=== PATIENT | female | born 1945 | race Caucasian/White ===

== ENCOUNTER 2019-02-20 08:59 | Day surgery (SDC) | payer MEDICARE ==
[2019-02-19 09:16] VITALS: BMI 32.1
[~2019-02-20 08:59] MED LIST: LACTATED RINGERS 1,000 ML IV SCH
[2019-02-20 09:58] VITALS: RESP 16; TEMP 97.5
[2019-02-20] MEDS ORDERED: LIDOCAINE 1% 20 ML VIAL (10MG/ML) FOR IV START INTRADERMA ONE (10:14)
[2019-02-20] MEDS ORDERED: PROPOFOL 10 MG/ML 20 ML VIAL IV ONE (11:36)
[2019-02-20] MEDS ORDERED: LIDOCAINE 1% INJ 10MG/ML (20 ML MDV) ONE (11:36)
[2019-02-20 12:02] VITALS: BP 131/82
--- NOTE | 2019-02-20 12:02 | P.PCN ---
Date of Procedure: 02/20/19 Procedure(s) Performed: BRIEF HISTORY: Patient is a 74-year-old pleasant female, scheduled for an elective colonoscopy as a part of screening for colorectal neoplasia. Recently was noted to have Hemoccult-positive stool. PROCEDURE PERFORMED: Colonoscopy with snare polypectomy. PREOPERATIVE DIAGNOSIS: Screening for colon cancer/Hemoccult-positive stool. IV sedation per Anesthesia. PROCEDURE: After informed consent was obtained, the patient, was brought into the endoscopy unit. IV sedation was administered by Anesthesia under continuous monitoring. Digital rectal examination was normal. Initially the Olympus CF-160 flexible video colonoscope was then inserted in the rectum, gradually advanced into the cecum without any difficulty. Careful examination was performed as the scope was gradually being withdrawn. Ileocecal valve and the appendiceal orifice were visualized and appeared normal. Prep was excellent. Mucosa of the cecum, ascending colon, appeared normal. In the transverse colon there was a 7 mm sessile polyp removed by snare polypectomy. In the sigmoid colon there was a 1 cm polyp removed by snare polypectomy. Rest of the transverse colon, descending colon, sigmoid colon, and rectum appeared normal. I did sigmoidal diverticula seen. Retroflexion was performed in the rectum and no lesions were seen. The patient tolerated the procedure well. IMPRESSION: 7 mm sessile transverse colon polyp status post polypectomy 1 cm sigmoid colon polyp status post snare polypectomy Scattered sigmoid diverticulosis RECOMMENDATIONS: Findings of this examination were discussed with the patient as well as a family. She was advised to follow with the biopsy results. If the biopsy shows adenoma, she can have a repeat colonoscopy in 3 years.
[2019-02-20 12:22] VITALS: PULSE 62
== END 2019-02-20 13:04 | disposition home or self-care (01) ==
LOC: ORWHC2ENDO 08:59
PROVIDERS: ATTEND Internal Medicine Gastroenterology
DX: D12.5 Benign neoplasm of sigmoid colon (principal); D12.3 Benign neoplasm of transverse colon; K57.30 Diverticulosis of large intestine without perforation or abscess without bleeding; I10 Essential (primary) hypertension; E78.5 Hyperlipidemia, unspecified; Z79.899 Other long term (current) drug therapy
CPT/HCPCS: 88305; 45385; J2001; J2704

== ENCOUNTER → 2020-03-29 | Outpatient (CLI) | payer MEDICARE ==
--- NOTE | 2020-03-29 09:05 | XR ---
EXAMINATION TYPE: XR chest 2V DATE OF EXAM: 03/29/2020 COMPARISON: NONE TECHNIQUE: PA and lateral views submitted. HISTORY: Cough FINDINGS: The lungs are clear and there is no pneumothorax, pleural effusion, or focal pneumonia. No overt fa ilure. Biapical pleural thickening. Hypertrophic and degenerative change of the spine. IMPRESSION: 1. No acute process.
== END | disposition home or self-care (01) ==
LOC: RADXRMAIN 08:41
PROVIDERS: ATTEND Internal Medicine
DX: R59.0 Localized enlarged lymph nodes (principal); R63.4 Abnormal weight loss
CPT/HCPCS: 71046

== ENCOUNTER → 2020-04-05 | Outpatient (CLI) | payer MEDICARE ==
--- NOTE | 2020-04-06 08:01 | CT ---
EXAMINATION TYPE: CT abdomen pelvis w con DATE OF EXAM: 04/05/2020 HISTORY: Abdominal pain and weight loss. CT DLP: 972.2mGycm Automated Exposure Control for Dose Reduction was Utilized. CONTRAST: CT scan of the abdomen and pelvis is performed without oral but with IV Contrast, patient injected wi th 120ml mL of Isovue 370. COMPARISON: None. FINDINGS: LUNG BASES: Dependent atelectasis. Three-vessel coronary artery calcification which is noted marked u nderlying coronary artery disease. LIVER/GB: No significant abnormality is appreciated. PANCREAS: No significant abnormality is seen. SPLEEN: Fairly prominent splenomegaly measuring 17.3 cm long axis coronal image 83. Heterogeneous are as of hypodensity or diminished perfusion noted reference posterior mid aspect coronal image 98. ADRENALS: No significant abnormality is seen. KIDNEYS: Symmetric corticomedullary uptake without visualized excretion. No hydronephrosis is noted b ilaterally however. Simple appearing 1.8 cm thin-walled cyst posteriorly upper pole of right kidney i mage 42 series 5. BOWEL: No suspicious small or large bowel dilatation. Mild wall thickening sigmoid rectal colon pres ent prior to poor distention. UTERUS/ADNEXA: Anteverted uterus. LYMPH NODES: Abnormal adenopathy throughout the abdomen and pelvis multiple prominent retroperitoneal level. Reference series 3.6 x 2.8 cm lymph node anterior to the abdominal aorta maximally 62 within the mid abdomen. There are scattered abnormal prominent mesenteric lymph nodes. 4 represents a 1.7 x 1.4 cm right mid mesenteric lymph node is noted axial image 84. There are abnormal pelvic iliac chain lymph nodes. For reference 2.7 x 1.8 cm lymph node noted right pelvis axial image 116. There are abn ormal enlarged bilateral groin lymph nodes. Reference left groin lymph node measures 2.0 x 1.7 cm max imum 153. There are abnormal retrocrural lymph nodes just above the diaphragm. OSSEOUS STRUCTURES: Dextroconvex scoliotic curvature centered at L3 level with moderate multilevel s purring and multilevel disc space narrowing. Multilevel facet arthropathy in the lower lumbar spine. OTHER: No significant additional abnormality is seen. IMPRESSION: Splenomegaly with abnormal adenopathy above and below diaphragm strongly suspicious for n eoplasm such as lymphoma. Advise hematology oncology referral for further workup and treatment. A Yellow level critical message alert has been initiated for Chema Garcia MD via the [employer] Critical Results System on 04/06/2020 7:59 AM. This message alert has been sent to Chema Garcia MD via the preferences provided by the clinician for the receipt of Radiology Critical Findings. Message ID [id number].
== END | disposition home or self-care (01) ==
LOC: RADCTMAIN 16:16
PROVIDERS: ATTEND Internal Medicine
DX: R16.1 Splenomegaly, not elsewhere classified (principal); R59.9 Enlarged lymph nodes, unspecified; R63.4 Abnormal weight loss
CPT/HCPCS: 74177; Q9967

== ENCOUNTER → 2020-04-11 | Outpatient (CLI) | payer MEDICARE | END | disposition home or self-care (01) | LOC: LABPAT 11:00 | PROVIDERS: ATTEND Surgery | DX: U07.1 COVID-19 (principal) ==

== ENCOUNTER 2020-04-14 11:42 | Day surgery (SDC) | payer MEDICARE ==
[2020-04-13 12:51] VITALS: BMI 28.0
[~2020-04-14 11:42] MED LIST changes: -LACTATED RINGERS 1,000 ML IV SCH; +Pre Op ABX Message 1 EACH MISC MISCELLANE ONE
[2020-04-14 12:20] VITALS: TEMP 97
[2020-04-14] MEDS ORDERED: LACTATED RINGERS 1,000 ML IV ONE (12:25)
[2020-04-14] MEDS ORDERED: MIDAZOLAM 2 MG/2 ML VIAL ONE (14:10)
[2020-04-14] MEDS ORDERED: PROPOFOL 10 MG/ML 20 ML VIAL IV ONE (14:10)
[2020-04-14] MEDS ORDERED: LIDOCAINE 1% INJ 10MG/ML (20 ML MDV) ONE (14:10)
[2020-04-14] MEDS ORDERED: fentaNYL (PF) 50 MCG/ML 2 ML AMP ONE (14:10)
[2020-04-14] MEDS ORDERED: KETAMINE 10 MG/ML 20 ML VIAL ONE (14:10)
[2020-04-14] MEDS ORDERED: BUPIVACAIN-EPI 0.25%-1:200,000 30 ML VIAL SQ ONE ×2 (14:33)
--- NOTE | 2020-04-14 15:04 | P.OP ---
Date of Procedure: 04/14/20 Preoperative Diagnosis: Cervical lymphadenopathy Postoperative Diagnosis: Cervical lymphadenopathy Procedure(s) Performed: Deep cervical lymph node biopsy Anesthesia: local Surgeon: Manuela Cabello Pathology: other (Lymph node 2) Condition: stable Disposition: same day Indications for Procedure: 75-year-old female presented to the surgery clinic secondary to recent finding of lymphadenopathy and concern for lymphoma by her primary care physician. Secondary to this, plan was for cervical lymph node biopsy. The patient was explained the risks, benefits and alternatives to the procedure did provide her consent prior to attending the operating suite. Operative Findings: Extremely friable lymphadenopathy in cervical region Description of Procedure: The patient was brought into the operating suite and placed in supine position on the operating table. Sedation was provided by anesthesia and the patient was prepped and draped in regular sterile fashion. The palpable lymphadenopathy was noted. Local anesthetic was administered and an incision was made in the cervical region. Dissection was carried towards the palpable lymphadenopathy. The lymph node was dissected free from the surrounding tissue and was noted to be extremely friable. Additional lymph node was also palpated and was dissected free from surrounding tissue. This lymph node was also noted to be extremely friable. Both lymph nodes were sent as specimen for evaluation. Hemostasis was noted to be maintained. The wound was then closed in layers with 301 4-0 Vicryl subcuticular suture. Sterile dressing was applied. The patient was taken to postanesthesia care unit in stable condition.
[2020-04-14 15:35] VITALS: BP 108/62; PULSE 67; RESP 20
== END 2020-04-14 16:00 | disposition home or self-care (01) ==
LOC: OR 11:42
PROVIDERS: ATTEND Surgery
DX: C82.31 Follicular lymphoma grade IIIa, lymph nodes of head, face, and neck (principal); I10 Essential (primary) hypertension; E78.5 Hyperlipidemia, unspecified; Z79.82 Long term (current) use of aspirin; Z79.899 Other long term (current) drug therapy
CPT/HCPCS: 88305; 38510; J2250; J2001; J3010; J2704; 88341; 88342

== ENCOUNTER → 2020-04-15 | Outpatient (CLI) | payer MEDICARE ==
--- NOTE | 2020-04-19 20:33 | PE ---
EXAMINATION TYPE: PET CT fusion skull to thigh DATE OF EXAM: 04/15/2020 CLINICAL HISTORY: 75-year-old female C85.88, initial staging lymphoma diagnosed by a left neck biopsy on 04/14/2020. TECHNIQUE: Following the intravenous administration of 11.53 mCi of F-18 FDG, whole body images are performed from the skull base to the midthigh. Images are reviewed on the computer in the coronal, axial, and sagittal planes. Reconstructed rotating images are created on independent workstation and reviewed on the computer. A localization and attenuation correction CT is performed in conjunction with the PET scan. Glucose level: 82 mg/dL COMPARISON: Correlation CT abdomen and pelvis 04/05/2020 FINDINGS: PET: NECK: There is diffuse cervical lymphadenopathy including the bilateral parotid spaces measuring up t o 1.2 cm and along the cervical chains measuring up to 2.5 cm on the left. Supraclavicular lymphadeno nikkie measuring up to 2.7 cm on the right. Max SUV 13.4. Increased uptake left greater than right adenoid soft tissues as well as the right greater than left bilateral palatine tonsils. Max SUV 14.1. CHEST: There is diffuse thoracic lymphadenopathy involving the bilateral axilla with nodes measuring up to 2.3 cm on the left, right internal mammary chain measuring up to 1.0 cm axial image 109, right paratracheal measuring up to 2.1 cm, subcarinal measuring 4.3 cm, lower paraaortic measuring up to 1. 1 cm, and retrocrural measuring up to 1.2 cm. Increased activity also noted involving smaller nodes a t the freddy. Max SUV 12.7 located in the superior mediastinum. Nonspecific 8 mm medial right basilar pulmonary nodule, axial image 109 likely too small for adequate PET characterization. 3 mm right mid lung pulmonary nodule is nonspecific and too small for adequate PET characterization. 1.1 cm subpleural nodule right posteromedial lung base, axial image 109 shows mild uptake. ABDOMEN: Average liver SUV: 1.8. The spleen is enlarged measuring 18.2 cm with moderate diffuse increased uptake. Foci of more intense uptake along the lower pole, max SUV 5.8. Diffuse portahepatic, gastrohepatic (measuring up to 2.0 cm), retroperitoneal (with a left para-aorti c norma mass measuring up to 5.2 x 3.5 cm axial image 158), and numerous mesenteric lymph nodes measu ring up to 1.3 cm. Max SUV 8.2 abbi hepatic, 10.7 retroperitoneal, and 5.3 mesenteric. PELVIS: Bilateral inguinal and upper femoral chain lymphadenopathy measuring up to 2.4 cm on the left , max SUV 5.6. External iliac chain lymphadenopathy measuring up to 1.5 cm on the left and 1.7 cm on the right, max SUV 9.4. Bilateral common iliac chain lymphadenopathy measuring up to 2.[address]: Visualized paranasal sinuses and mastoid air cells appear clear. There is narrowing of the oropharynx due to the palatine tonsillar hypertrophy. Air within the left parotid space likely relating to rece nt lymph node excision. Heart normal size without pericardial effusion. Three-vessel coronary artery calcifications are prese nt. 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 Mild biapical pleural-parenchymal scarring. No consolidation or pleural effusion. Gallstones. Gallbladder is collapsed. 1.7 cm cyst upper pole right kidney. No dilated small bowel, fr ee fluid, or free air. Mild atherosclerotic calcifications abdominal aorta. No significant stool adrienne en. No pericolonic inflammatory change. Sigmoid diverticulosis. Bladder nondistended. Uterus anteverted and small. Both ovaries are also small. No abnormal fluid col lection the pelvis. Bones: Mild degenerative change at the hips. Degenerated dextroconvex curvature of the lumbar spine. Cervical spondylosis. No osseous destructive process seen. IMPRESSION: 1. Diffuse hypermetabolic cervical, thoracic, retroperitoneal, mesenteric, iliac chain, inguinal daniela n, and upper femoral chain lymphadenopathy in keeping with lymphoma. Retroperitoneal norma mass measu res up to 5.2 cm. Additional sites of lymphoid tissue are hypermetabolic including the nasopharynx, p alatine tonsils, and spleen which is enlarged at 18.2 cm. 2. Some oropharyngeal airway narrowing secondary to the palatine tonsillar hypertrophy. 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 3. A couple pulmonary nodules on the right measuring up to 8 mm are too small for adequate PET charac terization and should be reassessed at follow-up. 4. Incidental: CAD, cholelithiasis, and sigmoid diverticulosis.
== END | disposition home or self-care (01) ==
LOC: RADPETMAIN 14:58
PROVIDERS: ATTEND Internal Medicine
DX: C85.88 Other specified types of non-Hodgkin lymphoma, lymph nodes of multiple sites (principal)
CPT/HCPCS: 78815; A9552

== ENCOUNTER → 2020-07-21 | Outpatient (CLI) | payer MEDICARE ==
--- NOTE | 2020-07-22 11:30 | CT ---
EXAMINATION TYPE: CT ChestAbdPelvis w con DATE OF EXAM: 07/21/2020 INDICATION: Lymphoma COMPARISON: PET CT 04/15/2020 CT DLP: 858.4 mGycm CONTRAST: Performed with Oral Contrast and with IV Contrast, patient injected with 100 mL of Isovue 300. TECHNIQUE: Axial images at 5 mm thick sections. Reconstructed images in the coronal plane. Delayed images through the kidneys. FINDINGS: CT CHEST: Portion of the thyroid visualized is normal. There is some apical scarring bilaterally. No enlarged mediastinal or hilar adenopathy is evident. A few shotty nodes are present. The ascending aorta diameter at the level of the main pulmonary artery is 3.3 cm. The main pulmonary artery diameter at the bifurcation is 2.[address] ABDOMEN: Liver: Normal Spleen: Normal Pancreas: Atrophic Adrenal glands: The adrenal glands are normal. Gallbladder: Cholelithiasis. Kidneys: No masses are evident. No hydronephrosis is present. There is a 2.1 cm posterior right zina al cyst measuring 9 Hounsfield units. Delayed images were obtained through the kidneys, which remain unremarkable. Aorta: Vascular calcification is within the aorta. Inferior vena cava: Normal. CT PELVIS: Loops of bowel within the abdomen and pelvis are normal. Scattered diverticuli within the sigmoid co dona. There are loops of bowel which are incompletely distended or lack oral contrast limiting their evaluation. Appendix: Normal as visualized. Urinary bladder: Normal. Genitourinary structures: Uterus is unremarkable. Adnexal regions are clear. Osseous structures: No suspicious lytic or sclerotic lesions. Lobes: There is enlarged. Aortic lymph nodes. Example image 1.5 cm transverse dimension series 3 imag e 74. Additional smaller scattered lymph nodes are present. No subcrural adenopathy is evident. COMPARISON:Previous enlarged axillary and mediastinal lymphadenopathy has resolved. Retrocrural adeno nikkie has resolved. The periaortic and retrocaval adenopathy is significantly diminished over the int erval inguinal adenopathy is improved. Bilateral Obturator canal adenopathy has resolved. IMPRESSIONS: 1. Residual prominent periaortic lymph node upper periaortic region is diminished in size from compar barney. 2. Some residual lymphadenopathy remains in the inguinal region, not enlarged by CT criteria. 3. Remaining comparative areas within the mediastinum and axillary regions and retrocaval retrocrural adenopathy is largely resolved. 4. Cholelithiasis.
== END | disposition home or self-care (01) ==
LOC: RADCTMAIN 10:32
PROVIDERS: ATTEND Internal Medicine Hematology & Oncology
DX: R59.0 Localized enlarged lymph nodes (principal); K80.20 Calculus of gallbladder without cholecystitis without obstruction; C85.98 Non-Hodgkin lymphoma, unspecified, lymph nodes of multiple sites
CPT/HCPCS: 82565; 84520; 71260; 74177; 36415; Q9967

== ENCOUNTER → 2020-09-13 | Outpatient (CLI) | payer MEDICARE ==
[2020-09-13 14:33] LABS: African American GFR (CKD) >90 (>60 ml/min/1.73 sqM); Blood Urea Nitrogen 15 mg/dL (7-17); Non-African American GFR(CKD) 87 (>60 ml/min/1.73 sqM)
--- NOTE | 2020-09-13 16:10 | CT ---
EXAMINATION TYPE: CT ChestAbdPelvis w con DATE OF EXAM: 09/13/2020 COMPARISON: 07/21/2020 HISTORY: Follow up for lymphoma CT DLP: 788.7 mGycm CONTRAST: CT scan of the chest, abdomen and pelvis is performed with Oral Contrast and with IV Contrast, patien t injected with 100 mL of Isovue 300. CT Chest: LUNGS: The lungs are clear and free of infiltrate or atelectasis. No pulmonary nodule or mass is det ected. No pleural effusion or CT evidence of interstitial lung disease. MEDIASTINUM: Thoracic aorta is of normal caliber. The heart is not enlarged. No evidence for media stinal mass or adenopathy. HILAR STRUCTURES: No evidence for mass. No hilar adenopathy is appreciated. OTHER: No significant abnormality. CONTRAST CT ABDOMEN AND PELVIS FINDINGS: LIVER/GB: Calcified gallstones noted. No space occupying hepatic lesion. Biliary tree is of normal ca liber. PANCREAS: No inflammation. No distinct mass. SPLEEN: No splenic enlargement. No lesion seen. ADRENALS: No nodule. No thickening. KIDNEYS/BLADDER: No hydronephrosis. No nephrolithiasis. No disctinct renal mass. BOWEL: Normal appendix. Normal bowel caliber. No inflammation. GENITAL ORGANS: No gross abnormality. LYMPH NODES: No greater than 1cm abdominal or pelvic lymph nodes are appreciated. AORTA: No significant abnormality. OSSEOUS STRUCTURES: No significant abnormality is seen. OTHER: No significant additional abnormality is seen. IMPRESSION: 1. No evidence for adenopathy at this time throughout the chest abdomen and pelvis.
== END | disposition home or self-care (01) ==
LOC: RADCTMAIN 13:42
PROVIDERS: ATTEND Internal Medicine Hematology & Oncology
DX: C85.98 Non-Hodgkin lymphoma, unspecified, lymph nodes of multiple sites (principal)
CPT/HCPCS: 82565; 84520; 71260; 74177; 36415; Q9967

== ENCOUNTER → 2020-11-03 | Outpatient (CLI) | payer MEDICARE ==
[~2020-11-03] MED LIST changes: +FAMOTIDINE 20 MG/2 ML VIAL IV NR; -Pre Op ABX Message 1 EACH MISC MISCELLANE ONE; +RITUXIMAB PVVR IV NR; +SODIUM CHLORIDE 0.9% 500 ML 500 ML in EMPTY BAG 1 BAG IV PRN; +SODIUM CHLORIDE 0.9% IV NR; +diphenhydrAMINE 50 MG/ML 1 ML VIAL IVP NR; +methylPREDNISolone SOD SUCCI 125 MG/2 ML VIAL IV NR
[2020-11-03 09:08] VITALS: RESP 16; TEMP 98.3
[2020-11-03 09:43] LABS: Basophils % (A) 1 %; Eosinophils # (A) 0.3 k/uL (0-0.7); Eosinophils % (A) 4 %; HCT 38.4 % (34.0-46.0); HGB 12.7 gm/dL (11.4-16.0); Lymphocytes # (A) 1.2 k/uL (1.0-4.8); Lymphocytes % (A) 19 %; MCH 31.1 pg (25.0-35.0); MCHC 33.2 g/dL (31.0-37.0); MCV 93.9 fL (80.0-100.0); Mean Platelet Volume 6.7; Monocytes # (A) 0.5 k/uL (0-1.0); Monocytes % (A) 8 %; Neutrophils % (A) 65 %; Platelet Count 314 k/uL (150-450); RBC 4.08 m/uL (3.80-5.40); RDW 13.6 % (11.5-15.5); WBC 6.1 k/uL (3.8-10.6)
[2020-11-03 11:53] VITALS: BP 130/76; PULSE 82
== END | disposition home or self-care (01) ==
LOC: PROCWHC3 08:41
PROVIDERS: ATTEND Internal Medicine Hematology & Oncology
DX: C85.98 Non-Hodgkin lymphoma, unspecified, lymph nodes of multiple sites (principal)
CPT/HCPCS: 85025; 96365; 96366; 96375; 36415; J1200; J2930; Q5119

== ENCOUNTER → 2020-12-29 | Outpatient (CLI) | payer MEDICARE ==
[2020-12-29 09:56] VITALS: TEMP 98.1
[2020-12-29 10:59] LABS: Basophils % (A) 0 %; Eosinophils # (A) 0.2 k/uL (0-0.7); Eosinophils % (A) 3 %; HCT 36.9 % (34.0-46.0); HGB 12.4 gm/dL (11.4-16.0); Lymphocytes # (A) 0.8 k/uL (1.0-4.8); Lymphocytes % (A) 16 %; MCH 30.2 pg (25.0-35.0); MCHC 33.7 g/dL (31.0-37.0); MCV 89.6 fL (80.0-100.0); Monocytes # (A) 0.5 k/uL (0-1.0); Monocytes % (A) 9 %; Neutrophils # (A) 3.8 k/uL (1.3-7.7); Neutrophils % (A) 70 %; Platelet Count 275 k/uL (150-450); RBC 4.12 m/uL (3.80-5.40); RDW 13.4 % (11.5-15.5); WBC 5.4 k/uL (3.8-10.6)
[2020-12-29 11:55] VITALS: BP 131/74; PULSE 61; RESP 18
== END ==
LOC: PROCWHC3 09:44
PROVIDERS: ATTEND Internal Medicine Hematology & Oncology
DX: C85.98 Non-Hodgkin lymphoma, unspecified, lymph nodes of multiple sites (principal)
CPT/HCPCS: 85025; 96375; 96413; 96415; 36415; J1200; J2930; Q5119

== ENCOUNTER → 2021-01-10 | Outpatient (CLI) | payer MEDICARE ==
[2021-01-10 11:33] LABS: African American GFR (CKD) >90 (>60 ml/min/1.73 sqM); Blood Urea Nitrogen 13 mg/dL (7-17); Non-African American GFR(CKD) 87 (>60 ml/min/1.73 sqM)
--- NOTE | 2021-01-10 13:33 | CT ---
EXAMINATION TYPE: CT ChestAbdPelvis w con DATE OF EXAM: 01/10/2021 COMPARISON: CT September 13, [address] and PET-CT studies. HISTORY: Non-Hodgkin lymphoma originally diagnosed 2019 above and below diaphragm. CT DLP: 1437 mGycm. Automated Exposure Control for Dose Reduction was Utilized. CONTRAST: CT scan of the thorax, abdomen and pelvis is performed with oral and with IV Contrast, patient inject ed with 100 mL of Isovue M300. FINDINGS: LUNGS: The lungs remain grossly clear, there is no concerning new parenchymal mass or nodule identifi ed. There is no pleural effusion or pneumothorax seen bilaterally. The tracheobronchial tree is pa tent. MEDIASTINUM: There are no new greater than 1 cm hilar or mediastinal lymph nodes. Few prominent but subcentimeter residual supraclavicular lymph nodes remain present. No cardiomegaly or pericardial eff usion is seen. Moderate three-vessel coronary calcification is present. Slightly heterogeneous thyro id with few small subcentimeter right-sided thyroid nodules suspected. 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 Other: There is 7 to 8 mm circumscribed low dense lesion anterior left upper thorax axial image 8 and coronal image 23 new from prior studies. There is suspicion for recurrent or new 11 x 10 mm lymph no de posterior to the left thyroid gland axial image 5. Recurrent right paraesophageal lymph node in th e lower thorax measuring 1.3 x 1.2 cm axial image 54. LIVER/GB: Calcifications in the inferior gallbladder could reflect stones and/or wall calcification. Finding unchanged from prior studies. Consider ultrasound evaluation. PANCREAS: No significant abnormality is seen. SPLEEN: Spleen size remains within normal limits. ADRENALS: No significant abnormality is seen. KIDNEYS: Symmetric cortical medullary uptake and excretion without hydronephrosis seen bilaterally. T here is 2.2 cm thin-walled cyst posteriorly upper pole right kidney redemonstrated. BOWEL: Diverticulosis in the sigmoid colon. No suspicious small or large bowel dilatation. Oral contr ast reaches level of left colon. GENITAL ORGANS: No gross abnormality seen. LYMPH NODES: There is recurrent greater than 1 cm left periaortic 1.5 x 1.0 cm lymph node at level of the draining left renal vein 67. There are additional prominent but subcentimeter retroperitoneal lymph nodes inferior to this. Th ere are new mesenteric masses or adenopathy, for reference there is 2.1 x 1.6 cm left upper to mid ab dominal region axial image 72 and 1.7 x 1.6 cm midline abdominal lesion axial image 78 are new from m ost recent CT. To adjacent Suspicious lesions noted left mid to lower abdomen image 82. Suspicious re current right pelvic lesion measuring 14 x 9 mm on axial image 104. Suspicious left pelvic lymph nod e measuring 1.2 x 1.1 cm axial image 116 and also additional enlarged new left groin lymph nodes for reference there is 2.5 x 2.5 cm lesion image 124. OSSEOUS STRUCTURES: Slight underlying scoliotic curvature. Multilevel spurring and disc space narrowi ng throughout the thoracolumbar spine. OTHER: No significant additional abnormality is seen. IMPRESSION: Active lymphoma recurrence felt present with new suspicious and abnormal enlarged lymph n odes above and below the diaphragm as detailed above. Findings can be confirmed with repeat PET/CT if desired.
== END | disposition home or self-care (01) ==
LOC: RADCTMAIN 10:50
PROVIDERS: ATTEND Internal Medicine Hematology & Oncology
DX: C85.98 Non-Hodgkin lymphoma, unspecified, lymph nodes of multiple sites (principal)
CPT/HCPCS: 82565; 84520; 71260; 74177; 36415; Q9967 ×2

== ENCOUNTER → 2021-01-23 | Outpatient (CLI) | payer MEDICARE ==
[2021-01-23 08:27] LABS: African American GFR (CKD) >90 (>60 ml/min/1.73 sqM); Blood Urea Nitrogen 21 mg/dL (7-17); Non-African American GFR(CKD) 85 (>60 ml/min/1.73 sqM)
--- NOTE | 2021-01-23 10:26 | CT ---
EXAMINATION TYPE: CT soft tissue neck w con DATE OF EXAM: 01/23/2021 COMPARISON: None HISTORY: Lymphoma, s/p biopsy CT DLP: 481.45 mGycm CONTRAST: CT scan of the neck is performed with IV Contrast, patient injected with 100 mL of Isovue 300. Contrast enhanced CT of the neck was performed from the skull base through the lung apices. AIRWAY: There is asymmetric soft tissue extending from the nasopharynx on the right into the region o f the oropharynx. The tonsils bilaterally are enlarged left slightly greater than right. There is sof t tissue extending into the region of the vallecula. Subglottic airway is unremarkable. SALIVARY GLANDS: The submandibular and parotid glands are free of mass or inflammatory process. THYROID GLAND: No nodules or masses seen. LYMPH NODES: 2 cm lymph node right internal jugular chain. Left internal jugular chain demonstrates a 2 cm lymph node as well. Additional adenopathy on the right measuring up to 1.3 cm. Adenopathy poste rior to the left psoas measuring 2 cm. LUNG APICES: No nodule or mass is seen. OTHER: Vascular structures are patent. Moderate degenerative change of the cervical spine. No absce ss seen. IMPRESSION: 1. Adenopathy about the neck compatible with patient's provided history of trauma. 2. There is asymmetric soft tissue extending from the nasopharynx on the right into the region of the oropharynx. The tonsils bilaterally are enlarged left slightly greater than right. There is soft tis buck extending into the region of the vallecula.
--- NOTE | 2021-01-23 10:38 | CT ---
EXAMINATION TYPE: CT sinus wo/w con DATE OF EXAM: 01/23/2021 COMPARISON: none HISTORY: Lymphoma CT DLP: 1057.31 mGycm. Automated Exposure Control for Dose Reduction was Utilized. TECHNIQUE: CT scan of the sinuses is performed with and without contrast, axial images are obtained, coronal reformatted images are also reviewed. FINDINGS: The paranasal sinuses including the frontal,sphenoid, and maxillary sinuses bilaterally ar e well-aerated without abnormal opacification. Opacification noted about several ethmoid air cells. T he ostiomeatal complex is patent bilaterally on the coronal images. There is asymmetric soft tissue extending from the nasopharynx on the right into the region of the or opharynx. Soft tissue measures 1.7 x 2.0 cm. Visualized portion of mastoid air cells show no abnormal opacification. The globes are intact bilate rally. IMPRESSION: 1.There is asymmetric soft tissue extending from the nasopharynx on the right into the region of the oropharynx. Soft tissue measures 1.7 x 2.0 cm.
== END | disposition home or self-care (01) ==
LOC: RADCTMAIN 07:39
PROVIDERS: ATTEND Internal Medicine Hematology & Oncology
DX: C85.98 Non-Hodgkin lymphoma, unspecified, lymph nodes of multiple sites (principal); J35.1 Hypertrophy of tonsils
CPT/HCPCS: 82565; 84520; 70491; 36415; 70488; Q9967

== ENCOUNTER → 2021-01-30 | Outpatient (CLI) | payer MEDICARE ==
--- NOTE | 2021-01-30 17:04 | ECHOF ---
Referral Reason:Z80.818 Chemo exposure MEASUREMENTS -------- HEIGHT: 160.0 cm WEIGHT: 68.0 kg BP: IVSd: 0.8 cm (0.6 - 1.1) LVIDd: 4.2 cm (3.9 - 5.3) LVPWd: 1.1 cm (0.6 - 1.1) EDV(Teich): 81 ml IVSs: 1.5 cm LVIDs: 3.2 cm LVPWs: 1.3 cm %IVS Thck: 84 % ESV(Teich): 40 ml EF(Teich): 51 % %FS: 26 % SV(Teich): 41 ml RVIDd: 2.3 cm (< 3.3) LALs A4C: 4.4 cm LAAs A4C: 14.7 cm LAESV A-L A4C: 42 ml LAESV MOD A4C: 39 ml LALs A2C: 4.3 cm LAAs A2C: 14.1 cm LAESV A-L A2C: 40 ml LAESV MOD A2C: 37 ml LAESV(A-L): 41 ml LAESV Index (A-L): 24.19 ml/m Ao Diam: 2.8 cm (2.0 - 3.7) AV Cusp: 1.5 cm (1.5 - 2.6) EPSS: 0.8 cm MV E Neri: 0.59 m/s MV DecT: 186 ms MV Dec Jones: 3.2 m/s MV A Neri: 0.81 m/s MV E/A Ratio: 0.73 MV PHT: 54 ms TR Vmax: 1.91 m/s TR maxP.52 mmHg RAP: 5.00 mmHg RVSP: 19.52 mmHg MV EF SLOPE: 50.15 mm/s (70 - 150) MV EXCURSION: 14.58 mm (> 18.000) FINDINGS -------- Sinus rhythm. This was a technically adequate study. LV size, wall thickness and systolic function are normal, with an EF greater than 55%. The left atiya tricular size is normal. The right ventricle is normal in size. Normal LA size by volume 22+/-6 ml/m2. The right atrial size is normal. There is mild aortic valve sclerosis. There is no evidence of aortic regurgitation. Mild mitral annular calcification present. Mild mitral regurgitation is present. Mild tricuspid regurgitation present. Right ventricular systolic pressure is normal at < 35 mmHg. There is no pulmonic regurgitation present. The aortic root size is normal. Echo free space represents a pericardial fat pad. CONCLUSIONS -------- 1. LV size, wall thickness and systolic function are normal, with an EF greater than 55%. 2. The left ventricular size is normal. 3. The right ventricle is normal in size. 4. Normal LA size by volume 22+/-6 ml/m2. 5. The right atrial size is normal. 6. There is mild aortic valve sclerosis. 7. Mild mitral annular calcification present. 8. Mild mitral regurgitation is present. 9. Mild tricuspid regurgitation present. 10. The aortic root size is normal. 11. Echo free space represents a pericardial fat pad. CUTTER MACHINE: Margo Irizarry RDCS
== END | disposition home or self-care (01) ==
LOC: RADECHMAIN 14:20
PROVIDERS: ATTEND Internal Medicine Hematology & Oncology
DX: I08.1 Rheumatic disorders of both mitral and tricuspid valves (principal); I70.0 Atherosclerosis of aorta
CPT/HCPCS: 93306

== ENCOUNTER → 2021-02-06 | Day surgery (SDC) | payer MEDICARE ==
[2021-02-03 11:29] VITALS: BMI 26.5
[2021-02-06 10:01] VITALS: BP 137/73; PULSE 62; RESP 16; TEMP 98
--- NOTE | 2021-02-06 17:20 | IR ---
Port-A-Cath check HISTORY: Malfunctioning Port-A-Cath Fluoroscopy performed real-time over the port, gentle hand-injection of contrast material into the po rt was performed following the access of the port by the radiology nurse. 148 images obtained. 0.4 minutes fluoroscopy time. The port is patent. There is no evident leak. Tip the catheter is within the superior vena cava. Acce ss needle was removed. Hemostasis achieved. No immediate consultation. IMPRESSION: Patent port. Tip of the catheter is within the superior vena cava.
== END ==
LOC: CATHCVL 09:39
PROVIDERS: ATTEND Radiology Diagnostic Radiology
DX: T85.618A Breakdown (mechanical) of other specified internal prosthetic devices, implants and grafts, initial encounter (principal); C85.98 Non-Hodgkin lymphoma, unspecified, lymph nodes of multiple sites; I10 Essential (primary) hypertension; Z79.52 Long term (current) use of systemic steroids; Z79.899 Other long term (current) drug therapy; Z98.890 Other specified postprocedural states; Z86.19 Personal history of other infectious and parasitic diseases
CPT/HCPCS: 36598; 87635

== ENCOUNTER 2021-02-15 15:39 | Inpatient (IN) | payer MEDICARE ==
[2021-02-15] MEDS ORDERED: SODIUM CHLORIDE 0.9% 500 ML 500 ML IV STA (16:23)
--- NOTE | 2021-02-15 17:05 | ED ---
General Adult HPI - General Chief complaint: Fever Stated complaint: neutopenic fever Time Seen by Provider: 02/15/21 16:23 Source: patient, family, RN notes reviewed, old records reviewed Mode of arrival: wheelchair Limitations: no limitations - History of Present Illness Initial comments: 76-year-old female presenting with fever, tachycardia. Patient is currently being treated for leukemia. She was seen at the infusion center today and noted to be febrile. She did receive infusion 1 week ago. She denies cough or known fever. She denies abdominal pain nausea vomiting. She denies dysuria. She does have a Mediport. No URI symptoms. - Related Data Home Medications Medication Instructions Recorded Confirmed Allopurinol [Zyloprim] 300 mg PO DAILY 02/03/21 02/15/21 Folic Acid 1 mg PO DAILY 02/03/21 02/15/21 OLANZapine [ZyPREXA] 5 mg PO DIRECTED 02/03/21 02/15/21 Omeprazole 40 mg PO DAILY 02/03/21 02/15/21 Ondansetron [Zofran] 4 mg PO Q4HR PRN 02/03/21 02/15/21 Sennosides/Docusate Sodium [Senna 1 tab PO HS PRN 02/03/21 02/15/21 Plus 8.6-50 mg Tablet] Cholecalciferol [Vitamin D3 (25 25 mcg PO DAILY 02/15/21 02/15/21 Mcg = 1000 Iu)] Enalapril/Hydrochlorothiazide 1 tab PO DAILY 02/15/21 02/15/21 [Enalapril/Hydrochlorothiazide 10-25 mg Tablet] predniSONE 100 mg PO DIRECTED 02/15/21 02/15/21 Allergies Allergy/AdvReac Type Severity Reaction Status Date / Time No Known Allergies Allergy Verified 02/15/21 17:37 Review of Systems ROS Statement: Those systems with pertinent positive or pertinent negative responses have been documented in the HPI. ROS Other: All systems not noted in ROS Statement are negative. Past Medical History Past Medical History: Cancer, GERD/Reflux, Hyperlipidemia Additional Past Medical History / Comment(s): lymphoma dx April 2020-starting chemo on 02-08-21-last chemo 2019, SWELLING IN NECK, hx SOME RETENTION OF FLUIDS OF ANKLES IN THE PAST, History of Any Multi-Drug Resistant Organisms: None Reported Past Surgical History: No Surgical Hx Reported Additional Past Surgical History / Comment(s): COLONOSCOPY,port a cath insertion on 01-31-21 Past Anesthesia/Blood Transfusion Reactions: No Reported Reaction Additional Past Anesthesia/Blood Transfusion Reaction / Comment(s): NO PRIOR SX HX Past Psychological History: No Psychological Hx Reported Smoking Status: Never smoker Past Alcohol Use History: None Reported Past Drug Use History: None Reported - Past Family History Mother Family Medical History: No Reported History General Exam Limitations: no limitations General appearance: alert, in no apparent distress Head exam: Present: atraumatic, normocephalic Eye exam: Present: normal appearance, PERRL ENT exam: Present: normal exam Neck exam: Present: normal inspection. Absent: tenderness, meningismus Respiratory exam: Present: normal lung sounds bilaterally. Absent: respiratory distress, wheezes, rales, rhonchi Cardiovascular Exam: Present: normal rhythm, tachycardia GI/Abdominal exam: Present: soft. Absent: distended, tenderness, guarding, rebound Extremities exam: Present: normal inspection, normal capillary refill Neurological exam: Present: alert, oriented X3, CN II-XII intact. Absent: motor sensory deficit Psychiatric exam: Present: normal affect, normal mood Skin exam: Present: warm, dry, intact. Absent: cyanosis, diaphoretic Course Vital Signs 02/15/21 02/15/21 02/15/21 16:02 17:14 18:05 Temperature 100.1 F H 99.8 F H Pulse Rate 121 H 112 H 108 H Respiratory 17 18 18 Rate Blood Pressure 91/64 128/68 146/82 O2 Sat by Pulse 99 100 98 Oximetry EKG Findings - EKG Comments: EKG Findings:: EKG: Sinus tachycardia, rate of 118, SC interval 160, QRS duration 74, QTC 434, no ST segment elevation. Medical Decision Making - Medical Decision Making Patient has a total white count of 700, presumed neutropenia, started on IV antibiotics. Chest x-rays clear, urinalysis negative for infection, she has a normal CBC. She does have a Mediport, blood cultures are obtained for the possibility of bacteremia. She will be admitted to [facility] emergency department physician group, Dr. Ramirez is aware of patient. 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 Comment Sodium (137-145) mmol/L Potassium (3.5-5.1) mmol/L Chloride (98-107) mmol/L Carbon Dioxide (22-30) mmol/L Anion Gap mmol/L BUN (7-17) mg/dL Creatinine (0.52-1.04) mg/dL Est GFR (CKD-EPI)AfAm (>60 ml/min/1.73 sqM) Est GFR (CKD-EPI)NonAf (>60 ml/min/1.73 sqM) Glucose (74-99) mg/dL Calcium (8.4-10.2) mg/dL Total Bilirubin (0.2-1.3) mg/dL AST (14-36) U/L ALT (4-34) U/L Alkaline Phosphatase (38-126) U/L Total Protein (6.3-8.2) g/dL Albumin (3.5-5.0) g/dL Urine Color Light Yellow Urine Appearance Clear (Clear) Urine pH 7.0 (5.0-8.0) Ur Specific [place] 1.007 (1.001-1.035) Urine Protein Negative (Negative) Urine Glucose (UA) Negative (Negative) Urine Ketones Negative (Negative) Urine Blood Negative (Negative) Urine Nitrite Negative (Negative) Urine Bilirubin Negative (Negative) Urine Urobilinogen <2.0 (<2.0) mg/dL Ur Leukocyte Esterase Negative (Negative) Influenza Type A (PCR) Not Detected (Not Detectd) Influenza Type B (PCR) Not Detected (Not Detectd) RSV (PCR) Not Detected (Not Detectd) SARS-CoV-2 (PCR) Not Detected (Not Detectd) 02/15/21 Range/Units 17:50 WBC (3.8-10.6) k/uL RBC (3.80-5.40) m/uL Hgb (11.4-16.0) gm/dL Hct (34.0-46.0) % MCV (80.0-100.0) fL MCH (25.0-35.0) pg MCHC (31.0-37.0) g/dL RDW (11.5-15.5) % Plt Count (150-450) k/uL MPV Neutrophils # Differential Comment Sodium 131 L (137-145) mmol/L Potassium 3.7 (3.5-5.1) mmol/L Chloride 96 L (98-107) mmol/L Carbon Dioxide 28 (22-30) mmol/L Anion Gap 7 mmol/L BUN 15 (7-17) mg/dL Creatinine 0.56 (0.52-1.04) mg/dL Est GFR (CKD-EPI)AfAm >90 (>60 ml/min/1.73 sqM) Est GFR (CKD-EPI)NonAf >90 (>60 ml/min/1.73 sqM) Glucose 98 (74-99) mg/dL Calcium 8.9 (8.4-10.2) mg/dL Total Bilirubin 1.4 H (0.2-1.3) mg/dL AST 26 (14-36) U/L ALT 31 (4-34) U/L Alkaline Phosphatase 75 (38-126) U/L Total Protein 5.8 L (6.3-8.2) g/dL Albumin 3.5 (3.5-5.0) g/dL Urine Color Urine Appearance (Clear) Urine pH (5.0-8.0) Ur Specific [place] (1.001-1.035) Urine Protein (Negative) Urine Glucose (UA) (Negative) Urine Ketones (Negative) Urine Blood (Negative) Urine Nitrite (Negative) Urine Bilirubin (Negative) Urine Urobilinogen (<2.0) mg/dL Ur Leukocyte Esterase (Negative) Influenza Type A (PCR) (Not Detectd) Influenza Type B (PCR) (Not Detectd) RSV (PCR) (Not Detectd) SARS-CoV-2 (PCR) (Not Detectd) Disposition Clinical Impression: Febrile neutropenia Disposition: ADMITTED IP TO THIS HOSP Condition: Stable Is patient prescribed a controlled substance at d/c from ED?: No Referrals: Quang Henriquez MD [Primary Care Provider] - 1-2 days Decision to Admit Reason: Admit from EC Decision Date: 02/15/21 Decision Time: 18:34
--- NOTE | 2021-02-15 17:35 | XR ---
EXAMINATION TYPE: XR chest 2V DATE OF EXAM: 02/15/2021 COMPARISON: 03/29/2020 HISTORY: Fever TECHNIQUE: 2 views FINDINGS: Heart and mediastinum are normal. Lungs are clear of infiltrate. There are no hilar masses. Costophrenic angles are clear. There is right central venous catheter with tip in the superior vena cava. There is no pleural effusion. There are no hilar masses. There is mild pleural thickening at th e lung apices. IMPRESSION: No active cardiopulmonary disease. No adverse change.
[2021-02-15 17:38] LABS: Appearance,Urine Clear (Clear); Bilirubin,Urine Negative (Negative); Blood,Urine Negative (Negative); Color,Urine Light Yellow; Glucose,Urine (UA) Negative (Negative); Ketones,Urine Negative (Negative); Leukocyte Esterase,Urine Negative (Negative); Nitrite,Urine Negative (Negative); Protein,Urine Negative (Negative); Specific Gravity,Urine 1.007 (1.001-1.035); Urobilinogen,Urine <2.0 mg/dL (<2.0)
[2021-02-15 18:08] LABS: HGB 11.6 gm/dL (11.4-16.0); MCH 30.4 pg (25.0-35.0); MCHC 33.3 g/dL (31.0-37.0); MCV 91.3 fL (80.0-100.0); Mean Platelet Volume 7.2; RBC 3.83 m/uL (3.80-5.40); RDW 13.3 % (11.5-15.5)
[2021-02-15 18:11] LABS: Platelet Count 94 k/uL (150-450); WBC 0.7 k/uL (3.8-10.6)
[2021-02-15 18:15] LABS: ALT 31 U/L (4-34); AST 26 U/L (14-36); African American GFR (CKD) >90 (>60 ml/min/1.73 sqM); Albumin 3.5 g/dL (3.5-5.0); Alkaline Phosphatase 75 U/L (38-126); Anion Gap 7 mmol/L; Blood Urea Nitrogen 15 mg/dL (7-17); Calcium 8.9 mg/dL (8.4-10.2); Carbon Dioxide 28 mmol/L (22-30); Chloride 96 mmol/L (98-107); Glucose 98 mg/dL (74-99); Non-African American GFR(CKD) >90 (>60 ml/min/1.73 sqM); Potassium 3.7 mmol/L (3.5-5.1); Sodium 131 mmol/L (137-145); Total Bilirubin 1.4 mg/dL (0.2-1.3); Total Protein 5.8 g/dL (6.3-8.2)
[2021-02-15] MEDS ORDERED: CEFEPIME 2 GM in SODIUM CHLORIDE 0.9% 100 ML IVPB STA (18:19)
[2021-02-15] MEDS ORDERED: VANCOMYCIN IV PER PHARMACY 1 EACH MISC MISCELLANE PRN (18:19)
[2021-02-15] MEDS ORDERED: VANCOMYCIN 1,500 MG in SODIUM CHLORIDE 0.9% 250 ML IVPB STA (18:31)
[2021-02-15] MEDS ORDERED: NALOXONE 0.4 MG/ML 1 ML VIAL IV PRN (18:32)
[2021-02-15] MEDS: SODIUM CHLORIDE 0.9% 1,000 ML IV SCH (19:22)
--- NOTE | 2021-02-15 21:53 | P.HPIM ---
History of Present Illness H&P Date: 02/15/21 The patient is a 76-year-old female with a PMH of leukemia (diagnosed in July 2020, completed 1 round of chemotherapy) who started second round of therapy on 02/07 who was sent in from her oncologist's office due to fever. The patient notes that she had been feeling somewhat more fatigued than usual over the past week since starting new chemotherapy but denied any additional complaints. She went in for her scheduled oncologist appointment earlier today where she was noted to have a fever and was subsequently sent to the emergency room. The patient denied any active complaints including chest pain, shortness of breath, sore throat, dysphagia, odynophagia, or chills. Denied nausea, vomiting, dizziness, diarrhea, or abdominal pain. Denied headaches, neck pain, or visual disturbances. Upon presentation to the emergency room, vitals were BP 91/64, pulse 121, temp 100.1, and SpO2 99% on room air. Laboratory evaluation revealed a WBC count of 0.7, hemoglobin 11.6, platelets 94, sodium 131, chloride 96, lactic acid 0.7, total bilirubin 1.4. EKG reveals sinus tachycardia with APCs a t 118 bpm with T-wave inversions noted in lead 1 and aVL. Chest x-ray was unremarkable. Review of Systems Pertinent positives and negatives as discussed in HPI, a complete review of systems was performed and all other systems are negative. Past Medical History Past Medical History: Cancer, GERD/Reflux, Hyperlipidemia Additional Past Medical History / Comment(s): lymphoma dx April 2020-starting chemo on 02-08-21-last chemo 2019, SWELLING IN NECK, hx SOME RETENTION OF FLUIDS OF ANKLES IN THE PAST, History of Any Multi-Drug Resistant Organisms: None Reported Past Surgical History: No Surgical Hx Reported Additional Past Surgical History / Comment(s): COLONOSCOPY,port a cath insertion on 01-31-21 Past Anesthesia/Blood Transfusion Reactions: No Reported Reaction Additional Past Anesthesia/Blood Transfusion Reaction / Comment(s): NO PRIOR SX HX Past Psychological History: No Psychological Hx Reported Smoking Status: Never smoker Past Alcohol Use History: None Reported Past Drug Use History: None Reported - Past Family History Mother Family Medical History: No Reported History Medications and Allergies Home Medications Medication Instructions Recorded Confirmed Type Allopurinol [Zyloprim] 300 mg PO DAILY 02/03/21 02/15/21 History Folic Acid 1 mg PO DAILY 02/03/21 02/15/21 History OLANZapine [ZyPREXA] 5 mg PO DIRECTED 02/03/21 02/15/21 History Omeprazole 40 mg PO DAILY 02/03/21 02/15/21 History Ondansetron [Zofran] 4 mg PO Q4HR PRN 02/03/21 02/15/21 History Sennosides/Docusate Sodium [Senna 1 tab PO HS PRN 02/03/21 02/15/21 History Plus 8.6-50 mg Tablet] Cholecalciferol [Vitamin D3 (25 25 mcg PO DAILY 02/15/21 02/15/21 History Mcg = 1000 Iu)] Enalapril/Hydrochlorothiazide 1 tab PO DAILY 02/15/21 02/15/21 History [Enalapril/Hydrochlorothiazide 10-25 mg Tablet] predniSONE 100 mg PO DIRECTED 02/15/21 02/15/21 History Allergies Allergy/AdvReac Type Severity Reaction Status Date / Time No Known Allergies Allergy Verified 02/15/21 17:37 Physical Exam Vitals: Vital Signs Temp Pulse Resp BP Pulse Ox 02/15/21 18:05 99.8 F H 108 H 18 146/82 98 02/15/21 17:14 112 H 18 128/68 100 02/15/21 16:02 100.1 F H 121 H 17 91/64 99 Intake and Output 02/15/21 02/15/21 02/15/21 06:59 14:59 22:59 Other: Weight 68.039 kg General: non toxic, no distress, appears at stated age, normal weight Derm: no unusual rashes/lesions no unusual ecchymoses, warm, dry Head: atraumatic, normocephalic, symmetric Eyes: EOMI, no lid lag, anicteric sclera, pupils equal round reactive to light ENT: Nose and ears atraumatic, thrush noted, no pharyngeal erythema Neck: No thyromegaly, no cervical lymphadenopathy, trachea midline, supple Mouth: no lip lesion, mucus membranes moist Cardiovascular: S1S2 reg, no murmur, positive posterior tibial pulse bilateral, no edema, capillary refill less than 2 seconds Lungs: CTA bilateral, no rhonchi, no rales , no accessory muscle use, R sided chemo port in place Abdominal: soft, nontender to palpation, no guarding, no appreciable organomegaly, normal bowel sounds Ext: no gross muscle atrophy, muscle strength 5 out of 5 in all 4 extremities grossly, no contractures, Neuro: CN II-XI grossly intact, light touch intact all 4 extremities, finger to nose within normal limits, Psych: Alert, oriented, appropriate affect Results CBC & Chem 7: 02/15/21 17:50 02/15/21 17:50 Labs: Abnormal Lab Results - Last 24 Hours (Table) 02/15/21 02/15/21 Range/Units 17:50 17:50 WBC 0.7 L* (3.8-10.6) k/uL Plt Count 94 L D (150-450) k/uL Sodium 131 L (137-145) mmol/L Chloride 96 L (98-107) mmol/L Total Bilirubin 1.4 H (0.2-1.3) mg/dL Total Protein 5.8 L (6.3-8.2) g/dL Assessment and Plan Plan: Neutropenic fever in setting of chemotherapy -C/w Cefepime and Vancomycin -Start Anidulafungin (in place of Caspofungin) in setting of oral candidiasis, can not rule out invasive disease -Follow up cultures -Infectious disease consult -C/w IVFs Thrombocytopenia, likely secondary to chemotherapy -Monitor for now Chronic conditions: Hypertension -Continue home medications DVT prophylaxis -Lovenox The patient is admitted with an anticipated greater than 2 midnight stay for evaluation of neutropenic fever CODE STATUS: No Code Discussed with: Patient Anticipated discharge date: 2-[address]: Home A total of 40 minutes was spent on the care of this complex patient more than 50% of the time was spent in counseling and care coordination.
--- NOTE | 2021-02-15 22:24 | P.PN ---
Progress Note - Text Progress Note Date: 02/15/21 Advanced Care Planning Active Diagnosis: Neutropenic sepsis Persons present: Patient Summary: Discussed the patient's goals of care in great detail. The patient noted that she would not wish to undergo CPR or be placed on life support in the event of a cardiac arrest. She also reported that she would not wish to have life support for any reason, although may consider certain situations on a [id number] basis. She reported that she has lived a long life and has previously filled out her living will which expressed her wishes which she has also discussed with her family. Patient reports that her quality of life is her primary concern and that she would not wish to be kept alive artificially or via heroic measures at her age. Discussed the different forms of life support offered and explained the caveats of CPR. Will make the patient no code as per her wishes Time spent: Total time spent face to face in education and discussion directly related to advanced care plannin minutes
[2021-02-15] MEDS ORDERED: ANIDULAFUNGIN 200 MG in SODIUM CHLORIDE 0.9% 200 ML IVPB ONE (22:30)
[2021-02-16] MEDS: CEFEPIME 2 GM in SODIUM CHLORIDE 0.9% 100 ML IVPB SCH ×3 (00:01→16:27)
[2021-02-16] MEDS: ACETAMINOPHEN TAB 325 MG TAB PO PRN ×2 (00:09→16:49)
[2021-02-16] MEDS: allopurinoL 300 MG TAB PO SCH (07:26)
[2021-02-16] MEDS: FOLIC ACID 1 MG TAB PO SCH (07:26)
[2021-02-16] MEDS: PANTOPRAZOLE 40 MG TABLET PO SCH (07:26)
[2021-02-16] MEDS: ENOXAPARIN 40 MG/0.4 ML SYRINGE SQ SCH (07:28)
[2021-02-16] MEDS ORDERED: LISINOPRIL-HCTZ 20-25 MG 1 EACH TAB PO SCH (09:00)
[2021-02-16] MEDS: VANCOMYCIN 1,250 MG in SODIUM CHLORIDE 0.9% 250 ML IVPB SCH ×2 (09:10→22:14)
[2021-02-16 11:09] LABS: HCT 29.9 % (34.0-46.0); HGB 10.5 gm/dL (11.4-16.0); MCH 31.6 pg (25.0-35.0); MCHC 35.1 g/dL (31.0-37.0); RBC 3.32 m/uL (3.80-5.40); RDW 12.6 % (11.5-15.5)
[2021-02-16 11:15] LABS: WBC 0.3 k/uL (3.8-10.6)
[2021-02-16 11:16] LABS: Platelet Count 86 k/uL (150-450)
[2021-02-16 11:23] LABS: ALT 23 U/L (4-34); AST 17 U/L (14-36); African American GFR (CKD) >90 (>60 ml/min/1.73 sqM); Albumin 3.1 g/dL (3.5-5.0); Albumin/Globulin Ratio 1.3; Alkaline Phosphatase 74 U/L (38-126); Anion Gap 5 mmol/L; Blood Urea Nitrogen 11 mg/dL (7-17); Calcium 8.6 mg/dL (8.4-10.2); Carbon Dioxide 26 mmol/L (22-30); Chloride 101 mmol/L (98-107); Globulin 2.3 g/dL; Glucose 98 mg/dL (74-99); Magnesium 1.8 mg/dL (1.6-2.3); Non-African American GFR(CKD) >90 (>60 ml/min/1.73 sqM); Potassium 3.4 mmol/L (3.5-5.1); Sodium 132 mmol/L (137-145); Total Bilirubin 0.7 mg/dL (0.2-1.3); Total Protein 5.4 g/dL (6.3-8.2)
--- NOTE | 2021-02-16 14:02 | P.CONS ---
History of Present Illness - Reason for Consult Consult date: 02/16/21 Neutropenia lymphoma on chemotherapy Requesting physician: Dominick Lacey - History of Present Illness Ms Savage is a pleasant white female, with very well-controlled medical problems and poor performance status at baseline. The patient reports development of swelling in the upper part of her neck bilaterally, as well as feeling of neck and chest congestion with difficulty in swallowing coming on fairly acutely in early 03/09. Symptoms of persistent and progressive. The patient actually had to be distorted care and was told that she may have inflamed tonsils. She was given a couple of courses of antibiotics, with only partial relief. The patient subsequently developed some pain in her midback in the intrascapular region. She also developed night sweats, and decrease in appetite. She therefore sought attention with her PCP Dr. Garcia, and was noted to have a palpable upper neck nodes as well as in the left supraclavicular area. CT abdomen and pelvis on 04/05/20 showed spelled Megace 17.3 cm, as well as abnormal adenopathy which is fairly diffuse involving retroperitoneum, mesentery, bilateral iliac and bilateral groin nodes. Chest x-ray on 03/29/20 was negative for any acute process. The patient had left cervical lymph node biopsy on 04/14/20 that showed large neoplastic cells with scant amount of cytoplasm and prominent nucleoli with effacement of normal architecture and weak nodular pattern. Cells were CD20 positive and negative for CD5. There also negative for cyclin D1. Ki-67 was elevated at 70-80%. 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 Patient had a PET scan on 04/15/20, that shows diffuse hypermetabolic adenopathy bilateral cervical including bilateral parotid spaces, bilateral tonsils, mediastinal poor diabetic, gastrohepatic, retroperitoneal, mesenteric, bilateral inguinal, bilateral iliac and femoral chains. The patient was therefore referred here for further evaluation and recommendations She denied any prior history of malignancy. Above reported symptoms are persistent and slowly progressive. She has lost about 25 pounds in weight due to decrease in appetite. As above. The pt started B-R on 05/17/20 and is s/p 6 cycles. She completed those on she then started rituximab maintenance with cycle 1 on 11/02/20 CT scans after cycle 3 showed marked decrease in periaortic/retrocaval adenopat hy and resolution of adenopathy elsewhere. CT scans after C 6 showed no measurable adenopathy She c/o nasal and upper chest congestion, with cough productive of whitish sputum at her visit on 12/23/20. At that time exam was fairly unremarkable. The patient had persistence of her symptoms with some progression, and subsequently developed bilateral upper neck adenopathy. She was seen by her PCP who felt that this was more suspicious for lymphoma recurrence. The patient called the office and had a CT of the CAP performed on 01/09/21 to This showed some mild adenopathy in the thorax, but significant progression of adenopathy in the mesentery in the upper abdomen, bilateral iliac areas and left groin. on follow-up in the office on 01/11/21, she was noted to have a large palpable node in the left groin, as well as bilateral upper neck adenopathy. the patient was therefore referred back to surgery and case discussed with them. She had both left groin and right neck lymph node biopsy performed on 01/13/21 to both of these revealed high-grade diffuse large B-cell lymphoma. Double/triple hit testing was negative by fish CT of the neck and sinuses showed bilateral neck adenopathy, as well as 2.1 cm mass in the right nasopharynx extending to the oropharynx. Both tonsils were enlarged with extension of soft tissue into the vallecula. She denied any f/c/n/v. she continues to complain of subjective nasal and upper airway congestion. She had transient relief with bolus prednisone 100 mg or 5 days. She not having any difficulty breathing or swallowing.No h/o abd pain of SOB. She has a lump on her LUE, but stated it had been unchanged since she started chemo. Energy level and appetite are fair. Her ROS is otherwise as per HPI and negative out of 10 02/15/21-Pt here s/p 1st cycle of R-CHOP with GCSF. She hasn't felt very good today, tired, weak, no N,V, cough, pain, she did have diarrhea earlier. She is tolerating fluids but mouth and throat are sore. No other c/o. Temp was 99.8F, recheck 100.8, ANC 27. Review of Systems All systems: negative Constitutional: Reports as per HPI Past Medical History Past Medical History: Cancer, GERD/Reflux, Hyperlipidemia Additional Past Medical History / Comment(s): lymphoma dx April 2020-starting chemo on 02-08-21-last chemo 2019, SWELLING IN NECK, hx SOME RETENTION OF FLUIDS OF ANKLES IN THE PAST, History of Any Multi-Drug Resistant Organisms: None Reported Past Surgical History: No Surgical Hx Reported Additional Past Surgical History / Comment(s): COLONOSCOPY,port a cath insertion on 01-31-21 Past Anesthesia/Blood Transfusion Reactions: No Reported Reaction Additional Past Anesthesia/Blood Transfusion Reaction / Comm: NO PRIOR SX HX Past Psychological History: No Psychological Hx Reported Smoking Status: Never smoker Past Alcohol Use History: None Reported Past Drug Use History: None Reported - Past Family History Mother Family Medical History: No Reported History Father Family Medical History: Congestive Heart Failure (CHF) Additional Family Medical History / Comment(s): Father of CHF at the age of 89yrs. Medications and Allergies Home Medications Medication Instructions Recorded Confirmed Type Allopurinol [Zyloprim] 300 mg PO DAILY 02/03/21 02/15/21 History Folic Acid 1 mg PO DAILY 02/03/21 02/15/21 History OLANZapine [ZyPREXA] 5 mg PO DIRECTED 02/03/21 02/15/21 History Omeprazole 40 mg PO DAILY 02/03/21 02/15/21 History Ondansetron [Zofran] 4 mg PO Q4HR PRN 02/03/21 02/15/21 History Sennosides/Docusate Sodium [Senna 1 tab PO HS PRN 02/03/21 02/15/21 History Plus 8.6-50 mg Tablet] Cholecalciferol [Vitamin D3 (25 25 mcg PO DAILY 02/15/21 02/15/21 History Mcg = 1000 Iu)] Enalapril/Hydrochlorothiazide 1 tab PO DAILY 02/15/21 02/15/21 History [Enalapril/Hydrochlorothiazide 10-25 mg Tablet] predniSONE 100 mg PO DIRECTED 02/15/21 02/15/21 History Allergies Allergy/AdvReac Type Severity Reaction Status Date / Time No Known Allergies Allergy Verified 02/15/21 17:37 Physical Exam Vitals: Vital Signs Temp Pulse Resp BP Pulse Ox 02/16/21 07:30 98.6 F 85 18 123/72 99 02/16/21 06:30 98.1 F 85 18 115/64 98 02/16/21 03:24 101 H 16 113/61 99 02/16/21 01:45 99.0 F 02/15/21 23:22 101.4 F H 02/15/21 21:33 99.4 F 114 H 18 143/58 100 02/15/21 18:05 99.8 F H 108 H 18 146/82 98 02/15/21 17:14 112 H 18 128/68 100 02/15/21 16:02 100.1 F H 121 H 17 91/64 99 Intake and Output 02/15/21 02/16/21 02/16/21 22:59 06:59 14:59 Other: Weight 68.039 kg Results CBC & Chem 7: 02/16/21 10:55 02/16/21 10:55 Labs: Abnormal Lab Results - Last 24 Hours (Table) 02/15/21 02/15/21 Range/Units 17:50 17:50 WBC 0.7 L* (3.8-10.6) k/uL Plt Count 94 L D (150-450) k/uL Sodium 131 L (137-145) mmol/L Chloride 96 L (98-107) mmol/L Total Bilirubin 1.4 H (0.2-1.3) mg/dL Total Protein 5.8 L (6.3-8.2) g/dL Assessment and Plan (1) Non-Hodgkin lymphoma Current Visit: Yes Status: Acute Code(s): C85.90 - NON-HODGKIN LYMPHOMA, UNSPECIFIED, UNSPECIFIED SITE SNOMED Code(s): 746455810 (2) Febrile neutropenia Current Visit: Yes Status: Acute Code(s): D70.9 - NEUTROPENIA, UNSPECIFIED; R50.81 - FEVER PRESENTING WITH CONDITIONS CLASSIFIED ELSEWHERE SNOMED Code(s): 231802429 (3) Pancytopenia Current Visit: Yes Status: Acute Code(s): D61.818 - OTHER PANCYTOPENIA SNOMED Code(s): 298005176 Plan: Await torres cultures Broad spectrum antibiotics Growth factor after chemo, no need at this time monitor daily labs Physician attest: I have completed the fulll history and physical and agree with above dictation
--- NOTE | 2021-02-16 14:22 | P.PN ---
Subjective Progress Note Date: 02/16/21 Patient is doing well today. No fevers documented since this morning. She does not have any complaints. Objective - Vital Signs Vital signs: Vital Signs Temp 99.4 F 02/16/21 12:30 Pulse 82 02/16/21 12:30 Resp 18 02/16/21 12:30 BP 130/65 02/16/21 12:30 Pulse Ox 98 02/16/21 12:30 Intake & Output 02/15/21 02/16/21 02/16/21 18:59 06:59 18:59 Weight 68.039 kg 68.039 kg - Exam General: The patient is awake and alert, in no distress Eye: there is normal conjunctiva bilaterally. Neck: The neck is supple, there is no JVD. Cardiovascular: Normal S1-S2, no S3-S4, no murmurs. Respiratory: Lungs clear to auscultation bilaterally Gastrointestinal: Abdomen is soft, nontender Musculoskeletal: There is no pedal edema. Neurological:. Speech is normal. Skin: Skin is warm and dry - Labs CBC & Chem 7: 02/16/21 10:55 02/16/21 10:55 Labs: Abnormal Lab Results - Last 24 Hours (Table) 02/15/21 02/15/21 02/16/21 Range/Units 17:50 17:50 10:55 WBC 0.7 L* (3.8-10.6) k/uL RBC (3.80-5.40) m/uL Hgb (11.4-16.0) gm/dL Hct (34.0-46.0) % Plt Count 94 L D (150-450) k/uL Sodium 131 L 132 L (137-145) mmol/L Potassium 3.4 L (3.5-5.1) mmol/L Chloride 96 L (98-107) mmol/L Total Bilirubin 1.4 H (0.2-1.3) mg/dL Total Protein 5.8 L 5.4 L (6.3-8.2) g/dL Albumin 3.1 L (3.5-5.0) g/dL 02/16/21 Range/Units 10:55 WBC 0.3 L* (3.8-10.6) k/uL RBC 3.32 L (3.80-5.40) m/uL Hgb 10.5 L (11.4-16.0) gm/dL Hct 29.9 L (34.0-46.0) % Plt Count 86 L (150-450) k/uL Sodium (137-145) mmol/L Potassium (3.5-5.1) mmol/L Chloride (98-107) mmol/L Total Bilirubin (0.2-1.3) mg/dL Total Protein (6.3-8.2) g/dL Albumin (3.5-5.0) g/dL Assessment and Plan Assessment: This is a 76-year-old female with past medical history noted below that presented to the emergency room with neutropenic fever sent by her oncologist from the office. Patient was evaluated in the ER and admitted to the hospital for further management of her medical problems noted below. 1. Neutropenic fever: Patient was started on broad spectrum antibiotic with vancomycin, cefepime and axis. Infectious disease consulted. Blood culture sent and pending. 2. Sepsis without septic shock: Treated with aggressive IV fluid hydration. A ntibiotic as above. Lactic acid normal. 3. Leukemia diagnosed in July 2020 on chemotherapy: Hematology consulted for further evaluation 4. Pancytopenia: We will continue to monitor closely 5. Essential hypertension: Blood pressure within acceptable range
[2021-02-16 16:04] LABS: Partial Thromboplastin Time 27.4 sec (22.0-30.0)
[2021-02-16 20:29] LABS: INR 0.9 (<1.2)
[2021-02-16] MEDS ORDERED: ANIDULAFUNGIN 100 MG in SODIUM CHLORIDE 0.9% 100 ML IVPB SCH (21:00)
--- NOTE | 2021-02-16 21:55 | CONS ---
CONSULTATION DATE OF SERVICE: 02/16/2021 REASON FOR CONSULTATION: Febrile neutropenia. HISTORY OF PRESENT ILLNESS: The patient is a 76-year-old female with a recent diagnosis of leukemia, for which the patient has completed one cycle of her chemotherapy. The patient did mention she did receive blood-boosting injection daily for 3 days. However, the patient mentioned she has not been feeling that good, just feeling weak and lethargic with no energy, and more fatigue. The patient denies having any fever or chills. The patient did have a fall after a visit with her oncologist yesterday, and the patient was noticed to have a fever. Subsequently she was sent to the ER for further evaluation. The patient denies having any headache or URI symptoms. The patient denies having any chest pain, shortness of breath or cough. Patient denies having any nausea or vomiting. No abdominal pain or diarrhea. The patient overall mentioned feeling better. On presentation to hospital the patient did have a fever of 100.1 which subsequently spiked to 101.4 degrees Fahrenheit. The patient is currently 97% on room air. The patient did have a white count of 0.7. Creatinine was normal. Liver enzymes were normal. Urine was negative. Ribera, influenza and RSV PCR were negative. The patient had a chest x-ray that was reported negative for acute cardiopulmonary process. The patient did have a right chest wall MediPort. The patient currently does not have any symptoms to the port with any swelling or pain. However, the patient mentioned that it is not working properly infuse. REVIEW OF SYSTEMS: Positive points have been mentioned in the HPI. Rest of the systems are negative. PAST MEDICAL HISTORY: Significant for leukemia, currently on chemo, gastroesophageal reflux disease, hyperlipidemia. PAST SURGICAL HISTORY: Colonoscopy, Port-A-Cath insertion on 01/31/2021 and lymph node biopsy. SOCIAL HISTORY: Patient denies smoking, drinking or drug use. FAMILY HISTORY: No pertinent findings noticed. ALLERGIES: NO KNOWN DRUG ALLERGIES. MEDICATIONS: The patient is currently on Tylenol, Zyloprim, cefepime 2 grams q.8 hours, Lovenox, vancomycin, Pharmacy to dose, Protonix. PHYSICAL EXAMINATION: Her blood pressure is 133/65, pulse of 91, temperature 100.3. She is 97% on room air. General description is a middle-aged female lying in bed in no distress. HEENT: Examination shows slight pallor. No scleral icterus. Oral mucous membrane is moist. NECK: Trachea is central. No thyromegaly. LUNGS: Unlabored breathing. Clear to auscultation anteriorly. No wheeze or crackle. HEART: S1, S2. Regular rate and rhythm. ABDOMEN: Soft. No tenderness. No guarding or rigidity. EXTREMITIES: No edema of the feet. SKIN EXAMINATION: No rash or mass palpable. Neurologically the patient is awake, alert, oriented x3. Mood and affect normal. LABS: Hemoglobin 7.4, white count 0.3, BUN of 11 with creatinine 0.53. Liver enzymes are normal. Urine is negative. Ribera PCR was negative. Chest x-ray report negative. DIAGNOSTIC IMPRESSION AND PLAN: Patient with febrile neutropenia in this patient with a history of leukemia and has received chemotherapy. The patient currently does not have any obvious focus of infection; with concern for possible transmigration of the gut shellie versus the port to be the positive source. PLAN: 1. Patient to continue with vancomycin, Pharmacy to dose. Target 15. 2. Cefazolin 2 grams q.8 hours. 3. No need for anti-fungal at this point. 4. Will follow her clinical condition and culture to further her adjust medication if needed. Thank you for this consultation. Will follow this patient along with you. MMODL / IJN: [id number] /
[2021-02-16] MEDS: SODIUM CHLORIDE 0.9% 1,000 ML IV SCH ×2 (22:12→22:13)
[2021-02-17] MEDS: CEFEPIME 2 GM in SODIUM CHLORIDE 0.9% 100 ML IVPB SCH ×4 (01:09→23:55)
[2021-02-17] MEDS ORDERED: VANCOMYCIN TROUGH DUE 1 EACH MISC MISCELLANE ONE (08:00)
[2021-02-17] MEDS: allopurinoL 300 MG TAB PO SCH (09:12)
[2021-02-17] MEDS: FOLIC ACID 1 MG TAB PO SCH (09:12)
[2021-02-17] MEDS: PANTOPRAZOLE 40 MG TABLET PO SCH (09:13)
[2021-02-17] MEDS: ENOXAPARIN 40 MG/0.4 ML SYRINGE SQ SCH (09:14)
[2021-02-17] MEDS: ACETAMINOPHEN TAB 325 MG TAB PO PRN (09:19)
[2021-02-17 09:29] LABS: HCT 29.2 % (34.0-46.0); HGB 10.1 gm/dL (11.4-16.0); MCH 30.9 pg (25.0-35.0); MCHC 34.7 g/dL (31.0-37.0); RBC 3.28 m/uL (3.80-5.40); RDW 12.6 % (11.5-15.5)
[2021-02-17 09:31] LABS: African American GFR (CKD) >90 (>60 ml/min/1.73 sqM); Anion Gap 7 mmol/L; Blood Urea Nitrogen 12 mg/dL (7-17); Calcium 8.4 mg/dL (8.4-10.2); Carbon Dioxide 23 mmol/L (22-30); Chloride 103 mmol/L (98-107); Glucose 108 mg/dL (74-99); Magnesium 1.8 mg/dL (1.6-2.3); Non-African American GFR(CKD) >90 (>60 ml/min/1.73 sqM); Potassium 3.7 mmol/L (3.5-5.1); Sodium 133 mmol/L (137-145)
[2021-02-17 09:33] LABS: WBC 0.4 k/uL (3.8-10.6)
[2021-02-17 09:34] LABS: Platelet Count 94 k/uL (150-450)
[2021-02-17 10:10] LABS: C Reactive Protein 19.3 mg/dL (<1.0)
[2021-02-17] MEDS ORDERED: DOCUSATE 100 MG CAP PO PRN (10:40)
[2021-02-17] MEDS: VANCOMYCIN 1,250 MG in SODIUM CHLORIDE 0.9% 250 ML IVPB SCH ×2 (10:54→21:31)
[2021-02-17 11:01] LABS: Erythrocyte Sedimentation Rate 62 mm/hr (0-20)
--- NOTE | 2021-02-17 12:08 | P.PN ---
Subjective Progress Note Date: 02/17/21 Principal diagnosis: Neutropenic Fever 02/15 blood cultures negative to date, afebrile Objective - Vital Signs Vital signs: Vital Signs Temp 98.3 F 02/17/21 11:32 Pulse 86 02/17/21 11:32 Resp 16 02/17/21 07:27 BP 111/73 02/17/21 11:32 Pulse Ox 98 02/17/21 07:27 Intake & Output 02/16/21 02/17/21 02/17/21 18:59 06:59 18:59 Intake Total 1190 Balance 1190 Weight 68.039 kg 68.039 kg Intake: Intake, IV Titration 950 Amount Cefepime 2 gm In Sodium 100 Chloride 0.9% 100 ml @ 25 mls/hr IVPB Q8HR [facility] Rx# :[id number] Sodium Chloride 0.9% 1, 600 000 ml @ 75 mls/hr IV . [id number] [facility] Rx#:[id number] Vancomycin 1,250 mg In 250 Sodium Chloride 0.9% 250 ml @ 125 mls/hr IVPB Q12H [facility] Rx#:[id number] Oral 240 Other: # Voids 1 - Exam - Exam General:no distress Head: NCAT Eyes: EOMI, anicteric sclera, pupils equal round Oral thrush, dry mucus membranes Neck: supple Right chest wall port CDI Cardiovascular:reg, no edema, Lungs: CTA bilateral, Abdominal: soft, nontender normal bowel sounds Neuro: nonfocal Psych: Alert, oriented, appropriate affect - Labs CBC & Chem 7: 02/17/21 08:11 02/17/21 08:11 Labs: Abnormal Lab Results - Last 24 Hours (Table) 02/17/21 02/17/21 Range/Units 08:11 08:11 WBC 0.4 L* (3.8-10.6) k/uL RBC 3.28 L (3.80-5.40) m/uL Hgb 10.1 L (11.4-16.0) gm/dL Hct 29.2 L (34.0-46.0) % Plt Count 94 L (150-450) k/uL ESR 62 H (0-20) mm/hr Sodium 133 L (137-145) mmol/L Creatinine 0.51 L (0.52-1.04) mg/dL Glucose 108 H (74-99) mg/dL C-Reactive Protein 19.3 H (<1.0) mg/dL Microbiology - Last 24 Hours (Table) 02/15/21 18:35 Blood Culture - Preliminary Blood No Growth after 24 hours 02/15/21 18:50 Blood Culture - Preliminary Blood No Growth after 24 hours Assessment and Plan (1) Non-Hodgkin lymphoma Current Visit: Yes Status: Acute Code(s): C85.90 - NON-HODGKIN LYMPHOMA, UNSPECIFIED, UNSPECIFIED SITE SNOMED Code(s): 041707602 (2) Febrile neutropenia Current Visit: Yes Status: Acute Code(s): D70.9 - NEUTROPENIA, UNSPECIFIED; R50.81 - FEVER PRESENTING WITH CONDITIONS CLASSIFIED ELSEWHERE SNOMED Code(s): 052497836 (3) Pancytopenia Current Visit: Yes Status: Acute Code(s): D61.818 - OTHER PANCYTOPENIA SNOMED Code(s): 622085332 Plan: Febrile Neutropenia: - Blood cultures negative this far - Await 96hpan cultures - COntinue on Broad spectrum antibiotics - Growth factor after chemo, no need at this time - Monitor daily labs Pancytopenia: - Secondary to chemotherapy and Lymphom NHL Physician Attest: I have completed full history and physical developed above imp ression and plan, agree with dictation, dictated as a scribe
--- NOTE | 2021-02-17 12:39 | CDI ---
Pancytopenia is documented in the Internal Medicine progress note 02/16. Additional clarification regarding the etiology of pancytopenia is requested. History/Risk factors: 76-year-old female presents to the ED from Oncologist office due to fever. The patient has been feeling more fatigued than usual over the past week after starting the new chemotherapy on 02/08. Medical History: Lymphoma diagnosed April 2020. Clinical indicators: Labs: 02/16: Wbc 0.3; Rbc 3.32; PLT 86. 02/17: Wbc 0.4; Rbc 3.28; PLT 94 Treatment: 02/15 Vancomycin 1,500mg IVPB X1; 02/15 Cefepime 2gm IVPB X1; 02/16 Cefepime HCL 2gm IVPB Q8HR; 02/16 Vancomycin 1,250mg Q12HR changed 02/17 Vancomycin 1,250mg IVPB Q10HR. Consult Oncology 02/16: Broad spectrum antibiotics. On-Hodgkin lymphoma, Febrile neutropenia, Pancytopenia. Please clarify the etiology of pancytopenia, if known: [X ] Pancytopenia due to chemotherapy [ ] Pancytopenia due to other, please specify [ ] Other condition, please specify ____ [ ] Unable to determine (Template Last Revised: December 2020) MTDD
--- NOTE | 2021-02-17 15:31 | PN ---
PROGRESS NOTE DATE OF SERVICE: 02/17/2021 REASON FOR FOLLOWUP: Febrile neutropenia. INTERVAL HISTORY: The patient is currently afebrile. The patient did have a low-grade fever of 99.8 this morning. The patient overall is feeling better. She is breathing comfortably on room air. The patient denies having any chest pain, shortness of breath or cough. No abdominal pain or diarrhea. PHYSICAL EXAMINATION: Blood pressure 124/70 with a pulse of 59, temperature 99.3. She is 99% on room air. General description is an elderly female up in the bed in no distress. RESPIRATORY SYSTEM: Unlabored breathing. Clear to auscultation. No wheeze or crackle. HEART: S1, S2. Regular rate and rhythm. ABDOMEN: Soft. No tenderness. LABS: Hemoglobin is 10.1, white count 0.4, BUN of 12, creatinine 0.51. Vancomycin trough is low at 9.7. CRP is 19.3. Culture so far negative. DIAGNOSTIC IMPRESSION AND PLAN: Patient with febrile neutropenia in this patient with a history of leukemia and has received chemo, but no obvious focus of infection. Patient is covered cefepime and vancomycin. We will monitor clinical course closely. MMODL / IJN: [id number] /
--- NOTE | 2021-02-17 15:58 | P.PN ---
Objective - Vital Signs Vital signs: Vital Signs Temp 99.3 F 02/17/21 12:48 Pulse 59 L 02/17/21 12:48 Resp 18 02/17/21 12:48 BP 112/70 02/17/21 12:48 Pulse Ox 99 02/17/21 12:48 Intake & Output 02/16/21 02/17/21 02/17/21 18:59 06:59 18:59 Intake Total 1190 Balance 1190 Weight 68.039 kg 68.039 kg Intake: Intake, IV Titration 950 Amount Cefepime 2 gm In Sodium 100 Chloride 0.9% 100 ml @ 25 mls/hr IVPB Q8HR [facility] Rx# :[id number] Sodium Chloride 0.9% 1, 600 000 ml @ 75 mls/hr IV . [id number] [facility] Rx#:[id number] Vancomycin 1,250 mg In 250 Sodium Chloride 0.9% 250 ml @ 125 mls/hr IVPB Q12H [facility] Rx#:[id number] Oral 240 Other: # Voids 1 - Labs CBC & Chem 7: 02/17/21 08:11 02/17/21 08:11 Labs: Abnormal Lab Results - Last 24 Hours (Table) 02/17/21 02/17/21 Range/Units 08:11 08:11 WBC 0.4 L* (3.8-10.6) k/uL RBC 3.28 L (3.80-5.40) m/uL Hgb 10.1 L (11.4-16.0) gm/dL Hct 29.2 L (34.0-46.0) % Plt Count 94 L (150-450) k/uL ESR 62 H (0-20) mm/hr Sodium 133 L (137-145) mmol/L Creatinine 0.51 L (0.52-1.04) mg/dL Glucose 108 H (74-99) mg/dL C-Reactive Protein 19.3 H (<1.0) mg/dL Microbiology - Last 24 Hours (Table) 02/15/21 18:35 Blood Culture - Preliminary Blood No Growth after 24 hours 02/15/21 18:50 Blood Culture - Preliminary Blood No Growth after 24 hours Assessment and Plan Assessment: This is a 76-year-old female with past medical history noted below that presented to the emergency room with neutropenic fever sent by her oncologist from the office. Patient was evaluated in the ER and admitted to the hospital for further management of her medical problems noted below. 1. Neutropenic fever: Patient was started on broad spectrum antibiotic with vancomycin and cefepime. Infectious disease consulted. Blood culture negative to date. Urinalysis, influenza A/B, and COVID screen negative 2. Sepsis without septic shock: Treated with aggressive IV fluid hydration. Antibiotic as above. Lactic acid normal. 3. Leukemia diagnosed in July 2020 on chemotherapy: Hematology consulted for further evaluation 4. Pancytopenia: Chemotherapy-induced. We will continue to monitor closely 5. Essential hypertension: Blood pressure within acceptable range Today, I discussed the patient's condition with Dr. Maradiaga. Patient already received Neulesta and hopefully her counts will continue to improve. Awaiting further recommendation by infectious disease. Discharge home possibly tomorrow if remains stable.
[2021-02-18] MEDS: VANCOMYCIN 1,250 MG in SODIUM CHLORIDE 0.9% 250 ML IVPB SCH ×2 (05:47→17:51)
[2021-02-18 06:04] LABS: African American GFR (CKD) >90 (>60 ml/min/1.73 sqM); Non-African American GFR(CKD) >90 (>60 ml/min/1.73 sqM)
[2021-02-18] MEDS: FOLIC ACID 1 MG TAB PO SCH (09:11)
[2021-02-18] MEDS ORDERED: polyethylene glycoL 3350 17 GM POWD.PACK PO STA (09:11)
[2021-02-18] MEDS: PANTOPRAZOLE 40 MG TABLET PO SCH (09:11)
[2021-02-18] MEDS: allopurinoL 300 MG TAB PO SCH (09:11)
[2021-02-18] MEDS: CEFEPIME 2 GM in SODIUM CHLORIDE 0.9% 100 ML IVPB SCH ×2 (09:12→17:51)
[2021-02-18] MEDS: ENOXAPARIN 40 MG/0.4 ML SYRINGE SQ SCH (09:13)
[2021-02-18 12:20] LABS: Basophils % (A) 0 %; Eosinophils % (A) 3 %; HCT 27.5 % (34.0-46.0); HGB 9.1 gm/dL (11.4-16.0); Lymphocytes # (A) 0.2 k/uL (1.0-4.8); Lymphocytes % (A) 23 %; MCH 30.1 pg (25.0-35.0); MCHC 32.9 g/dL (31.0-37.0); MCV 91.4 fL (80.0-100.0); Mean Platelet Volume 8.8; Monocytes # (A) 0.1 k/uL (0-1.0); Monocytes % (A) 6 %; Neutrophils # (A) 0.6 k/uL (1.3-7.7); Neutrophils % (A) 63 %; RBC 3.01 m/uL (3.80-5.40); RDW 13.3 % (11.5-15.5)
[2021-02-18 12:28] LABS: Platelet Count 90 k/uL (150-450); WBC 0.9 k/uL (3.8-10.6)
--- NOTE | 2021-02-18 13:18 | P.PN ---
Subjective Progress Note Date: 02/18/21 Patient denies any new complaints, other than vague abdominal discomfort due to constipation. Objective - Vital Signs Vital signs: Vital Signs Temp 98.2 F 02/18/21 11:39 Pulse 97 02/18/21 11:39 Resp 20 02/18/21 11:39 BP 120/68 02/18/21 11:39 Pulse Ox 100 02/18/21 11:39 Intake & Output 02/17/21 02/18/21 02/18/21 18:59 06:59 18:59 Intake Total 2114 Balance 2114 Intake: Intake, IV Titration 725 Amount Cefepime 2 gm In Sodium 100 Chloride 0.9% 100 ml @ 25 mls/hr IVPB Q8HR [facility] Rx# :[id number] Sodium Chloride 0.9% 1, 375 000 ml @ 75 mls/hr IV . [id number] [facility] Rx#:[id number] Vancomycin 1,250 mg In 250 Sodium Chloride 0.9% 250 ml @ 125 mls/hr IVPB Q10H [facility] Rx#:[id number] Oral 1390 Other: # Voids 2 2 - Constitutional General appearance: Present: no acute distress - EENT Eyes: Present: EOMI ENT: Present: hearing grossly normal, normal oropharynx - Respiratory Respiratory: bilateral: CTA - Cardiovascular Rhythm: regular Heart sounds: normal: S1, S2 - Gastrointestinal General gastrointestinal: Present: normal bowel sounds, soft - Integumentary Integumentary: Present: normal - Neurologic Neurologic: Present: CNII-XII intact - Musculoskeletal Musculoskeletal: Present: generalized weakness, strength equal bilaterally - Psychiatric Psychiatric: Present: A&O x's 3, appropriate affect - Labs CBC & Chem 7: 02/18/21 04:34 02/18/21 04:34 Labs: Abnormal Lab Results - Last 24 Hours (Table) 02/17/21 02/18/21 02/18/21 Range/Units 08:11 04:34 04:34 WBC 0.9 L* (3.8-10.6) k/uL RBC 3.01 L (3.80-5.40) m/uL Hgb 9.1 L (11.4-16.0) gm/dL Hct 27.5 L (34.0-46.0) % Plt Count 90 L (150-450) k/uL Neutrophils # 0.6 L (1.3-7.7) k/uL Lymphocytes # 0.2 L (1.0-4.8) k/uL Creatinine 0.48 L (0.52-1.04) mg/dL Procalcitonin 0.11 H (0.02-0.09) ng/mL Microbiology - Last 24 Hours (Table) 02/15/21 18:35 Blood Culture - Preliminary Blood No Growth after 48 hours 02/15/21 18:50 Blood Culture - Preliminary Blood No Growth after 48 hours Assessment and Plan (1) Febrile neutropenia Narrative/Plan: Fever has resolved. The patient has not had any temperature greater than 100.4, since the first 24 hours of admission. Cultures are negative. WBC are showing signs of recovery INR 0.9 today was 0.4 yesterday. - As the patient has already received Neulasta, and WBC is increasing steadily, patient is probably okay to discharge on oral broad-spectrum antibiotics such as a fluoroquinolone to complete a 7-dependent course. Current Visit: Yes Status: Acute Code(s): D70.9 - NEUTROPENIA, UNSPECIFIED; R50.81 - FEVER PRESENTING WITH CONDITIONS CLASSIFIED ELSEWHERE SNOMED Code(s): 040585444 (2) Pancytopenia Narrative/Plan: Due to antineoplastic chemotherapy. WBC is improving as noted. Platelets and hemoglobin have remained in a safe range. Continue to monitor as outpatient Current Visit: Yes Status: Acute Code(s): D61.818 - OTHER PANCYTOPENIA SNOMED Code(s): 500340906 (3) Non-Hodgkin lymphoma Narrative/Plan: Patient will resume treatment post discharge. Current Visit: Yes Status: Acute Code(s): C85.90 - NON-HODGKIN LYMPHOMA, UNSPECIFIED, UNSPECIFIED SITE SNOMED Code(s): 749625497
[2021-02-18 13:54] LABS: Anion Gap 5 mmol/L; Blood Urea Nitrogen 10 mg/dL (7-17); Calcium 8.6 mg/dL (8.4-10.2); Carbon Dioxide 24 mmol/L (22-30); Chloride 108 mmol/L (98-107); Glucose 95 mg/dL (74-99); Potassium 3.9 mmol/L (3.5-5.1); Sodium 137 mmol/L (137-145)
[2021-02-18] MEDS: ACETAMINOPHEN TAB 325 MG TAB PO PRN (14:46)
--- NOTE | 2021-02-18 16:06 | PN ---
PROGRESS NOTE DATE OF SERVICE: 02/18/2021 REASON FOR FOLLOWUP: Febrile neutropenia. INTERVAL HISTORY: Patient is currently afebrile. The patient is breathing comfortably. The patient did spike a low-grade fever of 100.1 last night though. The patient denies any headache. No chest pain, shortness of breath or cough. No nausea, no vomiting. No abdominal pain. No diarrhea. PHYSICAL EXAMINATION: Blood pressure 120/68 with a pulse of 97, temperature 98.2. She is 100% on room air. GENERAL: The patient is an elderly female up in the bed in no distress. Respiratory system: Unlabored breathing. Clear to auscultation. No wheeze or crackles. Heart S1, S2. Regular rate and rhythm. Abdomen soft. No tenderness. Extremities: No edema of the feet. LABS: Hemoglobin is 9.1, white count 0.9, BUN of 10, creatinine 0.48. Blood culture has been negative. DIAGNOSTIC IMPRESSION AND PLAN: Patient with febrile neutropenia. Workup so far negative. Currently no obvious source of infection. Patient to continue with cefepime and vancomycin while monitoring clinical course and cultures closely. Continue supportive care. MMODL / IJN: [id number] /
--- NOTE | 2021-02-18 17:13 | P.PN ---
Subjective Progress Note Date: 02/18/21 Principal diagnosis: fevers Julia is a 76-year-old female with a history of non-Hodgkin's lymphoma status postchemotherapy July 2020 who is recently restarted chemotherapy. She was noted to be febrile and neutropenic in the office, she had already been given GMCSF stimulator as outpatient, she was also noted to have leukopenia and was therefore sent to the hospital. In the ER she underwent an extensive evaluation. Her initial vital signs showed temperature 100.1, White blood cell count 0.7, platelets 94, sodium 131. Urinalysis was negative, influenza, RSV, and goal-directed were all negative. Chest x-ray was negative. She is admitted with started on broad-spectrum antibiotics. Oncology and infectious disease were consulted. She was treated with vancomycin and cefepime. Her fevers have be decreasing since admission, and her WBC is trending up. Patient seen and examined. She denies chest pain, SOB, nuasea, vomiting. complains of constipation. General: non toxic, no distress, appears at stated age Derm: warm, dry Head: atraumatic, normocephalic, symmetric Eyes: EOMI, no lid lag, anicteric sclera Mouth: no lip lesion, mucus membranes moist Cardiovascular: S1S2 reg, no murmur, positive posterior tibial pulse bilateral, Lungs: CTA bilateral, no rhonchi, no rales , no accessory muscle use Abdominal: soft, nontender to palpation, no guarding, no appreciable organomegaly Ext: no gross muscle atrophy, no edema, no contractures Neuro: CN II-XI grossly intact, no focal neuro deficits Psych: Alert, oriented, appropriate affect Febrile neutropenia, chemo induced - ID recs: vanco/cefepime - Oncology recs - likely home soon, once cleared from ID on Fluoroquinolone Pancytopenia, due to chemo for NHL - For CBC - Outpatient follow-up Constipation - add miralax GERD - PPI Dyslipidemia -out patient follow-up DVT prophylaxis: SCDs Discussed with: patient, nursing Anticipated discharge: in AM Anticipated discharge place: home A total of 25 minutes was spent on the care of this complex patient more than 50% of the time was spent in counseling and care coordination. Objective - Vital Signs Vital signs: Vital Signs Temp 98.1 F 02/18/21 04:40 Pulse 90 02/18/21 04:40 Resp 16 02/18/21 04:40 BP 119/70 02/18/21 04:40 Pulse Ox 98 02/18/21 04:40 Intake & Output 02/17/21 02/18/21 02/18/21 18:59 06:59 18:59 Intake Total 2114 Balance 2114 Intake: Intake, IV Titration 725 Amount Cefepime 2 gm In Sodium 100 Chloride 0.9% 100 ml @ 25 mls/hr IVPB Q8HR [facility] Rx# :[id number] Sodium Chloride 0.9% 1, 375 000 ml @ 75 mls/hr IV . [id number] [facility] Rx#:[id number] Vancomycin 1,250 mg In 250 Sodium Chloride 0.9% 250 ml @ 125 mls/hr IVPB Q10H [facility] Rx#:[id number] Oral 1390 Other: # Voids 2 2 - Labs CBC & Chem 7: 02/18/21 04:34 02/18/21 04:34 Labs: Abnormal Lab Results - Last 24 Hours (Table) 02/17/21 02/17/21 02/17/21 Range/Units 08:11 08:11 08:11 WBC 0.4 L* (3.8-10.6) k/uL RBC 3.28 L (3.80-5.40) m/uL Hgb 10.1 L (11.4-16.0) gm/dL Hct 29.2 L (34.0-46.0) % Plt Count 94 L (150-450) k/uL ESR 62 H (0-20) mm/hr Sodium 133 L (137-145) mmol/L Creatinine 0.51 L (0.52-1.04) mg/dL Glucose 108 H (74-99) mg/dL C-Reactive Protein 19.3 H (<1.0) mg/dL Procalcitonin 0.11 H (0.02-0.09) ng/mL 02/18/21 Range/Units 04:34 WBC (3.8-10.6) k/uL RBC (3.80-5.40) m/uL Hgb (11.4-16.0) gm/dL Hct (34.0-46.0) % Plt Count (150-450) k/uL ESR (0-20) mm/hr Sodium (137-145) mmol/L Creatinine 0.48 L (0.52-1.04) mg/dL Glucose (74-99) mg/dL C-Reactive Protein (<1.0) mg/dL Procalcitonin (0.02-0.09) ng/mL Microbiology - Last 24 Hours (Table) 02/15/21 18:35 Blood Culture - Preliminary Blood No Growth after 48 hours 02/15/21 18:50 Blood Culture - Preliminary Blood No Growth after 48 hours
[2021-02-18 20:52] VITALS: RESP 16
[2021-02-19] MEDS: CEFEPIME 2 GM in SODIUM CHLORIDE 0.9% 100 ML IVPB SCH ×2 (00:15→07:56)
[2021-02-19] MEDS: VANCOMYCIN 1,250 MG in SODIUM CHLORIDE 0.9% 250 ML IVPB SCH ×2 (01:53→13:10)
[2021-02-19 05:41] VITALS: BP 136/68; PULSE 84; TEMP 98.4
[2021-02-19 06:40] LABS: African American GFR (CKD) >90 (>60 ml/min/1.73 sqM); Anion Gap 3 mmol/L; Blood Urea Nitrogen 10 mg/dL (7-17); Calcium 8.6 mg/dL (8.4-10.2); Carbon Dioxide 25 mmol/L (22-30); Chloride 109 mmol/L (98-107); Glucose 95 mg/dL (74-99); Non-African American GFR(CKD) >90 (>60 ml/min/1.73 sqM); Potassium 4.4 mmol/L (3.5-5.1); Sodium 137 mmol/L (137-145)
[2021-02-19 06:57] LABS: HCT 26.9 % (34.0-46.0); HGB 8.8 gm/dL (11.4-16.0); MCH 30.1 pg (25.0-35.0); MCHC 32.7 g/dL (31.0-37.0); MCV 92.3 fL (80.0-100.0); Mean Platelet Volume 8.4; RBC 2.92 m/uL (3.80-5.40); RDW 13.4 % (11.5-15.5); WBC 2.7 k/uL (3.8-10.6)
[2021-02-19 07:28] LABS: Platelet Count 98 k/uL (150-450)
[2021-02-19] MEDS: allopurinoL 300 MG TAB PO SCH (07:56)
[2021-02-19] MEDS: ENOXAPARIN 40 MG/0.4 ML SYRINGE SQ SCH (07:56)
[2021-02-19] MEDS: FOLIC ACID 1 MG TAB PO SCH (07:56)
[2021-02-19] MEDS: PANTOPRAZOLE 40 MG TABLET PO SCH (07:56)
--- NOTE | 2021-02-19 10:59 | P.DS ---
Providers Date of admission: 02/15/21 18:32 Expected date of discharge: 02/19/21 Attending physician: Michael Ramirez MD Consults: 02/15/21 18:32 Consult Physician Routine Consulting Provider: Aroldo Maradiaga Consult Reason/Comments: Neutropenia Fever Do you want consulting provider notified?: Yes 02/15/21 22:18 Consult Physician Routine Consulting Provider: Myles Sarmiento Consult Reason/Comments: Neutropenic fever Do you want consulting provider notified?: Yes Primary care physician: Quang Henriquez MD Hospital Course: Discharge Diagnosis: Neutropenic fevers Panyctopenia due to chemo Nonhodgkin Lymphoma Constipation GERD HLD Hospital Course: Julia is a 76-year-old female with a history of non-Hodgkin's lymphoma status postchemotherapy July 2020 who is recently restarted chemotherapy. She was noted to be febrile and neutropenic in the office, she had already been given GMCSF stimulator as an outpatient, she was therefore sent to the hospital. In the ER she underwent an extensive evaluation. Her initial vital signs showed temperature 100.1, White blood cell count 0.7, platelets 94, sodium 131. Urinalysis was negative, influenza, RSV, and COVID were all negative. Chest x- ray was negative. She is admitted with started on broad-spectrum antibiotics. Oncology and infectious disease were consulted. She was treated with vancomycin and cefepime. Her fevers resovled and Follow-up: Dr. Maradiaga's office will call with an appointment, Dr. Henriquez next week, Levaquin for 1 more day to complete 5 days of treatment.WBC on the day of discharge is 2.7. Take on HCTZ due to hyponetremia on admission. Patient seen and examined at bedside. Feeling well, constipation resolved. No chest pain, shortness of breath. Vital signs reviewed and stable. General: non toxic, no distress, appears at stated age Derm: warm, dry Head: atraumatic, normocephalic, symmetric Eyes: EOMI, no lid lag, anicteric sclera Mouth: no lip lesion, mucus membranes moist Cardiovascular: S1S2 reg, no murmur, positive posterior tibial pulse bilateral, Lungs: CTA bilateral, no rhonchi, no rales , no accessory muscle use Abdominal: soft, nontender to palpation, no guarding, no appreciable organomegaly Ext: no gross muscle atrophy, no edema, no contractures Neuro: CN II-XI grossly intact, no focal neuro deficits Psych: Alert, oriented, appropriate affect A total of 37 minutes of time were spent preparing this complex discharge summary . Patient Condition at Discharge: Stable Plan - Discharge Summary Discharge Rx Participant: No New Discharge Prescriptions: New Docusate [Colace] 100 mg PO DAILY PRN cap PRN Reason: Constipation Enalapril [Vasotec] 10 mg PO DAILY #30 tablet Levofloxacin [Levaquin] 750 mg PO DAILY 1 Days #1 tab Continue Ondansetron [Zofran] 4 mg PO Q4HR PRN PRN Reason: Nausea Folic Acid 1 mg PO DAILY Omeprazole 40 mg PO DAILY Allopurinol [Zyloprim] 300 mg PO DAILY OLANZapine [ZyPREXA] 5 mg PO DIRECTED Sennosides/Docusate Sodium [Senna Plus 8.6-50 mg Tablet] 1 tab PO HS PRN PRN Reason: Constipation Cholecalciferol [Vitamin D3 (25 Mcg = 1000 Iu)] 25 mcg PO DAILY predniSONE 100 mg PO DIRECTED Discontinued Enalapril/Hydrochlorothiazide [Enalapril/Hydrochlorothiazide 10-25 mg Tablet] 1 tab PO DAILY Discharge Medication List Allopurinol [Zyloprim] 300 mg PO DAILY 02/03/21 [History] Folic Acid 1 mg PO DAILY 02/03/21 [History] OLANZapine [ZyPREXA] 5 mg PO DIRECTED 02/03/21 [History] Omeprazole 40 mg PO DAILY 02/03/21 [History] Ondansetron [Zofran] 4 mg PO Q4HR PRN 02/03/21 [History] Sennosides/Docusate Sodium [Senna Plus 8.6-50 mg Tablet] 1 tab PO HS PRN 02/03/21 [History] Cholecalciferol [Vitamin D3 (25 Mcg = 1000 Iu)] 25 mcg PO DAILY 02/15/21 [History] predniSONE 100 mg PO DIRECTED 02/15/21 [History] Docusate [Colace] 100 mg PO DAILY PRN cap 02/19/21 [Rx] Enalapril [Vasotec] 10 mg PO DAILY #30 tablet 02/19/21 [Rx] Levofloxacin [Levaquin] 750 mg PO DAILY 1 Days #1 tab 02/19/21 [Rx] Follow up Appointment(s)/Referral(s): Aroldo Maradiaga MD [STAFF PHYSICIAN] - As Needed (The office will call you tomorrow with your next appointment date and time ) Quang Henriquez MD [Primary Care Provider] - 1-2 days Activity/Diet/Wound Care/Special Instructions: Activity: as tolerated Diet: regular Discharge Disposition: HOME SELF-CARE
[2021-02-19] MEDS ORDERED: VANCOMYCIN TROUGH DUE 1 EACH MISC MISCELLANE ONE (11:00)
--- NOTE | 2021-02-23 10:31 | CDI ---
Documentation Clarification Form Date: 02/23/21 From: Domi Engle Phone: Admit Date: 02/15/2021 06:32:00 PM Patient Name: Julia Savage Visit Number: [id number] Discharge Date: 02/19/2021 01:12:00 PM ATTENTION: The Clinical Documentation Specialists (CDI) and [facility] Coding Staff appreciate your assistance in clarifying documentation. Please respond to the clarification below the line at the bottom and electronically sign. The CDI & [facility] Coding staff will review the response and follow-up if needed. Please note: Queries are made part of the Legal Health Record. If you have any questions, please contact the author of this message via ITS. Dr. Zaina Cuevas, Neutropenic sepsis is documented in 02/[address] Lawrence, but is not noted in subsequent documentation. Clarification is requested. History/Risk Factors: Non-Hodgkins lymphoma, undergoing chemo Clinical Indicators: On admission: T-100.1 then 101.4, P-121, R-17, BP-91/64 Treatment: IV Maxipime, IV Vancomycin, IV Anidulafugin/Eraxis, IV fluids Please clarify if the [insert diagnosis] is: [ ] Neutropenic sepsis confirmed and treated [ X ] Neutropenic fever without sepsis [ ] Other condition, please specify [ ] Unable to determine MTDD
== END 2021-02-19 13:12 | disposition home or self-care (01) | DRG 809 ==
LOC: EC 15:39 → 5NMEDONC 18:32
PROVIDERS: ADMIT Internal Medicine; ATTEND Internal Medicine
DX: D70.9 Neutropenia, unspecified (principal); C83.38 Diffuse large B-cell lymphoma, lymph nodes of multiple sites; B37.0 Candidal stomatitis; D61.810 Antineoplastic chemotherapy induced pancytopenia; Z66 Do not resuscitate; Z20.822 Contact with and (suspected) exposure to COVID-19; T45.1X5A Adverse effect of antineoplastic and immunosuppressive drugs, initial encounter; R50.81 Fever presenting with conditions classified elsewhere; R13.10 Dysphagia, unspecified; K21.9 Gastro-esophageal reflux disease without esophagitis; E78.5 Hyperlipidemia, unspecified; I10 Essential (primary) hypertension; Z79.899 Other long term (current) drug therapy; K59.00 Constipation, unspecified; Z82.49 Family history of ischemic heart disease and other diseases of the circulatory system
CPT/HCPCS: 36415; 71046; 80048; 80053; 80202; 81003; 83605; 83735; 84145; 85025; 85027; 85610; 85652; 85730; 86140; 87040; 87636; 93005; 96360; 99285

== ENCOUNTER 2021-03-07 21:25 | Emergency (ER) | payer MEDICARE ==
[2021-03-07 21:37] VITALS: BP 131/67; PULSE 95; RESP 20; TEMP 98.1
--- NOTE | 2021-03-07 22:29 | ED ---
Skin/Abscess/FB HPI - General Chief complaint: Skin/Abscess/Foreign Body Stated complaint: Port bleeding Time Seen by Provider: 03/07/21 21:42 Source: patient Mode of arrival: wheelchair Limitations: no limitations - History of Present Illness Initial comments: 76 year-old female patient currently receiving chemotherapy for non-hodgkin lymphoma presents for evaluation of bleeding around PICC line insertion site. PICC line was placed today. They were discharged around 6pm. Did have increased bloody drainage after arriving home and wanted to have it evaluated. They state it does seem that the bleeding has stopped. She denies bleeding from other sites. Denies any dizziness or weakness that is new. Does not use blood thinning medications. - Related Data Home Medications Medication Instructions Recorded Confirmed Folic Acid 1 mg PO DAILY 02/03/21 03/07/21 Sennosides/Docusate Sodium [Senna 1 tab PO HS PRN 02/03/21 03/07/21 Plus 8.6-50 mg Tablet] Cholecalciferol [Vitamin D3 (25 25 mcg PO DAILY 02/15/21 03/07/21 Mcg = 1000 Iu)] Previous Rx's Medication Instructions Recorded Docusate [Colace] 100 mg PO DAILY PRN cap 02/19/21 Enalapril [Vasotec] 10 mg PO DAILY #30 tablet 02/19/21 Allergies Allergy/AdvReac Type Severity Reaction Status Date / Time No Known Allergies Allergy Verified 03/07/21 22:15 Review of Systems ROS Statement: Those systems with pertinent positive or pertinent negative responses have been documented in the HPI. ROS Other: All systems not noted in ROS Statement are negative. Past Medical History Past Medical History: Cancer, GERD/Reflux, Hyperlipidemia Additional Past Medical History / Comment(s): lymphoma dx April 2020-starting chemo on 02-08-21-last chemo 2019, SWELLING IN NECK, hx SOME RETENTION OF FLUIDS OF ANKLES IN THE PAST, History of Any Multi-Drug Resistant Organisms: None Reported Past Surgical History: No Surgical Hx Reported Additional Past Surgical History / Comment(s): COLONOSCOPY,port a cath insertion on 01-31-21 Past Anesthesia/Blood Transfusion Reactions: No Reported Reaction Additional Past Anesthesia/Blood Transfusion Reaction / Comment(s): NO PRIOR SX HX Past Psychological History: No Psychological Hx Reported Smoking Status: Never smoker Past Alcohol Use History: None Reported Past Drug Use History: None Reported - Past Family History Mother Family Medical History: No Reported History Father Family Medical History: Congestive Heart Failure (CHF) Additional Family Medical History / Comment(s): Father of CHF at the age of 89yrs. General Exam Limitations: no limitations General appearance: alert, in no apparent distress, other (Physical well- developed, well-nourished elderly female patient in no acute distress. Vital s igns upon presentation are temperature 98.1F, pulse 95, respirations 20, blood pressure 131/67, pulse ox 97% on room air.) Cardiovascular Exam: Present: regular rate, normal rhythm, normal heart sounds. Absent: systolic murmur, diastolic murmur, rubs, gallop, clicks GI/Abdominal exam: Present: soft, normal bowel sounds. Absent: distended, tenderness, guarding, rebound, rigid Extremities exam: Present: normal inspection, full ROM, normal capillary refill, other (There is PICC line inserted into the right upper arm, there is small amount of bloody drainage noted on the dressing. This does not reach the dressing edges. Skin is otherwise pink, warm, dry. Cap refill less than 3 seconds. Radial pulses 2+.). Absent: tenderness, pedal edema, joint swelling, calf tenderness Neurological exam: Present: alert, oriented X3, CN II-XII intact Psychiatric exam: Present: normal affect, normal mood Skin exam: Present: warm, dry, intact, normal color. Absent: rash Course Vital Signs 03/07/21 21:34 Temperature 98.1 F Pulse Rate 95 Respiratory 20 Rate Blood Pressure 131/67 O2 Sat by Pulse 97 Oximetry Medical Decision Making - Medical Decision Making 76-year-old female patient who had PICC line inserted today presents to the emergency department today for evaluation of bleeding from the insertion site. Physical examination did reveal small amount of dark red bloody drainage beneath the dressing. This does not reach the dressing edges. Review of previous lab shows platelet count of 93 at the end of January. Patient denies bleeding from other areas. Denies dizziness or weakness. Since the bleeding does seem to have stopped I will discharge her home. She does have an appointment with her oncologist tomorrow at 11 AM. Return parameters were discussed in detail. She verbalizes understanding and agrees with this plan. Case discussed with my attending Dr. Reynolds. Disposition Clinical Impression: Bleeding from PICC line Disposition: HOME SELF-CARE Condition: Good Instructions (If sedation given, give patient instructions): Peripherally Inserted Central Catheters and Midline Catheters (DC) Additional Instructions: Follow-up with your doctor tomorrow as you have planned. Return to the emergency department for any worsening bleeding or other concerns. Is patient prescribed a controlled substance at d/c from ED?: No Referrals: Quang Henriquez MD [Primary Care Provider] - 1-2 days Time of Disposition: 22:28
== END 2021-03-07 23:00 | disposition home or self-care (01) ==
LOC: EC 21:25
DX: T82.838A Hemorrhage due to vascular prosthetic devices, implants and grafts, initial encounter (principal); E78.5 Hyperlipidemia, unspecified; K21.9 Gastro-esophageal reflux disease without esophagitis; Z45.2 Encounter for adjustment and management of vascular access device; Z82.49 Family history of ischemic heart disease and other diseases of the circulatory system
CPT/HCPCS: 99282

== ENCOUNTER → 2021-03-10 | Outpatient (CLI) | payer MEDICARE ==
--- NOTE | 2021-03-13 13:18 | PE ---
EXAMINATION TYPE: PET CT fusion skull to thigh DATE OF EXAM: 03/10/2021 COMPARISON: Most recent CT January 10, 2021 and older studies. Prior PET/CT April 15, 2020 HISTORY: Non-Hodgkin's lymphoma progress study TECHNIQUE: Following the intravenous administration of 10.99 mCi of F-18 FDG, whole body images are performed from the skull base to the midthigh. Images are reviewed on the computer in the coronal, a xial, and sagittal planes. Reconstructed rotating images are created on independent workstation and reviewed on the computer. A localization and attenuation correction CT is performed in conjunction with the PET scan. Blood glucose level equals 86 SCAN: Subsequent Scan FINDINGS: Mean SUV mediastinum: 1.1 Mean SUV liver: 1.47 SKULL BASE AND NECK: Marked interval improvement in abnormal hypermetabolic enlarged bilateral neck lymph nodes. No residual hypermetabolic enlarged lymph nodes are present. CHEST, MEDIASTINUM, AND HILAR REGION: Marked interval improvement from prior PET CT in the bilateral hypermetabolic and enlarged thoracic and bilateral axillary lymph nodes. No residual enlarged hyperme tabolic lymph nodes are present. Nonvisualization of left supraclavicular or anterior superior thorac ic hypermetabolic masses or lymph nodes on current study. ABDOMEN AND PELVIS: Marked interval improvement in abnormal abdominal and pelvic enlarged hypermetabo lic adenopathy most prominent in the retroperitoneum extending into bilateral inguinal regions. Singl e hypermetabolic enlarged left groin lymph node remains present on image 232 measuring 2.3 x 1.7 cm w ith max SUV 7.43. Prior PET study had multiple hypermetabolic enlarged lymph nodes at this level silvina ng correlation with single lymph node difficult. Most recent CT showed additional enlarged lymph node s, this likely corresponds to the dominant 2.6 x 2.7 cm lesion axial image 124 which is decreased in size. Interval improvement in abnormal mesenteric lymph nodes which are decreased in size. No hypermetaboli c enlarged lymph nodes. No persistent enlarged or hypermetabolic lymph nodes otherwise. OSSEOUS STRUCTURES: Mild diffuse increased uptake presumed posttreatment change. OTHER CT: Cardiomegaly with coronary artery calcification. 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 Multiple calcified gallstones filling contra cted gallbladder. Moderate multilevel spurring in the spine. IMPRESSION: Marked positive but partial treatment response as detailed above. Single residual enlarge d hypermetabolic left groin lymph node seen on current study.
== END | disposition home or self-care (01) ==
LOC: RADPETMAIN 08:03
PROVIDERS: ATTEND Internal Medicine Hematology & Oncology
DX: C85.98 Non-Hodgkin lymphoma, unspecified, lymph nodes of multiple sites (principal)
CPT/HCPCS: 78815; A9552

== ENCOUNTER 2021-04-19 07:28 | Day surgery (SDC) | payer MEDICARE ==
[2021-04-19] MEDS ORDERED: METHOTREXATE SODIUM (PF) 25 MG/ML 2 ML VIAL INTRATHECA ONE (09:00)
[2021-04-19] MEDS ORDERED: HYDROcodone/APAP 5-325MG 1 EACH TAB PO PRN (09:56)
--- NOTE | 2021-04-19 10:32 | FL ---
Lumbar puncture for chemotherapy access INDICATION: Pain FINDINGS: Fluoroscopy time: 21 seconds. Images obtained: 3. The procedure was explained to the patient. Risks complications and benefits were discussed. Alternat marie were discussed. All questions were answered. Informed consent was obtained. A timeout was performed. The L4-L5 level was chosen for access. Maximum barrier sterile technique was utilized. The skin was c leansed with Betadine and the patient sterilely prepped and draped in the usual manner. The skin and deeper tissue was anesthetized with 1% Lidocaine. Utilizing a 18-gauge spinal needle the spinal canal was accessed. Good CSF return was evident. A total of 7 mL of CSF was obtained in 2 vials, labeled a nd transferred to pathology for additional evaluation. The procedure was turned over to oncology for chemotherapy injection. Following completion of the chemotherapy and fluid replacement, the stylette was replaced and the nee dle withdrawn. Fluoroscopic spot images were obtained. The patient tolerated the procedure very well. Discharge instructions were discussed with the tai t. Findings: Pathology pending. IMPRESSIONS: 1. Successful Lumbar Puncture for chemotherapy injection.
[2021-04-19 12:14] VITALS: RESP 16
--- NOTE | 2021-04-19 13:47 | P.PCN ---
Date of Procedure: 04/19/21 Preoperative Diagnosis: DLBCL Postoperative Diagnosis: DLBCL Procedure(s) Performed: LP with administration of intrathecal chemotherapy Estimated Blood Loss (ml): 0 Pathology: other (cytology and flow cytometry) Condition: stable Indications for Procedure: Intermediate DLBCL risk for [employer] metastasis, rapid recurrent disease after initial treatment Description of Procedure: LP performed by Interventional Radiologist, 7 cc CSF removed. 12mg of preservative free, sterile methotrexate, diluted with sterile, preservative free NS to a volume of 2.4cc. This was administered over 2 1/2 minutes. Line was flushed with 4.5cc of sterile, preservative free NS. All fluids verified sterile preservative free with Pharmacist and OCN RN. Needle removed, Pt tolerated procedure well, no immediate physical c/o.
[2021-04-19 14:48] VITALS: BP 119/71; PULSE 71; TEMP 97.8
== END 2021-04-19 14:40 | disposition home or self-care (01) ==
LOC: RADPROMAIN 07:28 → 6PED 10:25 → RADPROMAIN 14:40
PROVIDERS: ATTEND Internal Medicine Hematology & Oncology
DX: C83.38 Diffuse large B-cell lymphoma, lymph nodes of multiple sites (principal); Z79.899 Other long term (current) drug therapy; Z98.890 Other specified postprocedural states; Z86.19 Personal history of other infectious and parasitic diseases; Z51.11 Encounter for antineoplastic chemotherapy
CPT/HCPCS: 88108; 62328; J9260

== ENCOUNTER 2021-05-10 08:03 | Day surgery (SDC) | payer MEDICARE ==
[2021-05-10 08:57] VITALS: TEMP 98.4
[2021-05-10] MEDS ORDERED: METHOTREXATE SODIUM (PF) 25 MG/ML 2 ML VIAL INTRATHECA ONE (09:30)
--- NOTE | 2021-05-10 09:45 | FL ---
EXAMINATION TYPE: FL guided lumbar puncture LP DATE OF EXAM: 05/10/2021 COMPARISON: NONE HISTORY: Lymphoma TECHNIQUE: Fluoroscopy. FINDINGS: Fluoroscopic guidance was provided during procedure performed by Dr. Eid. A total of 58 seconds of fluoroscopic time was utilized during the procedure and 1 spot images was acquired. IMPRESSION: As Above.
[2021-05-10 09:51] VITALS: RESP 16
[2021-05-10 19:21] VITALS: BP 155/69; PULSE 70
--- NOTE | 2021-05-15 15:03 | P.PCN ---
Date of Procedure: 05/10/21 Preoperative Diagnosis: DLBCL Postoperative Diagnosis: DLBCL Procedure(s) Performed: Lumbar puncture and administration of prophylactic intrathecal methotrexate Anesthesia: local Estimated Blood Loss (ml): 0 IV fluids (ml): 0 Urine output (ml): 0 Pathology: other (sent for flow cytometry an cytology) Condition: stable Disposition: same day Indications for Procedure: recurrent lymphoma Description of Procedure: LP performed by Interventional Radiologist, 4cc of CSF fluid removed and sent for analysis. Intrathecal methotrexate preparation verified with the Pharmacist. 12 mg of sterile, preservative-free methotrexate diluted to 2.4 mL with preservative-free, sterile normal saline was administered over 2-1/2 minutes, the line and needle were then flushed with 1.6 mL is of sterile, preservative-free normal saline the latex free syringe. Lumbar puncture needle was removed, Band-Aid was placed. No blood loss. Patient tolerated procedure well.
== END 2021-05-10 11:45 | disposition home or self-care (01) ==
LOC: RADPROMAIN 08:03
PROVIDERS: ATTEND Internal Medicine Hematology & Oncology
DX: C83.38 Diffuse large B-cell lymphoma, lymph nodes of multiple sites (principal)
CPT/HCPCS: 88108; 62328; J9260

== ENCOUNTER 2021-05-31 08:03 | Day surgery (SDC) | payer MEDICARE ==
[2021-05-31 08:26] VITALS: RESP 16; TEMP 97.3
[2021-05-31 09:00] LABS: Anisocytosis Slight; HCT 29.8 % (34.0-46.0); MCH 33.8 pg (25.0-35.0); MCHC 33.7 g/dL (31.0-37.0); MCV 100.5 fL (80.0-100.0); Macrocytosis Slight; Mean Platelet Volume 6.7; Platelet Count 349 k/uL (150-450); RBC 2.96 m/uL (3.80-5.40); RDW 17.1 % (11.5-15.5); WBC 6.4 k/uL (3.8-10.6)
[2021-05-31] MEDS ORDERED: METHOTREXATE SODIUM (PF) 25 MG/ML 2 ML VIAL INTRATHECA ONE (09:30)
--- NOTE | 2021-05-31 09:58 | P.PCN ---
Date of Procedure: 05/31/21 Preoperative Diagnosis: DLBCL Postoperative Diagnosis: DLBCL Procedure(s) Performed: Image guided LP and prophylactic IT methotrexate administration Anesthesia: local Estimated Blood Loss (ml): 0 IV fluids (ml): 0 Urine output (ml): 0 Pathology: other (cytology and flow cytometry) Condition: stable Disposition: same day Indications for Procedure: Recurrent/refractory DLCBL, Prophylactic IT chemo indicated for high risk Description of Procedure: LP performed by Interventional Radiologist, 4cc of CSF was removed. Verified with Pharmacist 12mg sterile, preservative free methotrexate, diluted with sterile preservative free NS to a volume of 2.4cc was administered over 2 1/2 min. Line was flushed with 1.6cc of sterile, preservative free NS in a latex free syringe. IT needle removed, all materials place in marked chemo transport bag. Pt denied any pain, nausea. Tolerated procedure well.
[2021-05-31 11:21] VITALS: BP 114/58; PULSE 68
[2021-05-31 11:35] LABS: Basophils # (M) 0.06 k/uL (0-0.2); Eosinophils # (M) 0.06 k/uL (0-0.7); Monocytes # (M) 0.51 k/uL (0-1.0); Neutrophils # (M) 4.86 k/uL (1.3-7.7); Neutrophils % (M) 76 %; Nucleated Red Blood Cells 0 /100 WBC (0-0); Total Cells Counted 100
--- NOTE | 2021-05-31 13:18 | FL ---
EXAMINATION TYPE: FL guided lumbar puncture LP DATE OF EXAM: 05/31/2021 HISTORY: Lymphoma, C 83.38 Maximal barrier technique was utilized. The skin overlying the L3 transverse process was localized u nder fluoroscopy and the overlying skin prepped and draped. Lidocaine used for local anesthesia. 20 -gauge needle was advanced into the thecal sac under fluoroscopic guidance and cerebrospinal fluid wa s noted to return in the hub of the needle. Approximately 4 cc of cerebrospinal fluid was harvested per referring clinician. Referring clinician then administered intrathecal chemotherapy. A spot image verified needle placement. 1.14 minutes fluoroscopy time, single intraoperative image documents the procedure. The patient remained in stable condition, the needle was removed. Hemostasis achieved. No immediate complication. IMPRESSION: Fluoroscopic guided lumbar puncture provided for the referring clinician for intrathecal chemotherapy administration, this procedure performed by the undersigned
== END 2021-05-31 11:42 | disposition home or self-care (01) ==
LOC: RADPROMAIN 08:03
PROVIDERS: ATTEND Internal Medicine Hematology & Oncology
DX: Z51.11 Encounter for antineoplastic chemotherapy (principal); C85.90 Non-Hodgkin lymphoma, unspecified, unspecified site
CPT/HCPCS: 96450; 62328; 88108; 85025; J9260

== ENCOUNTER 2021-07-04 08:11 | Day surgery (SDC) | payer MEDICARE ==
[~2021-07-04 08:11] MED LIST changes: -FAMOTIDINE 20 MG/2 ML VIAL IV NR; +METHOTREXATE SODIUM (PF) 25 MG/ML 2 ML VIAL INTRATHECA ONE; -RITUXIMAB PVVR IV NR; -SODIUM CHLORIDE 0.9% 500 ML 500 ML in EMPTY BAG 1 BAG IV PRN; -SODIUM CHLORIDE 0.9% IV NR; -diphenhydrAMINE 50 MG/ML 1 ML VIAL IVP NR; -methylPREDNISolone SOD SUCCI 125 MG/2 ML VIAL IV NR
[2021-07-04 08:42] VITALS: RESP 16; TEMP 98
--- NOTE | 2021-07-04 10:01 | FL ---
EXAMINATION TYPE: FL guided lumbar puncture LP DATE OF EXAM: 07/04/2021 HISTORY: C83.38 Diffuse large B-cell lymphoma Maximal barrier technique was utilized. The skin overlying the L3 transverse process was localized u nder fluoroscopy and the overlying skin prepped and draped. Lidocaine used for local anesthesia. 20 -gauge needle was advanced into the thecal sac under fluoroscopic guidance and cerebrospinal fluid wa s noted to return in the hub of the needle. Approximately 4 cc of cerebral spinal fluid was harveste d per the referring clinician. A spot image verified needle placement. Referring clinician then perf ormed instillation of chemotherapy. 2 intraoperative images document the procedure, 1 minute 18 seconds fluoroscopy time. IMPRESSION: Lumbar puncture and cerebral spinal fluid harvest, access gained for instillation of chemotherapeutic agent by the referring clinician.
[2021-07-04] MEDS ORDERED: ACETAMINOPHEN TAB 325 MG TAB PO PRN (12:47)
[2021-07-04] MEDS ORDERED: ACETAMINOPHEN TAB 325 MG TAB ONE (12:49)
[2021-07-04 14:18] VITALS: BP 124/76; PULSE 74
--- NOTE | 2021-07-04 17:04 | P.PCN ---
Date of Procedure: 07/04/21 Preoperative Diagnosis: DLBCL Postoperative Diagnosis: DLBCL Procedure(s) Performed: Lumbar puncture with administration of prophylactic intrathecal methotrexate Estimated Blood Loss (ml): 0 IV fluids (ml): 0 Urine output (ml): 0 Pathology: none sent Condition: stable Disposition: same day Indications for Procedure: Rapid recurrent DLBCL, intrathecal prophylaxis Description of Procedure: LP performed by Interventional Radiologist, 4.4 cc clear CSF removed. Medications triple checked with Pharmacist and confirmed 12 mg sterile, preservative free methotrexate diluted with sterile NS to a volume of 2.4 cc. This was administered by slow push over 2 1/2 min, catheter flushed with 2cc sterile NS in latex free syringe. Radiologist removed LP needle and catheter, placed in sharps container. Sharps container and gloves placed in chemo safety bag for transport to appropriate container for disposal. Pt tolerated procedure well.
== END 2021-07-04 14:32 | disposition home or self-care (01) ==
LOC: RADPROMAIN 08:11
PROVIDERS: ATTEND Internal Medicine Hematology & Oncology
DX: C83.30 Diffuse large B-cell lymphoma, unspecified site (principal)
CPT/HCPCS: 62328; 96450; J9260

== ENCOUNTER → 2021-07-10 | Outpatient (CLI) | payer MEDICARE ==
[2021-07-10 14:07] LABS: African American GFR (CKD) >90 (>60 ml/min/1.73 sqM); Blood Urea Nitrogen 12 mg/dL (7-17); Non-African American GFR(CKD) >90 (>60 ml/min/1.73 sqM)
--- NOTE | 2021-07-10 16:02 | CT ---
EXAMINATION TYPE: CT ChestAbdPelvis w con DATE OF EXAM: 07/10/2021 COMPARISON: 03/10/2021, 01/10/2021 HISTORY: 76-year-old female C83.38 lymphoma, Z03.89 TECHNIQUE: Contiguous axial scanning of the chest, abdomen, and pelvis performed with IV Contrast, pa tient injected with 100 mL of Isovue 370. Delayed images through the kidneys were obtained. Coronal/s agittal reconstructions performed. CT DLP: 826.2 mGycm Automated exposure control for dose reduction was used. FINDINGS: CHEST: Heart normal size without pericardial effusion. Coronary artery mild three-vessel coronary artery bala cifications are present. Aorta normal caliber. 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 No thoracic lymphadenopathy by CT size criteria. Biapical pleural parenchymal scarring. 4 mm right mid lung pulmonary nodule is unchanged 6 mm elongated nodularity medial right middle lobe is unchanged 3 mm left mid lung pulmonary nodule is unchanged. No consolidation or pleural effusion. ABDOMEN: Tiny hiatal hernia. No focal liver lesion or biliary ductal dilatation. Portal venous system is patent. The bladder is collapsed but packed with calculi. Adrenal glands, spleen, and atrophic pancreas within normal limits. 2.5 cm cyst posterior upper pole right kidney. A couple tiny 5 mm smaller cortical hypodensities in t he lower poles of the kidneys likely tiny cortical cysts. No dilated small bowel, free fluid, or free air. No mesenteric or retroperitoneal lymphadenopathy. Normal appendix. Oral contrast progressed to the distal transverse colon. Mild stool burden. No peric olonic inflammatory change. PELVIS: Bladder distended. Small focus of intraluminal air along the nondependent portion of the bladder lume n. Uterus is anteverted. Both ovaries are visualized. No abnormal fluid collection in the pelvis or p elvic lymphadenopathy. The previous enlarged 2.3 x 1.7 cm upper left femoral chain lymph node has resolved. BONES: Mild to moderate degenerative change of the hips. Moderate degenerative disc disease and anterior end plate spondylosis lumbar spine. Hypertrophic facet arthropathy is present. IMPRESSION: 1. THE PREVIOUSLY ENLARGED UPPER LEFT FEMORAL CHAIN LYMPH NODE HAS RESOLVED. NO SUSPICIOUS LYMPHADENO AVINASH TO SUGGEST RESIDUAL OR PROGRESSIVE DISEASE. 2. A FEW SCATTERED PULMONARY NODULES MEASURING UP TO 6 MM REMAIN UNCHANGED BACK TO AT LEAST 01/10/2021 .
== END | disposition home or self-care (01) ==
LOC: RADPROMAIN 13:06
PROVIDERS: ATTEND Internal Medicine Hematology & Oncology
DX: C83.38 Diffuse large B-cell lymphoma, lymph nodes of multiple sites (principal); R91.8 Other nonspecific abnormal finding of lung field
CPT/HCPCS: 82565; 84520; 71260; 74177; 36415; Q9967

== ENCOUNTER → 2021-08-23 | Outpatient (CLI) | payer MEDICARE ==
--- NOTE | 2021-08-24 10:12 | ECHOF ---
Referral Reason:Z01.818 Essential Hypertension MEASUREMENTS -------- HEIGHT: 165.1 cm WEIGHT: 68.0 kg BP: IVSd: 1.1 cm (0.6 - 1.1) LVIDd: 5.1 cm (3.9 - 5.3) LVPWd: 1.4 cm (0.6 - 1.1) IVSs: 1.2 cm LVIDs: 3.6 cm LVPWs: 1.9 cm LAESV Index (A-L): 36.47 ml/m Ao Diam: 3.4 cm (2.0 - 3.7) AV Cusp: 1.6 cm (1.5 - 2.6) LA Diam: 3.9 cm (2.7 - 3.8) MV EXCURSION: 15.618 mm (> 18.000) MV EF SLOPE: 60 mm/s (70 - 150) EPSS: 0.9 cm MV E Neri: 0.57 m/s MV DecT: 238 ms MV A Neri: 0.89 m/s MV E/A Ratio: 0.64 RAP: 5.00 mmHg RVSP: 14.31 mmHg FINDINGS -------- Sinus rhythm. This was a technically good study. The left ventricular size is normal. There is mild concentric left ventricular hypertrophy. Overa ll left ventricular systolic function is mildly impaired with, an EF between 45 - 50 %. The right ventricle is normal in size. LA is moderately dilated 34-39 ml/m2 The right atrial size is normal. There is mild aortic valve sclerosis. There is no evidence of aortic regurgitation. Mild mitral regurgitation is present. Mild tricuspid regurgitation present. Right ventricular systolic pressure is normal at < 35 mmHg. There is no pulmonic regurgitation present. There is no pericardial effusion. CONCLUSIONS -------- 1. The left ventricular size is normal. 2. There is mild concentric left ventricular hypertrophy. 3. Overall left ventricular systolic function is mildly impaired with, an EF between 45 - 50 %. 4. The right ventricle is normal in size. 5. LA is moderately dilated 34-39 ml/m2 6. The right atrial size is normal. 7. There is mild aortic valve sclerosis. 8. Mild mitral regurgitation is present. 9. Mild tricuspid regurgitation present. 10. There is no pericardial effusion. TIMBER MANAGEMENT ASSISTANT: Margo Irizarry RDCS
== END | disposition home or self-care (01) ==
LOC: RADECHMAIN 07:48
PROVIDERS: ATTEND Internal Medicine Hematology & Oncology
DX: I08.1 Rheumatic disorders of both mitral and tricuspid valves (principal); I10 Essential (primary) hypertension
CPT/HCPCS: 93306

== ENCOUNTER → 2021-08-25 | Outpatient (CLI) | payer MEDICARE ==
--- NOTE | 2021-08-28 07:27 | PE ---
EXAMINATION TYPE: PET CT fusion skull to thigh DATE OF EXAM: 08/25/2021 COMPARISON: Most recent CT July 10, 2021. Most recent PET/CT March 10, 2021 and older studies. HISTORY: Diffuse B-cell lymphoma progress study. TECHNIQUE: Following the intravenous administration of 9.0 mCi of F-18 FDG, whole body images are pe rformed from the skull base to the midthigh. Images are reviewed on the computer in the coronal, axi al, and sagittal planes. Reconstructed rotating images are created on independent workstation and re viewed on the computer. A localization and attenuation correction CT is performed in conjunction wi th the PET scan. Blood glucose level equals 106. SCAN: Subsequent Scan FINDINGS: FINDINGS: Mean SUV mediastinum: 0.78 Mean SUV liver: 1.97 SKULL BASE AND NECK: No recurrent hypermetabolic enlarged lymph nodes are identified. CHEST, MEDIASTINUM, AND HILAR REGION: No recurrent enlarged hypermetabolic lymph nodes are present. N o new or recurrent hypermetabolic masses. ABDOMEN AND PELVIS: Single recurrent hypermetabolic posterior to the pancreatic head and anterior to the IVC at level of renal vein confluence measures 11 x 5 mm axial image 144 with abnormal hypermetab olic uptake, max SUV is 4.69. No hypermetabolic left groin lymph node current study. No additional ne w abnormal hypermetabolic lymph nodes. OSSEOUS STRUCTURES: Resolved mild diffuse osseous uptake. No new focal suspicious abnormal hypermetab olic uptake. OTHER CT: Cardiomegaly with coronary artery calcification redemonstrated. There is aberrant right lamin ed brachiocephalic artery, normal variant . Multiple calcified gallstones filling contracted gallbladder. Moderate multilevel spurring in the spi ne. IMPRESSION: Overall mixed response. Nonvisualized abnormal left groin lymph node current study but ne w hypermetabolic subcentimeter right peripancreatic lymph node.
== END | disposition home or self-care (01) ==
LOC: RADPETMAIN 07:20
PROVIDERS: ATTEND Internal Medicine Hematology & Oncology
DX: C83.38 Diffuse large B-cell lymphoma, lymph nodes of multiple sites (principal)
CPT/HCPCS: 78815; A9552

== ENCOUNTER → 2021-09-25 | Outpatient (CLI) | payer MEDICARE ==
[2021-09-25 11:31] LABS: African American GFR (CKD) >90 (>60 ml/min/1.73 sqM); Blood Urea Nitrogen 18 mg/dL (7-17); Non-African American GFR(CKD) 86 (>60 ml/min/1.73 sqM)
--- NOTE | 2021-09-25 13:13 | CT ---
EXAMINATION TYPE: CT ChestAbdPelvis w con DATE OF EXAM: 09/25/2021 COMPARISON: PET/CT August 25, 2021 and older studies HISTORY: Diffuse B cell Lymphoma progress study.r CT DLP: 842.7 mGycm. Automated Exposure Control for Dose Reduction was Utilized. CONTRAST: CT scan of the thorax, abdomen and pelvis is performed with oral and with IV Contrast, patient inject ed with 100 mL of Isovue 300. FINDINGS: LUNGS: Stable 4 mm right lower lobe nodule coronal image 40. No new or enlarging greater than 5 mm no dules or masses. No pleural effusion or pneumothorax seen bilaterally MEDIASTINUM: There are no greater than 1 cm hilar or mediastinal lymph nodes. No cardiomegaly or pe ricardial effusion is seen. Left-sided arch with aberrant right brachiocephalic artery running poste rior to the esophagus redemonstrated. Coronary artery calcification again seen. LIVER/GB: Contracted gallbladder redemonstrated. Intraluminal calcified gallstones again seen. PANCREAS: Mild to Moderate generalized atrophy redemonstrated. SPLEEN: No significant abnormality is seen. ADRENALS: No significant abnormality is seen. KIDNEYS: Stable 2.5 cm partially exophytic cyst posteriorly upper pole of the right kidney axial imag e 65. BOWEL: Oral contrast reaches level of the distal left colon. No suspicious small or large bowel dilat ation. Mild to moderate thickening from splenic flexure through the rectum on current study. GENITAL ORGANS: Anteverted uterus projects to the left of midline. Stable symmetric normal-size ovari es axial image 103. A few small scattered left-sided pelvic phleboliths. LYMPH NODES: Enlarging adenopathy posterior to the pancreatic head anterior to the IVC axial image 67 corresponding to coronal image 39 noted. This correlates with area of concern on PET/CT. The largest lymph node measures 1.7 x 1.0 cm axial image 66. Stable prominent subcentimeter left periaortic lymp h node image 72 which was ametabolic. No recurrent large left groin adenopathy. OSSEOUS STRUCTURES: Underlying S-shaped scoliosis. Moderate multilevel spurring in the thoracolumbar spine. Facet arthropathy lower lumbar levels. OTHER: No significant additional abnormality is seen. IMPRESSION: Worsening local peripancreatic adenopathy corresponding to the area of concern on recent PET/CT. No additional new abnormal adenopathy identified.
== END | disposition home or self-care (01) ==
LOC: RADCTMAIN 09:37
PROVIDERS: ATTEND Internal Medicine Hematology & Oncology
DX: C83.38 Diffuse large B-cell lymphoma, lymph nodes of multiple sites (principal)
CPT/HCPCS: 82565; 84520; 71260; 74177; 36415; Q9967 ×2

== ENCOUNTER 2021-10-08 13:51 | Emergency (ER) | payer MEDICARE ==
[2021-10-08 14:28] VITALS: TEMP 98
--- NOTE | 2021-10-08 14:58 | XR ---
EXAMINATION TYPE: XR chest 2V DATE OF EXAM: 10/08/2021 COMPARISON: 02/15/2021 HISTORY: Cough TECHNIQUE: 2 views FINDINGS: There is some mild interstitial infiltrate in both lower lobes. Upper lung velazquez are clear . Heart and mediastinum are normal. There are no hilar masses. Costophrenic angles are clear. Bony th orax is intact. IMPRESSION: There is evidence for some new minimal interstitial infiltrate in both lower lobes. Mena l heart.
[2021-10-08] MEDS ORDERED: DEXAMETHASONE SOD PHOSPHATE 10 MG/ML 1 ML VIAL IVP STA (16:03)
[2021-10-08] MEDS ORDERED: SODIUM CHLORIDE 0.9% 1,000 ML IV STA (16:03)
--- NOTE | 2021-10-08 16:04 | ED ---
URI HPI - General Chief Complaint: Upper Respiratory Infection Stated Complaint: COVID+,Fatigue, Hx Hodgkins Lymphoma Time Seen by Provider: 10/08/21 15:13 Source: patient, RN notes reviewed Mode of arrival: ambulatory Limitations: no limitations - History of Present Illness Initial Comments: 76-year-old female presents emergency Department chief complaint of cough and covid 19. Patient states she just feels tired, has had mild cough and congestion. Patient states that symptoms started 9, 7 days ago. Patient states she has not had significant shortness breath no chest pain. Patient states she just feels tired has not received her monoclonal antibodies. Patient offers no complaints. - Related Data Home Medications Medication Instructions Recorded Confirmed Folic Acid 1 mg PO DAILY 02/03/21 06/28/21 Sennosides/Docusate Sodium [Senna 1 tab PO HS PRN 02/03/21 06/28/21 Plus 8.6-50 mg Tablet] Cholecalciferol [Vitamin D3 (25 25 mcg PO DAILY 02/15/21 06/28/21 Mcg = 1000 Iu)] Omeprazole 40 mg PO DAILY 04/14/21 07/04/21 Ondansetron [Zuplenz] 4 mg PO DAILY 04/14/21 06/28/21 Previous Rx's Medication Instructions Recorded Enalapril [Vasotec] 10 mg PO DAILY #30 tablet 02/19/21 Allergies Allergy/AdvReac Type Severity Reaction Status Date / Time No Known Allergies Allergy Verified 10/08/21 14:28 Review of Systems ROS Statement: Those systems with pertinent positive or pertinent negative responses have been documented in the HPI. ROS Other: All systems not noted in ROS Statement are negative. Past Medical History Past Medical History: Cancer, GERD/Reflux, Hyperlipidemia Additional Past Medical History / Comment(s): lymphoma dx April 2020-starting chemo on 02-08-21-last chemo 2019, SWELLING IN NECK, hx SOME RETENTION OF FLUIDS OF ANKLES IN THE PAST, History of Any Multi-Drug Resistant Organisms: None Reported Past Surgical History: No Surgical Hx Reported Additional Past Surgical History / Comment(s): COLONOSCOPY,port a cath insertion on 01-31-21, biopsy bilateral neck, L.P with intrathecal chemo x 4 Past Anesthesia/Blood Transfusion Reactions: No Reported Reaction Additional Past Anesthesia/Blood Transfusion Reaction / Comment(s): NO PRIOR SX HX Past Psychological History: No Psychological Hx Reported Smoking Status: Never smoker Past Alcohol Use History: None Reported Past Drug Use History: None Reported - Past Family History Mother Family Medical History: No Reported History Father Family Medical History: Congestive Heart Failure (CHF) Additional Family Medical History / Comment(s): Father of CHF at the age of 89yrs. General Exam Limitations: no limitations General appearance: alert, in no apparent distress Head exam: Present: atraumatic, normocephalic, normal inspection Eye exam: Present: normal appearance, PERRL, EOMI. Absent: scleral icterus, conjunctival injection, periorbital swelling ENT exam: Present: normal exam, mucous membranes moist Neck exam: Present: normal inspection, full ROM. Absent: tenderness, meningismus, lymphadenopathy Respiratory exam: Present: normal lung sounds bilaterally. Absent: respiratory distress, wheezes, rales, rhonchi, stridor Cardiovascular Exam: Present: regular rate, normal rhythm, normal heart sounds. Absent: systolic murmur, diastolic murmur, rubs, gallop, clicks Course Vital Signs 10/08/21 14:21 Temperature 98.0 F Pulse Rate 74 Respiratory 18 Rate Blood Pressure 107/67 O2 Sat by Pulse 98 Oximetry Medical Decision Making - Medical Decision Making COVID-19 positive did receive monoclonal antibodies vitals are stable be discharged stable condition return parameters were discussed. - Lab Data Lab Results 10/08/21 Range/Units 14:29 Coronavirus (PCR) Detected A (Not Detectd) Disposition Clinical Impression: COVID-19 Disposition: HOME SELF-CARE Condition: Stable Instructions (If sedation given, give patient instructions): Coronavirus Disease 2019 (COVID-19) Additional Instructions: Please return to the Emergency Department if symptoms worsen or any other concerns. Is patient prescribed a controlled substance at d/c from ED?: No Referrals: Quang Henriquez MD [Primary Care Provider] - 1-2 days Time of Disposition: 16:04
[2021-10-08] MEDS ORDERED: BAMLANIVIMAB (EUA) 700 MG, ETESEVIMAB (EUA) 1,400 MG in SODIUM CHLORIDE 0.9% 50 ML IVPB ONE (16:30)
[2021-10-08] MEDS ORDERED: SODIUM CHLORIDE 0.9% 50 ML IVPB ONE (16:30)
[2021-10-08 18:13] VITALS: BP 133/72; PULSE 82; RESP 18
== END 2021-10-08 18:22 | disposition home or self-care (01) ==
LOC: EC 13:51
DX: U07.1 COVID-19 (principal); K21.9 Gastro-esophageal reflux disease without esophagitis; E78.5 Hyperlipidemia, unspecified
CPT/HCPCS: 96361; 96374; 99283; M0245; 71046; 87635

== ENCOUNTER → 2021-11-22 | Outpatient (CLI) | payer MEDICARE ==
--- NOTE | 2021-11-22 09:01 | XR ---
EXAMINATION TYPE: XR chest 2V DATE OF EXAM: 11/22/2021 COMPARISON: 10/08/2021 HISTORY: 76-year-old female D702, [id number], C8598, I10, preop before bone marrow transplant. TECHNIQUE: Frontal and lateral views FINDINGS: Heart limits of normal in size. Mild hyperinflation may relate to depth of inspiration or underlying emphysema. Mild interstitial prominence is unchanged and suggests a chronic appearance. No consolidat ion or pleural effusion. IMPRESSION: Borderline heart size. Chronic interstitial prominence. No acute process seen.
--- NOTE | 2021-11-22 10:10 | ECHOF ---
Referral Reason:Z01.818 MEASUREMENTS -------- HEIGHT: 162.6 cm WEIGHT: 68.0 kg BP: IVSd: 1.1 cm (0.6 - 1.1) LVIDd: 4.9 cm (3.9 - 5.3) LVPWd: 1.2 cm (0.6 - 1.1) IVSs: 1.2 cm LVIDs: 4.2 cm LVPWs: 1.4 cm LAESV Index (A-L): 31.04 ml/m Ao Diam: 3.0 cm (2.0 - 3.7) AV Cusp: 1.9 cm (1.5 - 2.6) LA Diam: 2.5 cm (2.7 - 3.8) MV EXCURSION: 19.436 mm (> 18.000) MV EF SLOPE: 93 mm/s (70 - 150) EPSS: 4.7 cm MV E Neri: 1.00 m/s MV DecT: 202 ms MV A Neri: 1.24 m/s MV E/A Ratio: 0.81 RAP: 5.00 mmHg RVSP: 8.59 mmHg FINDINGS -------- This was a technically good study. The left ventricular size is normal. There is mild concentric left ventricular hypertrophy. Overa ll left ventricular systolic function is mild-moderately impaired with, an EF between 40 - 45 %. No rmal LAP. Grade 1 Diastolic Dysfunction. The right ventricle is normal in size. LA is midly dilated 29-33ml/m2. The right atrial size is normal. Aortic valve is trileaflet and is mildly thickened. The mitral valve is normal. Mild mitral regurgitation is present. The tricuspid valve appears structurally normal. Mild tricuspid regurgitation present. Right vent ricular systolic pressure is normal at < 35 mmHg. There is no pulmonic regurgitation present. The aortic root size is normal. Normal inferior vena cava with normal inspiratory collapse consistent with estimated right atrial pre ssure of 5 mmHg. There is no pericardial effusion. CONCLUSIONS -------- 1. The left ventricular size is normal. 2. There is mild concentric left ventricular hypertrophy. 3. Overall left ventricular systolic function is mild-moderately impaired with, an EF between 40 - 45 %. 4. Normal LAP. Grade 1 Diastolic Dysfunction. 5. LA is midly dilated 29-33ml/m2. 6. Aortic valve is trileaflet and is mildly thickened. 7. Mild mitral regurgitation is present. 8. Mild tricuspid regurgitation present. 9. There is no pericardial effusion. SENIOR INSIGHT MANAGER INTERNATIONAL: Lety Kerns RDCS
== END | disposition home or self-care (01) ==
LOC: RADECHMAIN 07:38
PROVIDERS: ATTEND Internal Medicine Hematology & Oncology
DX: Z01.818 Encounter for other preprocedural examination (principal); C85.98 Non-Hodgkin lymphoma, unspecified, lymph nodes of multiple sites; C83.38 Diffuse large B-cell lymphoma, lymph nodes of multiple sites; D70.2 Other drug-induced agranulocytosis; I11.9 Hypertensive heart disease without heart failure; J98.4 Other disorders of lung; I08.3 Combined rheumatic disorders of mitral, aortic and tricuspid valves; I49.8 Other specified cardiac arrhythmias; R94.31 Abnormal electrocardiogram [ECG] [EKG]
CPT/HCPCS: 71046; 93005; 93306

== ENCOUNTER → 2022-01-04 | Outpatient (CLI) | payer MEDICARE ==
[2022-01-04 09:42] LABS: African American GFR (CKD) >90 (>60 ml/min/1.73 sqM); Blood Urea Nitrogen 13 mg/dL (7-17); Non-African American GFR(CKD) 88 (>60 ml/min/1.73 sqM)
--- NOTE | 2022-01-04 11:34 | CT ---
EXAMINATION TYPE: CT ChestAbdPelvis w con DATE OF EXAM: 01/04/2022 COMPARISON: CT chest abdomen and pelvis September 25, 2021 and older studies HISTORY: Diffuse B cell LYMPHOMA diagnosed 2019 above and below [address]. CT DLP: 1435 mGycm. Automated Exposure Control for Dose Reduction was Utilized. CONTRAST: CT scan of the thorax, abdomen and pelvis is performed with oral and with IV Contrast, patient inject ed with 100ML mL of Isovue 300. FINDINGS: LUNGS: Stable 4 mm right lower lobe nodule coronal image 41 just below fissure. New bibasilar opaciti es favors atelectatic change and/or mild edema. No new or enlarging greater than 5 mm nodules or mass es. No pleural effusion or pneumothorax seen bilaterally MEDIASTINUM: There are no new greater than 1 cm hilar or mediastinal lymph nodes. No cardiomegaly o r pericardial effusion is seen. Left-sided arch with aberrant right brachiocephalic artery running p osterior to the esophagus redemonstrated. Coronary artery calcification again seen. LIVER/GB: Contracted gallbladder redemonstrated. Intraluminal small gallstones again seen. PANCREAS: Mild to Moderate generalized atrophy redemonstrated. SPLEEN: No significant abnormality is seen. ADRENALS: No significant abnormality is seen. KIDNEYS: Stable 2.4 cm partially exophytic cyst posteriorly upper pole of the right kidney axial imag e 68. BOWEL: Oral contrast reaches level of the distal transverse colon. No suspicious small or large bowel dilatation. Mild wall thickening from splenic flexure through the rectum on current study similar to prior is nonspecific could be product of poor distention. GENITAL ORGANS: Anteverted uterus redemonstrated. Persistent visualized normal-sized ovaries. A few t iny calcified scattered left-sided pelvic phleboliths redemonstrated. LYMPH NODES: Enlarging adenopathy posterior to the pancreatic head anterior to the IVC axial image 72 for reference corresponding to coronal image 35 is redemonstrated. This correlates with area of conc christos on most recent PET/CT. This currently measures 4.0 x 2.2 cm axial image 72 with some superior luiz tral round hypodensity. Stable prominent subcentimeter left periaortic lymph node axial image 75 curr ent study which was ametabolic. No recurrent greater than 1 cm left groin adenopathy. OSSEOUS STRUCTURES: Underlying scoliotic curvature redemonstrated. Moderate multilevel spurring in th e thoracolumbar spine. Facet arthropathy lower lumbar levels. OTHER: No significant additional abnormality is seen. IMPRESSION: Continued Worsening local peripancreatic adenopathy corresponding to the area of concern on most recent PET/CT. No additional new abnormal adenopathy identified.
== END | disposition home or self-care (01) ==
LOC: RADCTMAIN 08:56
PROVIDERS: ATTEND Internal Medicine Hematology & Oncology
DX: C83.38 Diffuse large B-cell lymphoma, lymph nodes of multiple sites (principal); R59.9 Enlarged lymph nodes, unspecified
CPT/HCPCS: 82565; 84520; 71260; 74177; 36415; Q9967

== ENCOUNTER 2022-01-17 07:29 | Day surgery (SDC) | payer MEDICARE ==
[~2022-01-17 07:29] MED LIST changes: +ALPRAZolam 0.25 MG TAB PO PRN; +ALPRAZolam 0.5 MG TAB PO PRN; +ASPIRIN 325 MG TAB PO ONE; +HEPARIN SODIUM,PORCINE 10,000 UNIT in SODIUM CHLORIDE 0.9% 1,000 ML IRRIGATION PRN; +HEPARIN SODIUM,PORCINE 2,500 UNIT in SODIUM CHLORIDE 0.9% 250 ML IRRIGATION PRN; -METHOTREXATE SODIUM (PF) 25 MG/ML 2 ML VIAL INTRATHECA ONE; +NITROGLYCERIN SL TABS 0.4 MG TAB SUBLINGUAL PRN; +SODIUM CHLORIDE 0.9% 1,000 ML in EMPTY BAG 1 BAG IV SCH
[2022-01-17 08:31] LABS: Basophils % (A) 1 %; Eosinophils # (A) 0.4 k/uL (0-0.7); Eosinophils % (A) 11 %; HCT 35.9 % (34.0-46.0); HGB 11.5 gm/dL (11.4-16.0); Lymphocytes # (A) 0.4 k/uL (1.0-4.8); Lymphocytes % (A) 11 %; MCH 29.3 pg (25.0-35.0); MCHC 32.1 g/dL (31.0-37.0); MCV 91.4 fL (80.0-100.0); Mean Platelet Volume 7.2; Monocytes # (A) 0.4 k/uL (0-1.0); Monocytes % (A) 11 %; Neutrophils # (A) 2.4 k/uL (1.3-7.7); Neutrophils % (A) 63 %; Platelet Count 233 k/uL (150-450); RBC 3.93 m/uL (3.80-5.40); RDW 13.8 % (11.5-15.5); WBC 3.9 k/uL (3.8-10.6)
[2022-01-17 08:34] LABS: African American GFR (CKD) >90 (>60 ml/min/1.73 sqM); Anion Gap 8 mmol/L; Blood Urea Nitrogen 16 mg/dL (7-17); Calcium 9.4 mg/dL (8.4-10.2); Carbon Dioxide 26 mmol/L (22-30); Chloride 105 mmol/L (98-107); Glucose 98 mg/dL (74-99); Non-African American GFR(CKD) 88 (>60 ml/min/1.73 sqM); Potassium 4.2 mmol/L (3.5-5.1); Sodium 139 mmol/L (137-145)
[2022-01-17] MEDS ORDERED: VERAPAMIL 2.5 MG/ML 2 ML AMP ONE (08:39)
[2022-01-17] MEDS ORDERED: LIDOCAINE 1% INJ 10MG/ML (20 ML MDV) ONE (08:39)
[2022-01-17] MEDS ORDERED: HEPARIN SODIUM 1,000 UN/ML (10ML VL) ONE (08:39)
[2022-01-17] MEDS ORDERED: fentaNYL (PF) 50 MCG/ML 2 ML AMP ONE (08:49)
[2022-01-17] MEDS ORDERED: fentaNYL (PF) 50 MCG/ML 2 ML AMP IV ONE ×2 (08:51→08:58)
[2022-01-17] MEDS: MIDAZOLAM 2 MG/2 ML VIAL IV ONE ×2 (08:51→10:15)
[2022-01-17] MEDS ORDERED: LIDOCAINE 1% INJ 10MG/ML (20 ML MDV) SQ ONE (08:52)
[2022-01-17] MEDS: VERAPAMIL SYRINGE (5 MG/10 ML) INTRAARTER ONE ×2 (08:55→11:18)
[2022-01-17] MEDS: HEPARIN SODIUM 1,000 UN/ML (10ML VL) IVP ONE ×4 (08:58→11:21)
[2022-01-17 09:02] LABS: RBC Morphology Normal
--- NOTE | 2022-01-17 09:49 | LTR ---
January 17, 2022 To: Dr. Henriquez Re: Julia Savage (43) Dear Dr. Henriquez, I performed cardiac catheterization on Julia Savage. A detailed catheterization note is enclosed for your records. In brief, cardiac catheterization revealed hemodynamically significant lesions in the mid LAD and proximal RCA, and the patient will undergo angioplasty of the same. Thank you for giving me the privilege of participating in the care of this pleasant lady. Sincerely, Michael Clark M.D. HUE / KARIN: [id number] /
--- NOTE | 2022-01-17 09:49 | CC ---
CARDIAC CATHETERIZATION REPORT INDICATION: Cardiomyopathy with abnormal stress test showing ischemia in LAD distribution. PROCEDURE NOTE: After obtaining informed consent, left heart catheterization and coronary angiogram were performed via the right radial artery using size 3.5 Dayron catheters. Patient tolerated the procedure well without any obvious immediate complications. She received moderate conscious sedation. Total sedation time was 20 minutes. The patient's right radial artery access was obtained using a micropuncture needle, and under fluoroscopic guidance catheters and wires were floated into the ascending aorta. The procedure was completed uneventfully. The patient received 5 mg of verapamil and 4000 units of IV heparin as per protocol. FINDINGS: HEMODYNAMICS: Left ventricular end-diastolic pressure is 16 to 18 mm. There is no significant gradient across the aortic valve. LEFT VENTRICULOGRAM: Left ventriculogram was not performed. ANGIOGRAPHIC DATA: Left main coronary artery is a small vessel and is free of stenosis. It divides into left anterior descending coronary artery and circumflex coronary artery. Circumflex coronary artery is a codominant vessel that shows a 40% to 50% stenosis in the AV groove . LAD shows a focal area of 70% to 80% stenosis in the mid portion and gives off a small-caliber diagonal branch that has another 70% stenosis . The left coronary system appears calcified. \ Right coronary artery is a codominant vessel. It shows a long segment of narrowing in the proximal part. At its worst it seems to be a 70% stenosis. CONCLUSIONS: Two-vessel coronary artery disease as described above. PLAN: I am going to review angiographic data with Dr. Mona Dawn, the on-call tableau developer, and decide on angioplasty of the LAD and right coronary artery, either at this time or at a later time. I am going to inform the bone marrow transplant team at [facility] . MMODL / IJN: [id number] /
[2022-01-17] MEDS: NITROGLYCERIN 1000MCG/10ML SYRINGE INTRACORON ONE ×2 (10:34→11:12)
[2022-01-17] MEDS ORDERED: IOPAMIDOL-370 125ML BTL INJ ONE (10:34)
[2022-01-17] MEDS ORDERED: CLOPIDOGREL 75 MG TAB ONE (10:41)
[2022-01-17] MEDS ORDERED: CLOPIDOGREL 75 MG TAB PO ONE (10:58)
[2022-01-17] MEDS ORDERED: IOPAMIDOL-370 100ML BTL INJ ONE ×2 (11:10→11:18)
[2022-01-17] MEDS ORDERED: RX INFO: IV CONTRAST WAS GIVEN 1 EACH MISC MISCELLANE PRN (11:35)
[2022-01-17] MEDS ORDERED: NITROGLYCERIN SL TABS 0.4 MG TAB SUBLINGUAL PRN (11:35)
[2022-01-17] MEDS ORDERED: ATROPINE SULFATE 0.1 MG/ML 10ML SYRINGE IV PRN (11:35)
[2022-01-17] MEDS ORDERED: MAG HYDROX/AL HYDROX/SIMETH 30 ML CUP PO PRN (11:35)
[2022-01-17] MEDS ORDERED: ZOLPIDEM 5 MG TAB PO PRN (11:35)
--- NOTE | 2022-01-17 13:10 | PTCA ---
PERCUTANEOUSTRANS CORORONARY ANGIOGRAPHY DATE OF SERVICE: 01/17/2022. PROCEDURE: 1. Percutaneous transluminal coronary angioplasty and stenting of mid LAD calcified lesion with a drug-eluting stent. 2. Percutaneous transluminal coronary angioplasty and stenting of proximal RCA with two drug-eluting stents. This RCA came off from ectopic location posteriorly. PERFORMED BY: Dr. Mona Dawn. Moderate conscious sedation time was 64 minutes. Patient was administered Versed. Oxygen saturation, hemodynamics and EKG were monitored closely. CLINICAL INFORMATION: Mrs. Julia Savage is a 76-year-old lady with non-Hodgkin's lymphoma, status post chemotherapy, with a reduced ejection fraction of about 40% to 45%. She had a stress test which revealed anterior wall reversible defect suggestive of ischemia, and therefore Dr. Clark performed a cardiac catheterization which revealed an 80% moderately calcified lesion in the mid LAD after a small diagonal branch that was also highly diseased. Beyond the stenotic portion in the LAD there was also an area of disease distal to the 80% to 90% stenosis and there was moderate calcification. After this area, the caliber of the vessel improved and the vessel extended all the way to the apex. Patient also had a significant lesion in the RCA, and RCA came off from a posterior ectopic location; this was a proximal RCA lesion which was very long of about 90% to 95%. She was advised intervention in the same setting, which was performed. PROCEDURE NOTE: The existing 6-Indian introducer in the right radial artery was used to perform the procedure. I used a JL3.5 guide catheter to cannulate the left coronary artery. A run- through wire was used to cross the lesion. A 2.5 caliber 12 mm NC Trek balloon was used to pre-dilate the lesion. I then deployed a 23 mm long 3.0 caliber Xience stent at 13 atmospheres. Patient had mild chest discomfort and precordial ST elevation. Excellent angiographic result was achieved without complication. Patient received intravenous heparin up to 8000 units total and also received 600 mg of Plavix. ACT was about 242. I then turned my attention to the right coronary artery. I used an AL0.75 guide catheter of 6-Indian caliber to cannulate the ectopic RCA. The same run-through wire was kept distally. Initially I tried to advance the same 2.5 NC Trek balloon, but it was difficult. I switched over to a new 15 mm long 2.5 caliber NC Trek balloon and with this I pre-dilated the lesion. I had difficulty getting the stent down. I noted that there was a small dissection and I tried to advance a second wire as a meliza wire, but the wire kept going into the dissected area. Therefore I changed my mind and went to a GuideLiner. A GuideLiner was used to give extra guide support. Through the GuideLiner over the 0.014 wire I advanced a 23 mm long 3.0 caliber Xience stent and deployed this at the distal end of the lesion. Excellent angiographic result was achieved. Proximal to this stent telescoping into it was a 12 mm long 3.0 caliber NC Trek balloon that was deployed at 14 atmospheres. Patient had no significant chest pain or EKG changes. Excellent angiographic result was achieved without complication. The residual stenosis was 0% with remarkable improvement in angiographic appearance and flow. There was no complication. Results were discussed with the patient and family. I expect she will be discharged tomorrow if she remains stable. She received 600 mg of Plavix and also heparin was given and ACT was about 242. Additional 1000 units of heparin was given. A TR band was used to secure hemostasis and saturation in the fingers of the right hand was about 100%. Excellent angiographic result was achieved of both RCA and LAD and I am recommending that we hold off any bone marrow transplant for at least 3 months in view of dual antiplatelet therapy. If there is no contraindication, she can proceed with bone marrow transplant, but should not stop aspirin and Plavix. MMODL / IJN: [id number] /
[2022-01-17] MEDS: METOPROLOL TARTRATE 25 MG TAB PO SCH (20:54)
[2022-01-17] MEDS ORDERED: ATORVASTATIN 80 MG TAB PO SCH (21:00)
[2022-01-17] MEDS ORDERED: LOSARTAN 50 MG TAB PO SCH (21:00)
[2022-01-18 08:18] VITALS: RESP 16; TEMP 98.1
[2022-01-18] MEDS: METOPROLOL TARTRATE 25 MG TAB PO SCH (08:23)
[2022-01-18] MEDS ORDERED: ASPIRIN 81 MG PO SCH (09:00)
[2022-01-18] MEDS ORDERED: CLOPIDOGREL 75 MG TAB PO SCH (09:00)
[2022-01-18 09:29] LABS: Basophils % (A) 0 %; Eosinophils # (A) 0.3 k/uL (0-0.7); Eosinophils % (A) 9 %; HCT 28.9 % (34.0-46.0); Lymphocytes # (A) 0.3 k/uL (1.0-4.8); Lymphocytes % (A) 9 %; MCH 30.3 pg (25.0-35.0); MCHC 32.9 g/dL (31.0-37.0); MCV 92.2 fL (80.0-100.0); Mean Platelet Volume 7.4; Monocytes # (A) 0.3 k/uL (0-1.0); Monocytes % (A) 10 %; Neutrophils # (A) 2.3 k/uL (1.3-7.7); Neutrophils % (A) 69 %; Platelet Count 184 k/uL (150-450); RBC 3.13 m/uL (3.80-5.40); RDW 13.8 % (11.5-15.5); WBC 3.4 k/uL (3.8-10.6)
[2022-01-18 09:34] LABS: HGB 9.5 gm/dL (11.4-16.0)
[2022-01-18 09:55] LABS: African American GFR (CKD) >90 (>60 ml/min/1.73 sqM); Anion Gap 5 mmol/L; Blood Urea Nitrogen 10 mg/dL (7-17); Calcium 8.7 mg/dL (8.4-10.2); Carbon Dioxide 23 mmol/L (22-30); Chloride 107 mmol/L (98-107); Glucose 96 mg/dL (74-99); Non-African American GFR(CKD) >90 (>60 ml/min/1.73 sqM); Potassium 4.1 mmol/L (3.5-5.1); Sodium 135 mmol/L (137-145)
[2022-01-18 11:42] VITALS: BP 121/66; PULSE 55
--- NOTE | 2022-01-18 12:58 | DS ---
DISCHARGE SUMMARY Julia is a 76-year-old lady that presented to us with cardiomyopathy and underwent cardiac catheterization that revealed severe obstructive disease involving right coronary artery and the LAD. She underwent angioplasty with stent placement of the two. She is doing well this morning, free of cardiac symptoms. On exam, comfortable at rest. Vital signs are stable. There is no jugular venous distention. Chest exam reveals good air entry bilaterally. Heart exam reveals first and second heart sounds. No gallop. Examination of extremities did not reveal any edema. Right radial artery access site is free of bleeding, bruit, hematoma. LABS: Labs show that the hemoglobin is 9.5. Potassium is 4.1, creatinine is 0.4, platelet count is normal. We will review the EKG that was done. Condition at the time of discharge: The patient is stable, eager and ready to go home. EKG this morning shows sinus rhythm, normal axis, normal intervals without any significant ST-T wave changes. DISCHARGE MEDICATIONS: Include: Aspirin 81 mg daily, Lipitor 80 mg daily, Plavix 75 mg daily, Cozaar 50 mg daily and metoprolol 25 b.i.d. The patient will continue whatever medications she had for her non-Hodgkin's lymphoma on discharge. Follow up with me in a week's time. MMODL / IJN: [id number] /
== END 2022-01-18 13:10 | disposition home health service (06) ==
LOC: CATHCVL 07:29 → 3SCARD 11:20 → CATHCVL 01-18 13:10
PROVIDERS: ATTEND Internal Medicine Cardiovascular Disease
DX: I25.10 Atherosclerotic heart disease of native coronary artery without angina pectoris (principal); I25.84 Coronary atherosclerosis due to calcified coronary lesion; I11.9 Hypertensive heart disease without heart failure; I43 Cardiomyopathy in diseases classified elsewhere; E78.5 Hyperlipidemia, unspecified; I65.29 Occlusion and stenosis of unspecified carotid artery; C85.90 Non-Hodgkin lymphoma, unspecified, unspecified site; Z79.82 Long term (current) use of aspirin
CPT/HCPCS: 93458; 80048 ×2; 85025 ×2; C9600; C1769 ×2; C1887 ×3; C1894; C1725 ×2; C1874 ×2; J2250; J2001; J3010; J1644; Q9967 ×2

== ENCOUNTER → 2022-02-13 | Outpatient (CLI) | payer MEDICARE | LOC: CPPFTMAIN 09:50 | PROVIDERS: ATTEND Internal Medicine Hematology & Oncology | DX: C83.30 Diffuse large B-cell lymphoma, unspecified site (principal); U09.9 Post COVID-19 condition, unspecified | CPT/HCPCS: 94060; 94726; 94729 ==

== ENCOUNTER 2022-02-25 09:24 | Emergency (ER) | payer MEDICARE ==
[2022-02-25 09:35] VITALS: TEMP 98.5
[2022-02-25] MEDS ORDERED: GABAPENTIN 300 MG CAP PO STA (10:17)
[2022-02-25 11:00] VITALS: RESP 18
[2022-02-25 11:16] LABS: African American GFR (CKD) >90 (>60 ml/min/1.73 sqM); Anion Gap 8 mmol/L; Blood Urea Nitrogen 14 mg/dL (7-17); Calcium 8.8 mg/dL (8.4-10.2); Carbon Dioxide 26 mmol/L (22-30); Chloride 99 mmol/L (98-107); Glucose 117 mg/dL (74-99); Non-African American GFR(CKD) 89 (>60 ml/min/1.73 sqM); Potassium 4.4 mmol/L (3.5-5.1); Sodium 133 mmol/L (137-145)
[2022-02-25 11:20] LABS: Anisocytosis Slight; HCT 28.8 % (34.0-46.0); HGB 8.9 gm/dL (11.4-16.0); Hypochromasia Slight; MCH 28.8 pg (25.0-35.0); MCHC 30.8 g/dL (31.0-37.0); MCV 93.5 fL (80.0-100.0); Mean Platelet Volume 8.3; Platelet Count 130 k/uL (150-450); RBC 3.08 m/uL (3.80-5.40); RDW 17.2 % (11.5-15.5); WBC 5.2 k/uL (3.8-10.6)
--- NOTE | 2022-02-25 11:32 | XR ---
EXAMINATION TYPE: XR chest 1V portable DATE OF EXAM: 02/25/2022 COMPARISON: 11/22/2021 HISTORY: Chest pain TECHNIQUE: Single frontal view of the chest is obtained. FINDINGS: The heart size is mildly prominent. The pulmonary vasculature appears mildly congested. Th ere are 2 small vague opacities in the right lower lung zone which are not seen on the prior study co uld represent acute infiltrates. There is no pneumothorax or large pleural effusion. The osseous structures are intact IMPRESSION: 1. Mild cardiomegaly. 2. Possible mild pulmonary vascular congestion. 3. Small focal opacity in the right lower lobe representing early pneumonic infiltrate or mild alveol ar edema.
--- NOTE | 2022-02-25 11:39 | CT ---
EXAMINATION TYPE: CT thor lumbar spine wo con DATE OF EXAM: 02/25/2022 COMPARISON: None HISTORY: Pain CT DLP: 1140.8 mGycm Automated exposure control for dose reduction was used. Technique: Multiple axial images are obtained to the thoracal lumbar spine views of IV contrast. Obinna nal and sagittal reconstructions were generated and reviewed. FINDINGS: The thoracic and lumbar vertebral segments are normal in height and alignment and there is no fractur e or focal intraosseous abnormality. There is minimal degenerative disc disease in the mid and lower thoracic spine with minimal disc spac e narrowing and spondylosis. There is moderate degenerative disc disease throughout the lumbar region with moderate to marked spon dylosis, mild to moderate disc space narrowing and vacuum phenomena at the L1-2 and L2-3 levels. Seco ndary to degenerative disc disease and thickening of ligamentum flavum, there is mild spinal stenosis at the L1-2 level and moderate spinal stenosis at the L2-3, L3-4 and L4-5 levels. There is moderate facet degeneration at L1-L5. The paraspinal soft tissues are unremarkable. There is a mild dextroscoliosis of the lumbar spine. The sacrum and SI joints are normal. IMPRESSION: 1. No thoracic or lumbar spine fracture, malalignment or focal intraosseous abnormality. 2. Mild degenerative disc disease in the thoracic region. 3. Moderate multilevel degenerative disc disease in the lumbar region. 4. Multilevel spinal stenosis from L1 through L5, mild at the L1-2 level and moderate at the L2-3, L3 -4 and L4-5 levels. 5. Moderate facet arthropathy from L1 through L5.
--- NOTE | 2022-02-25 11:43 | CT ---
EXAMINATION TYPE: CT cervical spine wo con DATE OF EXAM: 02/25/2022 COMPARISON: None HISTORY: Pain CT DLP: 318.1 mGycm Automated exposure control for dose reduction was used. TECHNIQUE: CT scan of the cervical spine is obtained without contrast, axial images are obtained, sa gittal and coronal reformatted images are also reviewed. FINDINGS: Cervical spine is visualized in its entirety from C1 through upper thoracic levels, demonst rates satisfactory alignment without evidence of acute fracture or dislocation. No focal intraosseous abnormalities are seen. Prevertebral soft tissue appears within normal limits. The C1-C2 articulati on is within normal limits on the coronal images. There is mild degenerative disc disease at the C3-C4 level and moderate degenerative disease at the C 4-5, C5-6 and C6-7 levels where there is moderate disc space narrowing and spondylosis. There is mode rate facet and uncovertebral joint arthropathy in the mid and lower cervical spine. There is moderate to severe bony neural foraminal encroachment at the C4-5 C7 levels on the right. The paraspinal soft tissues are unremarkable IMPRESSION: Moderate degenerative changes but no fracture, subluxation or focal intraosseous abnormal ity.
[2022-02-25 12:04] LABS: Lymphocytes # (M) 0.31 k/uL (1.0-4.8); Monocytes # (M) 0.94 k/uL (0-1.0); Neutrophils # (M) 3.95 k/uL (1.3-7.7); Neutrophils % (M) 76 %; Nucleated Red Blood Cells 0 /100 WBC (0-0); Total Cells Counted 100
--- NOTE | 2022-02-25 12:07 | ED ---
General Adult HPI - General Chief complaint: Back Pain/Injury Stated complaint: arm pain, back pain Time Seen by Provider: 02/25/22 09:43 Source: patient, RN notes reviewed, old records reviewed Mode of arrival: ambulatory Limitations: no limitations - History of Present Illness Initial comments: Patient is a 77-year-old female with past history remarkable for Hodgkin's lymphoma, cancer who recently had cardiac stents placed since emits Department complaining of rating pain from her right neck down her right arm. She says complaining of acute onset chronic low back pain. Denies any saddle anesthesias, bowel or bladder incontinence. Denies any abdominal pain. Denies any nausea, vomiting, diarrhea. Became concerned over the pain and wanted to be evaluated. Denies any chest pain, shortness breath. Denies any fevers, chills, cough. Presents for further evaluation this time. States she was feeling a little weak earlier in the week as well.Patient denies any trauma or falls.She presents primarily because she is concerned that cancer may have spread to her spine causing her symptoms. - Related Data Home Medications Medication Instructions Recorded Confirmed Omeprazole 40 mg PO DAILY 04/14/21 01/17/22 Cholecalciferol [Vitamin D3 (25 25 mcg PO DAILY 01/12/22 01/17/22 Mcg = 1000 Iu)] Co Q-10 (Unknown Dose) 1 tab PO DAILY 01/12/22 01/17/22 Folic Acid 0.4 mg PO DAILY 01/12/22 01/17/22 Sennosides [Senna] 8.6 mg PO DAILY 01/12/22 01/17/22 Vitamin C With Zinc 1 tab PO DAILY 01/12/22 01/17/22 Previous Rx's Medication Instructions Recorded Aspirin 81 mg PO DAILY #90 tab 01/18/22 Atorvastatin [Lipitor] 80 mg PO HS #90 tab 01/18/22 Clopidogrel [Plavix] 75 mg PO DAILY #90 tab 01/18/22 Losartan [Cozaar] 50 mg PO HS #90 tab 01/18/22 Metoprolol Tartrate [Lopressor] 25 mg PO BID #180 tab 01/18/22 Nitroglycerin Sl Tabs [Nitrostat] 0.4 mg SUBLINGUAL Q5M PRN #100 tab 01/18/22 Gabapentin 300 mg PO BID PRN 3 Days #6 cap 02/25/22 Allergies Allergy/AdvReac Type Severity Reaction Status Date / Time No Known Allergies Allergy Verified 02/25/22 09:35 Review of Systems ROS Statement: Those systems with pertinent positive or pertinent negative responses have been documented in the HPI. Review of Systems: CONST: Denies fever EYES: Denies blurry vision ENT: Denies nasal congestion C/V: Denies Chest pain RESP: Denies shortness of breath GI: Denies abdominal pain : Denies dysuria SKIN: Denies rash. MSK: Endorses back pain NEURO: Denies headache ROS Other: All systems not noted in ROS Statement are negative. Past Medical History Past Medical History: Cancer Additional Past Medical History / Comment(s): Hodgkins Lymphoma, had chemo X2, last chemo . History of Any Multi-Drug Resistant Organisms: None Reported Past Surgical History: No Surgical Hx Reported Additional Past Surgical History / Comment(s): Colonoscopy, port a catheter insertion, bilateral neck biopsies, lumbar puncture with intrahecal chemo, bone marrow biopsy, bilateral cataracts removed with lens implants. Past Anesthesia/Blood Transfusion Reactions: No Reported Reaction Additional Past Anesthesia/Blood Transfusion Reaction / Comment(s): NO PRIOR SX HX Past Psychological History: No Psychological Hx Reported Smoking Status: Never smoker Past Alcohol Use History: None Reported Past Drug Use History: None Reported - Past Family History Mother Family Medical History: No Reported History Father Family Medical History: Congestive Heart Failure (CHF) Additional Family Medical History / Comment(s): Father of CHF at the age of 89 yrs. General Exam - General Exam Comments Initial Comments: General: Appears in no acute distress. HEAD: Normal with no signs of head trauma. EYES: PERRLA, EOMI, conjunctiva normal, no discharge. ENT: Hearing grossly intact, normal oropharynx. RESPIRATORY: Clear breath sounds bilaterally. No wheezes, rales, or rhonchi. C/V: Regular rate and rhythm. S1 and S2 auscultated, no edema, peripheral pulses 2+ and intact throughout ABD: Abd is soft, nontender, nondistended EXT: Normal range of motion, no obvious deformity mild midline cervical spine tenderness to palpation. Pain appears to be radicular in nature. Mild midline lumbar spine tenderness to palpation. Pelvis stable. SKIN: No rashes or lesions observed on exposed skin. NEURO: Alert and oriented x 4. Cranial nerves II-XII intact. No focal sensory or strength deficits. Limitations: no limitations Course Vital Signs 02/25/22 02/25/22 02/25/22 09:32 10:35 12:26 Temperature 98.5 F Pulse Rate 61 61 58 L Respiratory 20 18 18 Rate Blood Pressure 124/67 128/69 119/67 O2 Sat by Pulse 97 95 97 Oximetry Medical Decision Making - Medical Decision Making Based on the patient's presentation and physical exam, I do believe she is likely experiencing acute on chronic pain in her back with radicular symptoms. She states she is reduced appetite as well as weakness 2 days ago. Therefore we will obtain a screening EKG as well as basic labs. We also obtain Covid and flu swabs. She was in agreement this plan. Imaging of the spine will be obtained as well as chest x-ray. She'll be given gabapentin for symptomatic control. EKG showed no signs of acute ischemia. Chest x-ray showed no acute cardio pulmonary process. It showed mild possible pulmonary vascular congestion however she is asymptomatic CT imaging of the spine revealed moderate degenerative changes but no fracture or subluxation in the neck. Thoracic and lumbar spine show degenerative changes as well as spinal stenosis. No acute fractures or subluxations. Laboratory studies are remarkable for a chronic normocytic anemia. Patient also is a chronic thrombocytopenia. Remainder the labs are unremarkable including negative Covid and flu. On reevaluation, patient is feeling improved. She states her pain in her right arm as well as lower spine are resolved. I updated her on the results of her labs and imaging. I believe she is likely experiencing radicular symptoms in her neck and arm secondary to degenerative disc disease in her back. She expressed understanding. She fells up with her PCP this week. She'll be given a prescription for gabapentin. She was in agreement this plan. I will provide the patient with a prescription for gabapentin. I instructed the patient to follow up with their PCP in the next 3 days.. I explained that the patient should return to the emergency department if they experience any worsening symptoms. Strict return precautions were discussed with the patient. The patient expressed understanding of these instructions. I answered all questions that the patient had. The patient was discharged home in good condition with their prescriptions and follow up information. - Lab Data Result diagrams: 02/25/22 10:45 02/25/22 10:45 Lab Results 02/25/22 02/25/2222 Range/Units 10:45 10:45 10:45 WBC 5.2 (3.8-10.6) k/uL RBC 3.08 L (3.80-5.40) m/uL Hgb 8.9 L (11.4-16.0) gm/dL Hct 28.8 L (34.0-46.0) % MCV 93.5 (80.0-100.0) fL MCH 28.8 (25.0-35.0) pg MCHC 30.8 L (31.0-37.0) g/dL RDW 17.2 H (11.5-15.5) % Plt Count 130 L (150-450) k/uL MPV 8.3 Neutrophils % (Manual) 76 % Lymphocytes % (Manual) 6 % Monocytes % (Manual) 18 % Neutrophils # (Manual) 3.95 (1.3-7.7) k/uL Lymphocytes # (Manual) 0.31 L (1.0-4.8) k/uL Monocytes # (Manual) 0.94 (0-1.0) k/uL Nucleated RBCs 0 (0-0) /100 WBC Manual Slide Review Performed Hypochromasia Slight Anisocytosis Slight Sodium 133 L (137-145) mmol/L Potassium 4.4 (3.5-5.1) mmol/L Chloride 99 (98-107) mmol/L Carbon Dioxide 26 (22-30) mmol/L Anion Gap 8 mmol/L BUN 14 (7-17) mg/dL Creatinine 0.58 (0.52-1.04) mg/dL Est GFR (CKD-EPI)AfAm >90 (>60 ml/min/1.73 sqM) Est GFR (CKD-EPI)NonAf 89 (>60 ml/min/1.73 sqM) Glucose 117 H (74-99) mg/dL Calcium 8.8 (8.4-10.2) mg/dL Magnesium 2.0 (1.6-2.3) mg/dL Coronavirus (PCR) (Not Detectd) Influenza Type A RNA Not Detected (Not Detectd) Influenza Type B (PCR) Not Detected (Not Detectd) 02/25/22 Range/Units 10:45 WBC (3.8-10.6) k/uL RBC (3.80-5.40) m/uL Hgb (11.4-16.0) gm/dL Hct (34.0-46.0) % MCV (80.0-100.0) fL MCH (25.0-35.0) pg MCHC (31.0-37.0) g/dL RDW (11.5-15.5) % Plt Count (150-450) k/uL MPV Neutrophils % (Manual) % Lymphocytes % (Manual) % Monocytes % (Manual) % Neutrophils # (Manual) (1.3-7.7) k/uL Lymphocytes # (Manual) (1.0-4.8) k/uL Monocytes # (Manual) (0-1.0) k/uL Nucleated RBCs (0-0) /100 WBC Manual Slide Review Hypochromasia Anisocytosis Sodium (137-145) mmol/L Potassium (3.5-5.1) mmol/L Chloride (98-107) mmol/L Carbon Dioxide (22-30) mmol/L Anion Gap mmol/L BUN (7-17) mg/dL Creatinine (0.52-1.04) mg/dL Est GFR (CKD-EPI)AfAm (>60 ml/min/1.73 sqM) Est GFR (CKD-EPI)NonAf (>60 ml/min/1.73 sqM) Glucose (74-99) mg/dL Calcium (8.4-10.2) mg/dL Magnesium (1.6-2.3) mg/dL Coronavirus (PCR) Not Detected (Not Detectd) Influenza Type A RNA (Not Detectd) Influenza Type B (PCR) (Not Detectd) - EKG Data -: EKG Interpreted by Me EKG Comments: 12-lead Electrocardiogram Interpretation Note EKG was reviewed and interpreted by myself. 12-lead ECG performed at 1019 is interpreted by me as revealing normal sinus rhythm at a rate of 59 beats per minute. Stevenson is normal. TN intervals 185 ms, QRS duration is 97 ms, QTc is 431 ms.. There were no ST or T wave abnormalities to suggest myocardial ischemia or injury. R wave progression across the precordium was satisfactory. By my interpretation this EKG is non-diagnostic for acute ischemia. Disposition Clinical Impression: Radiculopathy, Degenerative disk disease Narrative: You have cervical radiculopathy as well as degenerative disk disease of the spine causing your symptoms. Please follow up with your PCP regarding these findings. If worsening symptoms, including numbness, weakness, inability to control bladder or bowels, return for further evaluation. Disposition: HOME SELF-CARE Condition: Good Instructions (If sedation given, give patient instructions): Osteoarthritis (DC), Cervical Radiculopathy (ED) Prescriptions: Gabapentin 300 mg PO BID PRN 3 Days #6 cap PRN Reason: Pain Is patient prescribed a controlled substance at d/c from ED?: Yes When asked, does pt state using other controlled substances?: No Referrals: Quang Henriquez MD [Primary Care Provider] - 1-2 days Time of Disposition: 12:00
[2022-02-25 12:28] VITALS: BP 119/67; PULSE 58
== END 2022-02-25 12:30 | disposition home or self-care (01) ==
LOC: EC 09:24
DX: M51.16 Intervertebral disc disorders with radiculopathy, lumbar region (principal); M48.061 Spinal stenosis, lumbar region without neurogenic claudication; M48.04 Spinal stenosis, thoracic region; Z79.82 Long term (current) use of aspirin; Z79.02 Long term (current) use of antithrombotics/antiplatelets; Z79.899 Other long term (current) drug therapy
CPT/HCPCS: 36415; 71045; 72125; 72128; 72131; 80048; 83735; 85025; 87502; 87635; 93005; 99284

== ENCOUNTER → 2022-03-05 | Outpatient (CLI) | payer MEDICARE ==
--- NOTE | 2022-03-05 16:47 | CT ---
EXAMINATION TYPE: CT ChestAbdPelvis w con DATE OF EXAM: 03/05/2022 COMPARISON: 01/04/2022, 09/25/2021 HISTORY: 77-year-old female C83.38, Diffuse large B-Cell Lymphoma TECHNIQUE: Contiguous axial scanning of the chest, abdomen, and pelvis performed with IV Contrast, pa tient injected with 80ml mL of Isovue 300. Delayed images through the kidneys were obtained. Coronal/ sagittal reconstructions performed. CT DLP: 825.9 mGycm Automated exposure control for dose reduction was used. FINDINGS: CHEST: Heart normal size without pericardial effusion. Extensive three-vessel coronary artery calcifications are present. Aorta normal caliber with conventional arch vessel branching anatomy. There are new lower thoracic para-aortic lymph nodes on both sides in the lower thorax measuring up t o 1.4 cm. New bilateral superior mediastinal lymph nodes measuring up to 3.2 cm on the left and 4.2 x 1.5 cm on the right. Right retrocrural lymph node new at 1.2 cm. Some fine subpleural reticulations posterior lower lobes and lung bases shows partly partial improvem ent from 01/04/2022, probably some residual scarring. Biapical pleural parenchymal scarring. No consol idation or pleural effusion. A 4 mm peripheral right lower lobe pulmonary nodule, axial image 36 is unchanged. ABDOMEN: No focal liver lesion or biliary ductal dilatation. Portal venous system is patent. Redemonstrated calculi within a collapsed gallbladder. Adrenal glands, spleen, left kidney, and atrophic pancreas show no gross abnormality. Redemonstrated benign 2.9 cm cyst posterior upper pole right kidney. No conglomerate retroperitoneal lymphadenopathy with overall bulk measuring up to 13.8 cm craniocauda l by 11.3 cm wide by 8.2 cm AP. The previous peripancreatic node has increased from 4.0 cm to 6.9 cm and displaces the pancreas anteriorly. No dilated small bowel, free fluid, or free air. Mild overall stool burden. Sigmoid diverticulosis. No pericolic inflammatory change. PELVIS: Bladder partially distended. Pelvic floor laxity. Uterus may be small postmenopausal. Both ovaries ar e visualized. Left-sided pelvic phleboliths. No abnormal fluid collection in the pelvis or pelvic lym phadenopathy. BONES: Mild degenerative change of the hips. Moderate multilevel degenerative disc disease. Baastrup's disea se and facet arthropathy throughout the lumbar spine. There is heterogeneous marrow seen throughout. IMPRESSION: 1. FREDDY DISEASE PROGRESSION FOLLOWS: 2. SUPERIOR MEDIASTINAL LYMPHADENOPATHY MEASURING UP TO 4.2 CM AND LOWER THORACIC PARA-AORTIC NODES M EASURING UP TO 1.4 CM. 3. CONGLOMERATE RETROPERITONEAL LYMPHADENOPATHY WITH OVERALL BULK SPANNING 13.8 CM CRANIOCAUDAL AND 1 1.3 CM WIDE. THE PREVIOUS PERIPANCREATIC NODE HAS INCREASED FROM 4.0 CM TO 6.9 CM, DISPLACING THE LOVING CREAS ANTERIORLY. THE OTHER NODES ARE ALL NEW. 4. IN ADDITION, THERE IS HETEROGENEOUS MARROW DENSITY THROUGHOUT. UNABLE TO EXCLUDE DIFFUSE BONE RAD OW INVOLVEMENT. 5. INCIDENTAL: CAD WITH EXTENSIVE THREE-VESSEL CORONARY ARTERY CALCIFICATIONS. SUSPECT SOME FINE INTE RSTITIAL SCARRING AT THE LUNG BASES, AND SIGMOID DIVERTICULOSIS.
== END | disposition home or self-care (01) ==
LOC: RADCTMAIN 13:00
PROVIDERS: ATTEND Internal Medicine Hematology & Oncology
DX: C83.38 Diffuse large B-cell lymphoma, lymph nodes of multiple sites (principal); I25.10 Atherosclerotic heart disease of native coronary artery without angina pectoris
CPT/HCPCS: 71260; 74177; 82565; 84520

== ENCOUNTER → 2022-03-28 | Day surgery (SDC) | payer MEDICARE ==
[~2022-03-28] MED LIST changes: -ALPRAZolam 0.25 MG TAB PO PRN; -ALPRAZolam 0.5 MG TAB PO PRN; -ASPIRIN 325 MG TAB PO ONE; -HEPARIN SODIUM,PORCINE 10,000 UNIT in SODIUM CHLORIDE 0.9% 1,000 ML IRRIGATION PRN; -HEPARIN SODIUM,PORCINE 2,500 UNIT in SODIUM CHLORIDE 0.9% 250 ML IRRIGATION PRN; +LIDOCAINE 1% INJ 10MG/ML (5 ML VIAL-PF) SQ ONE; -NITROGLYCERIN SL TABS 0.4 MG TAB SUBLINGUAL PRN; -SODIUM CHLORIDE 0.9% 1,000 ML in EMPTY BAG 1 BAG IV SCH
--- NOTE | 2022-03-28 12:58 | IR ---
PICC LINE PLACEMENT: HISTORY: Infection requiring long-term antibiotic therapy PROCEDURE: Ultrasound and fluoroscopic guidance of PICC line placement. COMPLICATIONS: None ANESTHESIA: 1. 1% Lidocaine locally. FINDINGS/TECHNIQUE: The procedure was explained to the patient. The risks, complications, benefits and alternatives were discussed and any questions were answered. Informed consent was obtained. The patient was placed supine on the fluoroscopic table and prepped and draped in the usual sterile fash ion. Utilizing a 21 gauge needle and sonographic and fluoroscopic guidance, access in the right bas ilic vein was achieved and there is placement of a 0.018 guidewire. The vein is patent. A 4-F sheat h was placed over the guidewire. The guidewire and dilator were removed and a 4-F. PICC line was cristina cristian through the sheath with the tip at the level of the SVC. The sheath was removed, the catheter wa s flushed and sutured into position. The patient was stable throughout the procedure and remained st able upon discharge from the Department of Radiology. The vein puncture was patent under ultrasound. A casper scale image was obtained to document patency of the vein punctured. All elements of the maximal barrier technique were utilized. FLUOROSCOPY TIME: 0.3 minutes and one image submitted IMPRESSION: Successful PICC line placement under ultrasound and fluoroscopic guidance.
== END | disposition home or self-care (01) ==
LOC: CATHCVL 10:30
PROVIDERS: ATTEND Radiology Diagnostic Radiology
DX: C83.38 Diffuse large B-cell lymphoma, lymph nodes of multiple sites (principal); I10 Essential (primary) hypertension; C85.90 Non-Hodgkin lymphoma, unspecified, unspecified site; Z79.02 Long term (current) use of antithrombotics/antiplatelets; Z79.82 Long term (current) use of aspirin; Z79.899 Other long term (current) drug therapy; Z98.890 Other specified postprocedural states; Z86.19 Personal history of other infectious and parasitic diseases; D70.2 Other drug-induced agranulocytosis
CPT/HCPCS: 36573; C1751; C1769; J2001

== ENCOUNTER 2022-04-23 11:27 | Inpatient (IN) | payer MEDICARE ==
[2022-04-23] MEDS ORDERED: SODIUM CHLORIDE 0.9% 1,000 ML IV STA (12:01)
--- NOTE | 2022-04-23 12:14 | ED ---
General Adult HPI - General Chief complaint: Weakness Stated complaint: Weakness Time Seen by Provider: 04/23/22 11:30 Source: patient, RN notes reviewed, old records reviewed Mode of arrival: ambulatory Limitations: no limitations - History of Present Illness Initial comments: This is a 77-year-old female presents emergency Department complaining of katia ruggiero weak. Patient states on Saturday she was told she was dehydrated came in for fluids at the cancer center and over the weekend she's been drinking quite a bit of water but has continued to feel weak yesterday she fell and hit her lip she denies hitting her head she denies any headache patient denies any neck pain she denies any other injury besides an abrasion on her lip. Patient did not lose consciousness. Patient states today she got up and she could barely stand because she was so weak. Patient denies any fever or chills per patient states her last chemo was on Saturday. Patient denies any chest pain palpitations difficulty breathing shortness of breath per patient denies any abdominal pain patient denies any dysuria hematuria urinary frequency. Patient states she's been off Lasix for 5 days her legs are a little bit swollen now. - Related Data Home Medications Medication Instructions Recorded Confirmed Enalapril [Vasotec] 10 mg PO DAILY 04/23/22 04/23/22 Lenalidomide [Revlimid] 10 mg PO DIRECTED 04/23/22 04/23/22 Previous Rx's Medication Instructions Recorded Aspirin 81 mg PO DAILY #90 tab 01/18/22 Atorvastatin [Lipitor] 80 mg PO HS #90 tab 01/18/22 Clopidogrel [Plavix] 75 mg PO DAILY #90 tab 01/18/22 Losartan [Cozaar] 50 mg PO HS #90 tab 01/18/22 Metoprolol Tartrate [Lopressor] 25 mg PO BID #180 tab 01/18/22 Nitroglycerin Sl Tabs [Nitrostat] 0.4 mg SUBLINGUAL Q5M PRN #100 tab 01/18/22 Allergies Allergy/AdvReac Type Severity Reaction Status Date / Time No Known Allergies Allergy Verified 04/23/22 12:38 Review of Systems ROS Statement: Those systems with pertinent positive or pertinent negative responses have been documented in the HPI. ROS Other: All systems not noted in ROS Statement are negative. Past Medical History Past Medical History: Cancer Additional Past Medical History / Comment(s): Hodgkins Lymphoma, had chemo X2, last chemo . History of Any Multi-Drug Resistant Organisms: None Reported Past Surgical History: No Surgical Hx Reported Additional Past Surgical History / Comment(s): Colonoscopy, port a catheter insertion, bilateral neck biopsies, lumbar puncture with intrahecal chemo, bone marrow biopsy, bilateral cataracts removed with lens implants. Past Anesthesia/Blood Transfusion Reactions: No Reported Reaction Additional Past Anesthesia/Blood Transfusion Reaction / Comment(s): NO PRIOR SX HX Date of Last Stent Placement:: 01/17/22 Past Psychological History: No Psychological Hx Reported Smoking Status: Never smoker - Past Family History Mother Family Medical History: No Reported History Father Family Medical History: Congestive Heart Failure (CHF) Additional Family Medical History / Comment(s): Father of CHF at the age of 89 yrs. General Exam - General Exam Comments Initial Comments: GENERAL: Patient is well-developed and well-nourished. Patient is nontoxic and well-hydrated and is in mild distress. ENT: Neck is soft and supple. No significant lymphadenopathy is noted. Oropharynx is clear. Moist mucous membranes. Neck has full range of motion without eliciting any pain. EYES: The sclera were anicteric and conjunctiva were pink and moist. Extraocular movements were intact and pupils were equal round and reactive to light. Eyelids were unremarkable. PULMONARY: Unlabored respirations. Good breath sounds bilaterally. No audible rales rhonchi or wheezing was noted. CARDIOVASCULAR: There is a regular rate and rhythm without any murmurs gallops or rubs. ABDOMEN: Soft and nontender with normal bowel sounds. SKIN: Skin is clear with no lesions or rashes and otherwise unremarkable. NEUROLOGIC: Patient is alert and oriented x3. Cranial nerves II through XII are grossly intact. Motor and sensory are also intact. Normal speech, volume and content. Symmetrical smile. MUSCULOSKELETAL: Normal extremities with adequate strength and full range of motion. 1+ edema bilateral LYMPHATICS: No significant lymphadenopathy is noted PSYCHIATRIC: Normal psychiatric evaluation. Normal interpersonal interactions appears functionally intact in deals appropriately with others. No signs of depression. No signs of anxiety. No delusions. No hallucinations. Limitations: no limitations Course Vital Signs 04/23/22 04/23/22 04/23/22 11:28 12:15 12:16 Temperature 97.8 F Pulse Rate 54 L Pulse Rate [ 53 L 59 L [employer] ] Respiratory 18 16 16 Rate Blood Pressure 105/47 Blood Pressure 117/65 [Left Arm Sitting] Blood Pressure [Left Arm Standing] Blood Pressure 113/60 [Left Arm Supine] O2 Sat by Pulse 97 94 L 93 L Oximetry 04/23/22 12:18 Temperature Pulse Rate Pulse Rate [ 54 L [employer] ] Respiratory 16 Rate Blood Pressure Blood Pressure [Left Arm Sitting] Blood Pressure 104/44 [Left Arm Standing] Blood Pressure [Left Arm Supine] O2 Sat by Pulse 96 Oximetry Medical Decision Making - Medical Decision Making EKG shows sinus bradycardia at 47 bpm ME interval 170 QRS is 97 QT intervals 412 QTC is 376. Patient's EKG shows no ST segment elevation or depression. Patient received a liter of normal saline. I spoke with some physicians agreed to admit the patient admitted the patient wrote admitting orders. - Lab Data Result diagrams: 04/23/22 12:08 04/23/22 12:08 Lab Results 04/23/22 04/23/22 04/23/22 Range/Units 12:08 12:08 12:08 WBC 4.8 (3.8-10.6) k/uL RBC 2.57 L (3.80-5.40) m/uL Hgb 7.7 L (11.4-16.0) gm/dL Hct 24.0 L (34.0-46.0) % MCV 93.4 (80.0-100.0) fL MCH 29.9 (25.0-35.0) pg MCHC 32.0 (31.0-37.0) g/dL RDW 17.2 H (11.5-15.5) % Plt Count 176 (150-450) k/uL MPV 7.9 Neutrophils % [employer] Neutrophils % (Manual) 50 % Band Neuts % (Manual) 1 % Lymphocytes % [employer] Lymphocytes % (Manual) 46 % Monocytes % [employer] Monocytes % (Manual) 2 % Eosinophils % [employer] Eosinophils % (Manual) 1 % Basophils % [employer] Neutrophils # [employer] Neutrophils # (Manual) 2.40 (1.3-7.7) k/uL Lymphocytes # [employer] Lymphocytes # (Manual) 2.21 (1.0-4.8) k/uL Monocytes # [employer] Monocytes # (Manual) 0.10 (0-1.0) k/uL Eosinophils # [employer] Eosinophils # (Manual) 0.05 (0-0.7) k/uL Basophils # [employer] Nucleated RBCs 1 H (0-0) /100 WBC Manual Slide Review Performed Polychromasia Present Hypochromasia Moderate Anisocytosis Slight PT 11.8 (9.0-12.0) sec INR 1.1 (<1.2) APTT 20.0 L (22.0-30.0) sec Sodium 124 L (137-145) mmol/L Potassium 4.2 (3.5-5.1) mmol/L Chloride 91 L (98-107) mmol/L Carbon Dioxide 30 (22-30) mmol/L Anion Gap 3 mmol/L BUN 18 H (7-17) mg/dL Creatinine 0.66 (0.52-1.04) mg/dL Est GFR (CKD-EPI)AfAm >90 (>60 ml/min/1.73 sqM) Est GFR (CKD-EPI)NonAf 85 (>60 ml/min/1.73 sqM) Glucose 119 H (74-99) mg/dL Plasma Lactic Acid Brandt (0.7-2.0) mmol/L Calcium 14.1 H* (8.4-10.2) mg/dL Magnesium 1.4 L (1.6-2.3) mg/dL Total Bilirubin 0.4 (0.2-1.3) mg/dL AST 56 H (14-36) U/L ALT 35 H (4-34) U/L Alkaline Phosphatase 267 H (38-126) U/L Troponin I (0.000-0.034) ng/mL Total Protein 4.4 L (6.3-8.2) g/dL Albumin 2.6 L (3.5-5.0) g/dL 04/23/22 04/23/22 Range/Units 12:08 12:08 WBC (3.8-10.6) k/uL RBC (3.80-5.40) m/uL Hgb (11.4-16.0) gm/dL Hct (34.0-46.0) % MCV (80.0-100.0) fL MCH (25.0-35.0) pg MCHC (31.0-37.0) g/dL RDW (11.5-15.5) % Plt Count (150-450) k/uL MPV Neutrophils % Neutrophils % (Manual) % Band Neuts % (Manual) % Lymphocytes % Lymphocytes % (Manual) % Monocytes % Monocytes % (Manual) % Eosinophils % Eosinophils % (Manual) % Basophils % Neutrophils # Neutrophils # (Manual) (1.3-7.7) k/uL Lymphocytes # Lymphocytes # (Manual) (1.0-4.8) k/uL Monocytes # Monocytes # (Manual) (0-1.0) k/uL Eosinophils # Eosinophils # (Manual) (0-0.7) k/uL Basophils # Nucleated RBCs (0-0) /100 WBC Manual Slide Review Polychromasia Hypochromasia Anisocytosis PT (9.0-12.0) sec INR (<1.2) APTT (22.0-30.0) sec Sodium (137-145) mmol/L Potassium (3.5-5.1) mmol/L Chloride (98-107) mmol/L Carbon Dioxide (22-30) mmol/L Anion Gap mmol/L BUN (7-17) mg/dL Creatinine (0.52-1.04) mg/dL Est GFR (CKD-EPI)AfAm (>60 ml/min/1.73 sqM) Est GFR (CKD-EPI)NonAf (>60 ml/min/1.73 sqM) Glucose (74-99) mg/dL Plasma Lactic Acid Brandt 2.3 H* (0.7-2.0) mmol/L Calcium (8.4-10.2) mg/dL Magnesium (1.6-2.3) mg/dL Total Bilirubin (0.2-1.3) mg/dL AST (14-36) U/L ALT (4-34) U/L Alkaline Phosphatase (38-126) U/L Troponin I <0.012 (0.000-0.034) ng/mL Total Protein (6.3-8.2) g/dL Albumin (3.5-5.0) g/dL Disposition Clinical Impression: Bradycardia, Hypercalcemia, Hypomagnesemia, Hyponatremia, History of lymphoma Disposition: ADMITTED IP TO THIS [facility] Referrals: Doug Joyner MD [REFERRING] - 1-2 days Time of Disposition: 13:01
[2022-04-23 12:18] LABS: Anisocytosis Slight; HGB 7.7 gm/dL (11.4-16.0); Hypochromasia Moderate; MCH 29.9 pg (25.0-35.0); MCV 93.4 fL (80.0-100.0); Mean Platelet Volume 7.9; Platelet Count 176 k/uL (150-450); RBC 2.57 m/uL (3.80-5.40); RDW 17.2 % (11.5-15.5); WBC 4.8 k/uL (3.8-10.6)
[2022-04-23 12:26] LABS: INR 1.1 (<1.2); Prothrombin Time 11.8 sec (9.0-12.0)
[2022-04-23 12:29] LABS: ALT 35 U/L (4-34); AST 56 U/L (14-36); African American GFR (CKD) >90 (>60 ml/min/1.73 sqM); Albumin 2.6 g/dL (3.5-5.0); Alkaline Phosphatase 267 U/L (38-126); Anion Gap 3 mmol/L; Blood Urea Nitrogen 18 mg/dL (7-17); Carbon Dioxide 30 mmol/L (22-30); Chloride 91 mmol/L (98-107); Glucose 119 mg/dL (74-99); Magnesium 1.4 mg/dL (1.6-2.3); Non-African American GFR(CKD) 85 (>60 ml/min/1.73 sqM); Potassium 4.2 mmol/L (3.5-5.1); Sodium 124 mmol/L (137-145); Total Bilirubin 0.4 mg/dL (0.2-1.3); Total Protein 4.4 g/dL (6.3-8.2)
[2022-04-23 12:49] LABS: Calcium 14.1 mg/dL (8.4-10.2)
--- NOTE | 2022-04-23 12:52 | XR ---
EXAMINATION TYPE: XR chest 2V DATE OF EXAM: 04/23/2022 12:21 PM COMPARISON: Chest radiographs from 02/25/2022 TECHNIQUE: XR chest 2V Frontal and lateral views of the chest. CLINICAL INDICATION:Female, 77 years old with history of Weakness; FINDINGS: Lungs/Pleura: There is no evidence of pleural effusion, focal consolidation, or pneumothorax. Pulmonary vascularity: Unremarkable. Heart/mediastinum: Cardiomediastinal silhouette is unremarkable. Musculoskeletal: No acute osseous pathology. IMPRESSION: No acute cardiopulmonary disease/process.
[2022-04-23 12:55] LABS: Band Neutrophils % 1 %; Eosinophils # (M) 0.05 k/uL (0-0.7); Lymphocytes # (M) 2.21 k/uL (1.0-4.8); Neutrophils % (M) 50 %; Nucleated Red Blood Cells 1 /100 WBC (0-0); Polychromasia Present; Total Cells Counted 100
[2022-04-23] MEDS ORDERED: SODIUM CHLORIDE 0.9% 1,000 ML IV ONE (13:14)
[2022-04-23] MEDS: MAGNESIUM SULFATE-D5W PMX 1 GM in DEXTROSE/WATER 1 100ML.BAG IVPB SCH ×2 (13:32→16:22)
[2022-04-23 14:23] LABS: Appearance,Urine Cloudy (Clear); Bacteria,Urine Occasional /hpf; Bilirubin,Urine Negative (Negative); Blood,Urine Negative (Negative); Color,Urine Yellow; Glucose,Urine (UA) Negative (Negative); Ketones,Urine Negative (Negative); Leukocyte Esterase,Urine Trace (Negative); Mucus,Urine Rare /hpf; Nitrite,Urine Negative (Negative); PH, Urine 5.5 (5.0-8.0); Protein,Urine Negative (Negative); RBC,Urine 1 /hpf (0-5); Specific Gravity,Urine 1.014 (1.001-1.035); Urobilinogen,Urine <2.0 mg/dL (<2.0); WBC,Urine 10 /hpf (0-5)
--- NOTE | 2022-04-23 15:27 | P.HPIM ---
History of Present Illness H&P Date: 04/23/22 Chief Complaint: Generalized weakness Patient is a 77-year-old female with a past medical history of Hodgkin's lymphoma, coronary artery disease with recent stent placement, hypertension and hyperlipidemia who presents to the ED with generalized weakness 1 week. Patient's last chemotherapy was about one week ago. She was told on Saturday to come into the oncology clinic for some fluids to help with her weakness. Patient states that over the weekend she was continuing to drink water but was not eating much. Today she states that she fell while walking to the bathroom on her face and was not able to get up. She then called her friend who lives with her and she is brought in by ambulance. Patient also stated that she has been off Lasix for 5 days and her legs are more swollen than usual. In the ED patient was found to have a hemoglobin of 7.7, sodium 124, chloride 91, lactic acid 2.3 calcium 14.1, magnesium 1.4, AST 56 a OT 35 ALP 267, albumin 2.6. Patient was given 1 L fluid bolus and normal saline at 100cc/hour. Review of Systems 10 ROS reviewed and are negative except as noted in HPI Past Medical History Past Medical History: Cancer Additional Past Medical History / Comment(s): Hodgkins Lymphoma, had chemo X2, last chemo . History of Any Multi-Drug Resistant Organisms: None Reported Past Surgical History: No Surgical Hx Reported Additional Past Surgical History / Comment(s): Colonoscopy, port a catheter insertion, bilateral neck biopsies, lumbar puncture with intrahecal chemo, bone marrow biopsy, bilateral cataracts removed with lens implants. Past Anesthesia/Blood Transfusion Reactions: No Reported Reaction Additional Past Anesthesia/Blood Transfusion Reaction / Comment(s): NO PRIOR SX HX Date of Last Stent Placement:: 01/17/22 Past Psychological History: No Psychological Hx Reported Smoking Status: Never smoker - Past Family History Mother Family Medical History: No Reported History Father Family Medical History: Congestive Heart Failure (CHF) Additional Family Medical History / Comment(s): Father of CHF at the age of 89 yrs. Medications and Allergies Home Medications Medication Instructions Recorded Confirmed Type Aspirin 81 mg PO DAILY #90 tab 01/18/22 04/23/22 Rx Atorvastatin [Lipitor] 80 mg PO HS #90 tab 01/18/22 04/23/22 Rx Clopidogrel [Plavix] 75 mg PO DAILY #90 tab 01/18/22 04/23/22 Rx Losartan [Cozaar] 50 mg PO HS #90 tab 01/18/22 04/23/22 Rx Metoprolol Tartrate [Lopressor] 25 mg PO BID #180 tab 01/18/22 04/23/22 Rx Nitroglycerin Sl Tabs [Nitrostat] 0.4 mg SUBLINGUAL Q5M PRN #100 tab 01/18/22 04/23/22 Rx Enalapril [Vasotec] 10 mg PO DAILY 04/23/22 04/23/22 History Lenalidomide [Revlimid] 10 mg PO DIRECTED 04/23/22 04/23/22 History Allergies Allergy/AdvReac Type Severity Reaction Status Date / Time No Known Allergies Allergy Verified 04/23/22 12:38 Physical Exam Osteopathic Statement: *. No significant issues noted on an osteopathic structural exam other than those noted in the History and Physical/Consult. Vitals: Vital Signs Temp Pulse Pulse Resp BP BP BP 04/23/22 14:21 54 L 16 107/48 04/23/22 13:31 58 L 16 113/53 04/23/22 12:18 54 L 16 104/44 04/23/22 12:16 59 L 16 117/65 04/23/22 12:15 53 L 16 04/23/22 11:28 97.8 F 54 L 18 105/47 BP Pulse Ox 04/23/22 14:21 97 04/23/22 13:31 95 04/23/22 12:18 96 04/23/22 12:16 93 L 04/23/22 12:15 113/60 94 L 04/23/22 11:28 97 Intake and Output 04/22/22 04/23/22 04/23/22 22:59 06:59 14:59 Other: Weight 68.039 kg General: [Alert and oriented, appears chronically debilitated, no acute distress]. Eye: [PERRL, EOMI, normal conjunctiva]. HENT: [Normocephalic, clear tympanic membranes, normal hearing, dry oral mucosa, no scleral icterus, no sinus tenderness, abrasions on the top of her lip and also lip bite on her lower lip]. Neck: [Supple, non-tender, no carotid bruits, no JVD, no lymphadenopathy]. Lungs: [Clear to auscultation and percussion, non-labored respiration]. Heart: [Normal rate, regular rhythm, no murmur, gallop or +2 2 pitting edema in her bilateral lower extremities]. Abdomen: [Soft, non-tender, non-distended, normal bowel sounds, no masses]. Musculoskeletal: [Normal range of motion, 4-5 strength in all extremities, no tenderness or swelling]. Skin: [Skin is warm, dry and pink, no rashes or lesions]. Neurologic: [Awake, alert, and oriented X3, CN II-XII intact]. Psychiatric: [Cooperative, appropriate mood and affect], lethargic. Results CBC & Chem 7: 04/23/22 12:08 04/23/22 12:08 Labs: Abnormal Lab Results - Last 24 Hours (Table) 04/23/22 04/23/22 04/23/22 Range/Units 12:08 12:08 12:08 RBC 2.57 L (3.80-5.40) m/uL Hgb 7.7 L (11.4-16.0) gm/dL Hct 24.0 L (34.0-46.0) % RDW 17.2 H (11.5-15.5) % Nucleated RBCs 1 H (0-0) /100 WBC APTT 20.0 L (22.0-30.0) sec Sodium (137-145) mmol/L Chloride (98-107) mmol/L BUN (7-17) mg/dL Glucose (74-99) mg/dL Plasma Lactic Acid Brandt (0.7-2.0) mmol/L Calcium (8.4-10.2) mg/dL Magnesium (1.6-2.3) mg/dL AST (14-36) U/L ALT (4-34) U/L Alkaline Phosphatase (38-126) U/L Total Protein (6.3-8.2) g/dL Albumin (3.5-5.0) g/dL Urine Appearance Cloudy H (Clear) Ur Leukocyte Esterase Trace H (Negative) Urine WBC 10 H (0-5) /hpf Urine Bacteria Occasional H (None) /hpf Urine Mucus Rare H (None) /hpf 04/23/22 04/23/22 Range/Units 12:08 12:08 RBC (3.80-5.40) m/uL Hgb (11.4-16.0) gm/dL Hct (34.0-46.0) % RDW (11.5-15.5) % Nucleated RBCs (0-0) /100 WBC APTT (22.0-30.0) sec Sodium 124 L (137-145) mmol/L Chloride 91 L (98-107) mmol/L BUN 18 H (7-17) mg/dL Glucose 119 H (74-99) mg/dL Plasma Lactic Acid Brandt 2.3 H* (0.7-2.0) mmol/L Calcium 14.1 H* (8.4-10.2) mg/dL Magnesium 1.4 L (1.6-2.3) mg/dL AST 56 H (14-36) U/L ALT 35 H (4-34) U/L Alkaline Phosphatase 267 H (38-126) U/L Total Protein 4.4 L (6.3-8.2) g/dL Albumin 2.6 L (3.5-5.0) g/dL Urine Appearance (Clear) Ur Leukocyte Esterase (Negative) Urine WBC (0-5) /hpf Urine Bacteria (None) /hpf Urine Mucus (None) /hpf Assessment and Plan Assessment: Generalized weakness secondary to chemotherapy -Resume fluids and 100 mL an hour -Patient does have some lower extremity edema so we'll need to monitor patient closely for volume overload -PT OT consult Hypercalcemia likely due to dehydration versus lymphoma -Resume fluids and trend BMP -Consult nephrology Mildly elevated lactic acid at 2.3 on admission -Likely due to dehydration. Resume fluids Elevated LFTs -Patient asymptomatic -Check right upper quadrant ultrasound Lower extremity edema likely due to hypoalbuminemia -Patient has been off Lasix for 5 days. We'll need to monitor patient closely for volume overload while she is getting fluids. Anemia -Suspect due to chemotherapy and lymphoma -Check iron panel, B12, folate, reticulocyte count and stool occult -Patient denies any overt signs of bleeding -Patient's hemoglobin baseline between 8 and 9 -Oncology consult Non-Hodgkin lymphoma on active chemotherapy -Oncology consult to discuss goals of care especially patient not able to tolerate first round of chemotherapy. -Hold Revlimid for now -Consult palliative care as well Coronary disease status post recent stent -Resume aspirin and statin and Plavix and metoprolol Hypertension -Hold losartan as patient is dehydrated and risk for hypertension. Resume metoprolol CODE STATUS: DNR/DNI DPOA: Patient's sister DVT prophylaxis: mechanical. No anticoagulation due to anemia Discussed with: Patient, ER, rn Anticipated length of stay > than [address]: home vs SNF A total of 50 minutes was spent on the care of this complex patient more than 50% of the time was spent in counseling and care coordination.
--- NOTE | 2022-04-23 16:01 | US ---
EXAMINATION TYPE: US abdomen limited DATE OF EXAM: 04/23/2022 COMPARISON: CT CLINICAL HISTORY: elevated LFTs. Elevated LFT's, pt has h/o lymphoma EXAM MEASUREMENTS: Liver Length: 19.0 cm Gallbladder Wall: Unable to visualize GB wall due to calcifications CBD: 0.3 cm Right Kidney: 11.4 x 4.4 x 5.0 cm Pancreas: wnl, tail obscured by overlying bowel gas, multiple probable mediastinal and periaortic ab normal lymph nodes as visualized on prior CT, largest= 4.4 x 3.1 x 4.3 cm Liver: Enlarged Gallbladder: Wall echo shadow sign in GB area, probable gallstones filling entire lumen, unable to v isualize gallbladder wall for measurement Evidence for sonographic Plata's sign: No CBD: wnl Right Kidney: Multiple cysts, largest at upper pole= 3.7 x 2.8 x 3.2 cm IMPRESSION: Cholelithiasis.
[2022-04-23] MEDS ORDERED: FUROSEMIDE 10 MG/ML 2 ML VIAL IV STA (16:57)
[2022-04-23] MEDS ORDERED: ZOLEDRONIC ACID 4 MG in SODIUM CHLORIDE 0.9% 100 ML IV NR (17:00)
[2022-04-23] MEDS: ATORVASTATIN 80 MG TAB PO SCH (20:40)
[2022-04-23] MEDS: METOPROLOL TARTRATE 25 MG TAB PO SCH (20:40)
[2022-04-23 20:53] LABS: African American GFR (CKD) >90 (>60 ml/min/1.73 sqM); Anion Gap 2 mmol/L; Blood Urea Nitrogen 16 mg/dL (7-17); Carbon Dioxide 30 mmol/L (22-30); Chloride 92 mmol/L (98-107); Glucose 106 mg/dL (74-99); Non-African American GFR(CKD) 88 (>60 ml/min/1.73 sqM); Potassium 3.5 mmol/L (3.5-5.1); Sodium 124 mmol/L (137-145)
[2022-04-23 21:19] LABS: Calcium 14.4 mg/dL (8.4-10.2)
[2022-04-23] MEDS ORDERED: CALCITONIN INJ 200 UNIT/ML (MDV) VIAL IM ONE (23:30)
[2022-04-23] MEDS ORDERED: ZOLEDRONIC ACID 4 MG in SODIUM CHLORIDE 0.9% 100 ML IV ONE (23:30)
--- NOTE | 2022-04-24 08:56 | P.NPCON ---
History of Present Illness - Reason for Consult hyponatremia - History of Present Illness Reason for consultation: Hyponatremia and hypercalcemia History of present illness: Patient is a 77-year-old female seen in renal consultation for hypercalcemia and hyponatremia. Patient presented to the hospital due to generalized weakness. Patient states she has history of lymphoma and was diagnosed about 3 years ago. She also admits to intermittent vomiting and diarrhea. Oral intake has been poor. She denies taking any calcium or vitamin D supplementation. States she takes multivitamin. She is currently on room air. Blood pressure stable. Afebrile. Renal function is at baseline. Denies any history of kidney disease. Patient states she was dehydrated and received IV fluids at her oncologist o ffice last week. She has been trying to drink water but still felt quite weak. She also states that she was started on Lasix recently but has been off the medication for the last few days. Denies any hematuria or dysuria. Patient states she has been maintained on chemotherapy but does not recall the name of the medication. Last chemotherapy was about a week prior to admission. She is currently receiving IV fluids. Also received a dose of IV Lasix as well as dose of calcitonin yesterday. She also received zoledronic acid yesterday. Vital signs are stable. General: Awake. HEENT: Head exam is unremarkable. LUNGS: Breath sounds decreased. HEART: Rate and Rhythm are regular. ABDOMEN: Soft, no distention. EXTREMITITES: Trace edema in ankles. Past Medical History Past Medical History: Cancer Additional Past Medical History / Comment(s): Hodgkins Lymphoma, had chemo X2, last chemo . History of Any Multi-Drug Resistant Organisms: None Reported Past Surgical History: No Surgical Hx Reported Additional Past Surgical History / Comment(s): Colonoscopy, port a catheter insertion, bilateral neck biopsies, lumbar puncture with intrahecal chemo, bone marrow biopsy, bilateral cataracts removed with lens implants. Past Anesthesia/Blood Transfusion Reactions: No Reported Reaction Additional Past Anesthesia/Blood Transfusion Reaction / Comment(s): NO PRIOR SX HX Date of Last Stent Placement:: 01/17/22 Past Psychological History: No Psychological Hx Reported Smoking Status: Never smoker - Past Family History Mother Family Medical History: No Reported History Father Family Medical History: Congestive Heart Failure (CHF) Additional Family Medical History / Comment(s): Father of CHF at the age of 89 yrs. Medications and Allergies Home Medications Medication Instructions Recorded Confirmed Type Aspirin 81 mg PO DAILY #90 tab 01/18/22 04/23/22 Rx Atorvastatin [Lipitor] 80 mg PO HS #90 tab 01/18/22 04/23/22 Rx Clopidogrel [Plavix] 75 mg PO DAILY #90 tab 01/18/22 04/23/22 Rx Losartan [Cozaar] 50 mg PO HS #90 tab 01/18/22 04/23/22 Rx Metoprolol Tartrate [Lopressor] 25 mg PO BID #180 tab 01/18/22 04/23/22 Rx Nitroglycerin Sl Tabs [Nitrostat] 0.4 mg SUBLINGUAL Q5M PRN #100 tab 01/18/22 04/23/22 Rx Enalapril [Vasotec] 10 mg PO DAILY 04/23/22 04/23/22 History Lenalidomide [Revlimid] 10 mg PO DIRECTED 04/23/22 04/23/22 History Allergies Allergy/AdvReac Type Severity Reaction Status Date / Time No Known Allergies Allergy Verified 04/23/22 12:38 Physical Exam Vitals: Vital Signs Temp Pulse Pulse Resp BP BP BP 04/24/22 07:19 98 F 60 18 04/24/22 01:20 98.7 F 62 15 04/23/22 19:49 97.5 F L 53 L 18 04/23/22 14:21 54 L 16 107/48 04/23/22 14:00 98.7 F 50 L 04/23/22 13:31 58 L 16 113/53 04/23/22 12:18 54 L 16 104/44 04/23/22 12:16 59 L 16 117/65 04/23/22 12:15 53 L 16 04/23/22 11:28 97.8 F 54 L 18 105/47 BP Pulse Ox 04/24/22 07:19 136/56 96 04/24/22 01:20 127/71 96 04/23/22 19:49 122/60 92 L 04/23/22 14:21 97 04/23/22 14:00 121/67 94 L 04/23/22 13:31 95 04/23/22 12:18 96 04/23/22 12:16 93 L 04/23/22 12:15 113/60 94 L 04/23/22 11:28 97 Intake and Output 04/23/22 04/24/22 04/24/22 22:59 06:59 14:59 Intake Total 300 Output Total 1175 Balance 300 -1175 Intake: Intake, IV Titration 300 Amount Sodium Chloride 0.9% 1, 300 000 ml @ 100 mls/hr IV . Q10H ONE Rx#:[id number] Output: Urine 1175 Other: Voiding Method Diaper Incontinent External Catheter # Voids 2 Weight 68.039 kg Results - Lab Results Most recent lab results Calcium 14.4 mg/dL (8.4-10.2) H* 04/23/22 20:18 Magnesium 1.4 mg/dL (1.6-2.3) L 04/23/22 12:08 04/23/22 12:08 04/23/22 20:18 Assessment and Plan Plan: Assessment: 1. Hypovolemic hyponatremia with component of poor solute intake and SIADH from malignancy. Sodium level 124 yesterday. 2. Hypercalcemia. Likely related to underlying lymphoma.vitamin D level 57.6. 3. Non-Hodgkin's lymphoma. Oncology consulted. 4. Coronary disease status post cardiac stenting. 5. Benign hypertension. Stable. Plan: Maintain IV fluids. Status post IV Lasix, calcitonin and zoledronic acid 04/23/2022. Check further workup for hypercalcemia. Follow-up morning labs. Continue to hold losartan for now as blood pressure is well controlled. Avoid nephrotoxins. Continue to monitor renal function and urine output. GFR at baseline. No proteinuria on UA. Thank you for the consultation. I will continue to follow the patient with you during her hospital stay.
[2022-04-24] MEDS: ASPIRIN 81 MG PO SCH (09:11)
[2022-04-24] MEDS: CLOPIDOGREL 75 MG TAB PO SCH (09:11)
[2022-04-24] MEDS: METOPROLOL TARTRATE 25 MG TAB PO SCH ×2 (09:11→21:01)
[2022-04-24 09:38] LABS: Protein, Total 4.2 g/dL (6.2-8.2)
[2022-04-24 09:41] LABS: % Iron Saturation 14.49 (12.00-45.00); Magnesium 1.5 mg/dL (1.5-2.4)
[2022-04-24 10:14] LABS: Basophils # (M) 0 X 10*3/uL (0.00-0.10); HCT 21.7 % (37.2-46.3); Lymphocytes # (M) 1.36 X 10*3/uL (0.90-5.00); MCH 28.9 pg (27.0-32.0); MCHC 31.3 g/dL (32.0-37.0); MCV 92.3 fL (80.0-97.0); Mean Platelet Volume 11.1 fL (9.5-12.2); Monocytes # (M) 0.24 X 10*3/uL (0.20-1.00); NRBC Per 100 WBC 0.8 /100 WBCS (0.0-0.0); Neutrophils % (M) 55 %; Platelet Count 142 X 10*3/uL (140-440); RBC 2.35 X 10*6/uL (4.10-5.20); RDW 17.5 % (11.5-14.5); Reticulocyte % 1.66 % (0.10-1.80)
[2022-04-24 10:50] LABS: Sodium 126 mmol/L (137-145)
[2022-04-24 12:01] LABS: HGB 6.8 g/dL (12.0-15.0)
--- NOTE | 2022-04-24 12:49 | P.PN ---
Subjective Progress Note Date: 04/24/22 No new complaints today. Calcium is still high at 14.2 after zoledronic acid, calcitonin, Lasix, fluids. Nephrology consult following. Workup for hypercalcemia pending. Gen: awake, alert HEENT: normocephalic, atraumatic, good hearing acuity, moist mucous membranes Resp: good air exchange, breathing comfortably with no accessory muscle use CVS: good distal perfusion x 4, GI: soft, NTTP, ND : no SPT, no CVAT, blank catheter is present MSK: no pitting edema, no clubbing Neuro: non-focal, moving all extremities Psych: cooperative, euthymic mood Assessment/plan: Generalized weakness secondary to chemotherapy Hypercalcemia likely due to dehydration versus lymphoma Lactic acidosis -Resume fluids and 100 mL an hour -Patient does have some lower extremity edema so we'll need to monitor patient c losely for volume overload -Status post zoledronic acid, calcitonin, Lasix 100 mg 1 -PT OT consult -SPEP, UPEP, free light chains are pending. -PTH RP, pending -Consult nephrology Elevated LFTs -Patient asymptomatic -Check right upper quadrant ultrasound Lower extremity edema likely due to hypoalbuminemia -Patient has been off Lasix for 5 days. We'll need to monitor patient closely for volume overload while she is getting fluids. Anemia -Suspect due to chemotherapy and lymphoma -Check iron panel, B12, folate, reticulocyte count and stool occult -Patient denies any overt signs of bleeding -Patient's hemoglobin baseline between 8 and 9 -Oncology consult -Status post 1 unit of packed red blood cell transfusion on 04/24 Non-Hodgkin lymphoma on active chemotherapy -Oncology consult to discuss goals of care especially patient not able to tolerate first round of chemotherapy. -Hold Revlimid for now -Consult palliative care as well Coronary disease status post recent stent -Resume aspirin and statin and Plavix and metoprolol Hypertension -Hold losartan as patient is dehydrated and risk for hypertension. Resume metoprolol CODE STATUS: DNR/DNI DPOA: Patient's sister DVT prophylaxis: mechanical. No anticoagulation due to anemia Anticipated length of stay > than [address]: home vs SNF Objective - Vital Signs Vital signs: Vital Signs Temp 98 F 04/24/22 07:19 Pulse 60 04/24/22 07:50 Resp 18 04/24/22 07:50 BP 136/56 07/05/22 07:19 Pulse Ox 96 04/24/22 07:19 FiO2 Intake & Output 04/23/22 04/24/22 04/24/22 18:59 06:59 18:59 Intake Total 300 Output Total 1175 Balance 300 -1175 Weight 68.039 kg Intake: Intake, IV Titration 300 Amount Sodium Chloride 0.9% 1, 300 000 ml @ 100 mls/hr IV . Q10H ONE Rx#:[id number] Output: Urine 1175 Other: Voiding Method Diaper Diaper Incontinent Incontinent External Catheter External Catheter # Voids 2 - Labs CBC & Chem 7: 04/24/22 04:21 04/24/22 10:20 Labs: Abnormal Lab Results - Last 24 Hours (Table) 04/23/22 04/23/22 04/23/22 Range/Units 12:08 12:08 12:08 WBC (4.50-10.00) X 10*3/uL RBC (4.10-5.20) X 10*6/uL Hgb (12.0-15.0) g/dL Hct (37.2-46.3) % MCHC (32.0-37.0) g/dL RDW (11.5-14.5) % Absolute Nucleated RBC (0.00-0.00) X 10*3/uL Nucleated RBCs 1 H (0-0) /100 WBC NRBC/100 WBC Diff (0.0-0.0) /100 WBCS Sodium 124 L (137-145) mmol/L Chloride 91 L (98-107) mmol/L BUN 18 H (7-17) mg/dL Glucose 119 H (74-99) mg/dL Osmolality (280-301) mosm/kg Calcium 14.1 H* (8.4-10.2) mg/dL Magnesium 1.4 L (1.6-2.3) mg/dL Iron (50-170) ug/dL TIBC (228-460) ug/dL Transferrin (204.0-354.0) mg/dL AST 56 H (14-36) U/L ALT 35 H (4-34) U/L Alkaline Phosphatase 267 H (38-126) U/L Total Protein 4.4 L (6.3-8.2) g/dL Total Protein (PEP) (6.2-8.2) g/dL Albumin 2.6 L (3.5-5.0) g/dL PTH Intact (14.0-72.0) pg/mL Urine Appearance Cloudy H (Clear) Ur Leukocyte Esterase Trace H (Negative) Urine WBC 10 H (0-5) /hpf Urine Bacteria Occasional H (None) /hpf Urine Mucus Rare H (None) /hpf 04/23/22 04/23/22 04/24/22 Range/Units 20:18 20:18 04:21 WBC (4.50-10.00) X 10*3/uL RBC (4.10-5.20) X 10*6/uL Hgb (12.0-15.0) g/dL Hct (37.2-46.3) % MCHC (32.0-37.0) g/dL RDW (11.5-14.5) % Absolute Nucleated RBC (0.00-0.00) X 10*3/uL Nucleated RBCs (0-0) /100 WBC NRBC/100 WBC Diff (0.0-0.0) /100 WBCS Sodium 124 L (137-145) mmol/L Chloride 92 L (98-107) mmol/L BUN (7-17) mg/dL Glucose 106 H (74-99) mg/dL Osmolality (280-301) mosm/kg Calcium 14.4 H* (8.4-10.2) mg/dL Magnesium (1.6-2.3) mg/dL Iron (50-170) ug/dL TIBC (228-460) ug/dL Transferrin (204.0-354.0) mg/dL AST (14-36) U/L ALT (4-34) U/L Alkaline Phosphatase (38-126) U/L Total Protein (6.3-8.2) g/dL Total Protein (PEP) 4.2 L (6.2-8.2) g/dL Albumin (3.5-5.0) g/dL PTH Intact 7.0 L (14.0-72.0) pg/mL Urine Appearance (Clear) Ur Leukocyte Esterase (Negative) Urine WBC (0-5) /hpf Urine Bacteria (None) /hpf Urine Mucus (None) /hpf 04/24/22 04/24/22 04/24/22 Range/Units 04:21 04:21 10:20 WBC 4.00 L (4.50-10.00) X 10*3/uL RBC 2.35 L (4.10-5.20) X 10*6/uL Hgb 6.8 L* (12.0-15.0) g/dL Hct 21.7 L (37.2-46.3) % MCHC 31.3 L (32.0-37.0) g/dL RDW 17.5 H (11.5-14.5) % Absolute Nucleated RBC 0.03 H (0.00-0.00) X 10*3/uL Nucleated RBCs (0-0) /100 WBC NRBC/100 WBC Diff 0.8 H (0.0-0.0) /100 WBCS Sodium 126 L (137-145) mmol/L Chloride (98-107) mmol/L BUN (7-17) mg/dL Glucose (74-99) mg/dL Osmolality 267 L (280-301) mosm/kg Calcium (8.4-10.2) mg/dL Magnesium (1.6-2.3) mg/dL Iron 28 L (50-170) ug/dL TIBC 192 L (228-460) ug/dL Transferrin 137.0 L (204.0-354.0) mg/dL AST (14-36) U/L ALT (4-34) U/L Alkaline Phosphatase (38-126) U/L Total Protein (6.3-8.2) g/dL Total Protein (PEP) (6.2-8.2) g/dL Albumin (3.5-5.0) g/dL PTH Intact (14.0-72.0) pg/mL Urine Appearance (Clear) Ur Leukocyte Esterase (Negative) Urine WBC (0-5) /hpf Urine Bacteria (None) /hpf Urine Mucus (None) /hpf
--- NOTE | 2022-04-24 13:25 | P.CONS ---
History of Present Illness - Reason for Consult Consult date: 04/24/22 Wekaness and unilateral swelling Requesting physician: Anurag Grigsby - History of Present Illness Julia presents for worsening weakness and fatigue, shw was recently started on next line therapy for progressive disease, next line treatment of Monjavi and Revlimid. She represents for unilateral swelling (per family) and severe weakness and fall. She was suppose to start cycle 2 of Monjuvi and revlimid today, however this is on hold until acute hospital issue can be improved. Hemoglobin 6.8, IRRADIATED blood products please, and one unit pending infusion. Hyponatremic, hypercalcemia, right sided swelling, family at bedside. Medical Onc History: unique Savage is a pleasant white female, with very well-controlled medical problems and good performance status at baseline. The patient reports development of swelling in the upper part of her neck bilaterally, as well as feeling of neck and chest congestion with difficulty in swallowing coming on fairly acutely in early 03/09. Symptoms of persistent and progressive. The patient actually had to be distorted care and was told that she may have inflamed tonsils. She was given a couple of courses of antibiotics, with only partial relief. The patient subsequently developed some pain in her midback in the intrascapular region. She also developed night sweats, and decrease in appetite. She therefore sought attention with her PCP Dr. Garcia, and was noted to have a palpable upper neck nodes as well as in the left supraclavicular area. CT abdomen and pelvis on 04/05/20 showed spelled Megace 17.3 cm, as well as abnormal adenopathy which is fairly diffuse involving retroperitoneum, mesentery, bilateral iliac and bilateral groin nodes. Chest x-ray on 03/29/20 was negative for any acute process. The patient had left cervical lymph node biopsy on 04/14/20 that showed large neoplastic cells with scant amount of cytoplasm and prominent nucleoli with effacement of normal architecture and weak nodular pattern. Cells were CD20 positive and negative for CD5. There also negative for cyclin D1. Ki-67 was elevated at 70-80%. 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 Patient had a PET scan on 04/15/20, that shows diffuse hypermetabolic adenopathy bilateral cervical including bilateral parotid spaces, bilateral tonsils, mediastinal poor diabetic, gastrohepatic, retroperitoneal, mesenteric, bilateral inguinal, bilateral iliac and femoral chains. The patient was therefore referred here for further evaluation and recommendations She denied any prior history of malignancy. Above reported symptoms are persistent and slowly progressive. She has lost about 25 pounds in weight due to decrease in appetite. As above. The pt started B-R on 05/17/20 and is s/p 6 cycles. She completed those on she then started rituximab maintenance with cycle 1 on 11/02/20 CT scans after cycle 3 showed marked decrease in periaortic/retrocaval adenopathy and resolution of adenopathy elsewhere. CT scans after C 6 showed no measurable adenopathy She c/o nasal and upper chest congestion, with cough productive of whitish sputum at her visit on 12/23/20. At that time exam was fairly unremarkable. The patient had persistence of her symptoms with some progression, and subsequently developed bilateral upper neck adenopathy. She was seen by her PCP who felt that this was more suspicious for lymphoma recurrence. The patient called the office and had a CT of the CAP performed on 01/09/21 to This showed some mild adenopathy in the thorax, but significant progression of adenopathy in the mesentery in the upper abdomen, bilateral iliac areas and left groin. on follow-up in the office on 01/11/21, she was noted to have a large palpable node in the left groin, as well as bilateral upper neck adenopathy. the patient was therefore referred back to surgery and case discussed with them. She had both left groin and right neck lymph node biopsy performed on 01/13/21 to both of these revealed high-grade diffuse large B-cell lymphoma. Double/triple hit testing was negative by fish CT of the neck and sinuses showed bilateral neck adenopathy, as well as 2.1 cm mass in the right nasopharynx extending to the oropharynx. Both tonsils were enlarged with extension of soft tissue into the vallecula. 02/15/21-Pt here s/p 1st cycle of R-CHOP with GCSF. She hasn't felt very good today, tired, weak, no N,V, cough, pain, she did have diarrhea earlier. She is tolerating fluids but mouth and throat are sore. No other c/o. Temp was 99.8F, recheck 100.8, ANC 27. 6/-patient is here today for follow-up status post 3 cycles of R CHOP. Feels that she is actually doing pretty well, no significant complaints or side effects to report. Moderate fatigue. 10 point review of systems is otherwise negative. She denied any f/c/n/v. Diarrhea was quite minimal with C 6. She does have somewhat more prominent fatigue, but is performing all her ADLs. Her nasal and upper airway congestion has resolved and not recurred. She is still having some drainage from the rt eye. No h/o abd pain of SOB. She had a lump on her LUE, which has disappeared. Appetite is fair. Her ROS is otherwise as per HPI and negative out of 10 07/04/21-4th IT MTX given today. Pt tolerated well as above. The patient started chemotherapy with R-CHOP on 02/09/21 and status post 6 cycles, completing those on 06/09/21. She also received prophylactic intrathecal chemotherapy, after detailed discussion of risk and benefit between cycles 3 and 4. She is s/p 4/4 planned treatments She was admitted after cycle 1 with febrile neutropenia. She had received Neulasta, and white count recovery occurred within 2 days. She had one temperature of 101+, but otherwise febrile episodes remained below 101. Cult ures were negative. PET scan after 2 cycles showed essentially complete response other than in one iliac node. CT scans after cycle #6 showed ALENA The patient was then referred to BMT, [facility] for consideration of SCT for consolidation. She is felt to be an appropriate candidate for the same, and preprocedure workup was ordered. Bone marrow on 09/11/21 showed neutropenia and maturation arrest, but no evidence of lymphoma involvement. PET scan and subsequent CT scan in early 10/10 showed concern for enlarging peripancreatic lymph nodes. The patient however did not follow-up and the [facility] is scheduled after the above scans, as she contracted coronavirus, and had to go to the emergency room to receive monoclonal antibody treatment in late 10/10. CT scans after her visit in 01/09 showed some further increase in the same area The pt , unfortunately has still not been able to have her SCT, as she was admitted in late 01/09 and had 2 cardiac stents. She was then fairly weak for se veral days. IN the meantime , she was required to have a repeat PFT for her SCT, due to time elapsed since her previous one. However the repeat was not covered by insurance She had an ER visit on 02/24/22 for new onset rt sided mid back pain, and neck pain. She was felt to have radiculopathy and was started on Duloxetine She denied any fevers/chills/nausea/vomiting. Her pain is only partially im proved. She reports persistent weakness, fatigue and diminsihed appetite. She is also having recurrent sweats. She denies any difficulty swallowing or upper airway congestion. No obvious adenopathy. Bowel movements are normal. Review of systems otherwise as per HPI and negative out of 10 The pt is having multiple new symptoms as noted. She has not been able to f/u at the [facility] due to multipel reasons as described in the HPI - Her current clinical picture is highly suspicious for recurrent progressive lymphoma. Her CBC shows a Hgb of 10.2, with normal WBC and plt - Check labs - Restaging studies will be ordered after Dr. Maradiaga has a discussion with Dr Smith - D/W pt and that if there is progression, she will need re treatment to try to achieve remission prior to SCT Patient was seen at [facility] but has not been bact to see Dr. Maradiaga since, She presents now for increased weakness, dizziness, and fatigue. It is noted she has increased overall burden of cancer, and overall prognosis is poor without stem cell, however her performance is declining. Past Medical History Past Medical History: Cancer Additional Past Medical History / Comment(s): Hodgkins Lymphoma, had chemo X2, last chemo . History of Any Multi-Drug Resistant Organisms: None Reported Past Surgical History: No Surgical Hx Reported Additional Past Surgical History / Comment(s): Colonoscopy, port a catheter insertion, bilateral neck biopsies, lumbar puncture with intrahecal chemo, bone marrow biopsy, bilateral cataracts removed with lens implants. Past Anesthesia/Blood Transfusion Reactions: No Reported Reaction Additional Past Anesthesia/Blood Transfusion Reaction / Comm: NO PRIOR SX HX Date of Last Stent Placement:: 01/17/22 Past Psychological History: No Psychological Hx Reported Smoking Status: Never smoker - Past Family History Mother Family Medical History: No Reported History Father Family Medical History: Congestive Heart Failure (CHF) Additional Family Medical History / Comment(s): Father of CHF at the age of 89 yrs. Medications and Allergies Home Medications Medication Instructions Recorded Confirmed Type Aspirin 81 mg PO DAILY #90 tab 01/18/22 04/23/22 Rx Atorvastatin [Lipitor] 80 mg PO HS #90 tab 01/18/22 04/23/22 Rx Clopidogrel [Plavix] 75 mg PO DAILY #90 tab 01/18/22 04/23/22 Rx Losartan [Cozaar] 50 mg PO HS #90 tab 01/18/22 04/23/22 Rx Metoprolol Tartrate [Lopressor] 25 mg PO BID #180 tab 01/18/22 04/23/22 Rx Nitroglycerin Sl Tabs [Nitrostat] 0.4 mg SUBLINGUAL Q5M PRN #100 tab 01/18/22 04/23/22 Rx Enalapril [Vasotec] 10 mg PO DAILY 04/23/22 04/23/22 History Lenalidomide [Revlimid] 10 mg PO DIRECTED 04/23/22 04/23/22 History Allergies Allergy/AdvReac Type Severity Reaction Status Date / Time No Known Allergies Allergy Verified 04/23/22 12:38 Physical Exam Vitals: Vital Signs Temp Pulse Pulse Resp BP BP Pulse Ox 04/24/22 07:50 60 18 04/24/22 07:19 98 F 60 18 136/56 96 04/24/22 01:20 98.7 F 62 15 127/71 96 04/23/22 19:49 97.5 F L 53 L 18 122/60 92 L 04/23/22 14:21 54 L 16 107/48 97 04/23/22 14:00 98.7 F 50 L 121/67 94 L 04/23/22 13:31 58 L 16 113/53 95 Intake and Output 04/23/22 04/24/22 04/24/22 22:59 06:59 14:59 Intake Total 300 Output Total 1175 Balance 300 -1175 Intake: Intake, IV Titration 300 Amount Sodium Chloride 0.9% 1, 300 000 ml @ 100 mls/hr IV . Q10H ONE Rx#:[id number] Output: Urine 1175 Other: Voiding Method Diaper Diaper Incontinent Incontinent External Catheter External Catheter # Voids 2 Weight 68.039 kg General:no distress Head: NCAT Eyes: EOMI, anicteric sclera, pupils equal round Oral thrush, dry mucus membranes Neck: supple Right chest wall port CDI Cardiovascular:reg, no edema, Lungs: CTA bilateral, Abdominal: soft, nontender normal bowel sounds Neuro: nonfocal Psych: Alert, oriented, appropriate affect Results CBC & Chem 7: 04/24/22 04:21 04/24/22 17:48 Labs: Abnormal Lab Results - Last 24 Hours (Table) 04/23/22 04/23/22 04/23/22 Range/Units 12:08 20:18 20:18 WBC (4.50-10.00) X 10*3/uL RBC (4.10-5.20) X 10*6/uL Hgb (12.0-15.0) g/dL Hct (37.2-46.3) % MCHC (32.0-37.0) g/dL RDW (11.5-14.5) % Absolute Nucleated RBC (0.00-0.00) X 10*3/uL NRBC/100 WBC Diff (0.0-0.0) /100 WBCS Sodium 124 L (137-145) mmol/L Chloride 92 L (98-107) mmol/L Glucose 106 H (74-99) mg/dL Osmolality (280-301) mosm/kg Calcium 14.4 H* (8.4-10.2) mg/dL Iron (50-170) ug/dL TIBC (228-460) ug/dL Transferrin (204.0-354.0) mg/dL Total Protein (PEP) 4.2 L (6.2-8.2) g/dL PTH Intact (14.0-72.0) pg/mL Urine Appearance Cloudy H (Clear) Ur Leukocyte Esterase Trace H (Negative) Urine WBC 10 H (0-5) /hpf Urine Bacteria Occasional H (None) /hpf Urine Mucus Rare H (None) /hpf 04/24/22 04/24/22 04/24/22 Range/Units 04:21 04:21 04:21 WBC 4.00 L (4.50-10.00) X 10*3/uL RBC 2.35 L (4.10-5.20) X 10*6/uL Hgb 6.8 L* (12.0-15.0) g/dL Hct 21.7 L (37.2-46.3) % MCHC 31.3 L (32.0-37.0) g/dL RDW 17.5 H (11.5-14.5) % Absolute Nucleated RBC 0.03 H (0.00-0.00) X 10*3/uL NRBC/100 WBC Diff 0.8 H (0.0-0.0) /100 WBCS Sodium (137-145) mmol/L Chloride (98-107) mmol/L Glucose (74-99) mg/dL Osmolality (280-301) mosm/kg Calcium (8.4-10.2) mg/dL Iron 28 L (50-170) ug/dL TIBC 192 L (228-460) ug/dL Transferrin 137.0 L (204.0-354.0) mg/dL Total Protein (PEP) (6.2-8.2) g/dL PTH Intact 7.0 L (14.0-72.0) pg/mL Urine Appearance (Clear) Ur Leukocyte Esterase (Negative) Urine WBC (0-5) /hpf Urine Bacteria (None) /hpf Urine Mucus (None) /hpf 04/24/22 Range/Units 10:20 WBC (4.50-10.00) X 10*3/uL RBC (4.10-5.20) X 10*6/uL Hgb (12.0-15.0) g/dL Hct (37.2-46.3) % MCHC (32.0-37.0) g/dL RDW (11.5-14.5) % Absolute Nucleated RBC (0.00-0.00) X 10*3/uL NRBC/100 WBC Diff (0.0-0.0) /100 WBCS Sodium 126 L (137-145) mmol/L Chloride (98-107) mmol/L Glucose (74-99) mg/dL Osmolality 267 L (280-301) mosm/kg Calcium (8.4-10.2) mg/dL Iron (50-170) ug/dL TIBC (228-460) ug/dL Transferrin (204.0-354.0) mg/dL Total Protein (PEP) (6.2-8.2) g/dL PTH Intact (14.0-72.0) pg/mL Urine Appearance (Clear) Ur Leukocyte Esterase (Negative) Urine WBC (0-5) /hpf Urine Bacteria (None) /hpf Urine Mucus (None) /hpf Assessment and Plan (1) Non-Hodgkin lymphoma Narrative/Plan: - Recent progression and status post cycle one of new therapy with Revlimid and Monjuvi, cycle 2 (due twoday) on hold - Monitor closely for tumor lysis and adrenal insuffiency Current Visit: No Status: Acute Code(s): C85.90 - NON-HODGKIN LYMPHOMA, UNSPECIFIED, UNSPECIFIED SITE SNOMED Code(s): 640080467 (2) Hypercalcemia Narrative/Plan: Nephrology following, status post Zometa Current Visit: Yes Status: Acute Code(s): E83.52 - HYPERCALCEMIA SNOMED Code(s): 00820236 (3) Hyponatremia Narrative/Plan: COncern of adrenal insufficiency and Tumor lysis Nephrology following OCmpoenent SIADH PO fluid Restriction Current Visit: Yes Status: Acute Code(s): E87.1 - HYPO-OSMOLALITY AND HYPONATREMIA SNOMED Code(s): 22688818 (4) Weakness Narrative/Plan: [place] to be due to recurrent bulk disease status post treatment and anemia from chemotherapy - PRBC Irradiated pending transfusion Rowell cultures ordered for immunosuppression and on chemo, high risk infection Current Visit: No Status: Acute Code(s): R53.1 - WEAKNESS SNOMED Code(s): 39676510 (5) Bradycardia Current Visit: Yes Status: Acute Code(s): R00.1 - BRADYCARDIA, UNSPECIFIED SNOMED Code(s): 92581117 (6) Normocytic anemia Narrative/Plan: Transfuse IRradiated PRBC today hemoglobin 6.8 CBC daily Current Visit: Yes Status: Acute Code(s): D64.9 - ANEMIA, UNSPECIFIED SNOMED Code(s): 747168499 Time with Patient: Greater than 30
[2022-04-24 15:35] LABS: Albumin 2.6 g/dL (3.8-4.9); Albumin/Globulin Ratio 1.53 (1.60-3.17); Anion Gap 8.3 mmol/L (10.00-18.00); BUN/Creat Ratio 20.94 Ratio (12.00-20.00); Blood Urea Nitrogen 12.5 mg/dL (9.0-27.0); Carbon Dioxide 28.8 mmol/L (20.0-27.5); Globulin 1.7 g/dL (1.6-3.3); Non-African American GFR(CKD) 87.5 (60.0-200.0); Potassium 3.5 mmol/L (3.5-5.5); Total Bilirubin 0.5 mg/dL (0.30-1.20); Total Protein 4.3 g/dL (6.2-8.2)
[2022-04-24 15:38] LABS: African American GFR (CKD) 101.4 (60.0-200.0)
[2022-04-24 15:40] LABS: Calcium 14.2 mg/dL (8.7-10.3)
[2022-04-24 18:25] LABS: ALT 39 U/L (4-34); AST 50 U/L (14-36); African American GFR (CKD) 88 (>60 ml/min/1.73 sqM); Albumin 2.3 g/dL (3.5-5.0); Albumin/Globulin Ratio 1.2; Alkaline Phosphatase 276 U/L (38-126); Anion Gap 2 mmol/L; Blood Urea Nitrogen 18 mg/dL (7-17); Calcium 12.6 mg/dL (8.4-10.2); Carbon Dioxide 30 mmol/L (22-30); Chloride 94 mmol/L (98-107); Globulin 1.9 g/dL; Glucose 105 mg/dL (74-99); LDH 1657 U/L (313-618); Magnesium 1.4 mg/dL (1.6-2.3); Non-African American GFR(CKD) 77 (>60 ml/min/1.73 sqM); Phosphorus 3.3 mg/dL (2.5-4.5); Potassium 3.4 mmol/L (3.5-5.1); Sodium 126 mmol/L (137-145); Total Bilirubin 1.2 mg/dL (0.2-1.3); Total Protein 4.2 g/dL (6.3-8.2); Uric Acid 9.4 mg/dL (3.7-7.4)
[2022-04-24] MEDS: ATORVASTATIN 80 MG TAB PO SCH (21:01)
[2022-04-24 21:18] LABS: Anisocytosis Slight; HCT 27.1 % (34.0-46.0); HGB 8.8 gm/dL (11.4-16.0); Hypochromasia Slight; MCH 30.7 pg (25.0-35.0); MCHC 32.5 g/dL (31.0-37.0); MCV 94.5 fL (80.0-100.0); Mean Platelet Volume 9.2; Platelet Count 139 k/uL (150-450); RBC 2.87 m/uL (3.80-5.40); RDW 17.2 % (11.5-15.5); WBC 3.6 k/uL (3.8-10.6)
[2022-04-24] MEDS ORDERED: POTASSIUM CHLORIDE ER 20 MEQ TAB.ER PO STA (21:28)
[2022-04-24 21:37] LABS: Band Neutrophils % 3 %; Eosinophils # (M) 0.11 k/uL (0-0.7); Lymphocytes # (M) 1.12 k/uL (1.0-4.8); Monocytes # (M) 0.22 k/uL (0-1.0); Neutrophils % (M) 57 %; Nucleated Red Blood Cells 0 /100 WBC (0-0); Poikilocytosis (M) Present; Total Cells Counted 100
--- NOTE | 2022-04-24 22:20 | US ---
EXAMINATION TYPE: US venous doppler duplex UE RT DATE OF EXAM: 04/24/2022 COMPARISON: NONE CLINICAL HISTORY: dvt and picc. picc line; fluid retention SIDE PERFORMED: Right Right Arm: There appears to be some thrombus around the picc line within the right axillary vein. IMPRESSION: There is limited deep vein thrombosis in the axillary vein. There is PICC line catheter present.
[2022-04-24] MEDS: MAGNESIUM SULFATE-D5W PMX 1 GM in DEXTROSE/WATER 1 100ML.BAG IVPB SCH ×2 (22:22→23:50)
--- NOTE | 2022-04-24 22:24 | US ---
EXAMINATION TYPE: US venous doppler duplex LE BI DATE OF EXAM: 04/24/2022 9:53 PM COMPARISON: NONE CLINICAL HISTORY: dvt and picc. fluid retention SIDE PERFORMED: Bilateral TECHNIQUE: The lower extremity deep venous system is examined utilizing real time linear array sonog young with graded compression, doppler sonography and color-flow sonography. VESSELS IMAGED: Common Femoral Vein Deep Femoral Vein Greater Saphenous Vein * Femoral Vein Popliteal Vein Small Saphenous Vein * Proximal Calf Veins (* superficial vessels) Right Leg: Negative for DVT Left Leg: Negative for DVT IMPRESSION: Negative exam. No evidence of deep vein thrombosis in both legs.
[2022-04-25 07:09] LABS: ALT 44 U/L (4-34); AST 61 U/L (14-36); African American GFR (CKD) 57 (>60 ml/min/1.73 sqM); Albumin 2.1 g/dL (3.5-5.0); Albumin/Globulin Ratio 1.2; Alkaline Phosphatase 344 U/L (38-126); Anion Gap 5 mmol/L; Blood Urea Nitrogen 22 mg/dL (7-17); Calcium 11.7 mg/dL (8.4-10.2); Carbon Dioxide 28 mmol/L (22-30); Chloride 95 mmol/L (98-107); Globulin 1.8 g/dL; Glucose 89 mg/dL (74-99); LDH 1550 U/L (313-618); Magnesium 1.8 mg/dL (1.6-2.3); Non-African American GFR(CKD) 49 (>60 ml/min/1.73 sqM); Phosphorus 2.6 mg/dL (2.5-4.5); Potassium 3.6 mmol/L (3.5-5.1); Sodium 128 mmol/L (137-145); Total Bilirubin 0.7 mg/dL (0.2-1.3); Total Protein 3.9 g/dL (6.3-8.2); Uric Acid 9.3 mg/dL (3.7-7.4)
[2022-04-25 07:11] LABS: Ionized Calcium 6.7 mg/dL (4.5-5.3)
[2022-04-25] MEDS: allopurinoL 300 MG TAB PO SCH (08:35)
[2022-04-25] MEDS: ASPIRIN 81 MG PO SCH (08:35)
[2022-04-25] MEDS: CLOPIDOGREL 75 MG TAB PO SCH (08:35)
[2022-04-25] MEDS: METOPROLOL TARTRATE 25 MG TAB PO SCH ×2 (08:35→21:41)
[2022-04-25 08:41] LABS: Angiotensin-1 Converting Enz. 91 U/L (8-52)
[2022-04-25 09:05] LABS: T4, Free (Free Thyroxine) 1.43 ng/dL (0.78-2.19)
[2022-04-25 10:31] LABS: HCT 24.1 % (37.2-46.3); HGB 7.6 g/dL (12.0-15.0); MCH 28.7 pg (27.0-32.0); MCHC 31.5 g/dL (32.0-37.0); MCV 90.9 fL (80.0-97.0); Mean Platelet Volume 10.7 fL (9.5-12.2); NRBC Per 100 WBC 1.3 /100 WBCS (0.0-0.0); Platelet Count 156 X 10*3/uL (140-440); RBC 2.65 X 10*6/uL (4.10-5.20); RDW 17.3 % (11.5-14.5)
[2022-04-25] MEDS ORDERED: FUROSEMIDE 10 MG/ML 4 ML VIAL IV STA (11:13)
[2022-04-25] MEDS ORDERED: POTASSIUM CHLORIDE ER 20 MEQ TAB.ER PO STA (11:15)
--- NOTE | 2022-04-25 11:20 | P.PN ---
Subjective Patient is seen in follow-up for hypercalcemia and hyponatremia. Calcium level trending down. Sodium level up to 128. Oral intake fair. Denies vomiting or diarrhea. Nonoliguric. Working with physical therapy. Vital signs are stable. General: Awake. No acute distress. HEENT: Head exam is unremarkable. LUNGS: Breath sounds decreased. HEART: Rate and Rhythm are regular. ABDOMEN: Soft, no distention. EXTREMITITES: Trace edema. Objective - Vital Signs Vital signs: Vital Signs Temp 98.5 F 04/25/22 07:40 Pulse 74 04/25/22 07:40 Resp 18 04/25/22 07:40 BP 146/62 04/25/22 07:40 Pulse Ox 93 L 04/25/22 07:40 FiO2 Intake & Output 04/24/22 04/25/22 04/25/22 18:59 06:59 18:59 Intake Total 2046 296 Output Total 600 1000 Balance 1446 -1000 296 Intake: Intake, IV Titration 600 Amount Sodium Chloride 0.9% 1, 600 000 ml @ 100 mls/hr IV . Q10H ONE Rx#:[id number] Oral 1136 296 Blood Product 310 Rc As-1 Unit 310 [id number] Output: Urine 600 1000 Other: Voiding Method Diaper External Catheter External Catheter Incontinent External Catheter - Labs CBC & Chem 7: 04/25/22 06:01 04/25/22 06:01 Labs: Abnormal Lab Results - Last 24 Hours (Table) 04/24/22 04/24/22 04/24/22 Range/Units 04:21 04:21 04:21 WBC (3.8-10.6) k/uL RBC (3.80-5.40) m/uL Hgb 6.8 L* (12.0-15.0) g/dL Hct (34.0-46.0) % MCHC (32.0-37.0) g/dL RDW (11.5-15.5) % Plt Count (150-450) k/uL Absolute Nucleated RBC (0.00-0.00) X 10*3/uL NRBC/100 WBC Diff (0.0-0.0) /100 WBCS Sodium 131 L (135-145) mmol/L Potassium (3.5-5.1) mmol/L Chloride 94 L (96-109) mmol/L Carbon Dioxide 28.8 H (20.0-27.5) mmol/L Anion Gap 8.30 L (10.00-18.00) mmol/L BUN (7-17) mg/dL Creatinine (0.52-1.04) mg/dL BUN/Creatinine Ratio 20.94 H (12.00-20.00) Ratio Glucose (74-99) mg/dL Osmolality (280-301) mosm/kg Uric Acid (3.7-7.4) mg/dL Calcium 14.2 H* (8.7-10.3) mg/dL Ionized Calcium Royer (4.5-5.3) mg/dL Magnesium (1.6-2.3) mg/dL Ferritin (10.0-291.0) ng/mL AST 59 H (13-35) U/L ALT (4-34) U/L Alkaline Phosphatase 294 H (41-126) U/L Lactate Dehydrogenase (313-618) U/L Total Protein 4.3 L (6.2-8.2) g/dL Albumin 2.6 L (3.8-4.9) g/dL Albumin/Globulin Ratio 1.53 L (1.60-3.17) g/dL Angiotensin Convert Enz 91 H (8-52) U/L TSH (0.465-4.680) mIU/L Crossmatch 04/24/22 04/24/22 04/24/22 Range/Units 10:20 11:06 17:48 WBC (3.8-10.6) k/uL RBC (3.80-5.40) m/uL Hgb (12.0-15.0) g/dL Hct (34.0-46.0) % MCHC (32.0-37.0) g/dL RDW (11.5-15.5) % Plt Count (150-450) k/uL Absolute Nucleated RBC (0.00-0.00) X 10*3/uL NRBC/100 WBC Diff (0.0-0.0) /100 WBCS Sodium 126 L (135-145) mmol/L Potassium 3.4 L (3.5-5.1) mmol/L Chloride 94 L (96-109) mmol/L Carbon Dioxide (20.0-27.5) mmol/L Anion Gap (10.00-18.00) mmol/L BUN 18 H (7-17) mg/dL Creatinine (0.52-1.04) mg/dL BUN/Creatinine Ratio (12.00-20.00) Ratio Glucose 105 H (74-99) mg/dL Osmolality 267 L (280-301) mosm/kg Uric Acid 9.4 H (3.7-7.4) mg/dL Calcium 12.6 H (8.7-10.3) mg/dL Ionized Calcium Royer (4.5-5.3) mg/dL Magnesium 1.4 L (1.6-2.3) mg/dL Ferritin 895.0 H (10.0-291.0) ng/mL AST 50 H (13-35) U/L ALT 39 H (4-34) U/L Alkaline Phosphatase 276 H (41-126) U/L Lactate Dehydrogenase 1657 H (313-618) U/L Total Protein 4.2 L (6.2-8.2) g/dL Albumin 2.3 L (3.8-4.9) g/dL Albumin/Globulin Ratio (1.60-3.17) g/dL Angiotensin Convert Enz (8-52) U/L TSH (0.465-4.680) mIU/L Crossmatch See Detail 04/24/22 04/25/22 04/25/22 Range/Units 20:00 06:01 06:01 WBC 3.6 L (3.8-10.6) k/uL RBC 2.87 L 2.65 L (3.80-5.40) m/uL Hgb 8.8 L 7.6 L (12.0-15.0) g/dL Hct 27.1 L 24.1 L (34.0-46.0) % MCHC 31.5 L (32.0-37.0) g/dL RDW 17.2 H 17.3 H (11.5-15.5) % Plt Count 139 L (150-450) k/uL Absolute Nucleated RBC 0.06 H (0.00-0.00) X 10*3/uL NRBC/100 WBC Diff 1.3 H (0.0-0.0) /100 WBCS Sodium 128 L (135-145) mmol/L Potassium (3.5-5.1) mmol/L Chloride 95 L (96-109) mmol/L Carbon Dioxide (20.0-27.5) mmol/L Anion Gap (10.00-18.00) mmol/L BUN 22 H (7-17) mg/dL Creatinine 1.08 H (0.52-1.04) mg/dL BUN/Creatinine Ratio (12.00-20.00) Ratio Glucose (74-99) mg/dL Osmolality (280-301) mosm/kg Uric Acid 9.3 H (3.7-7.4) mg/dL Calcium 11.7 H (8.7-10.3) mg/dL Ionized Calcium Royer 6.7 H* (4.5-5.3) mg/dL Magnesium (1.6-2.3) mg/dL Ferritin (10.0-291.0) ng/mL AST 61 H (13-35) U/L ALT 44 H (4-34) U/L Alkaline Phosphatase 344 H (41-126) U/L Lactate Dehydrogenase 1550 H (313-618) U/L Total Protein 3.9 L (6.2-8.2) g/dL Albumin 2.1 L (3.8-4.9) g/dL Albumin/Globulin Ratio (1.60-3.17) g/dL Angiotensin Convert Enz (8-52) U/L TSH 0.338 L (0.465-4.680) mIU/L Crossmatch Assessment and Plan Plan: Assessment: 1. Hypovolemic hyponatremia with component of poor solute intake and SIADH from malignancy. Sodium level 128. Urine osmolality 339. 2. Hypercalcemia. Likely related to underlying lymphoma. ALYCIA elevated at 91 - ?sarcoid - no evident on CXR . Vitamin D level 57.6. PTH low at 7. 3. Non-Hodgkin's lymphoma. Oncology following. 4. Coronary disease status post cardiac stenting. 5. Benign hypertension. Stable. 6. Anemia. Iron deficiency noted. s/p blood transfusion this admission. Heme/onc following. 7. Edema. 8. Hypokalemia from poor intake. 9. Hypomagnesemia from poor intake. Replaced. Better. 10. Acute kidney injury mostly prerenal secondary to hypercalcemia and anemia. Creatinine 1.08 today. No proteinuria on UA. Plan: Maintain IV fluids - decrease rate to 50 mL an hour. 25 g IV albumin today. Lasix 40 mg IV once today. Status post IV Lasix, calcitonin and zoledronic acid 04/23/2022. Follow up pending workup for hypercalcemia. Continue to hold losartan for now as blood pressure is stable. Avoid nephrotoxins. Continue to monitor renal function and urine output. GFR at baseline. No proteinuria on UA. Add IV iron. Replace potassium. Cortisol not low.
[2022-04-25 11:26] LABS: Basophils # (M) 0 X 10*3/uL (0.00-0.10); Eosinophils # (M) 0 X 10*3/uL (0.04-0.35); Monocytes # (M) 0.24 X 10*3/uL (0.20-1.00); Myelocytes % 1 % (0-0); Neutrophils # (M) 3.22 X 10*3/uL (2.00-8.90); Neutrophils % (M) 67 %; Nucleated Red Blood Cells 2 /100 WBCS
[2022-04-25] MEDS: ALBUMIN HUMAN 25% 50 ML in EMPTY BAG 1 BAG IVPB SCH ×2 (11:55→13:29)
--- NOTE | 2022-04-25 13:03 | P.PN ---
Subjective Progress Note Date: 04/25/22 Principal diagnosis: General weakness Right arm swelling is getting worse according to daughter. She is still weak. No pain, sob. No fevers. Objective - Vital Signs Vital signs: Vital Signs Temp 98.5 F 04/25/22 07:40 Pulse 74 04/25/22 07:40 Resp 18 04/25/22 07:40 BP 146/62 04/25/22 07:40 Pulse Ox 93 L 04/25/22 07:40 FiO2 Intake & Output 04/24/22 04/25/22 04/25/22 18:59 06:59 18:59 Intake Total 2046 296 Output Total 600 1000 Balance 1446 -1000 296 Intake: Intake, IV Titration 600 Amount Sodium Chloride 0.9% 1, 600 000 ml @ 100 mls/hr IV . Q10H ONE Rx#:[id number] Oral 1136 296 Blood Product 310 Rc As-1 Unit 310 [id number] Output: Urine 600 1000 Other: Voiding Method Diaper External Catheter External Catheter Incontinent External Catheter - Exam Constitutional: No acute distress, conversant, pleasant Eyes:Anicteric sclerae, moist conjunctiva, no lid-lag, PERRLA, ENMT: Oropharynx clear, no erythema, exudates Neck: Supple, FROM, no masses, or JVD, No carotid bruits, No thyromegaly Lungs: Clear to auscultation, Clear to percussion, Normal respiratory effort, no accessory muscle use Cardiovascular: Heart regular in rate and rhythm, No murmurs, gallops, or rubs Abdominal: Soft, Nontender, no guarding, rebound or rigidity, Normoactive bowel sounds, No hepatomegaly, No splenomegaly, No palpable mass Skin: Normal temperature, tone, texture, turgor, no induration, No subcutaneous nodules, No rash, lesions, No ulcers Extremities: Right arm swollen, no digital cyanosis, No clubbing, Pedal pulses intact and symmetrical, Radial pulses intact and symmetrical, No calf tenderness Psychiatric: Alert and oriented to person, place and time, appropriate affect, intact judgement Neuro: General weakness, no focal sensory deficits - Labs CBC & Chem 7: 04/25/22 06:01 04/25/22 06:01 Labs: Abnormal Lab Results - Last 24 Hours (Table) 04/24/22 04/24/22 04/24/22 Range/Units 04:21 04:21 11:06 WBC (3.8-10.6) k/uL RBC (3.80-5.40) m/uL Hgb (11.4-16.0) gm/dL Hct (34.0-46.0) % MCHC (32.0-37.0) g/dL RDW (11.5-15.5) % Plt Count (150-450) k/uL Absolute Nucleated RBC (0.00-0.00) X 10*3/uL Myelocytes % (0-0) % Eosinophils # (Manual) (0.04-0.35) X 10*3/uL NRBC/100 WBC Diff (0.0-0.0) /100 WBCS Sodium 131 L (135-145) mmol/L Potassium (3.5-5.1) mmol/L Chloride 94 L (96-109) mmol/L Carbon Dioxide 28.8 H (20.0-27.5) mmol/L Anion Gap 8.30 L (10.00-18.00) mmol/L BUN (7-17) mg/dL Creatinine (0.52-1.04) mg/dL BUN/Creatinine Ratio 20.94 H (12.00-20.00) Ratio Glucose (74-99) mg/dL Uric Acid (3.7-7.4) mg/dL Calcium 14.2 H* (8.7-10.3) mg/dL Ionized Calcium Royer (4.5-5.3) mg/dL Magnesium (1.6-2.3) mg/dL Ferritin (10.0-291.0) ng/mL AST 59 H (13-35) U/L ALT (4-34) U/L Alkaline Phosphatase 294 H (41-126) U/L Lactate Dehydrogenase (313-618) U/L Total Protein 4.3 L (6.2-8.2) g/dL Albumin 2.6 L (3.8-4.9) g/dL Albumin/Globulin Ratio 1.53 L (1.60-3.17) g/dL Angiotensin Convert Enz 91 H (8-52) U/L TSH (0.465-4.680) mIU/L Crossmatch See Detail 04/24/22 04/24/22 04/25/22 Range/Units 17:48 20:00 06:01 WBC 3.6 L (3.8-10.6) k/uL RBC 2.87 L (3.80-5.40) m/uL Hgb 8.8 L (11.4-16.0) gm/dL Hct 27.1 L (34.0-46.0) % MCHC (32.0-37.0) g/dL RDW 17.2 H (11.5-15.5) % Plt Count 139 L (150-450) k/uL Absolute Nucleated RBC (0.00-0.00) X 10*3/uL Myelocytes % (0-0) % Eosinophils # (Manual) (0.04-0.35) X 10*3/uL NRBC/100 WBC Diff (0.0-0.0) /100 WBCS Sodium 126 L 128 L (135-145) mmol/L Potassium 3.4 L (3.5-5.1) mmol/L Chloride 94 L 95 L (96-109) mmol/L Carbon Dioxide (20.0-27.5) mmol/L Anion Gap (10.00-18.00) mmol/L BUN 18 H 22 H (7-17) mg/dL Creatinine 1.08 H (0.52-1.04) mg/dL BUN/Creatinine Ratio (12.00-20.00) Ratio Glucose 105 H (74-99) mg/dL Uric Acid 9.4 H 9.3 H (3.7-7.4) mg/dL Calcium 12.6 H 11.7 H (8.7-10.3) mg/dL Ionized Calcium Royer 6.7 H* (4.5-5.3) mg/dL Magnesium 1.4 L (1.6-2.3) mg/dL Ferritin 895.0 H (10.0-291.0) ng/mL AST 50 H 61 H (13-35) U/L ALT 39 H 44 H (4-34) U/L Alkaline Phosphatase 276 H 344 H (41-126) U/L Lactate Dehydrogenase 1657 H 1550 H (313-618) U/L Total Protein 4.2 L 3.9 L (6.2-8.2) g/dL Albumin 2.3 L 2.1 L (3.8-4.9) g/dL Albumin/Globulin Ratio (1.60-3.17) g/dL Angiotensin Convert Enz (8-52) U/L TSH 0.338 L (0.465-4.680) mIU/L Crossmatch 04/25/22 Range/Units 06:01 WBC (3.8-10.6) k/uL RBC 2.65 L (3.80-5.40) m/uL Hgb 7.6 L (11.4-16.0) gm/dL Hct 24.1 L (34.0-46.0) % MCHC 31.5 L (32.0-37.0) g/dL RDW 17.3 H (11.5-15.5) % Plt Count (150-450) k/uL Absolute Nucleated RBC 0.06 H (0.00-0.00) X 10*3/uL Myelocytes % 1 H (0-0) % Eosinophils # (Manual) 0 L (0.04-0.35) X 10*3/uL NRBC/100 WBC Diff 1.3 H (0.0-0.0) /100 WBCS Sodium (135-145) mmol/L Potassium (3.5-5.1) mmol/L Chloride (96-109) mmol/L Carbon Dioxide (20.0-27.5) mmol/L Anion Gap (10.00-18.00) mmol/L BUN (7-17) mg/dL Creatinine (0.52-1.04) mg/dL BUN/Creatinine Ratio (12.00-20.00) Ratio Glucose (74-99) mg/dL Uric Acid (3.7-7.4) mg/dL Calcium (8.7-10.3) mg/dL Ionized Calcium Royer (4.5-5.3) mg/dL Magnesium (1.6-2.3) mg/dL Ferritin (10.0-291.0) ng/mL AST (13-35) U/L ALT (4-34) U/L Alkaline Phosphatase (41-126) U/L Lactate Dehydrogenase (313-618) U/L Total Protein (6.2-8.2) g/dL Albumin (3.8-4.9) g/dL Albumin/Globulin Ratio (1.60-3.17) g/dL Angiotensin Convert Enz (8-52) U/L TSH (0.465-4.680) mIU/L Crossmatch Assessment and Plan Plan: Generalized weakness secondary to chemotherapy Hypercalcemia likely due to dehydration versus lymphoma Lactic acidosis -NS at 50 mL an hour -Patient does have some lower extremity edema so we'll need to monitor patient closely for volume overload -Status post zoledronic acid, calcitonin, Lasix 100 mg 1 -PT OT consult -SPEP, UPEP, free light chains are pending. -PTH RP, pending -Oncology and nephrology Hyponatremia likely SIADH -Urine osm on the high side, will restrict fluids to 1500cc daily. Right axillary vein DVT -D/w oncology, will defer AC management to them -Will need to d/c right PICC Elevated LFTs -Patient asymptomatic -Right upper quadrant ultrasound showing some cholelithiasis. Lower extremity edema likely due to hypoalbuminemia -Patient has been off Lasix for 5 days. -One time lasix today -Albumin 2 bags being given Anemia -Suspect due to chemotherapy and lymphoma with a component of iron deficiency. -IV iron -Oncology following -Status post 1 unit of packed red blood cell transfusion on 04/24 Non-Hodgkin lymphoma on active chemotherapy -Oncology following -Hold Revlimid for now -Consult palliative care as well Coronary disease status post recent stent -Resume aspirin and statin and Plavix and metoprolol -Consult cardiology now she has to be on AC Hypertension -Hold losartan as patient is dehydrated and risk for hypertension. Resume metoprolol CODE STATUS: DNR/DNI DPOA: Patient's sister DVT prophylaxis: mechanical. Anticipated length of stay > than [address]: home vs SNF
[2022-04-25] MEDS ORDERED: FUROSEMIDE 10 MG/ML 4 ML VIAL IV ONE (14:00)
[2022-04-25] MEDS: SODIUM FERRIC GLUCONAT-SUCROSE 125 MG in SODIUM CHLORIDE 0.9% 100 ML IVPB SCH (14:11)
[2022-04-25] MEDS: SODIUM CHLORIDE 0.9% 1,000 ML IV SCH (14:12)
[2022-04-25] MEDS ORDERED: HEPARIN SODIUM 1,000 UN/ML (10ML VL) IV ONE (14:23)
[2022-04-25] MEDS ORDERED: HEPARIN SODIUM 1,000 UN/ML (10ML VL) IV PRN (14:23)
[2022-04-25] MEDS ORDERED: HEPARIN SOD,PORK IN 0.45% NACL 25,000 UNIT in 0.45% NACL 1 250ML.BAG IV SCH (14:30)
[2022-04-25 14:57] LABS: Albumin 2.14 g/dL (3.80-4.90); Gamma Globulin 0.14 g/dL (0.70-1.50)
[2022-04-25 15:47] LABS: Free Kappa Lt Chain Qnt, Serum 3.54 mg/dL (0.33-1.94); Free Lambda Lt Chain Qnt, Seru 0.62 mg/dL (0.57-2.63)
--- NOTE | 2022-04-25 16:29 | P.PN ---
Subjective Progress Note Date: 04/25/22 More alert today, DVT in right arm. She has very few options for IV access Objective - Vital Signs Vital signs: Vital Signs Temp 97.9 F 04/25/22 13:36 Pulse 66 04/25/22 13:36 Resp 18 04/25/22 13:36 BP 131/61 04/25/22 13:36 Pulse Ox 96 04/25/22 13:36 FiO2 Intake & Output 04/24/22 04/25/22 04/25/22 18:59 06:59 18:59 Intake Total 2046 592 Output Total 600 1000 Balance 1446 -1000 592 Intake: Intake, IV Titration 600 Amount Sodium Chloride 0.9% 1, 600 000 ml @ 100 mls/hr IV . Q10H ONE Rx#:[id number] Oral 1136 592 Blood Product 310 Rc As-1 Unit 310 [id number] Output: Urine 600 1000 Other: Voiding Method Diaper External Catheter External Catheter Incontinent External Catheter - Exam General:no distress Head: NCAT Eyes: EOMI, anicteric sclera, pupils equal round Oral thrush, dry mucus membranes Neck: supple Right chest wall port CDI Cardiovascular:reg, no edema, Lungs: CTA bilateral, Abdominal: soft, nontender normal bowel sounds Neuro: nonfocal Psych: Alert, oriented, appropriate affect - Labs CBC & Chem 7: 04/25/22 06:01 04/25/22 06:01 Labs: Abnormal Lab Results - Last 24 Hours (Table) 04/23/22 04/24/22 04/24/22 Range/Units 20:18 04:21 11:06 WBC (3.8-10.6) k/uL RBC (3.80-5.40) m/uL Hgb (11.4-16.0) gm/dL Hct (34.0-46.0) % MCHC (32.0-37.0) g/dL RDW (11.5-15.5) % Plt Count (150-450) k/uL Absolute Nucleated RBC (0.00-0.00) X 10*3/uL Myelocytes % (0-0) % Eosinophils # (Manual) (0.04-0.35) X 10*3/uL NRBC/100 WBC Diff (0.0-0.0) /100 WBCS Sodium (137-145) mmol/L Potassium (3.5-5.1) mmol/L Chloride (98-107) mmol/L BUN (7-17) mg/dL Creatinine (0.52-1.04) mg/dL Glucose (74-99) mg/dL Uric Acid (3.7-7.4) mg/dL Calcium (8.4-10.2) mg/dL Ionized Calcium Royer (4.5-5.3) mg/dL Magnesium (1.6-2.3) mg/dL Ferritin (10.0-291.0) ng/mL AST (14-36) U/L ALT (4-34) U/L Alkaline Phosphatase (38-126) U/L Lactate Dehydrogenase (313-618) U/L Total Protein (6.3-8.2) g/dL Albumin (3.5-5.0) g/dL Albumin (PEP) 2.14 L (3.80-4.90) g/dL Cliea-4-Uuthhzknh 0.47 H (0.10-0.40) g/dL Gamma Globulins 0.14 L (0.70-1.50) g/dL Angiotensin Convert Enz 91 H (8-52) U/L TSH (0.465-4.680) mIU/L Free [place] LC, Quant 3.54 H (0.33-1.94) mg/dL Crossmatch See Detail 04/24/22 04/24/22 04/25/22 Range/Units 17:48 20:00 06:01 WBC 3.6 L (3.8-10.6) k/uL RBC 2.87 L (3.80-5.40) m/uL Hgb 8.8 L (11.4-16.0) gm/dL Hct 27.1 L (34.0-46.0) % MCHC (32.0-37.0) g/dL RDW 17.2 H (11.5-15.5) % Plt Count 139 L (150-450) k/uL Absolute Nucleated RBC (0.00-0.00) X 10*3/uL Myelocytes % (0-0) % Eosinophils # (Manual) (0.04-0.35) X 10*3/uL NRBC/100 WBC Diff (0.0-0.0) /100 WBCS Sodium 126 L 128 L (137-145) mmol/L Potassium 3.4 L (3.5-5.1) mmol/L Chloride 94 L 95 L (98-107) mmol/L BUN 18 H 22 H (7-17) mg/dL Creatinine 1.08 H (0.52-1.04) mg/dL Glucose 105 H (74-99) mg/dL Uric Acid 9.4 H 9.3 H (3.7-7.4) mg/dL Calcium 12.6 H 11.7 H (8.4-10.2) mg/dL Ionized Calcium Royer 6.7 H* (4.5-5.3) mg/dL Magnesium 1.4 L (1.6-2.3) mg/dL Ferritin 895.0 H (10.0-291.0) ng/mL AST 50 H 61 H (14-36) U/L ALT 39 H 44 H (4-34) U/L Alkaline Phosphatase 276 H 344 H (38-126) U/L Lactate Dehydrogenase 1657 H 1550 H (313-618) U/L Total Protein 4.2 L 3.9 L (6.3-8.2) g/dL Albumin 2.3 L 2.1 L (3.5-5.0) g/dL Albumin (PEP) (3.80-4.90) g/dL Ezgzp-2-Kafqhwqze (0.10-0.40) g/dL Gamma Globulins (0.70-1.50) g/dL Angiotensin Convert Enz (8-52) U/L TSH 0.338 L (0.465-4.680) mIU/L Free [place] LC, Quant (0.33-1.94) mg/dL Crossmatch 04/25/22 Range/Units 06:01 WBC (3.8-10.6) k/uL RBC 2.65 L (3.80-5.40) m/uL Hgb 7.6 L (11.4-16.0) gm/dL Hct 24.1 L (34.0-46.0) % MCHC 31.5 L (32.0-37.0) g/dL RDW 17.3 H (11.5-15.5) % Plt Count (150-450) k/uL Absolute Nucleated RBC 0.06 H (0.00-0.00) X 10*3/uL Myelocytes % 1 H (0-0) % Eosinophils # (Manual) 0 L (0.04-0.35) X 10*3/uL NRBC/100 WBC Diff 1.3 H (0.0-0.0) /100 WBCS Sodium (137-145) mmol/L Potassium (3.5-5.1) mmol/L Chloride (98-107) mmol/L BUN (7-17) mg/dL Creatinine (0.52-1.04) mg/dL Glucose (74-99) mg/dL Uric Acid (3.7-7.4) mg/dL Calcium (8.4-10.2) mg/dL Ionized Calcium Royer (4.5-5.3) mg/dL Magnesium (1.6-2.3) mg/dL Ferritin (10.0-291.0) ng/mL AST (14-36) U/L ALT (4-34) U/L Alkaline Phosphatase (38-126) U/L Lactate Dehydrogenase (313-618) U/L Total Protein (6.3-8.2) g/dL Albumin (3.5-5.0) g/dL Albumin (PEP) (3.80-4.90) g/dL Ymqpq-1-Pzxlxmqsf (0.10-0.40) g/dL Gamma Globulins (0.70-1.50) g/dL Angiotensin Convert Enz (8-52) U/L TSH (0.465-4.680) mIU/L Free [place] LC, Quant (0.33-1.94) mg/dL Crossmatch Assessment and Plan (1) Non-Hodgkin lymphoma Narrative/Plan: - Recent progression and status post cycle one of new therapy with Revlimid and Monjuvi, cycle 2 (due twoday) on hold - Monitor closely for tumor lysis and adrenal insuffiency Current Visit: No Status: Acute Code(s): C85.90 - NON-HODGKIN LYMPHOMA, UNSPECIFIED, UNSPECIFIED SITE SNOMED Code(s): 495488328 (2) Hypercalcemia Narrative/Plan: Nephrology following, status post Zometa Current Visit: Yes Status: Acute Code(s): E83.52 - HYPERCALCEMIA SNOMED Code(s): 30753757 (3) Hyponatremia Narrative/Plan: COncern of adrenal insufficiency and Tumor lysis Nephrology following OCmpoenent SIADH PO fluid Restriction Current Visit: Yes Status: Acute Code(s): E87.1 - HYPO-OSMOLALITY AND HYPONATREMIA SNOMED Code(s): 66117435 (4) Weakness Narrative/Plan: [place] to be due to recurrent bulk disease status post treatment and anemia from chemotherapy - PRBC Irradiated pending transfusion Rowell cultures ordered for immunosuppression and on chemo, high risk infection Current Visit: No Status: Acute Code(s): R53.1 - WEAKNESS SNOMED Code(s): 24229273 (5) Bradycardia Current Visit: Yes Status: Acute Code(s): R00.1 - BRADYCARDIA, UNSPECIFIED SNOMED Code(s): 75109040 (6) Normocytic anemia Narrative/Plan: Transfuse IRradiated PRBC today hemoglobin 6.8 CBC daily Current Visit: Yes Status: Acute Code(s): D64.9 - ANEMIA, UNSPECIFIED SNOMED Code(s): 939099520 (7) Deep vein thrombosis, upper right extremity Narrative/Plan: - Obtain Access on left arm, she will continue to require IV chemotherapy and frequent blood draws, as well as be high risk for infection. A picc line is the standard of care for this patient, understanding she does not have ideal veins for picc line, we will need for ongoing treatment. She will be on anticogulation moving forward so risk of clotting off new left arm picc will be minimal. Await 24 hours on eliquis and line on left arm and pull right arm line. Port may be higher risk as if becomes infected not easily removable but given the need for central line access that can remain in through the next 4 treatments scheduled this maybe our only hope as IR does not feel comfortable at this time moving forward with neww left arm picc line. DIscussed with RN and ok for him to add access left for hospital Will start PO doac and plan for 3-6 months of treatment Current Visit: Yes Status: Acute Code(s): I82.621 - ACUTE EMBOLISM AND THROMBOSIS OF DEEP VEINS OF R UP EXTREM SNOMED Code(s): 340017023
[2022-04-25] MEDS: APIXABAN 5 MG TAB PO SCH (17:01)
[2022-04-25 21:14] LABS: Vitamin D, 1, 25-Dihydroxy 35 pg/mL (20 - 79)
--- NOTE | 2022-04-25 21:14 | XR ---
EXAMINATION TYPE: XR chest 1V portable DATE OF EXAM: 04/25/2022 COMPARISON: 04/23/2022 HISTORY: Fever TECHNIQUE: Single view FINDINGS: There is some pulmonary vascular congestion. There is mild blunting of the costophrenic ang les. Heart appears slightly enlarged. Bony thorax is intact. IMPRESSION: There is evidence for some mild congestive heart failure that is new compared to old exam .
[2022-04-25] MEDS ORDERED: VANCOMYCIN IV PER PHARMACY 1 EACH MISC MISCELLANE SCH (21:30)
[2022-04-25 21:38] LABS: Anisocytosis Slight; HCT 24.4 % (34.0-46.0); Hypochromasia Slight; MCH 30.6 pg (25.0-35.0); MCHC 32.8 g/dL (31.0-37.0); MCV 93.3 fL (80.0-100.0); Mean Platelet Volume 8.5; Platelet Count 132 k/uL (150-450); RBC 2.62 m/uL (3.80-5.40); RDW 17.2 % (11.5-15.5); WBC 5.2 k/uL (3.8-10.6)
[2022-04-25] MEDS: ATORVASTATIN 80 MG TAB PO SCH (21:41)
[2022-04-25] MEDS ORDERED: VANCOMYCIN 1,500 MG in SODIUM CHLORIDE 0.9% 250 ML IVPB ONE (22:00)
[2022-04-26] MEDS: CEFEPIME 2 GM in SODIUM CHLORIDE 0.9% 100 ML IVPB SCH ×2 (00:54→07:01)
[2022-04-26 01:18] LABS: Appearance,Urine Cloudy (Clear); Bacteria,Urine Moderate /hpf; Bilirubin,Urine Negative (Negative); Blood,Urine Negative (Negative); Color,Urine Light Yellow; Glucose,Urine (UA) Negative (Negative); Ketones,Urine Negative (Negative); Leukocyte Esterase,Urine Moderate (Negative); Mucus,Urine Rare /hpf; Nitrite,Urine Negative (Negative); Protein,Urine Negative (Negative); RBC,Urine 1 /hpf (0-5); Specific Gravity,Urine 1.009 (1.001-1.035); Squamous Epithelial Cell,Urine <1 /hpf (0-4); Urobilinogen,Urine <2.0 mg/dL (<2.0); WBC,Urine 7 /hpf (0-5)
[2022-04-26 06:17] LABS: ALT 46 U/L (4-34); AST 76 U/L (14-36); African American GFR (CKD) 49 (>60 ml/min/1.73 sqM); Albumin 2.4 g/dL (3.5-5.0); Albumin/Globulin Ratio 1.3; Alkaline Phosphatase 352 U/L (38-126); Anion Gap 4 mmol/L; Blood Urea Nitrogen 29 mg/dL (7-17); Calcium 10.5 mg/dL (8.4-10.2); Carbon Dioxide 28 mmol/L (22-30); Chloride 95 mmol/L (98-107); Globulin 1.8 g/dL; Glucose 85 mg/dL (74-99); Magnesium 1.5 mg/dL (1.6-2.3); Non-African American GFR(CKD) 43 (>60 ml/min/1.73 sqM); Potassium 3.3 mmol/L (3.5-5.1); Sodium 127 mmol/L (137-145); Total Bilirubin 1.4 mg/dL (0.2-1.3); Total Protein 4.2 g/dL (6.3-8.2)
[2022-04-26] MEDS: METOPROLOL TARTRATE 25 MG TAB PO SCH ×2 (06:55→23:26)
[2022-04-26] MEDS: ASPIRIN 81 MG PO SCH (06:55)
[2022-04-26] MEDS: CLOPIDOGREL 75 MG TAB PO SCH (06:55)
[2022-04-26] MEDS: APIXABAN 5 MG TAB PO SCH ×2 (06:55→23:26)
[2022-04-26] MEDS: allopurinoL 300 MG TAB PO SCH (06:55)
[2022-04-26] MEDS ORDERED: POTASSIUM CHLORIDE ER 20 MEQ TAB.ER PO STA ×2 (06:59→10:43)
[2022-04-26] MEDS: MAGNESIUM SULFATE-D5W PMX 1 GM in DEXTROSE/WATER 1 100ML.BAG IVPB SCH ×4 (07:45→11:15)
[2022-04-26] MEDS: SODIUM CHLORIDE 0.9% 1,000 ML IV SCH ×2 (07:49→19:30)
--- NOTE | 2022-04-26 08:48 | P.PN ---
Subjective Progress Note Date: 04/26/22 Principal diagnosis: Lymphoma Fever T-Max 101 over night. Patient was started on Eliquis for RUE axilla DVT and temporary access gained in foot. Originally surgery consulted for mediport but will need to hold off due to fever. Central line will need to be obtained in the interim. Renal function is worsening, Uric acid trending up. Signs of TLS are present. Hypercalcemia, status post zometa. Torres cultures pending, ID and Nephrology following CTA once renal function improves Hyponatremia, Fevers, Creatinine trending upwards due to TLS, Hypercalcemia, understanding component of chf, EF 40% Discussed with nephrology regarding fluid and intravascular balance, TLS, and hy ponatremia. Prognosis guarded. She is not eating or drinking. Objective - Vital Signs Vital signs: Vital Signs Temp 98.7 F 04/26/22 05:05 Pulse 68 04/26/22 05:05 Resp 17 04/26/22 05:05 BP 134/64 04/26/22 05:05 Pulse Ox 93 L 04/26/22 07:31 FiO2 Intake & Output 04/25/22 04/26/22 04/26/22 18:59 06:59 18:59 Intake Total 888 240 Output Total 300 1800 Balance 588 -1560 Intake: Oral 888 240 Output: Urine 300 1800 Other: Voiding Method External Catheter - Exam General:no distress Head: NCAT Eyes: EOMI, anicteric sclera, pupils equal round Oral thrush, dry mucus membranes Neck: supple Right chest wall port CDI Cardiovascular:reg, no edema, Lungs: CTA bilateral, Abdominal: soft, nontender normal bowel sounds Neuro: nonfocal Psych: Alert, oriented, appropriate affect - Labs CBC & Chem 7: 04/26/22 05:30 04/26/22 18:21 Labs: Abnormal Lab Results - Last 24 Hours (Table) 04/23/22 04/25/22 04/25/22 Range/Units 20:18 06:01 20:55 RBC 2.65 L 2.62 L (4.10-5.20) X 10*6/uL Hgb 7.6 L 8.0 L (12.0-15.0) g/dL Hct 24.1 L 24.4 L (37.2-46.3) % MCHC 31.5 L (32.0-37.0) g/dL RDW 17.3 H 17.2 H (11.5-14.5) % Plt Count 132 L (150-450) k/uL Absolute Nucleated RBC 0.06 H (0.00-0.00) X 10*3/uL Myelocytes % 1 H (0-0) % Eosinophils # (Manual) 0 L (0.04-0.35) X 10*3/uL NRBC/100 WBC Diff 1.3 H (0.0-0.0) /100 WBCS Sodium (137-145) mmol/L Potassium (3.5-5.1) mmol/L Chloride (98-107) mmol/L BUN (7-17) mg/dL Creatinine (0.52-1.04) mg/dL Calcium (8.4-10.2) mg/dL Magnesium (1.6-2.3) mg/dL Total Bilirubin (0.2-1.3) mg/dL AST (14-36) U/L ALT (4-34) U/L Alkaline Phosphatase (38-126) U/L Total Protein (6.3-8.2) g/dL Albumin (3.5-5.0) g/dL Albumin (PEP) 2.14 L (3.80-4.90) g/dL Ikapw-2-Qtgfewvwt 0.47 H (0.10-0.40) g/dL Gamma Globulins 0.14 L (0.70-1.50) g/dL Urine Appearance (Clear) Ur Leukocyte Esterase (Negative) Urine WBC (0-5) /hpf Urine Bacteria (None) /hpf Urine Mucus (None) /hpf Free [place] LC, Quant 3.54 H (0.33-1.94) mg/dL 04/26/22 04/26/22 Range/Units 00:22 05:30 RBC (4.10-5.20) X 10*6/uL Hgb (12.0-15.0) g/dL Hct (37.2-46.3) % MCHC (32.0-37.0) g/dL RDW (11.5-14.5) % Plt Count (150-450) k/uL Absolute Nucleated RBC (0.00-0.00) X 10*3/uL Myelocytes % (0-0) % Eosinophils # (Manual) (0.04-0.35) X 10*3/uL NRBC/100 WBC Diff (0.0-0.0) /100 WBCS Sodium 127 L (137-145) mmol/L Potassium 3.3 L (3.5-5.1) mmol/L Chloride 95 L (98-107) mmol/L BUN 29 H (7-17) mg/dL Creatinine 1.22 H (0.52-1.04) mg/dL Calcium 10.5 H (8.4-10.2) mg/dL Magnesium 1.5 L (1.6-2.3) mg/dL Total Bilirubin 1.4 H (0.2-1.3) mg/dL AST 76 H (14-36) U/L ALT 46 H (4-34) U/L Alkaline Phosphatase 352 H (38-126) U/L Total Protein 4.2 L (6.3-8.2) g/dL Albumin 2.4 L (3.5-5.0) g/dL Albumin (PEP) (3.80-4.90) g/dL Xkpje-8-Qzducxejv (0.10-0.40) g/dL Gamma Globulins (0.70-1.50) g/dL Urine Appearance Cloudy H (Clear) Ur Leukocyte Esterase Moderate H (Negative) Urine WBC 7 H (0-5) /hpf Urine Bacteria Moderate H (None) /hpf Urine Mucus Rare H (None) /hpf Free [place] LC, Quant (0.33-1.94) mg/dL Microbiology - Last 24 Hours (Table) 04/24/22 17:48 Blood Culture - Preliminary Blood No Growth after 24 hours 04/24/22 17:20 Blood Culture - Preliminary Blood No Growth after 24 hours Assessment and Plan (1) Non-Hodgkin lymphoma Narrative/Plan: - Recent progression and status post cycle one of new therapy with Revlimid and Monjuvi, cycle 2 (due twoday) on hold - On hold due to current hospital problems - TLS - CLosely monitor Current Visit: No Status: Acute Code(s): C85.90 - NON-HODGKIN LYMPHOMA, UNSPECIFIED, UNSPECIFIED SITE SNOMED Code(s): 078561332 (2) Hypercalcemia Narrative/Plan: Nephrology following, status post Zometa Balance with hypercalcemia and third spacing. COntinue IV Fluids Current Visit: Yes Status: Acute Code(s): E83.52 - HYPERCALCEMIA SNOMED Code(s): 22563338 (3) Hyponatremia Narrative/Plan: COncern of adrenal insufficiency and Tumor lysis Nephrology following OCmpoenent SIADH PO fluid Restriction Per nephrology will order albumin 25grams and continue IV fluids @50cc Current Visit: Yes Status: Acute Code(s): E87.1 - HYPO-OSMOLALITY AND HYPONATREMIA SNOMED Code(s): 63566212 (4) Weakness Narrative/Plan: [place] to be due to recurrent bulk disease status post treatment and anemia from chemotherapy - PRBC Irradiated pending transfusion Torres cultures ordered for immunosuppression and on chemo, high risk infection Current Visit: No Status: Acute Code(s): R53.1 - WEAKNESS SNOMED Code(s): 77786496 (5) Bradycardia Current Visit: Yes Status: Acute Code(s): R00.1 - BRADYCARDIA, UNSPECIFIED SNOMED Code(s): 38122437 (6) Normocytic anemia Narrative/Plan: Transfuse IRradiated PRBC today hemoglobin 6.8 CBC daily Current Visit: Yes Status: Acute Code(s): D64.9 - ANEMIA, UNSPECIFIED SNOM ED Code(s): 055625175 (7) Deep vein thrombosis, upper right extremity Narrative/Plan: - Obtain Access on left arm, she will continue to require IV chemotherapy and frequent blood draws, as well as be high risk for infection. A picc line is the standard of care for this patient, understanding she does not have ideal veins for picc line, we will need for ongoing treatment. She will be on anticogulation moving forward so risk of clotting off new left arm picc will be minimal. Await 24 hours on eliquis and line on left arm and pull right arm line. Port may be higher risk as if becomes infected not easily removable but given the need for central line access that can remain in through the next 4 treatments scheduled this maybe our only hope as IR does not feel comfortable at this time moving forward with neww left arm picc line. DIscussed with RN and ok for him to add access left for hospital Will start PO doac and plan for 3-6 months of treatment Daily CBC, PLatelets >50K Current Visit: Yes Status: Acute Code(s): I82.621 - ACUTE EMBOLISM AND THROMBOSIS OF DEEP VEINS OF R UP EXTREM SNOMED Code(s): 137793970 (8) Fever Narrative/Plan: Re-torres culture Broad spectrum Cefepime and vanco ID consult Current Visit: Yes Status: Acute Code(s): R50.9 - FEVER, UNSPECIFIED SNOMED Code(s): 979322333 Plan: GOAL: Central Line access for appropriate care in critically ill patient Overall condition is critical and prognosis guarded. Discussed with nephrology regarding addition of albumin again, maintaining 0.9 NS @50cc Add Doxycycline
[2022-04-26 09:16] LABS: Uric Acid 8.3 mg/dL (3.7-7.4)
[2022-04-26] MEDS: allopurinoL 100 MG TAB PO SCH (09:20)
[2022-04-26] MEDS: SODIUM FERRIC GLUCONAT-SUCROSE 125 MG in SODIUM CHLORIDE 0.9% 100 ML IVPB SCH (10:17)
--- NOTE | 2022-04-26 10:22 | P.CRDCN ---
History of Present Illness Consult date: 04/26/22 History of present illness: This is a 77-year-old female patient with consulted to see for further evaluation of cardiac arrhythmia with nonsustained ventricular tachycardia. The patient is extremely sick. She is a 77-year-old female patient with a past medical history significant for Hodgkin lymphoma she was receiving chemotherapy recently and also history of coronary artery disease with prior stenting of the LAD and RCA was performed early this year and also history of cardiomyopathy with last echo from 2021 showing an ejection fraction of 40%. The patient pr esented to the hospital mainly complaining of generalized weakness and fatigue. She was found to be dehydrated. Also she was diagnosed during her hospital stay with right upper extremity DVT and currently she started on oral anticoagulation. The reason we consulted to see the patient is for further evaluation of cardiac arrhythmia. The patient did have an episode of nonsustained ventricular tachycardia I reviewed in the chart. During this episode she was asymptomatic. She reports no heart racing or fluttering and no dizziness or lightheadedness and no symptoms of any chest pain or chest discomfort or shortness of breath. She was found to be having low magnesium and currently she is receiving magnesium IV. The patient also does have multiple abnormalities including anemia and hypokalemia and also chronic kidney disease. Beside that she has underlying cardiac myopathy was EF around 40%. Past Medical History Past Medical History: Cancer Additional Past Medical History / Comment(s): Hodgkins Lymphoma, had chemo X2, last chemo . History of Any Multi-Drug Resistant Organisms: None Reported Past Surgical History: No Surgical Hx Reported Additional Past Surgical History / Comment(s): Colonoscopy, port a catheter insertion, bilateral neck biopsies, lumbar puncture with intrahecal chemo, bone marrow biopsy, bilateral cataracts removed with lens implants. Past Anesthesia/Blood Transfusion Reactions: No Reported Reaction Additional Past Anesthesia/Blood Transfusion Reaction / Comment(s): NO PRIOR SX HX Date of Last Stent Placement:: 01/17/22 Past Psychological History: No Psychological Hx Reported Smoking Status: Never smoker - Past Family History Mother Family Medical History: No Reported History Father Family Medical History: Congestive Heart Failure (CHF) Additional Family Medical History / Comment(s): Father of CHF at the age of 89 yrs. Medications and Allergies Home Medications Medication Instructions Recorded Confirmed Type Aspirin 81 mg PO DAILY #90 tab 01/18/22 04/23/22 Rx Atorvastatin [Lipitor] 80 mg PO HS #90 tab 01/18/22 04/23/22 Rx Clopidogrel [Plavix] 75 mg PO DAILY #90 tab 01/18/22 04/23/22 Rx Losartan [Cozaar] 50 mg PO HS #90 tab 01/18/22 04/23/22 Rx Metoprolol Tartrate [Lopressor] 25 mg PO BID #180 tab 01/18/22 04/23/22 Rx Nitroglycerin Sl Tabs [Nitrostat] 0.4 mg SUBLINGUAL Q5M PRN #100 tab 01/18/22 04/23/22 Rx Enalapril [Vasotec] 10 mg PO DAILY 04/23/22 04/23/22 History Lenalidomide [Revlimid] 10 mg PO DIRECTED 04/23/22 04/23/22 History Allergies Allergy/AdvReac Type Severity Reaction Status Date / Time No Known Allergies Allergy Verified 04/23/22 12:38 Physical Exam Vitals: Vital Signs Temp Pulse Pulse Resp BP BP BP 04/26/22 08:00 98.6 F 71 16 133/61 04/26/22 07:31 04/26/22 05:05 98.7 F 68 17 134/64 04/26/22 01:05 98.1 F 70 19 112/65 04/26/22 01:03 99.5 F 04/25/22 21:39 99.1 F 88 22 153/64 04/25/22 19:10 101.2 F H 83 18 139/65 04/25/22 13:36 97.9 F 66 18 131/61 Pulse Ox 04/26/22 08:00 95 04/26/22 07:31 93 L 04/26/22 05:05 93 L 04/26/22 01:05 91 L 04/26/22 01:03 04/25/22 21:39 91 L 04/25/22 19:10 93 L 04/25/22 13:36 96 Intake and Output 04/25/22 04/26/22 04/26/22 22:59 06:59 14:59 Intake Total 296 240 Output Total 1300 800 Balance -1004 -560 Intake: Oral 296 240 Output: Urine 1300 800 - Constitutional General appearance: no acute distress - Respiratory Respiratory: bilateral: diminished - Cardiovascular Rhythm: regular Heart sounds: normal: S1, S2 Abnormal Heart Sounds: systolic murmur Results 04/25/22 20:55 04/26/22 05:30 Cardiac Enzymes 04/26/22 04/26/22 Range/Units 05:30 05:30 AST 76 H (14-36) U/L Lactate Dehydrogenase 2056 H (313-618) U/L CBC 04/25/22 04/25/22 Range/Units 06:01 20:55 WBC 4.80 5.2 (4.50-10.00) X 10*3/uL RBC 2.65 L 2.62 L (4.10-5.20) X 10*6/uL Hgb 7.6 L 8.0 L (12.0-15.0) g/dL Hct 24.1 L 24.4 L (37.2-46.3) % Plt Count 156 132 L (140-440) X 10*3/uL Comprehensive Metabolic Panel 04/26/22 Range/Units 05:30 Sodium 127 L (137-145) mmol/L Potassium 3.3 L (3.5-5.1) mmol/L Chloride 95 L (98-107) mmol/L Carbon Dioxide 28 (22-30) mmol/L BUN 29 H (7-17) mg/dL Creatinine 1.22 H (0.52-1.04) mg/dL Glucose 85 (74-99) mg/dL Calcium 10.5 H (8.4-10.2) mg/dL AST 76 H (14-36) U/L ALT 46 H (4-34) U/L Alkaline Phosphatase 352 H (38-126) U/L Total Protein 4.2 L (6.3-8.2) g/dL Albumin 2.4 L (3.5-5.0) g/dL Current Medications Generic Name Dose Route Start Last Admin Trade Name Freq PRN Reason Stop Dose Admin Acetaminophen 650 mg 04/25/22 20:08 Acetaminophen Tab 325 Mg Tab PO Q6HR PRN Fever and/ or Pain Allopurinol 100 mg 04/26/22 09:00 04/26/22 09:20 Allopurinol 100 Mg Tab PO 100 mg DAILY ANGELITA Administration Apixaban 10 mg 04/25/22 21:00 04/26/22 06:55 Apixaban 5 Mg Tab PO 05/02/22 09:01 10 mg BID ANGELITA Administration Protocol Aspirin 81 mg 04/24/22 09:00 04/26/22 06:55 Aspirin 81 Mg PO 81 mg DAILY ANGELITA Administration Atorvastatin Calcium 80 mg 04/23/22 21:00 04/25/22 21:41 Atorvastatin 80 Mg Tab PO 80 mg HS ANGELITA Administration Clopidogrel Bisulfate 75 mg 04/24/22 09:00 04/26/22 06:55 Clopidogrel 75 Mg Tab PO 75 mg DAILY ANGELITA Administration Sodium Chloride 1,000 mls @ 50 mls/hr 04/25/22 11:15 04/26/22 07:49 Saline 0.9% IV 50 mls/hr .Q20H ANGELITA Administration Ferric Sodium Gluconate 125 mg 110 mls @ 100 mls/hr 04/25/22 11:30 04/25/22 14:11 / Sodium Chloride IVPB 04/28/22 11:31 100 mls/hr DAILY ANGELITA Administration Vancomycin HCl 1,250 mg/ 250 mls @ 125 mls/hr 04/26/22 21:00 Sodium Chloride IVPB Q24H ANGELITA Cefepime HCl 2 gm/ Sodium 100 mls @ 25 mls/hr 04/26/22 21:00 Chloride IVPB Q12HR ANGELITA Protocol Metoprolol Tartrate 25 mg 04/23/22 21:00 04/26/22 06:55 Metoprolol Tartrate 25 Mg Tab PO 25 mg BID ANGELITA Administration Intake and Output 04/25/22 04/26/22 04/26/22 22:59 06:59 14:59 Intake Total 296 240 Output Total 1300 800 Balance -1004 -560 Intake: Oral 296 240 Output: Urine 1300 800 04/25/22 20:55 04/26/22 05:30 Assessment and Plan Assessment: Assessment #1.skin lymphoma patient was on chemotherapy #2 coronary artery disease with prior stenting of the RCA and LAD #3 cardiomyopathy was EF of 40% #4 electrolytes abnormalities #5 muscle stent ventricular tachycardia #6 right upper extremity DVT #7 chronic kidney disease #8 multiple comorbid conditions Plan #1 continue the current dose of beta ney #2 the patient was asymptomatic during this episode of cardiac arrhythmia #3 continue monitor potassium and magnesium #4 follow-up with the patient
--- NOTE | 2022-04-26 10:59 | P.PN ---
Subjective Patient is seen in follow-up for hypercalcemia and hyponatremia. Calcium level trending down. Sodium level is able at 127. Oral intake poor. Denies vomiting or diarrhea. Nonoliguric. Vital signs are stable. General: Awake. No acute distress. HEENT: Head exam is unremarkable. LUNGS: Breath sounds decreased. HEART: Rate and Rhythm are regular. ABDOMEN: Soft, no distention. EXTREMITITES: Trace edema. Objective - Vital Signs Vital signs: Vital Signs Temp 98.6 F 04/26/22 08:00 Pulse 71 04/26/22 08:00 Resp 16 04/26/22 08:00 BP 133/61 04/26/22 08:00 Pulse Ox 95 04/26/22 08:00 FiO2 Intake & Output 04/25/22 04/26/22 04/26/22 18:59 06:59 18:59 Intake Total 888 240 Output Total 300 1800 Balance 588 -1560 Intake: Oral 888 240 Output: Urine 300 1800 Other: Voiding Method External Catheter - Labs CBC & Chem 7: 04/25/22 20:55 04/26/22 05:30 Labs: Abnormal Lab Results - Last 24 Hours (Table) 04/23/22 04/25/22 04/25/22 Range/Units 20:18 06:01 20:55 RBC 2.62 L (3.80-5.40) m/uL Hgb 8.0 L (11.4-16.0) gm/dL Hct 24.4 L (34.0-46.0) % RDW 17.2 H (11.5-15.5) % Plt Count 132 L (150-450) k/uL Myelocytes % 1 H (0-0) % Eosinophils # (Manual) 0 L (0.04-0.35) X 10*3/uL Sodium (137-145) mmol/L Potassium (3.5-5.1) mmol/L Chloride (98-107) mmol/L BUN (7-17) mg/dL Creatinine (0.52-1.04) mg/dL Uric Acid (3.7-7.4) mg/dL Calcium (8.4-10.2) mg/dL Magnesium (1.6-2.3) mg/dL Total Bilirubin (0.2-1.3) mg/dL AST (14-36) U/L ALT (4-34) U/L Alkaline Phosphatase (38-126) U/L Lactate Dehydrogenase (313-618) U/L Total Protein (6.3-8.2) g/dL Albumin (3.5-5.0) g/dL Albumin (PEP) 2.14 L (3.80-4.90) g/dL Mfisq-1-Aadkcvovz 0.47 H (0.10-0.40) g/dL Gamma Globulins 0.14 L (0.70-1.50) g/dL Urine Appearance (Clear) Ur Leukocyte Esterase (Negative) Urine WBC (0-5) /hpf Urine Bacteria (None) /hpf Urine Mucus (None) /hpf Free [place] LC, Quant 3.54 H (0.33-1.94) mg/dL 04/26/22 04/26/22 04/26/22 Range/Units 00:22 05:30 05:30 RBC (3.80-5.40) m/uL Hgb (11.4-16.0) gm/dL Hct (34.0-46.0) % RDW (11.5-15.5) % Plt Count (150-450) k/uL Myelocytes % (0-0) % Eosinophils # (Manual) (0.04-0.35) X 10*3/uL Sodium 127 L (137-145) mmol/L Potassium 3.3 L (3.5-5.1) mmol/L Chloride 95 L (98-107) mmol/L BUN 29 H (7-17) mg/dL Creatinine 1.22 H (0.52-1.04) mg/dL Uric Acid 8.3 H (3.7-7.4) mg/dL Calcium 10.5 H (8.4-10.2) mg/dL Magnesium 1.5 L (1.6-2.3) mg/dL Total Bilirubin 1.4 H (0.2-1.3) mg/dL AST 76 H (14-36) U/L ALT 46 H (4-34) U/L Alkaline Phosphatase 352 H (38-126) U/L Lactate Dehydrogenase 2056 H (313-618) U/L Total Protein 4.2 L (6.3-8.2) g/dL Albumin 2.4 L (3.5-5.0) g/dL Albumin (PEP) (3.80-4.90) g/dL Puuyt-6-Bvumygeye (0.10-0.40) g/dL Gamma Globulins (0.70-1.50) g/dL Urine Appearance Cloudy H (Clear) Ur Leukocyte Esterase Moderate H (Negative) Urine WBC 7 H (0-5) /hpf Urine Bacteria Moderate H (None) /hpf Urine Mucus Rare H (None) /hpf Free [place] LC, Quant (0.33-1.94) mg/dL Microbiology - Last 24 Hours (Table) 04/24/22 17:48 Blood Culture - Preliminary Blood No Growth after 24 hours 04/24/22 17:20 Blood Culture - Preliminary Blood No Growth after 24 hours Assessment and Plan Plan: Assessment: 1. Hyponatremia with component of poor solute intake and SIADH from malignancy. Now hypervolemic. Sodium level 127. Urine osmolality 339. TSH 0.33. Cortisol level not low. 2. Hypercalcemia. Likely related to underlying lymphoma. ALYCIA elevated at 91 - ?sarcoid - no evidence on CXR. Vitamin D level 57.6. PTH low at 7. Difficult to exclude a small paraprotein on serum immunofixation. 3. Non-Hodgkin's lymphoma. Oncology following. 4. Coronary disease status post cardiac stenting. 5. Benign hypertension. Stable. 6. Anemia. Iron deficiency noted. s/p blood transfusion this admission. Heme/onc following. 7. Edema. 8. Hypokalemia from poor intake and diuresis. 9. Hypomagnesemia from poor intake and diuresis. 10. Acute kidney injury mostly prerenal secondary to hypercalcemia and anemia. Also component of diuresis. Creatinine 1.22 today. No proteinuria on UA. 11. Right upper extremity DVT. On anticoagulation. 12. Cardiomyopathy with ejection fraction of 40%. Cardiology following. 13. Fever. On antibiotics. Follow-up cultures. Plan: Hep-Lock IV fluids. Add IV Lasix 40 mg once daily. Encouraged oral intake. Maintain fluid restriction. Status post IV albumin given 04/25/2022. Status post IV Lasix, calcitonin and zoledronic acid 04/23/2022. Continue to hold losartan for now as blood pressure is stable. Avoid nephrotoxins. Continue to monitor renal function and urine output. Maintain IV iron. Replace potassium and magnesium. Cortisol not low. Prognosis guarded.
[2022-04-26] MEDS: FUROSEMIDE 10 MG/ML 4 ML VIAL IV SCH (11:19)
[2022-04-26 11:31] LABS: HCT 23.4 % (37.2-46.3); HGB 7.5 g/dL (12.0-15.0); MCHC 32.1 g/dL (32.0-37.0); MCV 90.3 fL (80.0-97.0); Mean Platelet Volume 10.7 fL (9.5-12.2); NRBC Per 100 WBC 1.1 /100 WBCS (0.0-0.0); Platelet Count 114 X 10*3/uL (140-440); RBC 2.59 X 10*6/uL (4.10-5.20); RDW 17.2 % (11.5-14.5); WBC 5.28 X 10*3/uL (4.50-10.00)
[2022-04-26 11:32] LABS: Basophils # (M) 0 X 10*3/uL (0.00-0.10); Blast Cells # (M) 0.11 k/uL (0); Eosinophils # (M) 0.16 X 10*3/uL (0.04-0.35); Lymphocytes # (M) 1.32 X 10*3/uL (0.90-5.00); Metamyelocytes % 3 % (0-0); Monocytes # (M) 0.05 X 10*3/uL (0.20-1.00); Myelocytes % 1 % (0-0); Neutrophils # (M) 3.38 X 10*3/uL (2.00-8.90); Neutrophils % (M) 64 %; Promyelocytes # (M) 0.05 k/uL (0); Promyelocytes % 1 % (0-0)
--- NOTE | 2022-04-26 14:03 | P.PN ---
Subjective Progress Note Date: 04/26/22 Principal diagnosis: General weakness Last night she spiked a fever of 101.2, She is feeling short of breath as well. No nausea or vomiting. No chest pain. She is not sure if she has dysuria. Objective - Vital Signs Vital signs: Vital Signs Temp 98.6 F 04/26/22 08:00 Pulse 71 04/26/22 08:00 Resp 16 04/26/22 08:00 BP 133/61 04/26/22 08:00 Pulse Ox 95 04/26/22 08:00 FiO2 Intake & Output 04/25/22 04/26/22 04/26/22 18:59 06:59 18:59 Intake Total 888 240 Output Total 300 1800 Balance 588 -1560 Intake: Oral 888 240 Output: Urine 300 1800 Other: Voiding Method External Catheter External Catheter - Exam Constitutional: No acute distress, conversant, pleasant Eyes:Anicteric sclerae, moist conjunctiva, no lid-lag, PERRLA, ENMT: Oropharynx clear, no erythema, exudates Neck: Supple, FROM, no masses, or JVD, No carotid bruits, No thyromegaly Lungs: Clear to auscultation, Clear to percussion, Normal respiratory effort, no accessory muscle use Cardiovascular: Heart regular in rate and rhythm, No murmurs, gallops, or rubs Abdominal: Soft, Nontender, no guarding, rebound or rigidity, Normoactive bowel sounds, No hepatomegaly, No splenomegaly, No palpable mass Skin: Normal temperature, tone, texture, turgor, no induration, No subcutaneous nodules, No rash, lesions, No ulcers Extremities: Right arm swollen, no digital cyanosis, No clubbing, Pedal pulses intact and symmetrical, Radial pulses intact and symmetrical, No calf tenderness Psychiatric: Alert and oriented to person, place and time, appropriate affect, intact judgement Neuro: General weakness, no focal sensory deficits - Labs CBC & Chem 7: 04/26/22 05:30 04/26/22 05:30 Labs: Abnormal Lab Results - Last 24 Hours (Table) 04/23/22 04/25/22 04/26/22 Range/Units 20:18 20:55 00:22 RBC 2.62 L (3.80-5.40) m/uL Hgb 8.0 L (11.4-16.0) gm/dL Hct 24.4 L (34.0-46.0) % RDW 17.2 H (11.5-15.5) % Plt Count 132 L (150-450) k/uL Plt Count Comment Absolute Nucleated RBC (0.00-0.00) X 10*3/uL Metamyelocytes % (0-0) % Myelocytes % (0-0) % Promyelocytes % (0-0) % Blast Cells % (0-0) % Monocytes # (Manual) (0.20-1.00) X 10*3/uL Promyelocytes # (Man) (0) k/uL Blast Cells # (Man) (0) k/uL NRBC/100 WBC Diff (0.0-0.0) /100 WBCS Sodium (137-145) mmol/L Potassium (3.5-5.1) mmol/L Chloride (98-107) mmol/L BUN (7-17) mg/dL Creatinine (0.52-1.04) mg/dL Uric Acid (3.7-7.4) mg/dL Calcium (8.4-10.2) mg/dL Magnesium (1.6-2.3) mg/dL Total Bilirubin (0.2-1.3) mg/dL AST (14-36) U/L ALT (4-34) U/L Alkaline Phosphatase (38-126) U/L Lactate Dehydrogenase (313-618) U/L Total Protein (6.3-8.2) g/dL Albumin (3.5-5.0) g/dL Albumin (PEP) 2.14 L (3.80-4.90) g/dL Ziavn-7-Jaeheagvl 0.47 H (0.10-0.40) g/dL Gamma Globulins 0.14 L (0.70-1.50) g/dL Urine Appearance Cloudy H (Clear) Ur Leukocyte Esterase Moderate H (Negative) Urine WBC 7 H (0-5) /hpf Urine Bacteria Moderate H (None) /hpf Urine Mucus Rare H (None) /hpf Free [place] LC, Quant 3.54 H (0.33-1.94) mg/dL 04/26/22 04/26/22 04/26/22 Range/Units 05:30 05:30 05:30 RBC 2.59 L (3.80-5.40) m/uL Hgb 7.5 L (11.4-16.0) gm/dL Hct 23.4 L (34.0-46.0) % RDW 17.2 H (11.5-15.5) % Plt Count 114 L (150-450) k/uL Plt Count Comment DECREASED A Absolute Nucleated RBC 0.06 H (0.00-0.00) X 10*3/uL Metamyelocytes % 3 H (0-0) % Myelocytes % 1 H (0-0) % Promyelocytes % 1 H (0-0) % Blast Cells % 2 H* (0-0) % Monocytes # (Manual) 0.05 L (0.20-1.00) X 10*3/uL Promyelocytes # (Man) 0.05 H (0) k/uL Blast Cells # (Man) 0.11 H (0) k/uL NRBC/100 WBC Diff 1.1 H (0.0-0.0) /100 WBCS Sodium 127 L (137-145) mmol/L Potassium 3.3 L (3.5-5.1) mmol/L Chloride 95 L (98-107) mmol/L BUN 29 H (7-17) mg/dL Creatinine 1.22 H (0.52-1.04) mg/dL Uric Acid 8.3 H (3.7-7.4) mg/dL Calcium 10.5 H (8.4-10.2) mg/dL Magnesium 1.5 L (1.6-2.3) mg/dL Total Bilirubin 1.4 H (0.2-1.3) mg/dL AST 76 H (14-36) U/L ALT 46 H (4-34) U/L Alkaline Phosphatase 352 H (38-126) U/L Lactate Dehydrogenase 2056 H (313-618) U/L Total Protein 4.2 L (6.3-8.2) g/dL Albumin 2.4 L (3.5-5.0) g/dL Albumin (PEP) (3.80-4.90) g/dL Xzicp-0-Gjuoxlsaf (0.10-0.40) g/dL Gamma Globulins (0.70-1.50) g/dL Urine Appearance (Clear) Ur Leukocyte Esterase (Negative) Urine WBC (0-5) /hpf Urine Bacteria (None) /hpf Urine Mucus (None) /hpf Free [place] LC, Quant (0.33-1.94) mg/dL Microbiology - Last 24 Hours (Table) 04/24/22 17:48 Blood Culture - Preliminary Blood No Growth after 24 hours 04/24/22 17:20 Blood Culture - Preliminary Blood No Growth after 24 hours Assessment and Plan Plan: Generalized weakness secondary to chemotherapy Hypercalcemia likely due to dehydration versus lymphoma Lactic acidosis -Ca better, d/c fluids -Patient does have some lower extremity edema so we'll need to monitor patient closely for volume overload -Status post zoledronic acid, calcitonin, Lasix 100 mg 1 -PT OT consult -PTH RP, pending -Oncology and nephrology Hyponatremia likely SIADH -Urine osm on the high side, fluids 1500cc daily. Right axillary vein DVT -D/w oncology, start eliquis -Right PICC d/cristian, new left arm PICC placed. Fever -Could be sec to DVT -Started on broad spectrum abx, cultures repeated, consult ID. Elevated LFTs -Patient asymptomatic -Right upper quadrant ultrasound showing some cholelithiasis. Lower extremity edema likely due to hypoalbuminemia -Resume lasix -Albumin given Acute systolic CHF exacerbation -Lasix daily IV started. Hypokalemia and hypomagnesemia -Replace and follow in am Anemia -Suspect due to chemotherapy and lymphoma with a component of iron deficiency. -IV iron -Oncology following -Status post 1 unit of packed red blood cell transfusion on 04/24 Non-Hodgkin lymphoma on active chemotherapy -Oncology following -Hold Revlimid for now -Consult palliative care as well Coronary disease status post recent stent -Resume aspirin and statin and Plavix and metoprolol -Consulted cardiology now she has to be on AC Hypertension -Hold losartan as patient is dehydrated and risk for hypertension. Resume metoprolol CODE STATUS: DNR/DNI DPOA: Patient's sister DVT prophylaxis: mechanical. Anticipated discharge place: home vs SNF
[2022-04-26] MEDS: ALBUMIN HUMAN 25% 50 ML in EMPTY BAG 1 BAG IVPB SCH ×2 (20:07→23:24)
[2022-04-26] MEDS ORDERED: CEFEPIME 2 GM in SODIUM CHLORIDE 0.9% 100 ML IVPB SCH (21:00)
[2022-04-26] MEDS: ATORVASTATIN 80 MG TAB PO SCH (23:26)
[2022-04-27] MEDS: VANCOMYCIN 1,250 MG in SODIUM CHLORIDE 0.9% 250 ML IVPB SCH ×2 (01:00→20:42)
[2022-04-27 07:11] LABS: Ionized Calcium 5.4 mg/dL (4.5-5.3)
[2022-04-27 07:15] LABS: ALT 54 U/L (4-34); AST 87 U/L (14-36); African American GFR (CKD) 46 (>60 ml/min/1.73 sqM); Albumin 2.6 g/dL (3.5-5.0); Albumin/Globulin Ratio 1.4; Alkaline Phosphatase 437 U/L (38-126); Anion Gap 5 mmol/L; Blood Urea Nitrogen 34 mg/dL (7-17); Calcium 9.5 mg/dL (8.4-10.2); Carbon Dioxide 28 mmol/L (22-30); Chloride 97 mmol/L (98-107); Globulin 1.8 g/dL; Glucose 85 mg/dL (74-99); Magnesium 1.8 mg/dL (1.6-2.3); Non-African American GFR(CKD) 40 (>60 ml/min/1.73 sqM); Phosphorus 1.6 mg/dL (2.5-4.5); Potassium 3.4 mmol/L (3.5-5.1); Sodium 130 mmol/L (137-145); Total Bilirubin 1.4 mg/dL (0.2-1.3); Total Protein 4.4 g/dL (6.3-8.2); Uric Acid 6.9 mg/dL (3.7-7.4)
[2022-04-27 07:23] LABS: LDH 1995 U/L (313-618)
[2022-04-27 07:39] LABS: INR 1.4 (<1.2); Partial Thromboplastin Time 31.1 sec (22.0-30.0); Prothrombin Time 14.6 sec (9.0-12.0)
[2022-04-27] MEDS ORDERED: POTASSIUM CHLORIDE ER 20 MEQ TAB.ER PO STA (08:00)
[2022-04-27] MEDS ORDERED: CEFEPIME 2 GM in SODIUM CHLORIDE 0.9% 100 ML IVPB SCH ×2 (08:09→08:10)
[2022-04-27] MEDS: ASPIRIN 81 MG PO SCH (08:44)
[2022-04-27] MEDS: FUROSEMIDE 10 MG/ML 4 ML VIAL IV SCH (08:44)
[2022-04-27] MEDS: METOPROLOL TARTRATE 25 MG TAB PO SCH ×2 (08:44→20:42)
[2022-04-27] MEDS: allopurinoL 100 MG TAB PO SCH (08:44)
[2022-04-27] MEDS: APIXABAN 5 MG TAB PO SCH ×2 (08:44→20:42)
[2022-04-27] MEDS: CLOPIDOGREL 75 MG TAB PO SCH (08:44)
[2022-04-27] MEDS: CEFEPIME 2 GM in SODIUM CHLORIDE 0.9% 100 ML IVPB SCH (08:45)
[2022-04-27] MEDS: POTAS-SOD-PHOS 278-164-250 MG 1 EACH PACKET PO SCH ×3 (08:58→20:43)
--- NOTE | 2022-04-27 09:59 | P.PN ---
Subjective Progress Note Date: 04/27/22 Principal diagnosis: Cardiac arrhythmia This is a 77-year-old female patient with extensive medical history consistent of diagnosis of Hodgkin lymphoma she was receiving chemotherapy as well as known coronary artery disease with a prior stenting of the LAD and RCA performed william ier this year and also cardiomyopathy with EF around 40%. Beside that she does have multiple comorbid conditions. She was admitted to the hospital mainly because of symptoms being tired and fatigued and she was not feeling well overall. She was found to be dehydrated and also she was diagnosed with right upper extremity DVT and currently she is on anticoagulation. We requested to see the patient for consult because yesterday she did have an episode of nonsustained ventricular tachycardia during that she was completely asymptomatic. More importantly the patient was having electrolytes abno rmalities with low potassium and low magnesium. She was given magnesium yesterday. Repeat her potassium this morning continues to be low and that need to be replaced. During the episode of nonsustained VT she did not have any dizziness or lightheadedness and no presyncope or syncope and no symptoms of any chest pain or chest discomfort or shortness of breath. She was seen this morning. She remains asymptomatic from the cardiac standpoint of view. As a matter of fact she is slightly better overall and she is more awake and less weak. She continues denies any symptoms of chest pain or chest discomfort or any shortness of breath and she seems to be euvolemic on examination. Beside the hypokalemia and hypomagnesemia also she was found to have hyponatremia and nephrology was consulted to see her regarding that. She continues to be on anticoagulation as well as antiplatelet. Also she is on beta ney. Objective - Vital Signs Vital signs: Vital Signs Temp 98.7 F 04/27/22 06:22 Pulse 77 04/27/22 07:00 Resp 16 04/27/22 07:00 BP 120/57 04/27/22 06:22 Pulse Ox 93 L 04/27/22 06:22 FiO2 Intake & Output 04/26/22 04/27/22 04/27/22 18:59 06:59 18:59 Intake Total 500 Output Total 3200 1400 Balance -2700 -1400 Intake: Intake, IV Titration 500 Amount Cefepime 2 gm In Sodium 100 Chloride 0.9% 100 ml @ 25 mls/hr IVPB Q12HR [facility] Rx #:[id number] Cefepime 2 gm In Sodium 100 Chloride 0.9% 100 ml @ 25 mls/hr IVPB Q8HR [facility] Rx# :[id number] Magnesium Sulfate-D5w Pmx 100 1 gm In Dextrose/Water 1 100ml.bag @ 100 mls/hr IVPB Q1H [facility] Rx#: [id number] Magnesium Sulfate-D5w Pmx 100 1 gm In Dextrose/Water 1 100ml.bag @ 100 mls/hr IVPB Q1H [facility] Rx#: [id number] Sodium Ferric Gluconat- 100 Sucrose 125 mg In Sodium Chloride 0.9% 100 ml @ 100 mls/hr IVPB DAILY [facility] Rx#:[id number] Output: Urine 3200 1400 Other: Voiding Method External Catheter External Catheter - Constitutional General appearance: Present: no acute distress - Respiratory Respiratory: bilateral: diminished - Cardiovascular Rhythm: regular - Labs CBC & Chem 7: 04/26/22 05:30 04/27/22 06:28 Labs: Abnormal Lab Results - Last 24 Hours (Table) 04/26/22 04/27/22 04/27/22 Range/Units 05:30 06:28 06:28 RBC 2.59 L (4.10-5.20) X 10*6/uL Hgb 7.5 L (12.0-15.0) g/dL Hct 23.4 L (37.2-46.3) % RDW 17.2 H (11.5-14.5) % Plt Count 114 L (140-440) X 10*3/uL Plt Count Comment DECREASED A Absolute Nucleated RBC 0.06 H (0.00-0.00) X 10*3/uL Metamyelocytes % 3 H (0-0) % Myelocytes % 1 H (0-0) % Promyelocytes % 1 H (0-0) % Blast Cells % 2 H* (0-0) % Monocytes # (Manual) 0.05 L (0.20-1.00) X 10*3/uL Promyelocytes # (Man) 0.05 H (0) k/uL Blast Cells # (Man) 0.11 H (0) k/uL NRBC/100 WBC Diff 1.1 H (0.0-0.0) /100 WBCS PT 14.6 H (9.0-12.0) sec INR 1.4 H (<1.2) APTT 31.1 H (22.0-30.0) sec Sodium 130 L (137-145) mmol/L Potassium 3.4 L (3.5-5.1) mmol/L Chloride 97 L (98-107) mmol/L BUN 34 H (7-17) mg/dL Creatinine 1.30 H (0.52-1.04) mg/dL Ionized Calcium Royer 5.4 H (4.5-5.3) mg/dL Phosphorus 1.6 L (2.5-4.5) mg/dL Total Bilirubin 1.4 H (0.2-1.3) mg/dL AST 87 H (14-36) U/L ALT 54 H (4-34) U/L Alkaline Phosphatase 437 H (38-126) U/L Lactate Dehydrogenase 1995 H (313-618) U/L Total Protein 4.4 L (6.3-8.2) g/dL Albumin 2.6 L (3.5-5.0) g/dL Microbiology - Last 24 Hours (Table) 04/25/22 20:55 Blood Culture - Preliminary Blood No Growth after 24 hours 04/24/22 17:48 Blood Culture - Preliminary Blood No Growth after 48 hours 04/24/22 17:20 Blood Culture - Preliminary Blood No Growth after 48 hours Assessment and Plan Assessment: Assessment #1 non-Hodgkin lymphoma patient was on chemotherapy #2 coronary artery disease with prior stenting of the RCA and LAD #3 cardiomyopathy was EF of 40% #4 electrolytes abnormalitiesWith hypokalemia and hypomagnesemia and hyponatremia #5 non-sustained ventricular tachycardia #6 right upper extremity DVT #7 chronic kidney disease #8 multiple comorbid conditions Plan #1 continue the current medical regimen including beta ney #2 continue anticoagulation and antiplatelet #3 no need for any further cardiac workup from the cardiac standpoint overview #4 follow-up with the patient on when necessary case
--- NOTE | 2022-04-27 10:56 | CDI ---
Documentation Clarification Form Date: 04/27/2022 10:16:52 AM From: Heidi Clemons RN, CCDS Admit Date: 04/23/2022 01:14:00 PM Patient Name: Julia Savage Visit Number: [id number] Discharge Date: ATTENTION: The Clinical Documentation Specialists (CDI) and [facility] Coding Staff appreciate your assistance in clarifying documentation. Please respond to the clarification below the line at the bottom and electronically sign. The CDI & [facility] Coding staff will review the response and follow-up if needed. Please note: Queries are made part of the Legal Health Record. If you have any questions, please contact the author of this message via ITS. Dr. Almas Martinez 04/24/22 Ultrasound report: Deep vein thrombus in the right axillary vein. There is PICC line catheter present. Please clarify if there is a relationship between the diagnosis right axillary vein DVT and PICC line. History/Risk Factors: Non-Hodgkin lymphoma on chemotherapy, coronary artery disease, Hypertension, Hyperlipidemia Clinical Indicators: 77-year-old female present with complaints of generalized weakness. 04/23 single lumen PICC line right upper arm present on admission. 04/24 Ultrasound report: There is limited deep vein thrombosis in the axillary vein. There is PICC line catheter present. Treatment: Endocrinology Nurse/Telemetry Eliquis 10 MG PO BID 04/26 Dc right axillary PICC line catheter Cefepime HCL 2 GM IVPB Q 24 HR 04/27 Vancomycin HCL 1,250 MG IVPB Q 24 HR (PTD 04/26-04/27) Please clarify the relationship, if any, which is clinically appropriate for this patient: [ ] Right axillary vein DVT secondary to PICC line catheter POA [ ] Right axillary vein DVT is not due to PICC line catheter [ ] Other explanation of clinical findings (please specify) [ ] Unable to determine (no explanation for clinical findings) (Template Last Revised: December 2020) Right axillary vein DVT secondary to PICC line catheter POA MTDD
--- NOTE | 2022-04-27 10:58 | P.PN ---
Subjective Patient is seen in follow-up for hypercalcemia and hyponatremia. Calcium level trending down. Sodium level is able at 130. Oral intake is better today. Denies vomiting or diarrhea. Received IV Lasix yesterday. Urine output over 4 L in the last 24 hours. Vital signs are stable. General: Awake. No acute distress. HEENT: Head exam is unremarkable. LUNGS: Breath sounds decreased. HEART: Rate and Rhythm are regular. ABDOMEN: Soft, no distention. EXTREMITITES: Trace edema. Objective - Vital Signs Vital signs: Vital Signs Temp 98.7 F 04/27/22 06:22 Pulse 77 04/27/22 07:00 Resp 16 04/27/22 07:00 BP 120/57 04/27/22 06:22 Pulse Ox 93 L 04/27/22 06:22 FiO2 Intake & Output 04/26/22 04/27/22 04/27/22 18:59 06:59 18:59 Intake Total 500 Output Total 3200 1400 Balance -2700 -1400 Intake: Intake, IV Titration 500 Amount Cefepime 2 gm In Sodium 100 Chloride 0.9% 100 ml @ 25 mls/hr IVPB Q12HR [facility] Rx #:[id number] Cefepime 2 gm In Sodium 100 Chloride 0.9% 100 ml @ 25 mls/hr IVPB Q8HR [facility] Rx# :[id number] Magnesium Sulfate-D5w Pmx 100 1 gm In Dextrose/Water 1 100ml.bag @ 100 mls/hr IVPB Q1H [facility] Rx#: [id number] Magnesium Sulfate-D5w Pmx 100 1 gm In Dextrose/Water 1 100ml.bag @ 100 mls/hr IVPB Q1H [facility] Rx#: [id number] Sodium Ferric Gluconat- 100 Sucrose 125 mg In Sodium Chloride 0.9% 100 ml @ 100 mls/hr IVPB DAILY [facility] Rx#:[id number] Output: Urine 3200 1400 Other: Voiding Method External Catheter External Catheter - Labs CBC & Chem 7: 04/26/22 05:30 04/27/22 06:28 Labs: Abnormal Lab Results - Last 24 Hours (Table) 04/26/22 04/27/22 04/27/22 Range/Units 05:30 06:28 06:28 RBC 2.59 L (4.10-5.20) X 10*6/uL Hgb 7.5 L (12.0-15.0) g/dL Hct 23.4 L (37.2-46.3) % RDW 17.2 H (11.5-14.5) % Plt Count 114 L (140-440) X 10*3/uL Plt Count Comment DECREASED A Absolute Nucleated RBC 0.06 H (0.00-0.00) X 10*3/uL Metamyelocytes % 3 H (0-0) % Myelocytes % 1 H (0-0) % Promyelocytes % 1 H (0-0) % Blast Cells % 2 H* (0-0) % Monocytes # (Manual) 0.05 L (0.20-1.00) X 10*3/uL Promyelocytes # (Man) 0.05 H (0) k/uL Blast Cells # (Man) 0.11 H (0) k/uL NRBC/100 WBC Diff 1.1 H (0.0-0.0) /100 WBCS PT 14.6 H (9.0-12.0) sec INR 1.4 H (<1.2) APTT 31.1 H (22.0-30.0) sec Sodium 130 L (137-145) mmol/L Potassium 3.4 L (3.5-5.1) mmol/L Chloride 97 L (98-107) mmol/L BUN 34 H (7-17) mg/dL Creatinine 1.30 H (0.52-1.04) mg/dL Ionized Calcium Royer 5.4 H (4.5-5.3) mg/dL Phosphorus 1.6 L (2.5-4.5) mg/dL Total Bilirubin 1.4 H (0.2-1.3) mg/dL AST 87 H (14-36) U/L ALT 54 H (4-34) U/L Alkaline Phosphatase 437 H (38-126) U/L Lactate Dehydrogenase 1995 H (313-618) U/L Total Protein 4.4 L (6.3-8.2) g/dL Albumin 2.6 L (3.5-5.0) g/dL Microbiology - Last 24 Hours (Table) 04/25/22 20:55 Blood Culture - Preliminary Blood No Growth after 24 hours 04/24/22 17:48 Blood Culture - Preliminary Blood No Growth after 48 hours 04/24/22 17:20 Blood Culture - Preliminary Blood No Growth after 48 hours Assessment and Plan Plan: Assessment: 1. Hyponatremia with component of poor solute intake and SIADH from malignancy. Now hypervolemic - improved with diuresis. Sodium level 130. Urine osmolality 339. TSH 0.33. Cortisol level not low. 2. Hypercalcemia. Likely related to underlying lymphoma. ALYCIA elevated at 91 - ?sarcoid vs due to malignancy- no evidence on CXR. 1,25 D3 35. Vitamin D level 57.6. PTH low at 7. Difficult to exclude a small paraprotein on serum immunofixation. free Light chain elevated at 3.54 and free lambda light chain 0.62. Defer management to oncology. 3. Non-Hodgkin's lymphoma. Oncology following. 4. Coronary disease status post cardiac stenting. 5. Benign hypertension. Stable. 6. Anemia. Iron deficiency noted. s/p blood transfusion this admission. Heme/onc following. 7. Edema. 8. Hypokalemia from poor intake and diuresis. 9. Hypomagnesemia from poor intake and diuresis.. Placed. Better. 10. Acute kidney injury mostly prerenal secondary to hypercalcemia, ?TLS (high uric acid, no hypocalcemia or hyperphosphatemia) and anemia. Also component of diuresis. Creatinine 1.3 today. No proteinuria on UA. 11. Right upper extremity DVT. On anticoagulation. 12. Cardiomyopathy with ejection fraction of 40%. Cardiology following. 13. Fever. On antibiotics. Follow-up cultures. 14. Hypophosphatemia from poor intake and diuresis. Plan: Patient received IV Lasix yesterday and today. Will stop for now. Encouraged oral intake. Maintain fluid restriction. Status post IV albumin given 04/25/2022 and 04/26/2022 . Status post calcitonin and zoledronic acid 04/23/2022. Continue to hold losartan for now as blood pressure is stable. Avoid nephrotoxins. Continue to monitor renal function and urine output. Maintain IV iron. Replace potassium and phosphorus. Cortisol not low. Calcium level trending down. If develops hypercalcemia again, will consider trial of prednisone to lower her calcitriol production which can be increased due to lymphoma. Patient's calcitriol level at this time is normal at 35. Prognosis guarded.
[2022-04-27 11:05] LABS: HCT 22.3 % (37.2-46.3); HGB 7.2 g/dL (12.0-15.0); MCH 28.6 pg (27.0-32.0); MCHC 32.3 g/dL (32.0-37.0); MCV 88.5 fL (80.0-97.0); Mean Platelet Volume 10.9 fL (9.5-12.2); NRBC Per 100 WBC 0.9 /100 WBCS (0.0-0.0); Platelet Count 94 X 10*3/uL (140-440); RBC 2.52 X 10*6/uL (4.10-5.20); RDW 17.1 % (11.5-14.5); WBC 5.71 X 10*3/uL (4.50-10.00)
[2022-04-27 11:29] LABS: Basophils # (M) 0 X 10*3/uL (0.00-0.10); Blast Cells # (M) 0.06 k/uL (0); Eosinophils # (M) 0.11 X 10*3/uL (0.04-0.35); Lymphocytes # (M) 0.51 X 10*3/uL (0.90-5.00); Monocytes # (M) 0.34 X 10*3/uL (0.20-1.00); Myelocytes % 1 % (0-0); Neutrophils # (M) 4.63 X 10*3/uL (2.00-8.90); Neutrophils % (M) 81 %
--- NOTE | 2022-04-27 12:40 | P.PN ---
Subjective Progress Note Date: 04/27/22 Principal diagnosis: General weakness Feeling better overall but still having exertional sob and weakness. Left arm swelling is improved. Had low grade temp at 99.2 yesterday, no fevers today. Objective - Vital Signs Vital signs: Vital Signs Temp 98.7 F 04/27/22 06:22 Pulse 77 04/27/22 07:00 Resp 16 04/27/22 07:00 BP 120/57 04/27/22 06:22 Pulse Ox 93 L 04/27/22 06:22 FiO2 Intake & Output 04/26/22 04/27/22 04/27/22 18:59 06:59 18:59 Intake Total 500 Output Total 3200 1400 Balance -2700 -1400 Intake: Intake, IV Titration 500 Amount Cefepime 2 gm In Sodium 100 Chloride 0.9% 100 ml @ 25 mls/hr IVPB Q12HR [facility] Rx #:[id number] Cefepime 2 gm In Sodium 100 Chloride 0.9% 100 ml @ 25 mls/hr IVPB Q8HR [facility] Rx# :[id number] Magnesium Sulfate-D5w Pmx 100 1 gm In Dextrose/Water 1 100ml.bag @ 100 mls/hr IVPB Q1H [facility] Rx#: [id number] Magnesium Sulfate-D5w Pmx 100 1 gm In Dextrose/Water 1 100ml.bag @ 100 mls/hr IVPB Q1H [facility] Rx#: [id number] Sodium Ferric Gluconat- 100 Sucrose 125 mg In Sodium Chloride 0.9% 100 ml @ 100 mls/hr IVPB DAILY [facility] Rx#:[id number] Output: Urine 3200 1400 Other: Voiding Method External Catheter External Catheter - Exam Constitutional: No acute distress, conversant, pleasant Eyes:Anicteric sclerae, moist conjunctiva, no lid-lag, PERRLA, ENMT: Oropharynx clear, no erythema, exudates Neck: Supple, FROM, no masses, or JVD, No carotid bruits, No thyromegaly Lungs: Clear to auscultation, Clear to percussion, Normal respiratory effort, no accessory muscle use Cardiovascular: Heart regular in rate and rhythm, No murmurs, gallops, or rubs Abdominal: Soft, Nontender, no guarding, rebound or rigidity, Normoactive bowel sounds, No hepatomegaly, No splenomegaly, No palpable mass Skin: Normal temperature, tone, texture, turgor, no induration, No subcutaneous nodules, No rash, lesions, No ulcers Extremities: Right arm swollen, no digital cyanosis, No clubbing, Pedal pulses intact and symmetrical, Radial pulses intact and symmetrical, No calf tenderness Psychiatric: Alert and oriented to person, place and time, appropriate affect, intact judgement Neuro: General weakness, no focal sensory deficits - Labs CBC & Chem 7: 04/27/22 06:28 04/27/22 06:28 Labs: Abnormal Lab Results - Last 24 Hours (Table) 04/26/22 04/27/22 04/27/22 Range/Units 05:30 06:28 06:28 RBC (4.10-5.20) X 10*6/uL Hgb (12.0-15.0) g/dL Hct (37.2-46.3) % RDW (11.5-14.5) % Plt Count (140-440) X 10*3/uL Plt Count Comment Absolute Nucleated RBC (0.00-0.00) X 10*3/uL Myelocytes % (0-0) % Blast Cells % (0-0) % Lymphocytes # (Manual) (0.90-5.00) X 10*3/uL Promyelocytes # (Man) 0.05 H (0) k/uL Blast Cells # (Man) 0.11 H (0) k/uL NRBC/100 WBC Diff (0.0-0.0) /100 WBCS PT 14.6 H (9.0-12.0) sec INR 1.4 H (<1.2) APTT 31.1 H (22.0-30.0) sec Sodium 130 L (137-145) mmol/L Potassium 3.4 L (3.5-5.1) mmol/L Chloride 97 L (98-107) mmol/L BUN 34 H (7-17) mg/dL Creatinine 1.30 H (0.52-1.04) mg/dL Ionized Calcium Royer 5.4 H (4.5-5.3) mg/dL Phosphorus 1.6 L (2.5-4.5) mg/dL Total Bilirubin 1.4 H (0.2-1.3) mg/dL AST 87 H (14-36) U/L ALT 54 H (4-34) U/L Alkaline Phosphatase 437 H (38-126) U/L Lactate Dehydrogenase 1995 H (313-618) U/L Total Protein 4.4 L (6.3-8.2) g/dL Albumin 2.6 L (3.5-5.0) g/dL 04/27/22 Range/Units 06:28 RBC 2.52 L (4.10-5.20) X 10*6/uL Hgb 7.2 L (12.0-15.0) g/dL Hct 22.3 L (37.2-46.3) % RDW 17.1 H (11.5-14.5) % Plt Count 94 L (140-440) X 10*3/uL Plt Count Comment DECREASED A Absolute Nucleated RBC 0.05 H (0.00-0.00) X 10*3/uL Myelocytes % 1 H (0-0) % Blast Cells % 1 H* (0-0) % Lymphocytes # (Manual) 0.51 L (0.90-5.00) X 10*3/uL Promyelocytes # (Man) (0) k/uL Blast Cells # (Man) (0) k/uL NRBC/100 WBC Diff 0.9 H (0.0-0.0) /100 WBCS PT (9.0-12.0) sec INR (<1.2) APTT (22.0-30.0) sec Sodium (137-145) mmol/L Potassium (3.5-5.1) mmol/L Chloride (98-107) mmol/L BUN (7-17) mg/dL Creatinine (0.52-1.04) mg/dL Ionized Calcium Royer (4.5-5.3) mg/dL Phosphorus (2.5-4.5) mg/dL Total Bilirubin (0.2-1.3) mg/dL AST (14-36) U/L ALT (4-34) U/L Alkaline Phosphatase (38-126) U/L Lactate Dehydrogenase (313-618) U/L Total Protein (6.3-8.2) g/dL Albumin (3.5-5.0) g/dL Microbiology - Last 24 Hours (Table) 04/25/22 20:55 Blood Culture - Preliminary Blood No Growth after 24 hours 04/24/22 17:48 Blood Culture - Preliminary Blood No Growth after 48 hours 04/24/22 17:20 Blood Culture - Preliminary Blood No Growth after 48 hours Assessment and Plan Plan: Generalized weakness secondary to chemotherapy Hypercalcemia likely due to dehydration versus lymphoma Lactic acidosis -Ca better, d/c fluids -Patient does have some lower extremity edema so we'll need to monitor patient closely for volume overload -Status post zoledronic acid, calcitonin, Lasix 100 mg 1 -PT OT consult -PTH RP, pending -Oncology and nephrology Hyponatremia likely SIADH -Urine osm on the high side, fluids 1500cc daily. Right axillary vein DVT -D/w oncology, start eliquis -Right PICC d/cristian, new left arm PICC placed. Fever -Could be sec to DVT -Started on broad spectrum abx, cultures repeated, consult ID. Elevated LFTs -Patient asymptomatic -Right upper quadrant ultrasound showing some cholelithiasis. Lower extremity edema likely due to hypoalbuminemia -Was given few doses of lasix -Albumin given Acute systolic CHF exacerbation -Treated with lasix. Now better. LESLEY -Lasix held 04/27 Hypokalemia and hypomagnesemia -Replace and follow in am Anemia -Suspect due to chemotherapy and lymphoma with a component of iron deficiency. -IV iron -Oncology following -Status post 1 unit of packed red blood cell transfusion on 04/24 Non-Hodgkin lymphoma on active chemotherapy -Oncology following -Hold Revlimid for now -Consult palliative care Coronary disease status post recent stent -Resume aspirin and statin and Plavix and metoprolol -Consulted cardiology now she has to be on AC Hypertension -Hold losartan as patient is dehydrated and risk for hypertension. Resume metop rolol CODE STATUS: DNR/DNI DPOA: Patient's sister DVT prophylaxis: mechanical. Anticipated discharge place: home vs SNF
[2022-04-27] MEDS: SODIUM CHLORIDE 0.9% 1,000 ML IV SCH (13:42)
[2022-04-27] MEDS: SODIUM FERRIC GLUCONAT-SUCROSE 125 MG in SODIUM CHLORIDE 0.9% 100 ML IVPB SCH (15:11)
[2022-04-27 15:46] VITALS: BMI 26.5
--- NOTE | 2022-04-27 16:59 | P.PN ---
Subjective Progress Note Date: 04/27/22 Principal diagnosis: Lymphoma Sodium mild increase today. CBC without need of intervention. Looking better and speaking better today. she will likely need rehab at discharge Objective - Vital Signs Vital signs: Vital Signs Temp 98.7 F 04/27/22 06:22 Pulse 77 04/27/22 07:00 Resp 16 04/27/22 07:00 BP 120/57 04/27/22 06:22 Pulse Ox 93 L 04/27/22 06:22 FiO2 Intake & Output 04/26/22 04/27/22 04/27/22 18:59 06:59 18:59 Intake Total 500 Output Total 3200 1400 Balance -2700 -1400 Intake: Intake, IV Titration 500 Amount Cefepime 2 gm In Sodium 100 Chloride 0.9% 100 ml @ 25 mls/hr IVPB Q12HR [facility] Rx #:[id number] Cefepime 2 gm In Sodium 100 Chloride 0.9% 100 ml @ 25 mls/hr IVPB Q8HR [facility] Rx# :[id number] Magnesium Sulfate-D5w Pmx 100 1 gm In Dextrose/Water 1 100ml.bag @ 100 mls/hr IVPB Q1H [facility] Rx#: [id number] Magnesium Sulfate-D5w Pmx 100 1 gm In Dextrose/Water 1 100ml.bag @ 100 mls/hr IVPB Q1H [facility] Rx#: [id number] Sodium Ferric Gluconat- 100 Sucrose 125 mg In Sodium Chloride 0.9% 100 ml @ 100 mls/hr IVPB DAILY [facility] Rx#:[id number] Output: Urine 3200 1400 Other: Voiding Method External Catheter External Catheter - Exam General:no distress Head: NCAT Eyes: EOMI, anicteric sclera, pupils equal round Oral thrush, dry mucus membranes Neck: supple Right chest wall port CDI Cardiovascular:reg, no edema, Lungs: CTA bilateral, Abdominal: soft, nontender normal bowel sounds Neuro: nonfocal Psych: Alert, oriented, appropriate affect - Labs CBC & Chem 7: 04/27/22 06:28 04/27/22 06:28 Labs: Abnormal Lab Results - Last 24 Hours (Table) 04/26/22 04/27/22 04/27/22 Range/Units 05:30 06:28 06:28 RBC 2.59 L (4.10-5.20) X 10*6/uL Hgb 7.5 L (12.0-15.0) g/dL Hct 23.4 L (37.2-46.3) % RDW 17.2 H (11.5-14.5) % Plt Count 114 L (140-440) X 10*3/uL Plt Count Comment DECREASED A Absolute Nucleated RBC 0.06 H (0.00-0.00) X 10*3/uL Metamyelocytes % 3 H (0-0) % Myelocytes % 1 H (0-0) % Promyelocytes % 1 H (0-0) % Blast Cells % 2 H* (0-0) % Monocytes # (Manual) 0.05 L (0.20-1.00) X 10*3/uL Promyelocytes # (Man) 0.05 H (0) k/uL Blast Cells # (Man) 0.11 H (0) k/uL NRBC/100 WBC Diff 1.1 H (0.0-0.0) /100 WBCS PT 14.6 H (9.0-12.0) sec INR 1.4 H (<1.2) APTT 31.1 H (22.0-30.0) sec Sodium 130 L (137-145) mmol/L Potassium 3.4 L (3.5-5.1) mmol/L Chloride 97 L (98-107) mmol/L BUN 34 H (7-17) mg/dL Creatinine 1.30 H (0.52-1.04) mg/dL Ionized Calcium Royer 5.4 H (4.5-5.3) mg/dL Phosphorus 1.6 L (2.5-4.5) mg/dL Total Bilirubin 1.4 H (0.2-1.3) mg/dL AST 87 H (14-36) U/L ALT 54 H (4-34) U/L Alkaline Phosphatase 437 H (38-126) U/L Lactate Dehydrogenase 1995 H (313-618) U/L Total Protein 4.4 L (6.3-8.2) g/dL Albumin 2.6 L (3.5-5.0) g/dL 04/27/22 Range/Units 06:28 RBC 2.52 L (4.10-5.20) X 10*6/uL Hgb 7.2 L (12.0-15.0) g/dL Hct 22.3 L (37.2-46.3) % RDW 17.1 H (11.5-14.5) % Plt Count 94 L (140-440) X 10*3/uL Plt Count Comment Absolute Nucleated RBC 0.05 H (0.00-0.00) X 10*3/uL Metamyelocytes % (0-0) % Myelocytes % (0-0) % Promyelocytes % (0-0) % Blast Cells % (0-0) % Monocytes # (Manual) (0.20-1.00) X 10*3/uL Promyelocytes # (Man) (0) k/uL Blast Cells # (Man) (0) k/uL NRBC/100 WBC Diff 0.9 H (0.0-0.0) /100 WBCS PT (9.0-12.0) sec INR (<1.2) APTT (22.0-30.0) sec Sodium (137-145) mmol/L Potassium (3.5-5.1) mmol/L Chloride (98-107) mmol/L BUN (7-17) mg/dL Creatinine (0.52-1.04) mg/dL Ionized Calcium Royer (4.5-5.3) mg/dL Phosphorus (2.5-4.5) mg/dL Total Bilirubin (0.2-1.3) mg/dL AST (14-36) U/L ALT (4-34) U/L Alkaline Phosphatase (38-126) U/L Lactate Dehydrogenase (313-618) U/L Total Protein (6.3-8.2) g/dL Albumin (3.5-5.0) g/dL Microbiology - Last 24 Hours (Table) 04/25/22 20:55 Blood Culture - Preliminary Blood No Growth after 24 hours 04/24/22 17:48 Blood Culture - Preliminary Blood No Growth after 48 hours 04/24/22 17:20 Blood Culture - Preliminary Blood No Growth after 48 hours Assessment and Plan (1) Non-Hodgkin lymphoma Narrative/Plan: - Recent progression and status post cycle one of new therapy with Revlimid and Monjuvi, cycle 2 (due twoday) on hold - On hold due to current hospital problems - Monitor for TLS - CLosely monitor Dr. Maradiaga to assess patient prior to starting cycle 2 Current Visit: No Status: Acute Code(s): C85.90 - NON-HODGKIN LYMPHOMA, UNSPECIFIED, UNSPECIFIED SITE SNOMED Code(s): 094534312 (2) Hypercalcemia Narrative/Plan: Nephrology following, status post Zometa Balance with hypercalcemia and third spacing. COntinue IV Fluids Mild improvement Current Visit: Yes Status: Acute Code(s): E83.52 - HYPERCALCEMIA SNOMED Code(s): 03607322 (3) Hyponatremia Narrative/Plan: COncern of adrenal insufficiency and Tumor lysis PO fluid Restriction Status Post albumin 25grams and continue IV fluids @50cc\\ Nephrology Following Current Visit: Yes Status: Acute Code(s): E87.1 - HYPO-OSMOLALITY AND HYPONATREMIA SNOMED Code(s): 70078841 (4) Weakness Narrative/Plan: [place] to be due to recurrent bulk disease status post treatment and anemia from chemotherapy - PT/OT Ask for increased activity and passive ROM Current Visit: No Status: Acute Code(s): R53.1 - WEAKNESS SNOMED Code(s): 01907610 (5) Bradycardia Current Visit: Yes Status: Acute Code(s): R00.1 - BRADYCARDIA, UNSPECIFIED SNOMED Code(s): 96102685 (6) Normocytic anemia Narrative/Plan: Transfuse IRRradiated PRBC hemo <7, no transfusion needed today 7.2 CBC to be monitored daily Current Visit: Yes Status: Acute Code(s): D64.9 - ANEMIA, UNSPECIFIED SNOMED Code(s): 109163966 (7) Deep vein thrombosis, upper right extremity Narrative/Plan: - Obtain Access on left arm, she will continue to require IV chemotherapy and frequent blood draws, as well as be high risk for infection. A picc line is the standard of care for this patient, understanding she does not have ideal veins for picc line, we will need for ongoing treatment. She will be on anticogulation moving forward so risk of clotting off new left arm picc will be minimal. Await 24 hours on eliquis and line on left arm and pull right arm line. Port may be higher risk as if becomes infected not easily removable but given the need for central line access that can remain in through the next 4 treatments scheduled this maybe our only hope as IR does not feel comfortable at this time moving forward with neww left arm picc line. DIscussed with RN and ok for him to add access left for hospital Will start PO doac and plan for 3-6 months of treatment Daily CBC, PLatelets >50K Current Visit: Yes Status: Acute Code(s): I82.621 - ACUTE EMBOLISM AND THROMBOSIS OF DEEP VEINS OF R UP EXTREM SNOMED Code(s): 975158309 (8) Fever Narrative/Plan: Re-torers culture Broad spectrum Cefepime and vanco ID consult Current Visit: Yes Status: Acute Code(s): R50.9 - FEVER, UNSPECIFIED SNOMED Code(s): 186812359 Plan: GOAL: Central Line access for appropriate care in critically ill patient Overall condition is critical and prognosis guarded. Discussed with nephrology regarding addition of albumin again, maintaining 0.9 NS @50cc Monitor daily CBC, If platelets drop below 50K Hold AC therapy Daily PT/OT Patient and family aware ill state, overall prognosis guarded Discussee with truck manager ABELINO, likely rehab at discharge to regain strength and improve performance prior to restart chemo Time with Patient: Greater than 30
[2022-04-27] MEDS: ATORVASTATIN 80 MG TAB PO SCH (20:42)
[2022-04-27] MEDS: ACETAMINOPHEN TAB 325 MG TAB PO PRN (20:44)
[2022-04-28] MEDS: MELATONIN 3 MG TABLET PO SCH ×2 (00:08→21:09)
[2022-04-28] MEDS: ACETAMINOPHEN TAB 325 MG TAB PO PRN (06:10)
[2022-04-28 07:25] LABS: Ionized Calcium 4.7 mg/dL (4.5-5.3)
[2022-04-28 07:36] LABS: ALT 90 U/L (4-34); AST 157 U/L (14-36); African American GFR (CKD) 48 (>60 ml/min/1.73 sqM); Albumin 2.5 g/dL (3.5-5.0); Albumin/Globulin Ratio 1.3; Alkaline Phosphatase 520 U/L (38-126); Anion Gap 7 mmol/L; Blood Urea Nitrogen 41 mg/dL (7-17); Calcium 8.6 mg/dL (8.4-10.2); Carbon Dioxide 25 mmol/L (22-30); Chloride 98 mmol/L (98-107); Globulin 1.9 g/dL; Glucose 90 mg/dL (74-99); Magnesium 1.6 mg/dL (1.6-2.3); Non-African American GFR(CKD) 41 (>60 ml/min/1.73 sqM); Potassium 3.5 mmol/L (3.5-5.1); Sodium 130 mmol/L (137-145); Total Bilirubin 1.1 mg/dL (0.2-1.3); Total Protein 4.4 g/dL (6.3-8.2)
--- NOTE | 2022-04-28 08:22 | P.PN ---
Subjective HISTORY OF PRESENTING ILLNESS Cardiac arrhythmia This is a 77-year-old female patient with extensive medical history consistent of diagnosis of Hodgkin lymphoma she was receiving chemotherapy as well as known coronary artery disease with a prior stenting of the LAD and RCA performed earlier this year and also cardiomyopathy with EF around 40%. Beside that she does have multiple comorbid conditions. She was admitted to the hospital mainly because of symptoms being tired and fatigued and she was not feeling well overall. She was found to be dehydrated and also she was diagnosed with right upper extremity DVT and currently she is on anticoagulation. We requested to see the patient for consult because yesterday she did have an episode of nonsustained ventricular tachycardia during that she was completely asymptomatic. More importantly the patient was having electrolytes abnormalities with low potassium and low magnesium. She was given magnesium yesterday. Repeat her potassium this morning continues to be low and that need to be replaced. During the episode of nonsustained VT she did not have any dizziness or lightheadedness and no presyncope or syncope and no symptoms of any chest pain or chest discomfort or shortness of breath. She was seen this morning. She remains asymptomatic from the cardiac standpoint of view. As a matter of fact she is slightly better overall and she is more awake and less weak. She continues denies any symptoms of chest pain or chest discomfort or any shortness of breath and she seems to be euvolemic on examination. Beside the hypokalemia and hypomagnesemia also she was found to have hyponatremia and nephrology was consulted to see her regarding that. She continues to be on anticoagulation as well as antiplatelet. Also she is on beta ney. 04/28 Patient seen and examined. Patient denies any chest pain or pressure. Heart rates have remained in the 70s and 80s in sinus rhythm. PHYSICAL EXAMINATION Vital signs reviewed. CONSTITUTIONAL: No apparent distress. HEENT: Head is normocephalic. Pupils are equal, round. Sclerae anicteric. Mucous membranes of the mouth are moist. No JVD. No carotid bruit. CHEST EXAMINATION: Lungs are clear to auscultation. No chest wall tenderness is noted on palpation or with deep breathing. HEART EXAMINATION: Regular rate and rhythm. S1, S2 heard. No murmurs, gallops or rub. ABDOMEN: Soft, nontender. Positive bowel sounds. EXTREMITIES: 2+ peripheral pulses, no lower extremity edema and no calf tenderness. NEUROLOGIC EXAMINATION: Patient is awake, alert and oriented x3. Assessment #1 non-Hodgkin lymphoma patient was on chemotherapy #2 coronary artery disease with prior stenting of the RCA and LAD #3 cardiomyopathy was EF of 40% #4 electrolytes abnormalitiesWith hypokalemia and hypomagnesemia and hyponatremia #5 non-sustained ventricular tachycardia #6 right upper extremity DVT #7 chronic kidney disease #8 multiple comorbid conditions Plan Denies any significant chest pain or angina-type symptoms. Has remained in sinus rhythm with on monitor. She appears euvolemic. Continue current regimen. Please call with any questions. Objective - Vital Signs Vital signs: Vital Signs Temp 99.3 F 04/28/22 02:00 Pulse 73 04/28/22 02:00 Resp 20 04/28/22 02:00 BP 146/49 04/28/22 02:00 Pulse Ox 94 L 04/28/22 02:00 FiO2 Intake & Output 04/27/22 04/28/22 04/28/22 18:59 06:59 18:59 Intake Total 1150 Output Total 2400 Balance -1250 Weight 68.039 kg Intake: Intake, IV Titration 320 Amount Cefepime 2 gm In Sodium 100 Chloride 0.9% 100 ml @ 25 mls/hr IVPB Q24HR [facility] Rx #:[id number] Sodium Chloride 0.9% 1, 120 000 ml @ 50 mls/hr IV . Q20H [facility] Rx#:[id number] Sodium Ferric Gluconat- 100 Sucrose 125 mg In Sodium Chloride 0.9% 100 ml @ 100 mls/hr IVPB DAILY [facility] Rx#:[id number] Oral 830 Output: Urine 2400 Other: Voiding Method External Catheter - Labs CBC & Chem 7: 04/27/22 06:28 04/28/22 06:08 Labs: Abnormal Lab Results - Last 24 Hours (Table) 04/27/22 04/28/22 Range/Units 06:28 06:08 RBC 2.52 L (4.10-5.20) X 10*6/uL Hgb 7.2 L (12.0-15.0) g/dL Hct 22.3 L (37.2-46.3) % RDW 17.1 H (11.5-14.5) % Plt Count 94 L (140-440) X 10*3/uL Plt Count Comment DECREASED A Absolute Nucleated RBC 0.05 H (0.00-0.00) X 10*3/uL Myelocytes % 1 H (0-0) % Blast Cells % 1 H* (0-0) % Lymphocytes # (Manual) 0.51 L (0.90-5.00) X 10*3/uL NRBC/100 WBC Diff 0.9 H (0.0-0.0) /100 WBCS Sodium 130 L (137-145) mmol/L BUN 41 H (7-17) mg/dL Creatinine 1.25 H (0.52-1.04) mg/dL Phosphorus 2.0 L (2.5-4.5) mg/dL AST 157 H (14-36) U/L ALT 90 H (4-34) U/L Alkaline Phosphatase 520 H (38-126) U/L Total Protein 4.4 L (6.3-8.2) g/dL Albumin 2.5 L (3.5-5.0) g/dL Microbiology - Last 24 Hours (Table) 04/25/22 20:55 Blood Culture - Preliminary Blood No Growth after 48 hours 04/24/22 17:48 Blood Culture - Preliminary Blood No Growth after 72 hours 04/24/22 17:20 Blood Culture - Preliminary Blood No Growth after 72 hours
[2022-04-28 08:47] LABS: HCT 22.7 % (37.2-46.3); HGB 7.3 g/dL (12.0-15.0); MCH 28.9 pg (27.0-32.0); MCHC 32.2 g/dL (32.0-37.0); MCV 89.7 fL (80.0-97.0); Mean Platelet Volume 11.5 fL (9.5-12.2); Platelet Count 94 X 10*3/uL (140-440); RBC 2.53 X 10*6/uL (4.10-5.20); RDW 17.4 % (11.5-14.5); WBC 7.16 X 10*3/uL (4.50-10.00)
[2022-04-28] MEDS: POTAS-SOD-PHOS 278-164-250 MG 1 EACH PACKET PO SCH ×3 (08:48→22:38)
[2022-04-28] MEDS: METOPROLOL TARTRATE 25 MG TAB PO SCH ×2 (08:48→21:09)
[2022-04-28] MEDS: allopurinoL 100 MG TAB PO SCH (08:49)
[2022-04-28] MEDS: CLOPIDOGREL 75 MG TAB PO SCH (08:49)
[2022-04-28] MEDS: SENNOSIDES-DOCUSATE SODIUM 1 EACH TAB PO SCH ×2 (08:49→21:09)
[2022-04-28] MEDS: APIXABAN 5 MG TAB PO SCH ×2 (08:49→21:09)
[2022-04-28] MEDS: ASPIRIN 81 MG PO SCH (08:49)
[2022-04-28] MEDS: CEFEPIME 2 GM in SODIUM CHLORIDE 0.9% 100 ML IVPB SCH (08:49)
[2022-04-28] MEDS: SODIUM FERRIC GLUCONAT-SUCROSE 125 MG in SODIUM CHLORIDE 0.9% 100 ML IVPB SCH (10:06)
[2022-04-28] MEDS ORDERED: Phosphorus Replacement Protoco 1 EACH MISC MISCELLANE PRN (10:11)
[2022-04-28] MEDS ORDERED: POTASSIUM CHLORIDE ER 20 MEQ TAB.ER PO STA (10:11)
--- NOTE | 2022-04-28 10:13 | P.PN ---
Subjective Patient is seen in follow-up for hypercalcemia and hyponatremia. Calcium level now normal. Sodium level is stable at 130. Oral intake is fair. Denies vomiting or diarrhea. Has received IV Lasix the last 2 days. Nonoliguric. Edema improved. Vital signs are stable. General: Awake. No acute distress. HEENT: Head exam is unremarkable. LUNGS: Breath sounds decreased. HEART: Rate and Rhythm are regular. ABDOMEN: Soft, no distention. EXTREMITITES: Trace edema. Objective - Vital Signs Vital signs: Vital Signs Temp 98.4 F 04/28/22 08:00 Pulse 69 04/28/22 09:16 Resp 20 04/28/22 09:16 BP 100/60 04/28/22 08:00 Pulse Ox 96 04/28/22 09:04 FiO2 Intake & Output 04/27/22 04/28/22 04/28/22 18:59 06:59 18:59 Intake Total 1150 Output Total 2400 Balance -1250 Weight 68.039 kg Intake: Intake, IV Titration 320 Amount Cefepime 2 gm In Sodium 100 Chloride 0.9% 100 ml @ 25 mls/hr IVPB Q24HR [facility] Rx #:[id number] Sodium Chloride 0.9% 1, 120 000 ml @ 50 mls/hr IV . Q20H [facility] Rx#:[id number] Sodium Ferric Gluconat- 100 Sucrose 125 mg In Sodium Chloride 0.9% 100 ml @ 100 mls/hr IVPB DAILY [facility] Rx#:[id number] Oral 830 Output: Urine 2400 Other: Voiding Method External Catheter External Catheter - Labs CBC & Chem 7: 04/28/22 06:08 04/28/22 06:08 Labs: Abnormal Lab Results - Last 24 Hours (Table) 04/27/22 04/28/22 04/28/22 Range/Units 06:28 06:08 06:08 RBC 2.52 L 2.53 L (4.10-5.20) X 10*6/uL Hgb 7.2 L 7.3 L (12.0-15.0) g/dL Hct 22.3 L 22.7 L (37.2-46.3) % RDW 17.1 H 17.4 H (11.5-14.5) % Plt Count 94 L 94 L (140-440) X 10*3/uL Plt Count Comment DECREASED A Absolute Nucleated RBC 0.05 H 0.07 H (0.00-0.00) X 10*3/uL Myelocytes % 1 H (0-0) % Blast Cells % 1 H* (0-0) % Lymphocytes # (Manual) 0.51 L (0.90-5.00) X 10*3/uL NRBC/100 WBC Diff 0.9 H 1.0 H (0.0-0.0) /100 WBCS Sodium 130 L (137-145) mmol/L BUN 41 H (7-17) mg/dL Creatinine 1.25 H (0.52-1.04) mg/dL Phosphorus 2.0 L (2.5-4.5) mg/dL AST 157 H (14-36) U/L ALT 90 H (4-34) U/L Alkaline Phosphatase 520 H (38-126) U/L Total Protein 4.4 L (6.3-8.2) g/dL Albumin 2.5 L (3.5-5.0) g/dL Microbiology - Last 24 Hours (Table) 04/25/22 20:55 Blood Culture - Preliminary Blood No Growth after 48 hours 04/24/22 17:48 Blood Culture - Preliminary Blood No Growth after 72 hours 04/24/22 17:20 Blood Culture - Preliminary Blood No Growth after 72 hours Assessment and Plan Plan: Assessment: 1. Hyponatremia with component of poor solute intake and SIADH from malignancy. Now hypervolemic - improved with diuresis. Sodium level 130. Urine osmolality 339. TSH 0.33. Cortisol level not low. 2. Hypercalcemia. Likely related to underlying lymphoma. ALYCIA elevated at 91 - ?sarcoid vs due to malignancy- no evidence on CXR. 1,25 D3 35. Vitamin D level 57.6. PTH low at 7. Difficult to exclude a small paraprotein on serum immunofixation. [place] free Light chain elevated at 3.54 and free lambda light chain 0.62. Defer management to oncology. 3. Non-Hodgkin's lymphoma. Oncology following. 4. Coronary disease status post cardiac stenting. 5. Benign hypertension. Stable. 6. Anemia. Iron deficiency noted. s/p blood transfusion this admission. Heme/onc following. 7. Edema. Improved with diuresis. 8. Hypokalemia from poor intake and diuresis. 9. Hypomagnesemia from poor intake and diuresis. Being replaced. 10. Acute kidney injury mostly prerenal secondary to hypercalcemia, ?TLS (high uric acid, no hypocalcemia or hyperphosphatemia) and anemia. Also component of diuresis. Creatinine 1.25 today. No proteinuria on UA. 11. Right upper extremity DVT. On anticoagulation. 12. Cardiomyopathy with ejection fraction of 40%. Cardiology following. 13. Fever. On antibiotics. Follow-up cultures. 14. Hypophosphatemia from poor intake and diuresis. Plan: Continue to hold Lasix for now. Encouraged oral intake. Maintain fluid restriction. Status post IV albumin given 04/25/2022 and 04/26/2022 . Status post calcitonin and zoledronic acid 04/23/2022. Continue to hold losartan for now as blood pressure is stable. Avoid nephrotoxins. Continue to monitor renal function and urine output. Maintain IV iron. Replace potassium and phosphorus. Replace magnesium as well. Cortisol not low. Calcium level trending down. If develops hypercalcemia again, will consider trial of prednisone to lower her calcitriol production which can be increased due to lymphoma. Patient's calcitriol level at this time is normal at 35 and calcium level is normal. Prognosis guarded.
[2022-04-28 10:32] LABS: Basophils # (M) 0 X 10*3/uL (0.00-0.10); Blast Cells # (M) 0.14 k/uL (0); Eosinophils # (M) 0.21 X 10*3/uL (0.04-0.35); Lymphocytes # (M) 1.43 X 10*3/uL (0.90-5.00); Metamyelocytes % 1 % (0-0); Monocytes # (M) 0.29 X 10*3/uL (0.20-1.00); Myelocytes % 4 % (0-0); Neutrophils # (M) 4.73 X 10*3/uL (2.00-8.90); Neutrophils % (M) 66 %; Nucleated Red Blood Cells 2 /100 WBCS
[2022-04-28] MEDS: SODIUM PHOSPHATE 10 MMOL in SODIUM CHLORIDE 0.9% 250 ML IVPB SCH ×2 (11:06→13:13)
[2022-04-28] MEDS: MAGNESIUM SULFATE-D5W PMX 1 GM in DEXTROSE/WATER 1 100ML.BAG IVPB SCH ×2 (11:06→13:13)
--- NOTE | 2022-04-28 15:11 | P.PN ---
Subjective Progress Note Date: 04/28/22 Principal diagnosis: General weakness Feeling weak, no sob or pain. No fevers. Swelling of the right arm improved. Objective - Vital Signs Vital signs: Vital Signs Temp 98.4 F 04/28/22 08:00 Pulse 69 04/28/22 09:16 Resp 20 04/28/22 09:16 BP 100/60 04/28/22 08:00 Pulse Ox 96 04/28/22 09:04 FiO2 Intake & Output 04/27/22 04/28/22 04/28/22 18:59 06:59 18:59 Intake Total 1150 Output Total 2400 Balance -1250 Weight 68.039 kg Intake: Intake, IV Titration 320 Amount Cefepime 2 gm In Sodium 100 Chloride 0.9% 100 ml @ 25 mls/hr IVPB Q24HR [facility] Rx #:[id number] Sodium Chloride 0.9% 1, 120 000 ml @ 50 mls/hr IV . Q20H [facility] Rx#:[id number] Sodium Ferric Gluconat- 100 Sucrose 125 mg In Sodium Chloride 0.9% 100 ml @ 100 mls/hr IVPB DAILY [facility] Rx#:[id number] Oral 830 Output: Urine 2400 Other: Voiding Method External Catheter External Catheter - Exam Constitutional: No acute distress, conversant, pleasant Eyes:Anicteric sclerae, moist conjunctiva, no lid-lag, PERRLA, ENMT: Oropharynx clear, no erythema, exudates Neck: Supple, FROM, no masses, or JVD, No carotid bruits, No thyromegaly Lungs: Clear to auscultation, Clear to percussion, Normal respiratory effort, no accessory muscle use Cardiovascular: Heart regular in rate and rhythm, No murmurs, gallops, or rubs Abdominal: Soft, Nontender, no guarding, rebound or rigidity, Normoactive bowel sounds, No hepatomegaly, No splenomegaly, No palpable mass Skin: Normal temperature, tone, texture, turgor, no induration, No subcutaneous nodules, No rash, lesions, No ulcers Extremities: Right arm swollen, no digital cyanosis, No clubbing, Pedal pulses intact and symmetrical, Radial pulses intact and symmetrical, No calf tenderness Psychiatric: Alert and oriented to person, place and time, appropriate affect, intact judgement Neuro: General weakness, no focal sensory deficits - Labs CBC & Chem 7: 04/28/22 06:08 04/28/22 06:08 Labs: Abnormal Lab Results - Last 24 Hours (Table) 04/28/22 04/28/22 Range/Units 06:08 06:08 RBC 2.53 L (4.10-5.20) X 10*6/uL Hgb 7.3 L (12.0-15.0) g/dL Hct 22.7 L (37.2-46.3) % RDW 17.4 H (11.5-14.5) % Plt Count 94 L (140-440) X 10*3/uL Plt Count Comment DECREASED A Absolute Nucleated RBC 0.07 H (0.00-0.00) X 10*3/uL Metamyelocytes % 1 H (0-0) % Myelocytes % 4 H (0-0) % Blast Cells % 2 H* (0-0) % NRBC/100 WBC Diff 1.0 H (0.0-0.0) /100 WBCS Sodium 130 L (137-145) mmol/L BUN 41 H (7-17) mg/dL Creatinine 1.25 H (0.52-1.04) mg/dL Phosphorus 2.0 L (2.5-4.5) mg/dL AST 157 H (14-36) U/L ALT 90 H (4-34) U/L Alkaline Phosphatase 520 H (38-126) U/L Total Protein 4.4 L (6.3-8.2) g/dL Albumin 2.5 L (3.5-5.0) g/dL Microbiology - Last 24 Hours (Table) 04/25/22 20:55 Blood Culture - Preliminary Blood No Growth after 48 hours 04/24/22 17:48 Blood Culture - Preliminary Blood No Growth after 72 hours 04/24/22 17:20 Blood Culture - Preliminary Blood No Growth after 72 hours Assessment and Plan Plan: Generalized weakness secondary to chemotherapy Hypercalcemia likely due to dehydration versus lymphoma Lactic acidosis -Ca better, d/c fluids -Patient does have some lower extremity edema so we'll need to monitor patient closely for volume overload -Status post zoledronic acid, calcitonin, Lasix 100 mg 1 -PT OT -PTH RP, pending -Oncology and nephrology Hyponatremia likely SIADH -Improved with lasix -Urine osm on the high side, fluids 1500cc daily. Right axillary vein DVT -D/w oncology, eliquis -Right PICC d/cristian, new left arm PICC placed. Fever -Could be sec to DVT -Started on broad spectrum abx, cultures repeated NGTD, will d/c vanco for now. Continue cefepime. -Continue to monitor temp Elevated LFTs -Patient asymptomatic -Right upper quadrant ultrasound showing some cholelithiasis. Lower extremity edema likely due to hypoalbuminemia -Was given few doses of lasix -Albumin given Acute systolic CHF exacerbation -Treated with lasix. Now better. LESLEY -Lasix held 04/27 Hypokalemia and hypomagnesemia -Replace and follow in am Anemia -Suspect due to chemotherapy and lymphoma with a component of iron deficiency. -IV iron -Oncology following -Status post 1 unit of packed red blood cell transfusion on 04/24 Non-Hodgkin lymphoma on active chemotherapy -Oncology following -Hold Revlimid for now -Consult palliative care Coronary disease status post recent stent -Resume aspirin and statin and metoprolol -D/w cardiology, Dr. Leon will only give eliquis and aspirin. Hold plavix. Hypertension -Hold losartan as patient is dehydrated and risk for hypertension. Resume metoprolol CODE STATUS: DNR/DNI DPOA: Patient's sister DVT prophylaxis: mechanical. Anticipated discharge place: home vs SNF
[2022-04-28] MEDS: ATORVASTATIN 80 MG TAB PO SCH (21:09)
[2022-04-28] MEDS: SODIUM CHLORIDE 0.9% 1,000 ML IV SCH (21:10)
[2022-04-28] MEDS: MAG HYDROX/AL HYDROX/SIMETH 30 ML, LIDOCAINE VISCOUS 2% 30 ML, diphenhydrAMINE ELIXIR 7... PO SCH ×4 (22:49)
[2022-04-29 07:49] LABS: INR 1.5 (<1.2); Partial Thromboplastin Time 30.6 sec (22.0-30.0)
[2022-04-29 08:51] LABS: Ionized Calcium 4.7 mg/dL (4.5-5.3)
[2022-04-29 09:14] LABS: ALT 107 U/L (4-34); African American GFR (CKD) 50 (>60 ml/min/1.73 sqM); Albumin 2.3 g/dL (3.5-5.0); Albumin/Globulin Ratio 1.4; Alkaline Phosphatase 665 U/L (38-126); Anion Gap 6 mmol/L; Carbon Dioxide 23 mmol/L (22-30); Chloride 100 mmol/L (98-107); Globulin 1.7 g/dL; Magnesium 1.8 mg/dL (1.6-2.3); Non-African American GFR(CKD) 43 (>60 ml/min/1.73 sqM); Phosphorus 2.1 mg/dL (2.5-4.5); Potassium 3.4 mmol/L (3.5-5.1); Sodium 129 mmol/L (137-145); Uric Acid 5.6 mg/dL (3.7-7.4)
[2022-04-29 09:17] LABS: AST 163 U/L (14-36); Blood Urea Nitrogen 36 mg/dL (7-17); Glucose 81 mg/dL (74-99)
[2022-04-29] MEDS: POTAS-SOD-PHOS 278-164-250 MG 1 EACH PACKET PO SCH ×3 (09:18→21:00)
[2022-04-29] MEDS: SENNOSIDES-DOCUSATE SODIUM 1 EACH TAB PO SCH ×2 (09:19→20:59)
[2022-04-29] MEDS: METOPROLOL TARTRATE 25 MG TAB PO SCH ×2 (09:19→21:00)
[2022-04-29] MEDS: CEFEPIME 2 GM in SODIUM CHLORIDE 0.9% 100 ML IVPB SCH (09:19)
[2022-04-29] MEDS: ASPIRIN 81 MG PO SCH (09:19)
[2022-04-29] MEDS: APIXABAN 5 MG TAB PO SCH ×2 (09:19→20:59)
[2022-04-29] MEDS: allopurinoL 100 MG TAB PO SCH (09:19)
[2022-04-29] MEDS: MAG HYDROX/AL HYDROX/SIMETH 30 ML, LIDOCAINE VISCOUS 2% 30 ML, diphenhydrAMINE ELIXIR 7... PO SCH ×12 (09:20→21:13)
[2022-04-29] MEDS ORDERED: Phosphorus Replacement Protoco 1 EACH MISC MISCELLANE PRN (11:01)
[2022-04-29] MEDS ORDERED: POTASSIUM CHLORIDE ER 20 MEQ TAB.ER PO STA ×2 (11:01→12:05)
[2022-04-29] MEDS ORDERED: TOLVAPTAN 15 MG 1/2 TABLET PO ONE (11:02)
--- NOTE | 2022-04-29 11:03 | P.PN ---
Subjective Patient is seen in follow-up for hypercalcemia and hyponatremia. Hypercalcemia resolved. Sodium level 129 today. Oral intake is fair. Denies vomiting or diarrhea. Nonoliguric. Edema improved. Vital signs are stable. General: Awake. No acute distress. HEENT: Head exam is unremarkable. LUNGS: Breath sounds decreased. HEART: Rate and Rhythm are regular. ABDOMEN: Soft, no distention. EXTREMITITES: Trace edema. Objective - Vital Signs Vital signs: Vital Signs Temp 98.5 F 04/29/22 08:00 Pulse 78 04/29/22 08:14 Resp 18 04/29/22 08:14 BP 121/56 04/29/22 08:00 Pulse Ox 94 L 04/29/22 08:00 FiO2 Intake & Output 04/28/22 04/29/22 04/29/22 18:59 06:59 18:59 Intake Total 800 300 Output Total 800 Balance 800 -500 Intake: Intake, IV Titration 800 Amount Cefepime 2 gm In Sodium 100 Chloride 0.9% 100 ml @ 25 mls/hr IVPB Q24HR [facility] Rx #:[id number] Cefepime 2 gm In Sodium 200 Chloride 0.9% 100 ml @ 25 mls/hr IVPB Q24HR [facility] Rx #:[id number] Sodium Phosphate 10 mmol 500 In Sodium Chloride 0.9% 250 ml @ 125 mls/hr IVPB Q2H [facility] Rx#:[id number] Other 300 Output: Urine 800 Other: Voiding Method External Catheter External Catheter External Catheter - Labs CBC & Chem 7: 04/28/22 06:08 04/29/22 06:54 Labs: Abnormal Lab Results - Last 24 Hours (Table) 04/29/22 04/29/22 Range/Units 06:54 06:58 PT 15.0 H (9.0-12.0) sec INR 1.5 H (<1.2) APTT 30.6 H (22.0-30.0) sec Sodium 129 L (137-145) mmol/L Potassium 3.4 L (3.5-5.1) mmol/L BUN 36 H (7-17) mg/dL Creatinine 1.21 H (0.52-1.04) mg/dL Calcium 8.0 L (8.4-10.2) mg/dL Phosphorus 2.1 L (2.5-4.5) mg/dL AST 163 H (14-36) U/L ALT 107 H (4-34) U/L Alkaline Phosphatase 665 H (38-126) U/L Total Protein 4.0 L (6.3-8.2) g/dL Albumin 2.3 L (3.5-5.0) g/dL Microbiology - Last 24 Hours (Table) 04/25/22 20:55 Blood Culture - Preliminary Blood No Growth after 72 hours 04/24/22 17:48 Blood Culture - Preliminary Blood No Growth after 96 hours 04/24/22 17:20 Blood Culture - Preliminary Blood No Growth after 96 hours Assessment and Plan Plan: Assessment: 1. Hyponatremia with component of poor solute intake and SIADH from malignancy. Now hypervolemic - improved with diuresis. Sodium level 129. Urine osmolality 339. TSH 0.33. Cortisol level not low. 2. Hypercalcemia. Likely related to underlying lymphoma. ALYCIA elevated at 91 - ?sarcoid vs due to malignancy- no evidence on CXR. 1,25 D3 35. Vitamin D level 57.6. PTH low at 7. Difficult to exclude a small paraprotein on serum imm unofixation. [place] free light chain elevated at 3.54 and free lambda light chain 0.62. Defer management to oncology. Hypercalcemia resolved. 3. Non-Hodgkin's lymphoma. Oncology following. 4. Coronary disease status post cardiac stenting. 5. Benign hypertension. Stable. 6. Anemia. Iron deficiency noted - status post IV iron and completed 04/28/2022. s/p blood transfusion this admission. Heme/onc following. 7. Edema. Improved with diuresis. 8. Hypokalemia from poor intake and diuresis. 9. Hypomagnesemia from poor intake and diuresis. Replace. Better. 10. Acute kidney injury mostly prerenal secondary to hypercalcemia, ?TLS (high uric acid, no hypocalcemia or hyperphosphatemia) and anemia. Also component of diuresis. Creatinine 1.25 today. No proteinuria on UA. 11. Right upper extremity DVT. On anticoagulation. 12. Cardiomyopathy with ejection fraction of 40%. Cardiology following. 13. Fever. On antibiotics. Follow-up cultures. 14. Hypophosphatemia from poor intake and diuresis. Plan: Continue to hold Lasix for now. Samsca 7.5 mg once today. Encouraged oral intake. Maintain fluid restriction. Status post IV albumin given 04/25/2022 and 04/26/2022 . Status post calcitonin and zoledronic acid 04/23/2022. Continue to hold losartan for now as blood pressure is stable. Avoid nephrotoxins. Continue to monitor renal function and urine output. Replace potassium and phosphorus. Cortisol not low. Calcium level trending down. If develops hypercalcemia again, will consider trial of prednisone to lower her calcitriol production which can be increased due to lymphoma. Patient's calcitriol level at this time is normal at 35 and calcium level is normal. Prognosis guarded.
[2022-04-29 11:51] LABS: HCT 21.7 % (37.2-46.3); HGB 6.9 g/dL (12.0-15.0); MCH 28.6 pg (27.0-32.0); MCHC 31.8 g/dL (32.0-37.0); Mean Platelet Volume 11.4 fL (9.5-12.2); NRBC Per 100 WBC 1.1 /100 WBCS (0.0-0.0); Platelet Count 63 X 10*3/uL (140-440); RBC 2.41 X 10*6/uL (4.10-5.20); RDW 17.4 % (11.5-14.5); WBC 7.91 X 10*3/uL (4.50-10.00)
[2022-04-29] MEDS ORDERED: POTASSIUM CHLORIDE 10 MEQ in WATER FOR INJECTION 1 100ML.BAG IVPB STA (12:05)
[2022-04-29 12:06] LABS: Basophils # (M) 0 X 10*3/uL (0.00-0.10); Blast Cells # (M) 0.32 k/uL (0); Eosinophils # (M) 0.47 X 10*3/uL (0.04-0.35); Immature Platelet Fraction 7.8 % (1.1-6.1); Lymphocytes # (M) 1.58 X 10*3/uL (0.90-5.00); Monocytes # (M) 0.32 X 10*3/uL (0.20-1.00); Myelocytes % 4 % (0-0); Neutrophils % (M) 62 %; Nucleated Red Blood Cells 6 /100 WBCS
[2022-04-29] MEDS: SODIUM PHOSPHATE 10 MMOL in SODIUM CHLORIDE 0.9% 250 ML IVPB SCH ×3 (12:07→17:52)
--- NOTE | 2022-04-29 12:20 | P.PN ---
Subjective Progress Note Date: 04/28/22 Principal diagnosis: Lymphoma Appears stable no new events Objective - Vital Signs Vital signs: Vital Signs Temp 98.4 F 04/28/22 08:00 Pulse 69 04/28/22 09:16 Resp 20 04/28/22 09:16 BP 100/60 04/28/22 08:00 Pulse Ox 96 04/28/22 09:04 FiO2 Intake & Output 04/27/22 04/28/22 04/28/22 18:59 06:59 18:59 Intake Total 1150 Output Total 2400 Balance -1250 Weight 68.039 kg Intake: Intake, IV Titration 320 Amount Cefepime 2 gm In Sodium 100 Chloride 0.9% 100 ml @ 25 mls/hr IVPB Q24HR [facility] Rx #:[id number] Sodium Chloride 0.9% 1, 120 000 ml @ 50 mls/hr IV . Q20H [facility] Rx#:[id number] Sodium Ferric Gluconat- 100 Sucrose 125 mg In Sodium Chloride 0.9% 100 ml @ 100 mls/hr IVPB DAILY [facility] Rx#:[id number] Oral 830 Output: Urine 2400 Other: Voiding Method External Catheter External Catheter - Exam General:no distress Head: NCAT Eyes: EOMI, anicteric sclera, pupils equal round Oral thrush, dry mucus membranes Neck: supple Right chest wall port CDI Cardiovascular:reg, no edema, Lungs: CTA bilateral, Abdominal: soft, nontender normal bowel sounds Neuro: nonfocal Psych: Alert, oriented, appropriate affect - Labs CBC & Chem 7: 04/29/22 06:59 04/29/22 06:54 Labs: Abnormal Lab Results - Last 24 Hours (Table) 04/28/22 04/28/22 Range/Units 06:08 06:08 RBC 2.53 L (4.10-5.20) X 10*6/uL Hgb 7.3 L (12.0-15.0) g/dL Hct 22.7 L (37.2-46.3) % RDW 17.4 H (11.5-14.5) % Plt Count 94 L (140-440) X 10*3/uL Plt Count Comment DECREASED A Absolute Nucleated RBC 0.07 H (0.00-0.00) X 10*3/uL Metamyelocytes % 1 H (0-0) % Myelocytes % 4 H (0-0) % Blast Cells % 2 H* (0-0) % NRBC/100 WBC Diff 1.0 H (0.0-0.0) /100 WBCS Sodium 130 L (137-145) mmol/L BUN 41 H (7-17) mg/dL Creatinine 1.25 H (0.52-1.04) mg/dL Phosphorus 2.0 L (2.5-4.5) mg/dL AST 157 H (14-36) U/L ALT 90 H (4-34) U/L Alkaline Phosphatase 520 H (38-126) U/L Total Protein 4.4 L (6.3-8.2) g/dL Albumin 2.5 L (3.5-5.0) g/dL Microbiology - Last 24 Hours (Table) 04/25/22 20:55 Blood Culture - Preliminary Blood No Growth after 48 hours 04/24/22 17:48 Blood Culture - Preliminary Blood No Growth after 72 hours 04/24/22 17:20 Blood Culture - Preliminary Blood No Growth after 72 hours Assessment and Plan (1) Non-Hodgkin lymphoma Narrative/Plan: - Recent progression and status post cycle one of new therapy with Revlimid and Monjuvi, cycle 2 (due two) on hold - On hold due to current hospital problems - Monitor for TLS - CLosely monitor Dr. Maradiaga to assess patient prior to starting cycle 2 Current Visit: No Status: Acute Code(s): C85.90 - NON-HODGKIN LYMPHOMA, UNSPECIFIED, UNSPECIFIED SITE SNOMED Code(s): 048183114 (2) Hypercalcemia Narrative/Plan: Nephrology following, status post Zometa Balance with hypercalcemia and third spacing. COntinue IV Fluids Mild improvement Current Visit: Yes Status: Acute Code(s): E83.52 - HYPERCALCEMIA SNOMED Code(s): 79873662 (3) Hyponatremia Narrative/Plan: COncern of adrenal insufficiency and Tumor lysis PO fluid Restriction Status Post albumin 25grams and continue IV fluids @50cc\\ Nephrology Following Current Visit: Yes Status: Acute Code(s): E87.1 - HYPO-OSMOLALITY AND HY PONATREMIA SNOMED Code(s): 89825012 (4) Weakness Narrative/Plan: [place] to be due to recurrent bulk disease status post treatment and anemia from chemotherapy - PT/OT Ask for increased activity and passive ROM Current Visit: No Status: Acute Code(s): R53.1 - WEAKNESS SNOMED Code(s): 34855723 (5) Bradycardia Current Visit: Yes Status: Acute Code(s): R00.1 - BRADYCARDIA, UNSPECIFIED SNOMED Code(s): 60267404 (6) Normocytic anemia Narrative/Plan: Transfuse IRRradiated PRBC hemo <7, no transfusion needed today 7.2 CBC to be monitored daily Current Visit: Yes Status: Acute Code(s): D64.9 - ANEMIA, UNSPECIFIED SNOMED Code(s): 525805315 (7) Deep vein thrombosis, upper right extremity Narrative/Plan: - Obtain Access on left arm, she will continue to require IV chemotherapy and frequent blood draws, as well as be high risk for infection. A picc line is the standard of care for this patient, understanding she does not have ideal veins for picc line, we will need for ongoing treatment. She will be on anticogulation moving forward so risk of clotting off new left arm picc will be minimal. Await 24 hours on eliquis and line on left arm and pull right arm line. [place] may be higher risk as if becomes infected not easily removable but given the need for central line access that can remain in through the next 4 treatments scheduled this maybe our only hope as IR does not feel comfortable at this time moving forward with neww left arm picc line. DIscussed with RN and ok for him to add access left for hospital Will start PO doac and plan for 3-6 months of treatment Daily CBC, PLatelets >50K Current Visit: Yes Status: Acute Code(s): I82.621 - ACUTE EMBOLISM AND THROMBOSIS OF DEEP VEINS OF R UP EXTREM SNOMED Code(s): 873670044 (8) Fever Narrative/Plan: Re-torres culture Broad spectrum Cefepime and vanco ID consult Current Visit: Yes Status: Acute Code(s): R50.9 - FEVER, UNSPECIFIED SNOMED Code(s): 048394492 Plan: GOAL: Central Line access for appropriate care in critically ill patient Overall condition is critical and prognosis guarded. Discussed with nephrology regarding addition of albumin again, maintaining 0.9 NS @50cc Monitor daily CBC, If platelets drop below 50K Hold AC therapy Daily PT/OT Patient and family aware ill state, overall prognosis guarded [place] with manager secondary ABELINO, likely rehab at discharge to regain strength and improve performance prior to restart chemo Monitor and support daily labs CHeck Uric acid and IgG tomorrow
--- NOTE | 2022-04-29 12:43 | P.PN ---
Subjective Progress Note Date: 04/29/22 Principal diagnosis: General weakness Still feeling very weak and frustrated because she is not improving much. No pain, no sob. Objective - Vital Signs Vital signs: Vital Signs Temp 98.5 F 04/29/22 08:00 Pulse 78 04/29/22 08:14 Resp 18 04/29/22 08:14 BP 121/56 04/29/22 08:00 Pulse Ox 94 L 04/29/22 08:00 FiO2 Intake & Output 04/28/22 04/29/22 04/29/22 18:59 06:59 18:59 Intake Total 800 300 Output Total 800 Balance 800 -500 Intake: Intake, IV Titration 800 Amount Cefepime 2 gm In Sodium 100 Chloride 0.9% 100 ml @ 25 mls/hr IVPB Q24HR [facility] Rx #:[id number] Cefepime 2 gm In Sodium 200 Chloride 0.9% 100 ml @ 25 mls/hr IVPB Q24HR [facility] Rx #:[id number] Sodium Phosphate 10 mmol 500 In Sodium Chloride 0.9% 250 ml @ 125 mls/hr IVPB Q2H [facility] Rx#:[id number] Other 300 Output: Urine 800 Other: Voiding Method External Catheter External Catheter External Catheter - Exam Constitutional: No acute distress, conversant, pleasant Eyes:Anicteric sclerae, moist conjunctiva, no lid-lag, PERRLA, ENMT: Oropharynx clear, no erythema, exudates Neck: Supple, FROM, no masses, or JVD, No carotid bruits, No thyromegaly Lungs: Clear to auscultation, Clear to percussion, Normal respiratory effort, no accessory muscle use Cardiovascular: Heart regular in rate and rhythm, No murmurs, gallops, or rubs Abdominal: Soft, Nontender, no guarding, rebound or rigidity, Normoactive bowel sounds, No hepatomegaly, No splenomegaly, No palpable mass Skin: Normal temperature, tone, texture, turgor, no induration, No subcutaneous nodules, No rash, lesions, No ulcers Extremities: Right arm swollen, no digital cyanosis, No clubbing, Pedal pulses intact and symmetrical, Radial pulses intact and symmetrical, No calf tenderness Psychiatric: Alert and oriented to person, place and time, appropriate affect, intact judgement Neuro: General weakness, no focal sensory deficits - Labs CBC & Chem 7: 04/29/22 06:59 07/10/22 06:54 Labs: Abnormal Lab Results - Last 24 Hours (Table) 04/29/22 04/29/22 04/29/22 Range/Units 06:54 06:58 06:59 RBC 2.41 L (4.10-5.20) X 10*6/uL Hgb 6.9 L* (12.0-15.0) g/dL Hct 21.7 L (37.2-46.3) % MCHC 31.8 L (32.0-37.0) g/dL RDW 17.4 H (11.5-14.5) % Plt Count 63 L (140-440) X 10*3/uL Plt Count Comment DECREASED A Absolute Nucleated RBC 0.09 H (0.00-0.00) X 10*3/uL Myelocytes % 4 H (0-0) % Blast Cells % 4 H* (0-0) % Eosinophils # (Manual) 0.47 H (0.04-0.35) X 10*3/uL NRBC/100 WBC Diff 1.1 H (0.0-0.0) /100 WBCS Immature Plt Fraction 7.8 H (1.1-6.1) % PT 15.0 H (9.0-12.0) sec INR 1.5 H (<1.2) APTT 30.6 H (22.0-30.0) sec Sodium 129 L (137-145) mmol/L Potassium 3.4 L (3.5-5.1) mmol/L BUN 36 H (7-17) mg/dL Creatinine 1.21 H (0.52-1.04) mg/dL Calcium 8.0 L (8.4-10.2) mg/dL Phosphorus 2.1 L (2.5-4.5) mg/dL AST 163 H (14-36) U/L ALT 107 H (4-34) U/L Alkaline Phosphatase 665 H (38-126) U/L Total Protein 4.0 L (6.3-8.2) g/dL Albumin 2.3 L (3.5-5.0) g/dL Microbiology - Last 24 Hours (Table) 04/25/22 20:55 Blood Culture - Preliminary Blood No Growth after 72 hours 04/24/22 17:48 Blood Culture - Preliminary Blood No Growth after 96 hours 04/24/22 17:20 Blood Culture - Preliminary Blood No Growth after 96 hours Assessment and Plan Plan: Generalized weakness secondary to chemotherapy Hypercalcemia likely due to dehydration versus lymphoma Lactic acidosis -Ca better, d/c fluids -Patient does have some lower extremity edema so we'll need to monitor patient closely for volume overload -Status post zoledronic acid, calcitonin, Lasix 100 mg 1 -PT OT -PTH RP, pending -Oncology and nephrology Hyponatremia likely SIADH -Improved with lasix -Urine osm on the high side, fluids 1500cc daily. Right axillary vein DVT -D/w oncology, eliquis -Right PICC d/cristian, new left arm PICC placed. Fever -Could be sec to DVT -Started on broad spectrum abx, cultures repeated NGTD, vanco d/cristian. Continue cefepime to complete total of 5 days as cultures remained negative. -Continue to monitor temp Elevated LFTs -Patient asymptomatic -Right upper quadrant ultrasound showing some cholelithiasis. Lower extremity edema likely due to hypoalbuminemia -Was given few doses of lasix -Albumin given Acute systolic CHF exacerbation -Treated with lasix. Now better. LESLEY -Lasix held 04/27 Hypokalemia and hypomagnesemia -Replace and follow in am Anemia -Suspect due to chemotherapy and lymphoma with a component of iron deficiency. -IV iron given -Oncology following -Status post 1 unit of packed red blood cell transfusion on 04/24 -Hgb down again 04/29, d/w oncology, will give one unit. Non-Hodgkin lymphoma on active chemotherapy -Oncology following -Hold Revlimid for now -Consult palliative care Coronary disease status post recent stent -Resume aspirin and statin and metoprolol -D/w cardiology, Dr. Leon will only give eliquis and aspirin. Hold plavix. Hypertension -Hold losartan as patient is dehydrated and risk for hypertension. Resume metoprolol CODE STATUS: DNR/DNI DPOA: Patient's sister DVT prophylaxis: mechanical. Anticipated discharge place: home vs SNF
[2022-04-29 12:48] LABS: Anisocytosis Slight; HCT 24.5 % (34.0-46.0); HGB 7.5 gm/dL (11.4-16.0); Hypochromasia Moderate; MCHC 30.6 g/dL (31.0-37.0); MCV 94.8 fL (80.0-100.0); Mean Platelet Volume 9.5; RBC 2.58 m/uL (3.80-5.40); RDW 17.5 % (11.5-15.5)
[2022-04-29 12:54] LABS: Platelet Count 72 k/uL (150-450)
[2022-04-29] MEDS: ATORVASTATIN 80 MG TAB PO SCH (21:00)
[2022-04-29] MEDS: SODIUM CHLORIDE 0.9% 1,000 ML IV SCH (21:00)
[2022-04-29] MEDS: MELATONIN 3 MG TABLET PO SCH (21:00)
--- NOTE | 2022-04-29 22:26 | P.PN ---
Subjective Progress Note Date: 04/29/22 Principal diagnosis: Lymphoma Hemoglobin 6.9, platelets decreased and LFTs rising. Transfuse one unit PRBC irradiated, discussed with primary team Objective - Vital Signs Vital signs: Vital Signs Temp 98.5 F 04/29/22 08:00 Pulse 78 04/29/22 08:14 Resp 18 04/29/22 08:14 BP 121/56 04/29/22 08:00 Pulse Ox 94 L 04/29/22 08:00 FiO2 Intake & Output 04/28/22 04/29/22 04/29/22 18:59 06:59 18:59 Intake Total 800 300 Output Total 800 Balance 800 -500 Intake: Intake, IV Titration 800 Amount Cefepime 2 gm In Sodium 100 Chloride 0.9% 100 ml @ 25 mls/hr IVPB Q24HR [facility] Rx #:[id number] Cefepime 2 gm In Sodium 200 Chloride 0.9% 100 ml @ 25 mls/hr IVPB Q24HR [facility] Rx #:[id number] Sodium Phosphate 10 mmol 500 In Sodium Chloride 0.9% 250 ml @ 125 mls/hr IVPB Q2H [facility] Rx#:[id number] Other 300 Output: Urine 800 Other: Voiding Method External Catheter External Catheter External Catheter - Exam General:no distress Head: NCAT Eyes: EOMI, anicteric sclera, pupils equal round Oral thrush, dry mucus membranes Neck: supple Right chest wall port CDI Cardiovascular:reg, no edema, Lungs: CTA bilateral, Abdominal: soft, nontender normal bowel sounds Neuro: nonfocal Psych: Alert, oriented, appropriate affect - Labs CBC & Chem 7: 04/29/22 06:59 04/29/22 06:54 Labs: Abnormal Lab Results - Last 24 Hours (Table) 04/29/22 04/29/22 04/29/22 Range/Units 06:54 06:58 06:59 RBC 2.41 L (4.10-5.20) X 10*6/uL Hgb 6.9 L* (12.0-15.0) g/dL Hct 21.7 L (37.2-46.3) % MCHC 31.8 L (32.0-37.0) g/dL RDW 17.4 H (11.5-14.5) % Plt Count 63 L (140-440) X 10*3/uL Plt Count Comment DECREASED A Absolute Nucleated RBC 0.09 H (0.00-0.00) X 10*3/uL Myelocytes % 4 H (0-0) % Blast Cells % 4 H* (0-0) % Eosinophils # (Manual) 0.47 H (0.04-0.35) X 10*3/uL NRBC/100 WBC Diff 1.1 H (0.0-0.0) /100 WBCS Immature Plt Fraction 7.8 H (1.1-6.1) % PT 15.0 H (9.0-12.0) sec INR 1.5 H (<1.2) APTT 30.6 H (22.0-30.0) sec Sodium 129 L (137-145) mmol/L Potassium 3.4 L (3.5-5.1) mmol/L BUN 36 H (7-17) mg/dL Creatinine 1.21 H (0.52-1.04) mg/dL Calcium 8.0 L (8.4-10.2) mg/dL Phosphorus 2.1 L (2.5-4.5) mg/dL AST 163 H (14-36) U/L ALT 107 H (4-34) U/L Alkaline Phosphatase 665 H (38-126) U/L Total Protein 4.0 L (6.3-8.2) g/dL Albumin 2.3 L (3.5-5.0) g/dL Microbiology - Last 24 Hours (Table) 04/25/22 20:55 Blood Culture - Preliminary Blood No Growth after 72 hours 04/24/22 17:48 Blood Culture - Preliminary Blood No Growth after 96 hours 04/24/22 17:20 Blood Culture - Preliminary Blood No Growth after 96 hours Assessment and Plan (1) Non-Hodgkin lymphoma Narrative/Plan: - Recent progression and status post cycle one of new therapy with Revlimid and Monjuvi, cycle 2 (due twoday) on hold - On hold due to current hospital problems - Monitor for TLS - CLosely monitor Dr. Maradiaga to assess patient prior to starting cycle 2 Current Visit: No Status: Acute Code(s): C85.90 - NON-HODGKIN LYMPHOMA, UNSPECIFIED, UNSPECIFIED SITE SNOMED Code(s): 422562794 (2) Hypercalcemia Narrative/Plan: Nephrology following, status post Zometa Balance with hypercalcemia and third spacing. COntinue IV Fluids Mild improvement Current Visit: Yes Status: Acute Code(s): E83.52 - HYPERCALCEMIA SNOMED Code(s): 79986824 (3) Hyponatremia Narrative/Plan: COncern of adrenal insufficiency and Tumor lysis PO fluid Restriction Status Post albumin 25grams and continue IV fluids @50cc\\ Nephrology Following Current Visit: Yes Status: Acute Code(s): E87.1 - HYPO-OSMOLALITY AND H YPONATREMIA SNOMED Code(s): 80609523 (4) Weakness Narrative/Plan: Jackman to be due to recurrent bulk disease status post treatment and anemia from chemotherapy - PT/OT Ask for increased activity and passive ROM Current Visit: No Status: Acute Code(s): R53.1 - WEAKNESS SNOMED Code(s): 44190763 (5) Bradycardia Current Visit: Yes Status: Acute Code(s): R00.1 - BRADYCARDIA, UNSPECIFIED SNOMED Code(s): 76724535 (6) Normocytic anemia Narrative/Plan: Transfuse IRRradiated PRBC hemo <7, Transfuse 6.9 today CBC to be monitored daily Current Visit: Yes Status: Acute Code(s): D64.9 - ANEMIA, UNSPECIFIED SNOMED Code(s): 038578974 (7) Deep vein thrombosis, upper right extremity Narrative/Plan: - Obtain Access on left arm, she will continue to require IV chemotherapy and frequent blood draws, as well as be high risk for infection. A picc line is the standard of care for this patient, understanding she does not have ideal veins for picc line, we will need for ongoing treatment. She will be on anticogulation moving forward so risk of clotting off new left arm picc will be minimal. Await 24 hours on eliquis and line on left arm and pull right arm line. Port may be higher risk as if becomes infected not easily removable but given the need for central line access that can remain in through the next 4 treatments scheduled this maybe our only hope as IR does not feel comfortable at this time moving forward with new left arm picc line. DIscussed with RN and ok for him to add access left for hospital Will start PO doac and plan for 3-6 months of treatment Daily CBC, PLatelets >50K Stpo bolus Eliquis, with dropping platelets will proceed with 5mg po BID and hold if less than 50K Current Visit: Yes Status: Acute Code(s): I82.621 - ACUTE EMBOLISM AND THROMBOSIS OF DEEP VEINS OF R UP EXTREM SNOMED Code(s): 084254830 (8) Fever Narrative/Plan: Re-torres culture Broad spectrum Cefepime and vanco ID consult Current Visit: Yes Status: Acute Code(s): R50.9 - FEVER, UNSPECIFIED SNOMED Code(s): 747198933
[2022-04-30 06:25] LABS: ALT 121 U/L (4-34); AST 199 U/L (14-36); African American GFR (CKD) 49 (>60 ml/min/1.73 sqM); Albumin 2.3 g/dL (3.5-5.0); Albumin/Globulin Ratio 1.3; Alkaline Phosphatase 754 U/L (38-126); Anion Gap 9 mmol/L; Blood Urea Nitrogen 39 mg/dL (7-17); Calcium 7.7 mg/dL (8.4-10.2); Carbon Dioxide 21 mmol/L (22-30); Chloride 105 mmol/L (98-107); Globulin 1.8 g/dL; Glucose 101 mg/dL (74-99); Magnesium 1.7 mg/dL (1.6-2.3); Non-African American GFR(CKD) 42 (>60 ml/min/1.73 sqM); Phosphorus 3.3 mg/dL (2.5-4.5); Potassium 3.7 mmol/L (3.5-5.1); Sodium 135 mmol/L (137-145); Total Protein 4.1 g/dL (6.3-8.2)
[2022-04-30] MEDS: SODIUM CHLORIDE 0.9% 1,000 ML IV SCH (08:54)
[2022-04-30] MEDS: METOPROLOL TARTRATE 25 MG TAB PO SCH ×2 (09:10→21:23)
[2022-04-30] MEDS: SENNOSIDES-DOCUSATE SODIUM 1 EACH TAB PO SCH ×2 (09:10→21:23)
[2022-04-30] MEDS: ASPIRIN 81 MG PO SCH (09:10)
[2022-04-30] MEDS: POTAS-SOD-PHOS 278-164-250 MG 1 EACH PACKET PO SCH ×3 (09:10→21:30)
[2022-04-30] MEDS: CEFEPIME 2 GM in SODIUM CHLORIDE 0.9% 100 ML IVPB SCH (09:10)
[2022-04-30] MEDS: allopurinoL 100 MG TAB PO SCH (09:10)
[2022-04-30] MEDS: MAG HYDROX/AL HYDROX/SIMETH 30 ML, LIDOCAINE VISCOUS 2% 30 ML, diphenhydrAMINE ELIXIR 7... PO SCH ×16 (09:10→21:31)
[2022-04-30] MEDS: APIXABAN 5 MG TAB PO SCH ×2 (09:10→21:23)
[2022-04-30 09:37] LABS: Band Neutrophils % 2 %; Metamyelocytes % 1 %; Myelocytes % 2 %; Neutrophils % (M) 50 %
[2022-04-30 09:38] LABS: Blast Cells # (M) 0.29 k/uL (0); Lymphocytes # (M) 3.92 k/uL (1.0-4.8); Monocytes # (M) 0.29 k/uL (0-1.0); Nucleated Red Blood Cells 1 /100 WBC (0-0); Total Cells Counted 200; WBC 9.8 k/uL (3.8-10.6)
[2022-04-30 09:41] LABS: Poikilocytosis (M) Present
--- NOTE | 2022-04-30 13:04 | P.PN ---
Subjective Progress Note Date: 04/30/22 Principal diagnosis: General weakness Doing well. She is starting to ambulate, she is feeling better stronger today. No sob, no pain. Objective - Vital Signs Vital signs: Vital Signs Temp 97.3 F L 04/30/22 08:00 Pulse 84 04/30/22 08:00 Resp 18 04/30/22 08:00 BP 129/70 04/30/22 08:00 Pulse Ox 92 L 04/30/22 08:00 FiO2 Intake & Output 04/29/22 04/30/22 04/30/22 18:59 06:59 18:59 Output Total 400 900 Balance -400 -900 Output: Urine 400 900 Other: Voiding Method External Catheter External Catheter External Catheter # Bowel Movements 1 - Exam Constitutional: No acute distress, conversant, pleasant Eyes:Anicteric sclerae, moist conjunctiva, no lid-lag, PERRLA, ENMT: Oropharynx clear, no erythema, exudates Neck: Supple, FROM, no masses, or JVD, No carotid bruits, No thyromegaly Lungs: Clear to auscultation, Clear to percussion, Normal respiratory effort, no accessory muscle use Cardiovascular: Heart regular in rate and rhythm, No murmurs, gallops, or rubs Abdominal: Soft, Nontender, no guarding, rebound or rigidity, Normoactive bowel sounds, No hepatomegaly, No splenomegaly, No palpable mass Skin: Normal temperature, tone, texture, turgor, no induration, No subcutaneous nodules, No rash, lesions, No ulcers Extremities: Right arm swollen, no digital cyanosis, No clubbing, Pedal pulses intact and symmetrical, Radial pulses intact and symmetrical, No calf tenderness Psychiatric: Alert and oriented to person, place and time, appropriate affect, intact judgement Neuro: General weakness, no focal sensory deficits - Labs CBC & Chem 7: 04/29/22 12:10 04/30/22 05:20 Labs: Abnormal Lab Results - Last 24 Hours (Table) 04/27/22 04/28/22 04/29/22 Range/Units 06:28 06:08 06:59 Plt Count (150-450) k/uL Blast Cells % % Metamyelocytes # (Man) (0) k/uL Myelocytes # (Manual) (0) k/uL Blast Cells # (Man) 0.06 H 0.14 H 0.32 H (0) k/uL Nucleated RBCs (0-0) /100 WBC Sodium (137-145) mmol/L Carbon Dioxide (22-30) mmol/L BUN (7-17) mg/dL Creatinine (0.52-1.04) mg/dL Glucose (74-99) mg/dL Calcium (8.4-10.2) mg/dL AST (14-36) U/L ALT (4-34) U/L Alkaline Phosphatase (38-126) U/L Total Protein (6.3-8.2) g/dL Albumin (3.5-5.0) g/dL Crossmatch 04/29/22 04/29/22 04/30/22 Range/Units 12:10 12:10 05:20 Plt Count 72 L (150-450) k/uL Blast Cells % 3 H* % Metamyelocytes # (Man) 0.10 H (0) k/uL Myelocytes # (Manual) 0.20 H (0) k/uL Blast Cells # (Man) 0.29 H (0) k/uL Nucleated RBCs 1 H (0-0) /100 WBC Sodium 135 L (137-145) mmol/L Carbon Dioxide 21 L (22-30) mmol/L BUN 39 H (7-17) mg/dL Creatinine 1.23 H (0.52-1.04) mg/dL Glucose 101 H (74-99) mg/dL Calcium 7.7 L (8.4-10.2) mg/dL AST 199 H (14-36) U/L ALT 121 H (4-34) U/L Alkaline Phosphatase 754 H (38-126) U/L Total Protein 4.1 L (6.3-8.2) g/dL Albumin 2.3 L (3.5-5.0) g/dL Crossmatch See Detail Microbiology - Last 24 Hours (Table) 04/25/22 20:55 Blood Culture - Preliminary Blood No Growth after 96 hours 04/24/22 17:48 Blood Culture - Preliminary Blood No Growth after 120 hours 04/24/22 17:20 Blood Culture - Preliminary Blood No Growth after 120 hours Assessment and Plan Plan: Generalized weakness secondary to chemotherapy Hypercalcemia likely due to dehydration versus lymphoma Lactic acidosis -Ca better, d/c fluids -Patient does have some lower extremity edema so we'll need to monitor patient closely for volume overload -Status post zoledronic acid, calcitonin, Lasix 100 mg 1 -PT OT -PTH RP, pending -Oncology and nephrology Hyponatremia likely SIADH -Improved with lasix -Urine osm on the high side, fluids 1500cc daily. Right axillary vein DVT -D/w oncology, eliquis -Right PICC d/cristian, new left arm PICC placed. Fever -Could be sec to DVT -Started on broad spectrum abx, cultures repeated NGTD, vanco d/cristian. Continue cefepime to complete total of 5 days as cultures remained negative. -Continue to monitor temp Elevated LFTs -Patient asymptomatic -Right upper quadrant ultrasound showing some cholelithiasis. Lower extremity edema likely due to hypoalbuminemia -Was given few doses of lasix -Albumin given Acute systolic CHF exacerbation -Treated with lasix. Now better. LESLEY -Lasix held 04/27 Hypokalemia and hypomagnesemia -Replace and follow in am Anemia -Suspect due to chemotherapy and lymphoma with a component of iron deficiency. -IV iron given -Oncology following -Status post 1 unit of packed red blood cell transfusion on 04/24 -Hgb down again 04/29, d/w oncology, will give one unit. Non-Hodgkin lymphoma on active chemotherapy -Oncology following -Hold Revlimid for now -Consult palliative care Coronary disease status post recent stent -Resume aspirin and statin and metoprolol -D/w cardiology, Dr. Leon will only give eliquis and aspirin. Hold plavix. Hypertension -Hold losartan as patient is dehydrated and risk for hypertension. Resume metoprolol CODE STATUS: DNR/DNI DPOA: Patient's sister DVT prophylaxis: mechanical. Anticipated discharge place: rehab
[2022-04-30 13:44] LABS: Anisocytosis Slight; HCT 22.7 % (34.0-46.0); HGB 7.4 gm/dL (11.4-16.0); Hypochromasia Moderate; MCHC 32.6 g/dL (31.0-37.0); MCV 92.2 fL (80.0-100.0); Mean Platelet Volume 9.8; RBC 2.46 m/uL (3.80-5.40); RDW 17.5 % (11.5-15.5)
[2022-04-30 13:59] LABS: INR 1.4 (<1.2); Prothrombin Time 14.1 sec (9.0-12.0)
[2022-04-30 14:52] LABS: Band Neutrophils % 2 %; Lymphocytes # (M) 3.56 k/uL (1.0-4.8); Neutrophils % (M) 56 %; Nucleated Red Blood Cells 2 /100 WBC (0-0); Total Cells Counted 200; WBC 9.9 k/uL (3.8-10.6)
[2022-04-30 14:55] LABS: Platelet Count 57 k/uL (150-450)
[2022-04-30] MEDS: ATORVASTATIN 80 MG TAB PO SCH (21:23)
[2022-04-30] MEDS: MELATONIN 3 MG TABLET PO SCH (21:23)
[2022-05-01] MEDS: MAG HYDROX/AL HYDROX/SIMETH 30 ML, LIDOCAINE VISCOUS 2% 30 ML, diphenhydrAMINE ELIXIR 7... PO SCH ×12 (09:53→21:25)
[2022-05-01] MEDS: CEFEPIME 2 GM in SODIUM CHLORIDE 0.9% 100 ML IVPB SCH ×2 (09:53→17:17)
[2022-05-01] MEDS: ASPIRIN 81 MG PO SCH (09:53)
[2022-05-01] MEDS: SENNOSIDES-DOCUSATE SODIUM 1 EACH TAB PO SCH ×2 (09:53→21:25)
[2022-05-01] MEDS: METOPROLOL TARTRATE 25 MG TAB PO SCH ×2 (09:54→21:25)
[2022-05-01] MEDS: APIXABAN 5 MG TAB PO SCH ×2 (09:54→21:25)
[2022-05-01] MEDS: allopurinoL 100 MG TAB PO SCH (09:54)
[2022-05-01] MEDS: POTAS-SOD-PHOS 278-164-250 MG 1 EACH PACKET PO SCH ×3 (09:54→21:25)
[2022-05-01 11:01] LABS: African American GFR (CKD) 39.6 (60.0-200.0); Anion Gap 12.7 mmol/L (10.00-18.00); BUN/Creat Ratio 27.81 Ratio (12.00-20.00); Blood Urea Nitrogen 40.6 mg/dL (9.0-27.0); Calcium 7.8 mg/dL (8.7-10.3); Carbon Dioxide 19.6 mmol/L (20.0-27.5); Non-African American GFR(CKD) 34.1 (60.0-200.0); Potassium 3.9 mmol/L (3.5-5.5)
[2022-05-01 11:05] LABS: HCT 20.1 % (37.2-46.3); HGB 6.4 g/dL (12.0-15.0); MCH 28.8 pg (27.0-32.0); MCHC 31.8 g/dL (32.0-37.0); MCV 90.5 fL (80.0-97.0); Mean Platelet Volume 12.3 fL (9.5-12.2); NRBC Per 100 WBC 0.8 /100 WBCS (0.0-0.0); Platelet Count 42 X 10*3/uL (140-440); RBC 2.22 X 10*6/uL (4.10-5.20); WBC 9.72 X 10*3/uL (4.50-10.00)
[2022-05-01 11:17] LABS: Basophils # (M) 0 X 10*3/uL (0.00-0.10); Blast Cells # (M) 0.49 k/uL (0); Immature Platelet Fraction 8.3 % (1.1-6.1); Lymphocytes # (M) 1.07 X 10*3/uL (0.90-5.00); Monocytes # (M) 0.68 X 10*3/uL (0.20-1.00); Myelocytes % 1 % (0-0); Neutrophils # (M) 7.29 X 10*3/uL (2.00-8.90); Neutrophils % (M) 75 %
--- NOTE | 2022-05-01 12:45 | P.PN ---
Subjective Progress Note Date: 05/01/22 Principal diagnosis: General weakness Patient feeling significantly weak today. She states it is not easy for her to ambulate. She denied having any pain, shortness of breath, dizziness. Objective - Vital Signs Vital signs: Vital Signs Temp 98.3 F 05/01/22 08:00 Pulse 77 05/01/22 08:00 Resp 17 05/01/22 08:00 BP 127/56 05/01/22 08:00 Pulse Ox 96 05/01/22 09:05 FiO2 Intake & Output 04/30/22 05/01/22 05/01/22 18:59 06:59 18:59 Intake Total 1070 240 Output Total 800 Balance 1070 -560 Weight 68.039 kg Intake: Oral 1070 240 Output: Urine 800 Other: Voiding Method External Catheter External Catheter External Catheter # Voids 2 2 # Bowel Movements 1 - Exam Constitutional: No acute distress, conversant, pleasant Eyes:Anicteric sclerae, moist conjunctiva, no lid-lag, PERRLA, ENMT: Oropharynx clear, no erythema, exudates Neck: Supple, FROM, no masses, or JVD, No carotid bruits, No thyromegaly Lungs: Clear to auscultation, Clear to percussion, Normal respiratory effort, no accessory muscle use Cardiovascular: Heart regular in rate and rhythm, No murmurs, gallops, or rubs Abdominal: Soft, Nontender, no guarding, rebound or rigidity, Normoactive bowel sounds, No hepatomegaly, No splenomegaly, No palpable mass Skin: Normal temperature, tone, texture, turgor, no induration, No subcutaneous nodules, No rash, lesions, No ulcers Extremities: Right arm swollen, no digital cyanosis, No clubbing, Pedal pulses intact and symmetrical, Radial pulses intact and symmetrical, No calf tenderness Psychiatric: Alert and oriented to person, place and time, appropriate affect, intact judgement Neuro: General weakness, no focal sensory deficits - Labs CBC & Chem 7: 05/01/22 05:55 05/01/22 05:55 Labs: Abnormal Lab Results - Last 24 Hours (Table) 04/29/22 04/30/22 04/30/22 Range/Units 12:10 13:23 13:23 RBC 2.46 L (3.80-5.40) m/uL Hgb 7.4 L (11.4-16.0) gm/dL Hct 22.7 L (34.0-46.0) % MCHC (32.0-37.0) g/dL RDW 17.5 H (11.5-15.5) % Plt Count 57 L (150-450) k/uL Plt Count Comment MPV (9.5-12.2) fL Absolute Nucleated RBC (0.00-0.00) X 10*3/uL Myelocytes % (0-0) % Blast Cells % 3 H* % Blast Cells # (Man) 0.30 H (0) k/uL Nucleated RBCs 2 H (0-0) /100 WBC NRBC/100 WBC Diff (0.0-0.0) /100 WBCS Immature Plt Fraction (1.1-6.1) % PT 14.1 H (9.0-12.0) sec INR 1.4 H (<1.2) Carbon Dioxide (20.0-27.5) mmol/L BUN (9.0-27.0) mg/dL Est GFR (CKD-EPI)AfAm (60.0-200.0) Est GFR (CKD-EPI)NonAf (60.0-200.0) BUN/Creatinine Ratio (12.00-20.00) Ratio Calcium (8.7-10.3) mg/dL Crossmatch See Detail 05/01/22 05/01/22 Range/Units 05:55 05:55 RBC 2.22 L (3.80-5.40) m/uL Hgb 6.4 L* (11.4-16.0) gm/dL Hct 20.1 L (34.0-46.0) % MCHC 31.8 L (32.0-37.0) g/dL RDW 18.0 H (11.5-15.5) % Plt Count 42 L (150-450) k/uL Plt Count Comment A MPV 12.3 H (9.5-12.2) fL Absolute Nucleated RBC 0.08 H (0.00-0.00) X 10*3/uL Myelocytes % 1 H (0-0) % Blast Cells % 5 H* % Blast Cells # (Man) (0) k/uL Nucleated RBCs (0-0) /100 WBC NRBC/100 WBC Diff 0.8 H (0.0-0.0) /100 WBCS Immature Plt Fraction 8.3 H (1.1-6.1) % PT (9.0-12.0) sec INR (<1.2) Carbon Dioxide 19.6 L (20.0-27.5) mmol/L BUN 40.6 H (9.0-27.0) mg/dL Est GFR (CKD-EPI)AfAm 39.6 L (60.0-200.0) Est GFR (CKD-EPI)NonAf 34.1 L (60.0-200.0) BUN/Creatinine Ratio 27.81 H (12.00-20.00) Ratio Calcium 7.8 L (8.7-10.3) mg/dL Crossmatch Microbiology - Last 24 Hours (Table) 04/25/22 20:55 Blood Culture - Preliminary Blood No Growth after 120 hours 04/24/22 17:48 Blood Culture - Final Blood No Growth after 144 hours 04/24/22 17:20 Blood Culture - Final Blood No Growth after 144 hours Assessment and Plan Plan: Generalized weakness secondary to chemotherapy Hypercalcemia likely due to dehydration versus lymphoma Lactic acidosis -Ca better, d/c fluids -Patient does have some lower extremity edema so we'll need to monitor patient closely for volume overload -Status post zoledronic acid, calcitonin, Lasix 100 mg 1 -PT OT -PTH RP, pending -Oncology and nephrology Hyponatremia likely SIADH -Improved with lasix -Urine osm on the high side, fluids 1500cc daily. Right axillary vein DVT -D/w oncology, eliquis -Right PICC d/cristian, new left arm PICC placed. Fever -Could be sec to DVT -Started on broad spectrum abx, cultures repeated NGTD, vanco d/cristian. Continue cefepime to complete total of 5 days as cultures remained negative. Stop date 05/02 -Continue to monitor temp Elevated LFTs -Patient asymptomatic -Right upper quadrant ultrasound showing some cholelithiasis. Lower extremity edema likely due to hypoalbuminemia -Was given few doses of lasix -Albumin given Acute systolic CHF exacerbation -Treated with lasix. Now better. LESLEY -Lasix held 04/27 Hypokalemia and hypomagnesemia -Replace and follow in am Anemia -Suspect due to chemotherapy and lymphoma with a component of iron deficiency. -IV iron given -Oncology following -Status post 2 units of packed red blood cell transfusions, will give one more today. Non-Hodgkin lymphoma on active chemotherapy -Oncology following -Hold Revlimid for now -Consult palliative care Coronary disease status post recent stent -Resume aspirin and statin and metoprolol -D/w cardiology, Dr. Leon will only give eliquis and aspirin. Hold plavix. Hypertension -Hold losartan as patient is dehydrated and risk for hypertension. Resume metoprolol CODE STATUS: DNR/DNI DPOA: Patient's sister DVT prophylaxis: mechanical. Anticipated discharge place: rehab
--- NOTE | 2022-05-01 14:28 | P.PN ---
Subjective Patient is seen for follow-up for hypercalcemia and hyponatremia. The serum sodium has improved to 136 and calcium is currently low at 7.8. Renal function is stable however serum creatinine today is noted to have increased to 1.5 from 1.2 yesterday. Patient denies any significant complaints Blood pressure has not been significantly low No nephrotoxic agents noted on med list. Objective - Vital Signs Vital signs: Vital Signs Temp 98.1 F 05/01/22 13:54 Pulse 84 05/01/22 13:54 Resp 15 05/01/22 13:54 BP 111/65 05/01/22 13:54 Pulse Ox 95 05/01/22 13:54 FiO2 Intake & Output 04/30/22 05/01/22 05/01/22 18:59 06:59 18:59 Intake Total 1070 240 0 Output Total 800 Balance 1070 -560 0 Weight 68.039 kg Intake: Oral 1070 240 Blood Product 0 Unit 0 Output: Urine 800 Other: Voiding Method External Catheter External Catheter External Catheter # Voids 2 2 # Bowel Movements 1 - Exam Awake, comfortable, not in any acute distress Examination of the heart S1 and S2 Examination of the lungs bilateral breath sounds are heard Abdomen is soft nontender Examination of the lower extremity shows trace edema bilaterally [employer] exam grossly intact - Labs CBC & Chem 7: 05/01/22 05:55 05/01/22 05:55 Labs: Abnormal Lab Results - Last 24 Hours (Table) 04/29/22 04/30/22 05/01/22 Range/Units 12:10 13:23 05:55 RBC 2.22 L (4.10-5.20) X 10*6/uL Hgb 6.4 L* (12.0-15.0) g/dL Hct 20.1 L (37.2-46.3) % MCHC 31.8 L (32.0-37.0) g/dL RDW 18.0 H (11.5-14.5) % Plt Count 57 L 42 L (150-450) k/uL Plt Count Comment A MPV 12.3 H (9.5-12.2) fL Absolute Nucleated RBC 0.08 H (0.00-0.00) X 10*3/uL Myelocytes % 1 H (0-0) % Blast Cells % 3 H* 5 H* % Blast Cells # (Man) 0.30 H 0.49 H (0) k/uL Nucleated RBCs 2 H (0-0) /100 WBC NRBC/100 WBC Diff 0.8 H (0.0-0.0) /100 WBCS Immature Plt Fraction 8.3 H (1.1-6.1) % Carbon Dioxide (20.0-27.5) mmol/L BUN (9.0-27.0) mg/dL Est GFR (CKD-EPI)AfAm (60.0-200.0) Est GFR (CKD-EPI)NonAf (60.0-200.0) BUN/Creatinine Ratio (12.00-20.00) Ratio Calcium (8.7-10.3) mg/dL Crossmatch See Detail 05/01/22 Range/Units 05:55 RBC (4.10-5.20) X 10*6/uL Hgb (12.0-15.0) g/dL Hct (37.2-46.3) % MCHC (32.0-37.0) g/dL RDW (11.5-14.5) % Plt Count (150-450) k/uL Plt Count Comment MPV (9.5-12.2) fL Absolute Nucleated RBC (0.00-0.00) X 10*3/uL Myelocytes % (0-0) % Blast Cells % % Blast Cells # (Man) (0) k/uL Nucleated RBCs (0-0) /100 WBC NRBC/100 WBC Diff (0.0-0.0) /100 WBCS Immature Plt Fraction (1.1-6.1) % Carbon Dioxide 19.6 L (20.0-27.5) mmol/L BUN 40.6 H (9.0-27.0) mg/dL Est GFR (CKD-EPI)AfAm 39.6 L (60.0-200.0) Est GFR (CKD-EPI)NonAf 34.1 L (60.0-200.0) BUN/Creatinine Ratio 27.81 H (12.00-20.00) Ratio Calcium 7.8 L (8.7-10.3) mg/dL Crossmatch Microbiology - Last 24 Hours (Table) 04/25/22 20:55 Blood Culture - Preliminary Blood No Growth after 120 hours 04/24/22 17:48 Blood Culture - Final Blood No Growth after 144 hours 04/24/22 17:20 Blood Culture - Final Blood No Growth after 144 hours Assessment and Plan Assessment: 1. Hyponatremia, hypovolemic currently improved with diuresis. 2. Hypercalcemia with appropriately low PTH levels and elevated Dale level. Currently resolved. Patient has underlying lymphoma 3. Non-Hodgkin's lymphoma being followed by oncology 4. Hypervolemia and lower extremity edema currently improved with diuretics 5. Cardiomyopathy with ejection fraction 40% 6. Acute kidney injury initially associated with hypercalcemia and possible tumor lysis syndrome. Creatinine had improved to 1.25 and increased again to 1.5 today. Currently not on any diuretics. UA showed no evidence of protein Plan: Repeat labs in a.m. continue off of diuretics Avoid nephrotoxic agents Check bladder scan and rule out urine retention if renal function is worse tomorrow
--- NOTE | 2022-05-01 17:57 | P.PN ---
Subjective Progress Note Date: 05/01/22 Objective - Vital Signs Vital signs: Vital Signs Temp 98.4 F 05/01/22 16:53 Pulse 86 05/01/22 16:53 Resp 16 05/01/22 16:53 BP 133/64 05/01/22 16:53 Pulse Ox 96 05/01/22 16:53 FiO2 Intake & Output 04/30/22 05/01/22 05/01/22 18:59 06:59 18:59 Intake Total 1070 240 310 Output Total 800 Balance 1070 -560 310 Weight 68.039 kg Intake: Oral 1070 240 Blood Product 310 Rc Irr As1 Unit 310 [id number] Output: Urine 800 Other: Voiding Method External Catheter External Catheter External Catheter # Voids 2 2 # Bowel Movements 1 - Constitutional General appearance: Present: average body habitus, cooperative, no acute distress - EENT Eyes: Present: anicteric sclerae, EOMI ENT: Present: hearing grossly normal - Respiratory Respiratory: bilateral: CTA - Cardiovascular Rhythm: regular - Peripheral edema leg Peripheral Edema: bilateral: None - Gastrointestinal General gastrointestinal: Present: normal bowel sounds - Neurologic Neurologic: Present: CNII-XII intact (grossly) - Musculoskeletal Musculoskeletal: Present: generalized weakness - Psychiatric Psychiatric Comment(s): patient mildly forgetful Psychiatric: Present: A&O x's 3, appropriate affect - Labs CBC & Chem 7: 05/01/22 05:55 05/01/22 05:55 Labs: Abnormal Lab Results - Last 24 Hours (Table) 04/29/22 05/01/22 05/01/22 Range/Units 12:10 05:55 05:55 RBC 2.22 L (4.10-5.20) X 10*6/uL Hgb 6.4 L* (12.0-15.0) g/dL Hct 20.1 L (37.2-46.3) % MCHC 31.8 L (32.0-37.0) g/dL RDW 18.0 H (11.5-14.5) % Plt Count 42 L (140-440) X 10*3/uL Plt Count Comment A MPV 12.3 H (9.5-12.2) fL Absolute Nucleated RBC 0.08 H (0.00-0.00) X 10*3/uL Myelocytes % 1 H (0-0) % Blast Cells % 5 H* (0-0) % Blast Cells # (Man) 0.49 H (0) k/uL NRBC/100 WBC Diff 0.8 H (0.0-0.0) /100 WBCS Immature Plt Fraction 8.3 H (1.1-6.1) % Carbon Dioxide 19.6 L (20.0-27.5) mmol/L BUN 40.6 H (9.0-27.0) mg/dL Est GFR (CKD-EPI)AfAm 39.6 L (60.0-200.0) Est GFR (CKD-EPI)NonAf 34.1 L (60.0-200.0) BUN/Creatinine Ratio 27.81 H (12.00-20.00) Ratio Calcium 7.8 L (8.7-10.3) mg/dL Crossmatch See Detail Microbiology - Last 24 Hours (Table) 04/25/22 20:55 Blood Culture - Preliminary Blood No Growth after 120 hours 04/24/22 17:48 Blood Culture - Final Blood No Growth after 144 hours 04/24/22 17:20 Blood Culture - Final Blood No Growth after 144 hours Assessment and Plan (1) Tumor lysis syndrome following antineoplastic drug therapy Current Visit: Yes Status: Acute Priority: High Code(s): E88.3 - TUMOR LYSIS SYNDROME; T45.1X5A - ADVERSE EFFECT OF ANTINEOPLASTIC AND IMMUNOSUP DRUGS, INIT SNOMED Code(s): 369740140 (2) Non-Hodgkin lymphoma Current Visit: Yes Status: Chronic Priority: High Code(s): C85.90 - NON-HODGKIN LYMPHOMA, UNSPECIFIED, UNSPECIFIED SITE SNOMED Code(s): 476022778 (3) Bicytopenia Current Visit: Yes Status: Acute Priority: High Code(s): D75.89 - OTHER SPECIFIED DISEASES OF BLOOD AND BLOOD-FORMING ORGANS SNOMED Code(s): 80742065 (4) Deep vein thrombosis, upper right extremity Current Visit: Yes Status: Acute Priority: High Code(s): I82.621 - ACUTE EMBOLISM AND THROMBOSIS OF DEEP VEINS OF R UP EXTREM SNOMED Code(s): 757387692 Plan: 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 Patient is been hydrated, given allopurinol, her electrolytes are normalizing, kidney function is improving. Revlimid and Monjuvi treatment on hold until patient is discharged from [facility]. Patient was encouraged to participate in rehabilitation and to focus on eating and drinking and moving around. Follow-up appointment with the doctor is in the chart. Bicytopenia. Related to treatment as well as disease. Transfuse for hemoglobin less than 7. Patient will be receiving 1 unit today for hemoglobin of 6.4. Case was discussed with Attending. Transfuse for platelets less than 10,000 or if symptomatic. Patient has not required a platelet transfusion yet. Platelets greater than 50,000 adequate for anticoagulation. Today platelets 42,000. Patient has a new DVT. Aspirin held. Will recheck CBC in the a.m. If platelets continue to be less than 50,000 may have to consider placement of an IVC filter as full dose anticoagulation will be higher risk. Line associated DVT of the upper extremity. Patient is on anticoagulation.
[2022-05-01] MEDS: SODIUM CHLORIDE 0.9% 1,000 ML IV SCH (18:01)
[2022-05-01] MEDS: ATORVASTATIN 80 MG TAB PO SCH (21:25)
[2022-05-01] MEDS: MELATONIN 3 MG TABLET PO SCH (21:25)
[2022-05-02] MEDS: SODIUM CHLORIDE 0.9% 1,000 ML IV SCH (01:36)
[2022-05-02] MEDS: ACETAMINOPHEN TAB 325 MG TAB PO PRN (07:36)
[2022-05-02] MEDS: METOPROLOL TARTRATE 25 MG TAB PO SCH ×2 (10:59→22:40)
[2022-05-02] MEDS: allopurinoL 100 MG TAB PO SCH (10:59)
[2022-05-02] MEDS: SENNOSIDES-DOCUSATE SODIUM 1 EACH TAB PO SCH ×2 (10:59→22:40)
[2022-05-02] MEDS: POTAS-SOD-PHOS 278-164-250 MG 1 EACH PACKET PO SCH ×2 (11:10→16:56)
[2022-05-02 13:26] LABS: HCT 21.4 % (37.2-46.3); MCH 28.6 pg (27.0-32.0); MCHC 32.7 g/dL (32.0-37.0); MCV 87.3 fL (80.0-97.0); Mean Platelet Volume 11.8 fL (9.5-12.2); Platelet Count 36 X 10*3/uL (140-440); RBC 2.45 X 10*6/uL (4.10-5.20); RDW 17.4 % (11.5-14.5); WBC 8.93 X 10*3/uL (4.50-10.00)
[2022-05-02 13:27] LABS: Immature Platelet Fraction 8.7 % (1.1-6.1)
[2022-05-02] MEDS: APIXABAN 5 MG TAB PO SCH (15:55)
[2022-05-02] MEDS: CEFEPIME 2 GM in SODIUM CHLORIDE 0.9% 100 ML IVPB SCH (16:56)
--- NOTE | 2022-05-02 17:08 | P.PN ---
Subjective Progress Note Date: 05/02/22 Principal diagnosis: Epistaxis Patient was seen and examined. No acute events overnight. Received 1 units PRBC yesterday. Repeat Hg 7.0. Patient reports a nosebleed earlier this morning that resolved spontaneously. Anxiously waiting to go to [facility]. She denies any other complaints. Objective - Vital Signs Vital signs: Vital Signs Temp 97.6 F 05/02/22 14:06 Pulse 71 05/02/22 14:06 Resp 18 05/02/22 14:06 BP 117/65 05/02/22 14:06 Pulse Ox 97 05/02/22 14:06 FiO2 Intake & Output 05/01/22 05/02/22 05/02/22 18:59 06:59 18:59 Intake Total 1020 120 Output Total 600 250 Balance 1020 -480 -250 Intake: Intake, IV Titration 400 Amount Sodium Chloride 0.9% 1, 400 000 ml @ 50 mls/hr IV . Q20H [facility] Rx#:[id number] Oral 120 Blood Product 620 Rc Irr As1 Unit 310 [id number] Output: Urine 600 250 Other: Voiding Method External Catheter External Catheter # Voids 2 - Exam Constitutional: No acute distress, conversant, pleasant Eyes:Anicteric sclerae, moist conjunctiva, no lid-lag ENMT: Oropharynx clear, no erythema, exudates Neck: Supple, FROM, no masses, or JVD, No carotid bruits, No thyromegaly Lungs: Clear to auscultation, Clear to percussion, Normal respiratory effort, no accessory muscle use Cardiovascular: Heart regular in rate and rhythm, No murmurs, gallops, or rubs Abdominal: Soft, Nontender, no guarding Skin: Normal temperature, tone, texture, turgor, no induration, No subcutaneous nodules, No rash, lesions, No ulcers Psychiatric: Alert and oriented to person, place and time, appropriate affect, intact judgement Neuro: General weakness, no focal sensory deficits - Labs CBC & Chem 7: 05/02/22 05:57 05/01/22 05:55 Labs: Abnormal Lab Results - Last 24 Hours (Table) 04/29/22 05/02/22 Range/Units 12:10 05:57 RBC 2.45 L (4.10-5.20) X 10*6/uL Hgb 7.0 L (12.0-15.0) g/dL Hct 21.4 L (37.2-46.3) % RDW 17.4 H (11.5-14.5) % Plt Count 36 L (140-440) X 10*3/uL Plt Count Comment DECREASED A Absolute Nucleated RBC 0.09 H (0.00-0.00) X 10*3/uL NRBC/100 WBC Diff 1.0 H (0.0-0.0) /100 WBCS Immature Plt Fraction 8.7 H (1.1-6.1) % Crossmatch See Detail Microbiology - Last 24 Hours (Table) 04/25/22 20:55 Blood Culture - Final Blood No Growth after 144 hours Assessment and Plan Assessment: Generalized weakness secondary to chemotherapy Hypercalcemia likely due to dehydration versus lymphoma Lactic acidosis -Ca better, d/c fluids -Patient does have some lower extremity edema so we'll need to monitor patient closely for volume overload -Status post zoledronic acid, calcitonin, Lasix 100 mg 1 -PT OT -PTHRP, pending -Oncology and nephrology Hyponatremia likely hypervolemic -Improved with lasix -Resolved Right axillary vein DVT -D/w oncology, eliquis -Right PICC d/cristian, new left arm PICC placed. Fever -Could be sec to DVT -Started on broad spectrum abx, cultures repeated NGTD, vanco d/cristian. Continue cefepime to complete total of 5 days as cultures remained negative. Stop date 05/02 -Continue to monitor temp Elevated LFTs -Patient asymptomatic -Right upper quadrant ultrasound showing some cholelithiasis. Lower extremity edema likely due to hypoalbuminemia -Was given few doses of lasix -Albumin given Acute systolic CHF exacerbation -Treated with lasix. Now better. LESLEY -Lasix held 04/27 Hypokalemia and hypomagnesemia -Resolved Anemia -Suspect due to chemotherapy and lymphoma with a component of iron deficiency. -IV iron given -Oncology following -Repeat hemoglobin tomorrow. Non-Hodgkin lymphoma on active chemotherapy -Oncology following -Hold Revlimid for now -Consult palliative care Coronary disease status post recent stent -Resume aspirin and statin and metoprolol -D/w cardiology, Dr. Leon will only give eliquis and aspirin. Hold plavix. Hypertension -Hold losartan as patient is dehydrated and risk for hypertension. Resume metoprolol CODE STATUS: DNR/DNI DPOA: Patient's sister DVT prophylaxis: mechanical. Anticipated discharge place: rehab
[2022-05-02] MEDS: MAG HYDROX/AL HYDROX/SIMETH 30 ML, LIDOCAINE VISCOUS 2% 30 ML, diphenhydrAMINE ELIXIR 7... PO SCH ×8 (17:43→18:13)
--- NOTE | 2022-05-02 18:04 | P.PN ---
Subjective Progress Note Date: 05/02/22 Principal diagnosis: DLBCL on treatment, electrolyte derangements In f/u today pt was easily aroused, feeling okay today. Nosebleed earlier, no other bleeding, denies any pain in the arms. Objective - Vital Signs Vital signs: Vital Signs Temp 99.7 F H 05/02/22 08:12 Pulse 86 05/02/22 08:12 Resp 16 05/02/22 08:12 BP 136/72 05/02/22 08:12 Pulse Ox 94 L 05/02/22 08:36 FiO2 Intake & Output 05/01/22 05/02/22 05/02/22 18:59 06:59 18:59 Intake Total 1020 120 Output Total 600 Balance 1020 -480 Intake: Intake, IV Titration 400 Amount Sodium Chloride 0.9% 1, 400 000 ml @ 50 mls/hr IV . Q20H [facility] Rx#:[id number] Oral 120 Blood Product 620 Rc Irr As1 Unit 310 [id number] Output: Urine 600 Other: Voiding Method External Catheter External Catheter # Voids 2 - Constitutional General appearance: Present: average body habitus, cooperative, no acute distress - EENT Eyes: Present: anicteric sclerae, EOMI ENT: Present: hearing grossly normal - Respiratory Details: resp even and unlabored - Cardiovascular Details: resp even and unlabored at rest - Peripheral edema leg Peripheral Edema: bilateral: None - Neurologic Neurologic: Present: CNII-XII intact (grossly) - Musculoskeletal Musculoskeletal: Present: generalized weakness - Psychiatric Psychiatric Comment(s): mild forgetfulness Psychiatric: Present: A&O x's 3, appropriate affect - Labs CBC & Chem 7: 05/02/22 05:57 05/01/22 05:55 Labs: Abnormal Lab Results - Last 24 Hours (Table) 04/29/22 05/01/22 Range/Units 12:10 05:55 Blast Cells # (Man) 0.49 H (0) k/uL Crossmatch See Detail Microbiology - Last 24 Hours (Table) 04/25/22 20:55 Blood Culture - Final Blood No Growth after 144 hours Assessment and Plan (1) Tumor lysis syndrome following antineoplastic drug therapy Current Visit: Yes Status: Acute Priority: High Code(s): E88.3 - TUMOR LYSIS SYNDROME; T45.1X5A - ADVERSE EFFECT OF ANTINEOPLASTIC AND IMMUNOSUP DRUGS, INIT SNOMED Code(s): 516799382 (2) Non-Hodgkin lymphoma Current Visit: Yes Status: Chronic Priority: High Code(s): C85.90 - NON- HODGKIN LYMPHOMA, UNSPECIFIED, UNSPECIFIED SITE SNOMED Code(s): 875416563 (3) Bicytopenia Current Visit: Yes Status: Acute Priority: High Code(s): D75.89 - OTHER SPECIFIED DISEASES OF BLOOD AND BLOOD-FORMING ORGANS SNOMED Code(s): 01466938 (4) Deep vein thrombosis, upper right extremity Current Visit: Yes Status: Acute Priority: High Code(s): I82.621 - ACUTE EMBOLISM AND THROMBOSIS OF DEEP VEINS OF R UP EXTREM SNOMED Code(s): 629845099 Plan: Tumor lysis syndrome status post first round of monjuvi and revlimid treatment for relapsed refractory diffuse large B-cell lymphoma. S/P hydration, a llopurinol, her electrolytes are normalizing, kidney function is improving. Revlimid and Monjuvi treatment on hold until patient is discharged from rehabilitation. Patient was encouraged to participate in rehabilitation and to focus on eating and drinking and moving around. Follow-up appointment with the doctor is in the chart. Bicytopenia. Related to treatment as well as disease. Transfuse for hemoglobin less than 7. Transfuse for platelets less than 10,000 or if symptomatic. Today platelets down to 36,000. Patient has a new RUE DVT from a line, 04/24/22. Aspirin held yesterday. Anticoagulation needs to be held today. Case discussed with [employer] Clerk. Have ordered a Doppler of the right upper extremity to evaluate for any possible propagation of the clot. If there is propagation of the clot then platelets will have to be administered and patient resumed on eliquis. If no propagation, recheck CBC in the a.m. and resume anticoagulation as soon as possible.
--- NOTE | 2022-05-02 22:35 | US ---
EXAMINATION TYPE: US venous doppler duplex UE RT DATE OF EXAM: 05/02/2022 COMPARISON: 04/24/2022 CLINICAL HISTORY: Reassess DVT for propagation/comp to doppler 04/24. history of DVT right arm. PICC li ne removed since prior exam SIDE PERFORMED: right Right Arm: Positive for DVT right subclavian vein lateral extending into axillary vein. superficial t hrombus right basilic vein IMPRESSION: There is deep vein thrombosis in the subclavian and axillary vein of the right arm. There is superfic ial thrombus in the basilic vein. Thrombus in the axillary and subclavian vein appears increased comp ared to recent exam.
[2022-05-02] MEDS: ATORVASTATIN 80 MG TAB PO SCH (22:40)
[2022-05-02] MEDS: MELATONIN 3 MG TABLET PO SCH (22:41)
[2022-05-03] MEDS: MAG HYDROX/AL HYDROX/SIMETH 30 ML, LIDOCAINE VISCOUS 2% 30 ML, diphenhydrAMINE ELIXIR 7... PO SCH ×16 (01:19→20:27)
[2022-05-03] MEDS: POTAS-SOD-PHOS 278-164-250 MG 1 EACH PACKET PO SCH ×4 (01:34→20:27)
[2022-05-03] MEDS: ACETAMINOPHEN TAB 325 MG TAB PO PRN (02:07)
[2022-05-03] MEDS: SODIUM CHLORIDE 0.9% 1,000 ML IV SCH ×2 (02:10→16:24)
[2022-05-03] MEDS: SENNOSIDES-DOCUSATE SODIUM 1 EACH TAB PO SCH ×2 (08:26→20:27)
[2022-05-03] MEDS: allopurinoL 100 MG TAB PO SCH (08:27)
[2022-05-03] MEDS: METOPROLOL TARTRATE 25 MG TAB PO SCH ×2 (08:27→20:27)
[2022-05-03 10:54] LABS: ALT 97 U/L (4-34); AST 148 U/L (14-36); African American GFR (CKD) 33 (>60 ml/min/1.73 sqM); Albumin 2.1 g/dL (3.5-5.0); Albumin/Globulin Ratio 1.2; Alkaline Phosphatase 744 U/L (38-126); Anion Gap 8 mmol/L; Blood Urea Nitrogen 50 mg/dL (7-17); Calcium 7.2 mg/dL (8.4-10.2); Carbon Dioxide 18 mmol/L (22-30); Chloride 106 mmol/L (98-107); Globulin 1.8 g/dL; Glucose 72 mg/dL (74-99); Immature Platelet Fraction 10.2 % (1.1-6.1); MCH 28.2 pg (27.0-32.0); MCHC 31.8 g/dL (32.0-37.0); MCV 88.7 fL (80.0-97.0); Magnesium 1.5 mg/dL (1.6-2.3); Mean Platelet Volume 13.3 fL (9.5-12.2); NRBC Per 100 WBC 2.2 /100 WBCS (0.0-0.0); Non-African American GFR(CKD) 29 (>60 ml/min/1.73 sqM); Platelet Count 28 X 10*3/uL (140-440); RBC 2.48 X 10*6/uL (4.10-5.20); RDW 17.8 % (11.5-14.5); Sodium 132 mmol/L (137-145); Total Bilirubin 1.3 mg/dL (0.2-1.3); Total Protein 3.9 g/dL (6.3-8.2); WBC 7.82 X 10*3/uL (4.50-10.00)
[2022-05-03 11:19] LABS: LDH 5063 U/L (313-618)
--- NOTE | 2022-05-03 13:54 | P.PN ---
Subjective Progress Note Date: 05/03/22 Principal diagnosis: Lymphoma Spoke with primary team, per nursing fevers 101.7, not documented. Repeat torres cultures ordered. LDH has increased 5000 and platelets decreasing, RUE axilla DVT appears to be progressing as well. We have asked ID to evaluate Objective - Vital Signs Vital signs: Vital Signs Temp 97.9 F 05/03/22 08:00 Pulse 75 05/03/22 08:00 Resp 18 05/03/22 08:00 BP 103/54 05/03/22 08:00 Pulse Ox 96 05/03/22 08:00 FiO2 Intake & Output 05/02/22 05/03/22 05/03/22 18:59 06:59 18:59 Intake Total 70 Output Total 250 Balance -250 70 Intake: Oral 70 Output: Urine 250 - Exam General:no distress Head: NCAT Eyes: EOMI, anicteric sclera, pupils equal round Oral thrush, dry mucus membranes Neck: supple Right chest wall port CDI Cardiovascular:reg, no edema, Lungs: CTA bilateral, Abdominal: soft, nontender normal bowel sounds Neuro: nonfocal Psych: Alert, oriented, appropriate affect - Labs CBC & Chem 7: 05/03/22 07:15 05/03/22 07:15 Labs: Abnormal Lab Results - Last 24 Hours (Table) 05/02/22 Range/Units 05:57 RBC 2.45 L (4.10-5.20) X 10*6/uL Hgb 7.0 L (12.0-15.0) g/dL Hct 21.4 L (37.2-46.3) % RDW 17.4 H (11.5-14.5) % Plt Count 36 L (140-440) X 10*3/uL Plt Count Comment DECREASED A Absolute Nucleated RBC 0.09 H (0.00-0.00) X 10*3/uL NRBC/100 WBC Diff 1.0 H (0.0-0.0) /100 WBCS Immature Plt Fraction 8.7 H (1.1-6.1) % Assessment and Plan (1) Non-Hodgkin lymphoma Current Visit: Yes Status: Chronic Priority: High Code(s): C85.90 - NON- HODGKIN LYMPHOMA, UNSPECIFIED, UNSPECIFIED SITE SNOMED Code(s): 198756777 (2) Hypercalcemia Current Visit: Yes Status: Acute Code(s): E83.52 - HYPERCALCEMIA SNOMED Code(s): 11746496 (3) Hyponatremia Current Visit: Yes Status: Acute Code(s): E87.1 - HYPO-OSMOLALITY AND HYPONATREMIA SNOMED Code(s): 99942742 (4) Weakness Current Visit: No Status: Acute Code(s): R53.1 - WEAKNESS SNOMED Code(s): 41832120 (5) Bradycardia Current Visit: Yes Status: Acute Code(s): R00.1 - BRADYCARDIA, UNSPECIFIED SNOMED Code(s): 19292646 (6) Normocytic anemia Current Visit: Yes Status: Acute Code(s): D64.9 - ANEMIA, UNSPECIFIED SNOMED Code(s): 384542666 (7) Deep vein thrombosis, upper right extremity Current Visit: Yes Status: Acute Priority: High Code(s): I82.621 - ACUTE EMBOLISM AND THROMBOSIS OF DEEP VEINS OF R UP EXTREM SNOMED Code(s): 780552630 (8) Fever Current Visit: Yes Status: Acute Code(s): R50.9 - FEVER, UNSPECIFIED SNOMED Code(s): 172201637 Plan: Assessment and Plan (1) Tumor lysis syndrome following antineoplastic drug therapy Current Visit: Yes Status: Acute Priority: High Code(s): E88.3 - TUMOR LYSIS SYNDROME; T45.1X5A - ADVERSE EFFECT OF ANTINEOPLASTIC AND IMMUNOSUP DRUGS, INIT SNOMED Code(s): 529996532 (2) Non-Hodgkin lymphoma Current Visit: Yes Status: Chronic Priority: High Code(s): C85.90 - NON- HODGKIN LYMPHOMA, UNSPECIFIED, UNSPECIFIED SITE SNOMED Code(s): 113608550 Plan: Tumor lysis syndrome status post first round of monjuvi and revlimid treatment for relapsed refractory diffuse large B-cell lymphoma. S/P hydration, allopurinol, her electrolytes are normalizing, kidney function was improving however has mildly worsened today along with new onset fever per primary team/nursing 101.7 (not documented). Platelets continue to decrease and RUE DVT has progressed per repaet Doppler . Revlimid and Monjuvi treatment on hold until patient is discharged from rehabilitation. Patient was encouraged to participate in rehabilitation and to focus on eating and drinking and moving around. Follow-up appointment with the doctor is in the chart. Bicytopenia. Related to treatment as well as disease. Transfuse for hemoglobin less than 7. Transfuse for platelets less than 10,000 or if symptomatic. T Anticoagulation needs remain on hold. Repeat Torres Cultures Chest Xray Urinalysis and Culture ordered Will await ID evaluation for antibiotic coverage, currently on Cefepime DIC eval CBC, TLS, CMP Daily
--- NOTE | 2022-05-03 13:55 | P.PN ---
Subjective Progress Note Date: 04/30/22 Principal diagnosis: Lymphoma Objective - Vital Signs Vital signs: Vital Signs Temp 98.7 F 04/30/22 14:00 Pulse 78 04/30/22 14:00 Resp 17 04/30/22 14:00 BP 125/72 04/30/22 14:00 Pulse Ox 96 04/30/22 14:00 FiO2 Intake & Output 04/29/22 04/30/22 04/30/22 18:59 06:59 18:59 Output Total 400 900 Balance -400 -900 Weight 68.039 kg Output: Urine 400 900 Other: Voiding Method External Catheter External Catheter External Catheter # Bowel Movements 1 - Exam General:no distress Head: NCAT Eyes: EOMI, anicteric sclera, pupils equal round Oral thrush, dry mucus membranes Neck: supple Right chest wall port CDI Cardiovascular:reg, no edema, Lungs: CTA bilateral, Abdominal: soft, nontender normal bowel sounds Neuro: nonfocal Psych: Alert, oriented, appropriate affect - Labs CBC & Chem 7: 05/03/22 07:15 05/03/22 07:15 Labs: Abnormal Lab Results - Last 24 Hours (Table) 04/27/22 04/28/22 04/29/22 Range/Units 06:28 06:08 06:59 RBC (3.80-5.40) m/uL Hgb (11.4-16.0) gm/dL Hct (34.0-46.0) % RDW (11.5-15.5) % Plt Count (150-450) k/uL Blast Cells % % Metamyelocytes # (Man) (0) k/uL Myelocytes # (Manual) (0) k/uL Blast Cells # (Man) 0.06 H 0.14 H 0.32 H (0) k/uL Nucleated RBCs (0-0) /100 WBC PT (9.0-12.0) sec INR (<1.2) Sodium (137-145) mmol/L Carbon Dioxide (22-30) mmol/L BUN (7-17) mg/dL Creatinine (0.52-1.04) mg/dL Glucose (74-99) mg/dL Calcium (8.4-10.2) mg/dL AST (14-36) U/L ALT (4-34) U/L Alkaline Phosphatase (38-126) U/L Total Protein (6.3-8.2) g/dL Albumin (3.5-5.0) g/dL 04/29/22 04/30/22 04/30/22 Range/Units 12:10 05:20 13:23 RBC 2.46 L (3.80-5.40) m/uL Hgb 7.4 L (11.4-16.0) gm/dL Hct 22.7 L (34.0-46.0) % RDW 17.5 H (11.5-15.5) % Plt Count 57 L (150-450) k/uL Blast Cells % 3 H* 3 H* % Metamyelocytes # (Man) 0.10 H (0) k/uL Myelocytes # (Manual) 0.20 H (0) k/uL Blast Cells # (Man) 0.29 H 0.30 H (0) k/uL Nucleated RBCs 1 H 2 H (0-0) /100 WBC PT (9.0-12.0) sec INR (<1.2) Sodium 135 L (137-145) mmol/L Carbon Dioxide 21 L (22-30) mmol/L BUN 39 H (7-17) mg/dL Creatinine 1.23 H (0.52-1.04) mg/dL Glucose 101 H (74-99) mg/dL Calcium 7.7 L (8.4-10.2) mg/dL AST 199 H (14-36) U/L ALT 121 H (4-34) U/L Alkaline Phosphatase 754 H (38-126) U/L Total Protein 4.1 L (6.3-8.2) g/dL Albumin 2.3 L (3.5-5.0) g/dL 04/30/22 Range/Units 13:23 RBC (3.80-5.40) m/uL Hgb (11.4-16.0) gm/dL Hct (34.0-46.0) % RDW (11.5-15.5) % Plt Count (150-450) k/uL Blast Cells % % Metamyelocytes # (Man) (0) k/uL Myelocytes # (Manual) (0) k/uL Blast Cells # (Man) (0) k/uL Nucleated RBCs (0-0) /100 WBC PT 14.1 H (9.0-12.0) sec INR 1.4 H (<1.2) Sodium (137-145) mmol/L Carbon Dioxide (22-30) mmol/L BUN (7-17) mg/dL Creatinine (0.52-1.04) mg/dL Glucose (74-99) mg/dL Calcium (8.4-10.2) mg/dL AST (14-36) U/L ALT (4-34) U/L Alkaline Phosphatase (38-126) U/L Total Protein (6.3-8.2) g/dL Albumin (3.5-5.0) g/dL Microbiology - Last 24 Hours (Table) 04/25/22 20:55 Blood Culture - Preliminary Blood No Growth after 96 hours 04/24/22 17:48 Blood Culture - Preliminary Blood No Growth after 120 hours 04/24/22 17:20 Blood Culture - Preliminary Blood No Growth after 120 hours Assessment and Plan (1) Non-Hodgkin lymphoma Narrative/Plan: - Recent progression and status post cycle one of new therapy with Revlimid and Monjuvi, cycle 2 (due ) on hold - On hold due to current hospital problems - Monitor for TLS - CLosely monitor Dr. Maradiaga to assess patient prior to starting cycle 2 Current Visit: Yes Status: Chronic Priority: High Code(s): C85.90 - NON- HODGKIN LYMPHOMA, UNSPECIFIED, UNSPECIFIED SITE SNOMED Code(s): 964143292 (2) Hypercalcemia Narrative/Plan: Nephrology following, status post Zometa Balance with hypercalcemia and third spacing. COntinue IV Fluids Mild improvement Current Visit: Yes Status: Acute Code(s): E83.52 - HYPERCALCEMIA SNOMED Code(s): 17010991 (3) Hyponatremia Narrative/Plan: COncern of adrenal insufficiency and Tumor lysis PO fluid Restriction Status Post albumin 25grams and continue IV fluids @50cc\\ Nephrology Following Current Visit: Yes Status: Acute Code(s): E87.1 - HYPO-OSMOLALITY AND HYPONATREMIA SNOMED Code(s): 30426037 (4) Weakness Narrative/Plan: Java to be due to recurrent bulk disease status post treatment and anemia from chemotherapy - PT/OT Ask for increased activity and passive ROM Current Visit: No Status: Acute Code(s): R53.1 - WEAKNESS SNOMED Code(s): 08259580 (5) Bradycardia Current Visit: Yes Status: Acute Code(s): R00.1 - BRADYCARDIA, UNSPECIFIED SNOMED Code(s): 65982674 (6) Normocytic anemia Current Visit: Yes Status: Acute Code(s): D64.9 - ANEMIA, UNSPECIFIED SNOMED Code(s): 907000622 (7) Deep vein thrombosis, upper right extremity Current Visit: Yes Status: Acute Priority: High Code(s): I82.621 - ACUTE EMBOLISM AND THROMBOSIS OF DEEP VEINS OF R UP EXTREM SNOMED Code(s): 813051033 (8) Fever Current Visit: Yes Status: Acute Code(s): R50.9 - FEVER, UNSPECIFIED SNOMED Code(s): 269824115 Plan: Assessment and Plan (1) Tumor lysis syndrome following antineoplastic drug therapy Current Visit: Yes Status: Acute Priority: High Code(s): E88.3 - TUMOR LYSIS SYNDROME; T45.1X5A - ADVERSE EFFECT OF ANTINEOPLASTIC AND IMMUNOSUP DRUGS, INIT SNOMED Code(s): 215050620 (2) Non-Hodgkin lymphoma Current Visit: Yes Status: Chronic Priority: High Code(s): C85.90 - NON- HODGKIN LYMPHOMA, UNSPECIFIED, UNSPECIFIED SITE SNOMED Code(s): 666626844 Hope for continued improvedment and discharge to rehab
--- NOTE | 2022-05-03 14:12 | XR ---
EXAMINATION TYPE: XR chest 2V DATE OF EXAM: 05/03/2022 COMPARISON: NONE TECHNIQUE: PA and lateral views submitted. HISTORY: Fever FINDINGS: A diffuse interstitial pattern with biapical pleural thickening. Bibasilar consolidation and small ef fusion. Hypertrophic degenerative changes of the spine. IMPRESSION: 1. Correlate for venous congestion and CHF versus interstitial pneumonia with superimposed consolidat coco pneumonia.
[2022-05-03 14:19] LABS: Basophils # (M) 0 X 10*3/uL (0.00-0.10); Blast Cells # (M) 0.31 k/uL (0); Eosinophils # (M) 0.39 X 10*3/uL (0.04-0.35); Lymphocytes # (M) 1.33 X 10*3/uL (0.90-5.00); Metamyelocytes % 1 % (0-0); Monocytes # (M) 0.78 X 10*3/uL (0.20-1.00); Myelocytes % 1 % (0-0); Neutrophils # (M) 4.85 X 10*3/uL (2.00-8.90); Neutrophils % (M) 62 %; Nucleated Red Blood Cells 5 /100 WBCS
--- NOTE | 2022-05-03 15:33 | P.PN ---
Subjective Progress Note Date: 05/03/22 Principal diagnosis: Fever Patient was seen and examined. No acute events overnight. Nursing reports fever of 100.3 Fahrenheit last night. Fever resolved after administration of Tylenol. Patient reports feeling well except generalized weakness. She denies any chest pain, shortness breath or palpitations. No nausea or vomiting. No fever or chills. Upset she is not going to rehab today. Objective - Vital Signs Vital signs: Vital Signs Temp 97.9 F 05/03/22 08:00 Pulse 75 05/03/22 08:00 Resp 18 05/03/22 08:00 BP 103/54 05/03/22 08:00 Pulse Ox 96 05/03/22 08:00 FiO2 Intake & Output 05/02/22 05/03/22 05/03/22 18:59 06:59 18:59 Intake Total 70 Output Total 250 Balance -250 70 Intake: Oral 70 Output: Urine 250 - Exam Constitutional: No acute distress, conversant, pleasant Eyes:Anicteric sclerae, moist conjunctiva, no lid-lag ENMT: Oropharynx clear, no erythema, exudates Neck: Supple, FROM, no masses, or JVD, No carotid bruits, No thyromegaly Lungs: Clear to auscultation, Clear to percussion, Normal respiratory effort, no accessory muscle use Cardiovascular: Heart regular in rate and rhythm, No murmurs, gallops, or rubs Abdominal: Soft, Nontender, no guarding Skin: Normal temperature, tone, texture, turgor, no induration, No subcutaneous nodules, No rash, lesions, No ulcers Psychiatric: Alert and oriented to person, place and time, appropriate affect, intact judgement Neuro: General weakness, no focal sensory deficits - Labs CBC & Chem 7: 05/03/22 07:15 05/03/22 07:15 Labs: Abnormal Lab Results - Last 24 Hours (Table) 05/03/22 05/03/22 Range/Units 07: 07:15 RBC 2.48 L (4.10-5.20) X 10*6/uL Hgb 7.0 L (12.0-15.0) g/dL Hct 22.0 L (37.2-46.3) % MCHC 31.8 L (32.0-37.0) g/dL RDW 17.8 H (11.5-14.5) % Plt Count 28 L (140-440) X 10*3/uL Plt Count Comment A MPV 13.3 H (9.5-12.2) fL Absolute Nucleated RBC 0.17 H (0.00-0.00) X 10*3/uL Metamyelocytes % 1 H (0-0) % Myelocytes % 1 H (0-0) % Blast Cells % 4 H* (0-0) % Eosinophils # (Manual) 0.39 H (0.04-0.35) X 10*3/uL NRBC/100 WBC Diff 2.2 H (0.0-0.0) /100 WBCS Immature Plt Fraction 10.2 H (1.1-6.1) % Sodium 132 L (137-145) mmol/L Carbon Dioxide 18 L (22-30) mmol/L BUN 50 H (7-17) mg/dL Creatinine 1.69 H (0.52-1.04) mg/dL Glucose 72 L (74-99) mg/dL Calcium 7.2 L (8.4-10.2) mg/dL Magnesium 1.5 L (1.6-2.3) mg/dL AST 148 H (14-36) U/L ALT 97 H (4-34) U/L Alkaline Phosphatase 744 H (38-126) U/L Lactate Dehydrogenase 5063 H (313-618) U/L Total Protein 3.9 L (6.3-8.2) g/dL Albumin 2.1 L (3.5-5.0) g/dL Assessment and Plan Assessment: Fever -Could be sec to DVT -Started on broad spectrum abx, cultures repeated NGTD, vanco d/cristian. Continue cefepime. -Infectious disease consulted -Chest x-ray, blood culture and urine culture ordered -Continue to monitor temp DVT -Eliquis when OK with Hematology Generalized weakness secondary to chemotherapy Hypercalcemia likely due to dehydration versus lymphoma Lactic acidosis -Ca better, d/c fluids -Patient does have some lower extremity edema so we'll need to monitor patient closely for volume overload -Status post zoledronic acid, calcitonin, Lasix 100 mg 1 -PT OT -PTHRP, pending -Oncology and nephrology Hyponatremia likely hypervolemic -Improved with lasix -Resolved Right axillary vein DVT -D/w oncology, eliquis -Right PICC d/cristian, new left arm PICC placed. Elevated LFTs -Patient asymptomatic -Right upper quadrant ultrasound showing some cholelithiasis. Lower extremity edema likely due to hypoalbuminemia -Was given few doses of lasix -Albumin given Acute systolic CHF exacerbation -Treated with lasix. Now better. LESLEY -Lasix held 04/27 Hypokalemia and hypomagnesemia -Resolved Anemia -Suspect due to chemotherapy and lymphoma with a component of iron deficiency. -IV iron given -Oncology following -Repeat hemoglobin tomorrow. -Case discussed with hematology PEDIATRICIAN/MEDICAL DOCTOR Tram, plans to hold Plavix and I'll request for now due to thrombus cytopenia Non-Hodgkin lymphoma on active chemotherapy -Oncology following -Hold Revlimid for now -Consult palliative care Coronary disease status post recent stent -Resume aspirin and statin and metoprolol -D/w cardiology, Dr. Leon will only give eliquis and aspirin. Hold plavix. Hypertension -Hold losartan as patient is dehydrated and risk for hypertension. Resume metoprolol CODE STATUS: DNR/DNI DPOA: Patient's sister DVT prophylaxis: mechanical. Anticipated discharge place: rehab
[2022-05-03 15:47] LABS: INR 1.2 (<1.2); Prothrombin Time 12.6 sec (9.0-12.0)
[2022-05-03] MEDS: CEFEPIME 2 GM in SODIUM CHLORIDE 0.9% 100 ML IVPB SCH (16:15)
[2022-05-03 17:38] LABS: Amorphous Sediment,Urine Rare /hpf; Appearance,Urine Turbid (Clear); Bilirubin,Urine Negative (Negative); Blood,Urine Moderate (Negative); Color,Urine Yellow; Glucose,Urine (UA) Negative (Negative); Hyaline Casts,Urine 1 /lpf (0-2); Ketones,Urine Trace (Negative); Leukocyte Esterase,Urine Small (Negative); Mucus,Urine Rare /hpf; Nitrite,Urine Negative (Negative); Protein,Urine 2+ (Negative); RBC,Urine 3 /hpf (0-5); Specific Gravity,Urine 1.016 (1.001-1.035); Squamous Epithelial Cell,Urine 1 /hpf (0-4); WBC,Urine 22 /hpf (0-5)
[2022-05-03] MEDS: MELATONIN 3 MG TABLET PO SCH (20:27)
[2022-05-03] MEDS: ATORVASTATIN 80 MG TAB PO SCH (20:27)
[2022-05-04 06:42] LABS: ALT 82 U/L (4-34); AST 163 U/L (14-36); African American GFR (CKD) 27 (>60 ml/min/1.73 sqM); Albumin 2.1 g/dL (3.5-5.0); Albumin/Globulin Ratio 1.1; Alkaline Phosphatase 799 U/L (38-126); Anion Gap 6 mmol/L; Blood Urea Nitrogen 57 mg/dL (7-17); Calcium 6.8 mg/dL (8.4-10.2); Carbon Dioxide 18 mmol/L (22-30); Chloride 106 mmol/L (98-107); Globulin 1.9 g/dL; Glucose 80 mg/dL (74-99); Magnesium 1.6 mg/dL (1.6-2.3); Non-African American GFR(CKD) 24 (>60 ml/min/1.73 sqM); Potassium 4.2 mmol/L (3.5-5.1); Sodium 130 mmol/L (137-145); Total Bilirubin 1.3 mg/dL (0.2-1.3)
[2022-05-04 06:43] LABS: Anisocytosis Slight; HCT 22.6 % (34.0-46.0); HGB 7.3 gm/dL (11.4-16.0); Hypochromasia Slight; MCH 28.6 pg (25.0-35.0); MCHC 32.1 g/dL (31.0-37.0); MCV 89.2 fL (80.0-100.0); Mean Platelet Volume 10.2; Poikilocytosis Slight; RBC 2.53 m/uL (3.80-5.40); RDW 17.8 % (11.5-15.5)
[2022-05-04 06:49] LABS: Platelet Count 32 k/uL (150-450)
[2022-05-04 07:19] LABS: LDH 7199 U/L (313-618)
[2022-05-04] MEDS: allopurinoL 100 MG TAB PO SCH (08:34)
[2022-05-04] MEDS: METOPROLOL TARTRATE 25 MG TAB PO SCH ×2 (08:34→20:43)
[2022-05-04] MEDS: SENNOSIDES-DOCUSATE SODIUM 1 EACH TAB PO SCH ×2 (08:34→20:43)
[2022-05-04] MEDS: POTAS-SOD-PHOS 278-164-250 MG 1 EACH PACKET PO SCH ×3 (08:34→20:43)
[2022-05-04] MEDS: MAG HYDROX/AL HYDROX/SIMETH 30 ML, LIDOCAINE VISCOUS 2% 30 ML, diphenhydrAMINE ELIXIR 7... PO SCH ×12 (08:35→20:43)
[2022-05-04] MEDS ORDERED: FUROSEMIDE 10 MG/ML 4 ML VIAL IV STA (10:31)
--- NOTE | 2022-05-04 10:31 | P.PN ---
Subjective Patient is seen for follow-up for hypercalcemia and hyponatremia. The serum sodium has improved to 136 and to date is at 1:30. Renal function had improved with creatinine down to about 1.3 however for the last couple of days serum creatinine has been trending up. It is at 1.9 today. Patient denies any significant complaints Blood pressure has not been significantly low No nephrotoxic agents noted on med list. Blood pressure is slightly on the lower side Bladder scan was done to rule out urine retention and patient had only about 28 mL post void. Patient has had decent urine output although it is not accurately charted. Her diapers were quite heavy as per nursing staff Objective - Vital Signs Vital signs: Vital Signs Temp 97.5 F L 05/04/22 08:00 Pulse 77 05/04/22 08:00 Resp 17 05/04/22 08:00 BP 123/54 05/04/22 08:00 Pulse Ox 96 05/04/22 08:00 FiO2 Intake & Output 05/03/22 05/04/22 05/04/22 18:59 06:59 18:59 Intake Total 1080 Output Total 1 Balance 1079 Intake: Oral 1080 Output: Urine/Stool Mix 1 Other: # Voids 3 2 - Exam Awake, comfortable, not in any acute distress Examination of the heart S1 and S2 Examination of the lungs bilateral breath sounds are heard Abdomen is soft nontender Examination of the lower extremity shows 1+ edema 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 - Labs CBC & Chem 7: 05/04/22 06:00 05/04/22 06:00 Labs: Abnormal Lab Results - Last 24 Hours (Table) 05/03/22 05/03/22 05/03/22 Range/Units 07:15 07:15 14:58 RBC 2.48 L (4.10-5.20) X 10*6/uL Hgb 7.0 L (12.0-15.0) g/dL Hct 22.0 L (37.2-46.3) % MCHC 31.8 L (32.0-37.0) g/dL RDW 17.8 H (11.5-14.5) % Plt Count 28 L (140-440) X 10*3/uL Plt Count Comment A MPV 13.3 H (9.5-12.2) fL Absolute Nucleated RBC 0.17 H (0.00-0.00) X 10*3/uL Metamyelocytes % 1 H (0-0) % Myelocytes % 1 H (0-0) % Blast Cells % 4 H* (0-0) % Eosinophils # (Manual) 0.39 H (0.04-0.35) X 10*3/uL NRBC/100 WBC Diff 2.2 H (0.0-0.0) /100 WBCS Immature Plt Fraction 10.2 H (1.1-6.1) % PT 12.6 H (9.0-12.0) sec INR 1.2 H (<1.2) Fibrinogen 558 H (200-500) mg/dL Sodium 132 L (137-145) mmol/L Carbon Dioxide 18 L (22-30) mmol/L BUN 50 H (7-17) mg/dL Creatinine 1.69 H (0.52-1.04) mg/dL Glucose 72 L (74-99) mg/dL Calcium 7.2 L (8.4-10.2) mg/dL Magnesium 1.5 L (1.6-2.3) mg/dL AST 148 H (14-36) U/L ALT 97 H (4-34) U/L Alkaline Phosphatase 744 H (38-126) U/L Lactate Dehydrogenase 5063 H (313-618) U/L Total Protein 3.9 L (6.3-8.2) g/dL Albumin 2.1 L (3.5-5.0) g/dL Urine Appearance (Clear) Urine Protein (Negative) Urine Ketones (Negative) Urine Blood (Negative) Ur Leukocyte Esterase (Negative) Urine WBC (0-5) /hpf Urine WBC Clumps (None) /hpf Amorphous Sediment (None) /hpf Urine Mucus (None) /hpf 05/03/22 05/04/22 05/04/22 Range/Units 17:15 06:00 06:00 RBC 2.53 L (4.10-5.20) X 10*6/uL Hgb 7.3 L (12.0-15.0) g/dL Hct 22.6 L (37.2-46.3) % MCHC (32.0-37.0) g/dL RDW 17.8 H (11.5-14.5) % Plt Count (140-440) X 10*3/uL Plt Count Comment MPV (9.5-12.2) fL Absolute Nucleated RBC (0.00-0.00) X 10*3/uL Metamyelocytes % (0-0) % Myelocytes % (0-0) % Blast Cells % (0-0) % Eosinophils # (Manual) (0.04-0.35) X 10*3/uL NRBC/100 WBC Diff (0.0-0.0) /100 WBCS Immature Plt Fraction (1.1-6.1) % PT (9.0-12.0) sec INR (<1.2) Fibrinogen (200-500) mg/dL Sodium 130 L (137-145) mmol/L Carbon Dioxide 18 L (22-30) mmol/L BUN 57 H (7-17) mg/dL Creatinine 1.99 H (0.52-1.04) mg/dL Glucose (74-99) mg/dL Calcium 6.8 L (8.4-10.2) mg/dL Magnesium (1.6-2.3) mg/dL AST 163 H (14-36) U/L ALT 82 H (4-34) U/L Alkaline Phosphatase 799 H (38-126) U/L Lactate Dehydrogenase 7199 H (313-618) U/L Total Protein 4.0 L (6.3-8.2) g/dL Albumin 2.1 L (3.5-5.0) g/dL Urine Appearance Turbid H (Clear) Urine Protein 2+ H (Negative) Urine Ketones Trace H (Negative) Urine Blood Moderate H (Negative) Ur Leukocyte Esterase Small H (Negative) Urine WBC 22 H (0-5) /hpf Urine WBC Clumps Rare H (None) /hpf Amorphous Sediment Rare H (None) /hpf Urine Mucus Rare H (None) /hpf Microbiology - Last 24 Hours (Table) 05/03/22 17:15 Urine Culture - Preliminary Urine,Voided Assessment and Plan Assessment: 1. Hyponatremia, hypovolemic currently improved with diuresis. Sodium is trending down again. Patient will be given another dose of Lasix. 2. Hypercalcemia with appropriately low PTH levels and elevated Dale level. Currently resolved. Patient has underlying lymphoma 3. Non-Hodgkin's lymphoma being followed by oncology 4. Hypervolemia and lower extremity edema currently improved with diuretics 5. Cardiomyopathy with ejection fraction 40% 6. Acute kidney injury initially associated with hypercalcemia and possible tumor lysis syndrome. Creatinine had improved to 1.25 and has been increasing again for the last 2-3 days. No urine retention noted. Currently not on any diuretics. UA showed no evidence of protein. Blood pressure remains low. Plan: Lasix IV 1 Add midodrine for low blood pressure Repeat labs in a.m. Avoid nephrotoxic agents
[2022-05-04] MEDS: MIDODRINE 5 MG TAB PO SCH ×2 (12:31→18:11)
[2022-05-04 12:45] LABS: Band Neutrophils % 2 %; Blast Cells # (M) 0.54 k/uL (0); Eosinophils # (M) 0.18 k/uL (0-0.7); Lymphocytes # (M) 5.04 k/uL (1.0-4.8); Metamyelocytes # (M) 0.09 k/uL (0); Metamyelocytes % 1 %; Monocytes # (M) 0.36 k/uL (0-1.0); Myelocytes # (M) 0.09 k/uL (0); Myelocytes % 1 %; Neutrophils % (M) 31 %; Nucleated Red Blood Cells 1 /100 WBC (0-0); Total Cells Counted 200
[2022-05-04] MEDS ORDERED: FUROSEMIDE 40 MG TAB PO STA (12:54)
[2022-05-04] MEDS ORDERED: FLUCONAZOLE 100 MG TAB PO ONE (15:17)
--- NOTE | 2022-05-04 15:17 | P.CONS ---
History of Present Illness - Reason for Consult Consult date: 05/04/22 Fever lymphoma, DIC Requesting physician: Tram Preston - Chief Complaint Weakness and sore throat x few days - History of Present Illness Patient is a 77-year-old female with a past medical history significant for Hodgkin lymphoma coronary artery disease with recent PTCA and stent placement hypertension hyperlipidemia presented to the hospital about 12 days ago for evaluation of generalized weakness 1 week, patient was diagnosed with possible dehydration has been rehydrated with evidence of hypercalcemia and anemia and is being managed by the admitting as well as oncology and nephrology team, patient was afebrile on admission however she did have one fever of 101.2F on 04/25/2022 that is about 9 days ago with no fever since then, patient did have a normal white count throughout her hospital stay the patient did have a multiple UAs during this admission last was completed yesterday patient was small leukocyte esterase 22 WBC with the cultures currently pending, patient also have a chest x-ray correlate for venous congestion and CHF versus inters titial pneumonitis superimposed consolidative pneumonia infectious disease was consulted last evening because of the fever that happened on 04/25/2022. On today's evaluation 180 05/04/2022, the patient denies having any fever or any chills, she cannot commit of feeling weak. Complains of some sore throat difficulty swallowing however denies having any dysphagia or choking. He denies having any chest pain or shortness with minimal cough denies any nausea vomiting no abdominal pain or diarrhea, patient has been on cefepime as of 04/26/2022 with the dose has been adjusted to kidney function down to 2 g daily Review of Systems Positive point has been mentioned in the HPI rest of the systems are negative Past Medical History Past Medical History: Cancer Additional Past Medical History / Comment(s): Hodgkins Lymphoma, had chemo X2, last chemo . History of Any Multi-Drug Resistant Organisms: None Reported Past Surgical History: No Surgical Hx Reported Additional Past Surgical History / Comment(s): Colonoscopy, port a catheter insertion, bilateral neck biopsies, lumbar puncture with intrahecal chemo, bone marrow biopsy, bilateral cataracts removed with lens implants. Past Anesthesia/Blood Transfusion Reactions: No Reported Reaction Additional Past Anesthesia/Blood Transfusion Reaction / Comm: NO PRIOR SX HX Date of Last Stent Placement:: 01/17/22 Past Psychological History: No Psychological Hx Reported Smoking Status: Never smoker - Past Family History Mother Family Medical History: No Reported History Father Family Medical History: Congestive Heart Failure (CHF) Additional Family Medical History / Comment(s): Father of CHF at the age of 89 yrs. Medications and Allergies Home Medications Medication Instructions Recorded Confirmed Type Aspirin 81 mg PO DAILY #90 tab 01/18/22 04/23/22 Rx Atorvastatin [Lipitor] 80 mg PO HS #90 tab 01/18/22 04/23/22 Rx Metoprolol Tartrate [Lopressor] 25 mg PO BID #180 tab 01/18/22 04/23/22 Rx Nitroglycerin Sl Tabs [Nitrostat] 0.4 mg SUBLINGUAL Q5M PRN #100 tab 01/18/22 04/23/22 Rx Furosemide [Lasix] 40 mg PO DIRECTED 30 Days 05/04/22 Rx tablet Lidocaine Viscous 2% [Xylocaine 15 ml PO TID ml 05/04/22 Rx Viscous] Midodrine [ProAmatine] 5 mg PO AC-TID #0 tab 05/04/22 Rx Yjejf-Hzy-Zuyl 278-164-250 mg 1 each PO TID packet 05/04/22 Rx [Neutra-Phos Packet] Sennosides-Docusate Sodium 1 each PO BID tab 05/04/22 Rx [Senokot-S] allopurinoL [Zyloprim] 100 mg PO DAILY tab 05/04/22 Rx Allergies Allergy/AdvReac Type Severity Reaction Status Date / Time No Known Allergies Allergy Verified 04/23/22 12:38 Physical Exam Vitals: Vital Signs Temp Pulse Pulse Resp BP Pulse Ox 05/04/22 08:00 97.5 F L 77 17 123/54 96 05/04/22 02:00 98.1 F 79 17 100/49 96 05/03/22 20:00 98.1 F 79 17 100/49 96 05/03/22 16:32 98 05/03/22 14:00 98.4 F 75 18 124/76 99 Intake and Output 05/03/22 05/04/22 05/04/22 22:59 06:59 14:59 Intake Total 1080 Output Total 1 Balance 1079 Intake: Oral 1080 Output: Urine/Stool Mix 1 Other: # Voids 3 2 GENERAL DESCRIPTION: Elderly female up in the chair, no distress. No tachypnea or accessory muscle of respiration use. HEENT: Shows Pallor , no scleral icterus. Oral mucous membrane is dry. Evidence of thrush NECK: Trachea central, no thyromegaly. LUNGS: Unlabored breathing. Decreased breath sounds at the base. No wheeze or crackle. HEART: S1, S2, regular rate and rhythm. No loud murmur ABDOMEN: Soft, no tenderness , guarding or rigidity, no organomegaly EXTREMITIES: One plus edema feet. SKIN: No rash, no masses palpable. NEUROLOGICAL: The patient is awake, alert, oriented x3, mood and affect normal. Results CBC & Chem 7: 05/04/22 06:00 05/04/22 06:00 Labs: Abnormal Lab Results - Last 24 Hours (Table) 05/03/22 05/03/22 05/03/22 Range/Units 07:15 14:58 17:15 RBC (3.80-5.40) m/uL Hgb (11.4-16.0) gm/dL Hct (34.0-46.0) % RDW (11.5-15.5) % Plt Count Comment A Metamyelocytes % 1 H (0-0) % Myelocytes % 1 H (0-0) % Blast Cells % 4 H* (0-0) % Eosinophils # (Manual) 0.39 H (0.04-0.35) X 10*3/uL PT 12.6 H (9.0-12.0) sec INR 1.2 H (<1.2) Fibrinogen 558 H (200-500) mg/dL Sodium (137-145) mmol/L Carbon Dioxide (22-30) mmol/L BUN (7-17) mg/dL Creatinine (0.52-1.04) mg/dL Calcium (8.4-10.2) mg/dL AST (14-36) U/L ALT (4-34) U/L Alkaline Phosphatase (38-126) U/L Lactate Dehydrogenase (313-618) U/L Total Protein (6.3-8.2) g/dL Albumin (3.5-5.0) g/dL Urine Appearance Turbid H (Clear) Urine Protein 2+ H (Negative) Urine Ketones Trace H (Negative) Urine Blood Moderate H (Negative) Ur Leukocyte Esterase Small H (Negative) Urine WBC 22 H (0-5) /hpf Urine WBC Clumps Rare H (None) /hpf Amorphous Sediment Rare H (None) /hpf Urine Mucus Rare H (None) /hpf 05/04/22 05/04/22 Range/Units 06:00 06:00 RBC 2.53 L (3.80-5.40) m/uL Hgb 7.3 L (11.4-16.0) gm/dL Hct 22.6 L (34.0-46.0) % RDW 17.8 H (11.5-15.5) % Plt Count Comment Metamyelocytes % (0-0) % Myelocytes % (0-0) % Blast Cells % (0-0) % Eosinophils # (Manual) (0.04-0.35) X 10*3/uL PT (9.0-12.0) sec INR (<1.2) Fibrinogen (200-500) mg/dL Sodium 130 L (137-145) mmol/L Carbon Dioxide 18 L (22-30) mmol/L BUN 57 H (7-17) mg/dL Creatinine 1.99 H (0.52-1.04) mg/dL Calcium 6.8 L (8.4-10.2) mg/dL AST 163 H (14-36) U/L ALT 82 H (4-34) U/L Alkaline Phosphatase 799 H (38-126) U/L Lactate Dehydrogenase 7199 H (313-618) U/L Total Protein 4.0 L (6.3-8.2) g/dL Albumin 2.1 L (3.5-5.0) g/dL Urine Appearance (Clear) Urine Protein (Negative) Urine Ketones (Negative) Urine Blood (Negative) Ur Leukocyte Esterase (Negative) Urine WBC (0-5) /hpf Urine WBC Clumps (None) /hpf Amorphous Sediment (None) /hpf Urine Mucus (None) /hpf Microbiology - Last 24 Hours (Table) 05/03/22 17:15 Urine Culture - Preliminary Urine,Voided Assessment and Plan (1) Fever Current Visit: Yes Status: Acute Code(s): R50.9 - FEVER, UNSPECIFIED SNOMED Code(s): 669688140 Plan: 1patient is a 77-year-old female with a past medical history signif icant for non-Hodgkin lymphoma with recent chemo as well as recent PTCA and stenting admitted to the hospital about 12 days ago for weakness patient did have an episode of fever on 04/25/2022 for the patient has been treated with cefepime she did have a blood culture on 04/24/2022 as well as 04/25/2020 that has been negative patient currently do not have any obvious focus of infection even if she has pneumonia and UTI patient has received adequate antibiotics for it. 2we'll discontinue cefepime and monitor the patient closely off antibiotic. 3patient did have extensive thrush and possible oropharyngeal candidiasis continue with the nystatin swish and swallow and Diflucan. 4we will check inflammatory markers to see need for any further antibiotic therapy. We will follow on clinical condition and cultures to further adjust medication if needed Thank you for this consultation will follow this patient with you Time with Patient: Greater than 30
[2022-05-04] MEDS ORDERED: FUROSEMIDE 10 MG/ML 2 ML VIAL IV STA (16:10)
--- NOTE | 2022-05-04 16:11 | P.PN ---
Subjective Progress Note Date: 05/04/22 Principal diagnosis: Fever Patient was seen and examined. No acute events overnight. Nursing reports fever of 100.3 Fahrenheit on 05/02. Patient reports feeling well except gener alized weakness. She denies any chest pain, shortness breath or palpitations. No nausea or vomiting. No fever or chills. Upset she is not going to rehab today. Objective - Vital Signs Vital signs: Vital Signs Temp 98.4 F 05/04/22 15:53 Pulse 75 05/04/22 15:53 Resp 16 05/04/22 15:53 BP 110/44 05/04/22 15:53 Pulse Ox 95 05/04/22 15:53 FiO2 Intake & Output 05/03/22 05/04/22 05/04/22 18:59 06:59 18:59 Intake Total 1080 240 Output Total 1 Balance 1079 240 Weight 68.039 kg Intake: Oral 1080 240 Blood Product 0 Unit 0 Output: Urine/Stool Mix 1 Other: # Voids 3 2 - Exam Constitutional: No acute distress, conversant, pleasant Eyes:Anicteric sclerae, moist conjunctiva, no lid-lag ENMT: Oropharynx clear, no erythema, exudates Neck: Supple, FROM, no masses, or JVD, No carotid bruits, No thyromegaly Lungs: Clear to auscultation, Clear to percussion, Normal respiratory effort, no accessory muscle use Cardiovascular: Heart regular in rate and rhythm, No murmurs, gallops, or rubs Abdominal: Soft, Nontender, no guarding Skin: Normal temperature, tone, texture, turgor, no induration, No subcutaneous nodules, No rash, lesions, No ulcers Psychiatric: Alert and oriented to person, place and time, appropriate affect, intact judgement Neuro: General weakness, no focal sensory deficits - Labs CBC & Chem 7: 05/04/22 06:00 05/04/22 06:00 Labs: Abnormal Lab Results - Last 24 Hours (Table) 05/03/22 05/04/22 05/04/22 Range/Units 17:15 06:00 06:00 RBC 2.53 L (3.80-5.40) m/uL Hgb 7.3 L (11.4-16.0) gm/dL Hct 22.6 L (34.0-46.0) % RDW 17.8 H (11.5-15.5) % Plt Count 32 L (150-450) k/uL Blast Cells % 6 H* % Lymphocytes # (Manual) 5.04 H (1.0-4.8) k/uL Metamyelocytes # (Man) 0.09 H (0) k/uL Myelocytes # (Manual) 0.09 H (0) k/uL Blast Cells # (Man) 0.54 H (0) k/uL Nucleated RBCs 1 H (0-0) /100 WBC Sodium 130 L (137-145) mmol/L Carbon Dioxide 18 L (22-30) mmol/L BUN 57 H (7-17) mg/dL Creatinine 1.99 H (0.52-1.04) mg/dL Calcium 6.8 L (8.4-10.2) mg/dL AST 163 H (14-36) U/L ALT 82 H (4-34) U/L Alkaline Phosphatase 799 H (38-126) U/L Lactate Dehydrogenase 7199 H (313-618) U/L Total Protein 4.0 L (6.3-8.2) g/dL Albumin 2.1 L (3.5-5.0) g/dL Urine Appearance Turbid H (Clear) Urine Protein 2+ H (Negative) Urine Ketones Trace H (Negative) Urine Blood Moderate H (Negative) Ur Leukocyte Esterase Small H (Negative) Urine WBC 22 H (0-5) /hpf Urine WBC Clumps Rare H (None) /hpf Amorphous Sediment Rare H (None) /hpf Urine Mucus Rare H (None) /hpf Microbiology - Last 24 Hours (Table) 05/03/22 17:15 Urine Culture - Preliminary Urine,Voided Assessment and Plan Assessment: Fever -Could be sec to DVT -Initially started on Vancomycin (which was discontinued), continued on Cefepime and Nystatin -Infectious disease consulted - recommends discontinuing antibiotics, change Nystatin to Diflucan, check CRP and Procalcitonin -Chest x-ray shows pulmonary vascular congestion, blood culture negative 04/24 and 04/25 recollected 05/03, UA with small LE with culture negative so far -Continue to monitor temp DVT -Eliquis when OK with Hematology Generalized weakness secondary to chemotherapy Hypercalcemia likely due to dehydration versus lymphoma Lactic acidosis -Ca better, d/c fluids -Patient does have some lower extremity edema so we'll need to monitor patient closely for volume overload -Status post zoledronic acid, calcitonin, Lasix 100 mg 1 -PT OT -Oncology and nephrology on board Hyponatremia likely hypervolemic -Given Lasix 40 mg IV today Elevated LFTs -Patient asymptomatic -Right upper quadrant ultrasound showing some cholelithiasis Lower extremity edema likely due to hypoalbuminemia -Given Lasix 40 mg IV today -s/p Albumin infusion Acute systolic CHF exacerbation -Treated with lasix. -Improved LESLEY -Avoid nephrotoxins Hypokalemia and hypomagnesemia -Resolved Anemia Thrombocytopenia -Suspect due to chemotherapy and lymphoma with a component of iron deficiency. -IV iron given -Oncology following -Repeat hemoglobin tomorrow. 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 Leon will only give eliquis and aspirin. Hold plavix. Hypertension -Hold losartan as patient is dehydrated and risk for hypertension. -Resume metoprolol CODE STATUS: DNR/DNI DPOA: Patient's sister DVT prophylaxis: mechanical. Anticipated discharge place: rehab
--- NOTE | 2022-05-04 17:38 | P.PN ---
Subjective Progress Note Date: 05/04/22 Principal diagnosis: DLBCL on treatment, electrolyte derangements, anemia, thrombocytopenia In f/u today pt denies any bleeding, pain, she does have swelling in the bilateral lower extremities that started yesterday. She is in the chair most of the day, not ambulating very much. Oral intake is poor Objective - Vital Signs Vital signs: Vital Signs Temp 98.4 F 05/04/22 15:53 Pulse 78 05/04/22 16:31 Resp 16 05/04/22 16:31 BP 111/68 05/04/22 16:31 Pulse Ox 98 05/04/22 16:03 FiO2 Intake & Output 05/03/22 05/04/22 05/04/22 18:59 06:59 18:59 Intake Total 1080 1074 Output Total 1 Balance 1079 1074 Weight 68.039 kg Intake: Oral 1080 1074 Blood Product 0 Unit 0 Output: Urine/Stool Mix 1 Other: # Voids 3 2 3 - Constitutional General appearance: Present: average body habitus, cooperative, no acute distress - EENT Eyes: Present: anicteric sclerae, EOMI - Respiratory Respiratory: bilateral: CTA - Cardiovascular Heart sounds: normal: S1, S2 - Peripheral edema leg Peripheral Edema: bilateral: 2+, Pitting - Gastrointestinal General gastrointestinal: Present: normal bowel sounds, soft - Musculoskeletal Musculoskeletal: Present: generalized weakness - Psychiatric Psychiatric Comment(s): Forgetful Psychiatric: Present: A&O x's 3, appropriate affect, intact judgment & insight - Labs CBC & Chem 7: 05/04/22 06:00 05/04/22 06:00 Labs: Abnormal Lab Results - Last 24 Hours (Table) 05/03/22 05/04/22 05/04/22 Range/Units 17:15 06:00 06:00 RBC 2.53 L (3.80-5.40) m/uL Hgb 7.3 L (11.4-16.0) gm/dL Hct 22.6 L (34.0-46.0) % RDW 17.8 H (11.5-15.5) % Plt Count 32 L (150-450) k/uL Blast Cells % 6 H* % Lymphocytes # (Manual) 5.04 H (1.0-4.8) k/uL Metamyelocytes # (Man) 0.09 H (0) k/uL Myelocytes # (Manual) 0.09 H (0) k/uL Blast Cells # (Man) 0.54 H (0) k/uL Nucleated RBCs 1 H (0-0) /100 WBC Sodium 130 L (137-145) mmol/L Carbon Dioxide 18 L (22-30) mmol/L BUN 57 H (7-17) mg/dL Creatinine 1.99 H (0.52-1.04) mg/dL Calcium 6.8 L (8.4-10.2) mg/dL AST 163 H (14-36) U/L ALT 82 H (4-34) U/L Alkaline Phosphatase 799 H (38-126) U/L Lactate Dehydrogenase 7199 H (313-618) U/L Total Protein 4.0 L (6.3-8.2) g/dL Albumin 2.1 L (3.5-5.0) g/dL Urine Appearance Turbid H (Clear) Urine Protein 2+ H (Negative) Urine Ketones Trace H (Negative) Urine Blood Moderate H (Negative) Ur Leukocyte Esterase Small H (Negative) Urine WBC 22 H (0-5) /hpf Urine WBC Clumps Rare H (None) /hpf Amorphous Sediment Rare H (None) /hpf Urine Mucus Rare H (None) /hpf Microbiology - Last 24 Hours (Table) 05/03/22 17:15 Urine Culture - Preliminary Urine,Voided - Imaging and Cardiology Venous US: report reviewed Assessment and Plan (1) Tumor lysis syndrome following antineoplastic drug therapy Current Visit: Yes Status: Acute Priority: High Code(s): E88.3 - TUMOR LYSIS SYNDROME; T45.1X5A - ADVERSE EFFECT OF ANTINEOPLASTIC AND IMMUNOSUP DRUGS, INIT SNOMED Code(s): 662524307 (2) Non-Hodgkin lymphoma Current Visit: Yes Status: Chronic Priority: High Code(s): C85.90 - NON- HODGKIN LYMPHOMA, UNSPECIFIED, UNSPECIFIED SITE SNOMED Code(s): 704550870 (3) Bicytopenia Current Visit: Yes Status: Acute Priority: High Code(s): D75.89 - OTHER SPECIFIED DISEASES OF BLOOD AND BLOOD-FORMING ORGANS SNOMED Code(s): 39522370 (4) Deep vein thrombosis, upper right extremity Current Visit: Yes Status: Acute Priority: High Code(s): I82.621 - ACUTE EMBOLISM AND THROMBOSIS OF DEEP VEINS OF R UP EXTREM SNOMED Code(s): 248202388 Plan: Tumor lysis syndrome status post first round of monjuvi and revlimid treatment for relapsed refractory diffuse large B-cell lymphoma. S/P hydration, allopurinol, her electrolytes are not normal but improved since admission. Kidney function improved slightly but was a little worse today. Revlimid and Monjuvi treatment on hold until patient is discharged from rehabilitation. Patient has only received 1 cycle. Unfortunately, this isn't enough treatment to know if this is going to be a successful treatment for her. Patient was encouraged to participate in rehabilitation and to focus on eating and drinking and moving around. Follow-up appointment with the doctor is in the chart. Bicytopenia. Related to treatment as well as disease. Transfuse for hemoglobin less than 7. Hemoglobin 7.3. No need for transfusion today. Acute right upper extremity DVT from a line 04/24/12. Patient was started on eliquis but it had to be held for low platelet count. There was a plan for discharge so, requested Doppler of the right upper extremity to reevaluate the clot. Report reviewed. Clot is propagating. Unfortunately, this means not platelets have to be given to keep platelets near 50,000 so that she can be on anticoagulation. CBC daily. Monitor closely for any bleeding. Doctor attests: I performed a history and physical examination of this patient, developed impression and plan of care. Discussed with dictator. I agree with dictators note, documented as a scribe.
[2022-05-04] MEDS: MELATONIN 3 MG TABLET PO SCH (20:42)
[2022-05-04] MEDS: APIXABAN 5 MG TAB PO SCH (20:42)
[2022-05-04] MEDS: ATORVASTATIN 80 MG TAB PO SCH (20:42)
[2022-05-05 07:10] LABS: Anisocytosis Slight; HCT 22.6 % (34.0-46.0); HGB 7.2 gm/dL (11.4-16.0); Hypochromasia Slight; MCH 28.8 pg (25.0-35.0); MCHC 31.8 g/dL (31.0-37.0); MCV 90.4 fL (80.0-100.0); Mean Platelet Volume 9.9; Platelet Count 32 k/uL (150-450); Poikilocytosis Slight; RDW 17.9 % (11.5-15.5); WBC 10.6 k/uL (3.8-10.6)
[2022-05-05 07:20] LABS: ALT 72 U/L (4-34); AST 171 U/L (14-36); African American GFR (CKD) 19 (>60 ml/min/1.73 sqM); Albumin 2.1 g/dL (3.5-5.0); Albumin/Globulin Ratio 1.1; Alkaline Phosphatase 830 U/L (38-126); Anion Gap 8 mmol/L; Blood Urea Nitrogen 66 mg/dL (7-17); Calcium 6.7 mg/dL (8.4-10.2); Carbon Dioxide 17 mmol/L (22-30); Chloride 106 mmol/L (98-107); Globulin 1.9 g/dL; Glucose 80 mg/dL (74-99); Non-African American GFR(CKD) 17 (>60 ml/min/1.73 sqM); Potassium 4.2 mmol/L (3.5-5.1); Sodium 131 mmol/L (137-145); Total Bilirubin 1.4 mg/dL (0.2-1.3)
[2022-05-05] MEDS: METOPROLOL TARTRATE 25 MG TAB PO SCH ×2 (08:20→20:47)
[2022-05-05] MEDS: FLUCONAZOLE 100 MG TAB PO SCH (08:20)
[2022-05-05] MEDS: MIDODRINE 5 MG TAB PO SCH ×3 (08:20→17:52)
[2022-05-05] MEDS: APIXABAN 5 MG TAB PO SCH ×2 (08:20→20:46)
[2022-05-05] MEDS: POTAS-SOD-PHOS 278-164-250 MG 1 EACH PACKET PO SCH ×3 (08:20→20:47)
[2022-05-05] MEDS: SENNOSIDES-DOCUSATE SODIUM 1 EACH TAB PO SCH ×2 (08:20→20:47)
[2022-05-05] MEDS: allopurinoL 100 MG TAB PO SCH (08:20)
--- NOTE | 2022-05-05 08:49 | P.PN ---
Subjective Progress Note Date: 05/05/22 Principal diagnosis: 69 year old female followed up for acute kidney injury, hyponatremia and hypercalcemia. She has underlying non-Hodgkin's lymphoma, DVT, recently had chemotherapy including Zometa Her hyponatremia was treated with Lasix. Her creatinine is worsening urine output is not well documented. Vital signs are stable, afebrile. No hypotension documented. No nephrotoxic medications documented. She also has coronary artery disease and underwent a cardiac catheterization recently in December 2021. Currently she is feeling tired fatigue poor appetite. Denies any shortness of breath. She is depressed. Objective - Vital Signs Vital signs: Vital Signs Temp 97.9 F 05/05/22 07:49 Pulse 82 05/05/22 07:49 Resp 16 05/05/22 07:49 BP 117/69 05/05/22 07:49 Pulse Ox 94 L 05/05/22 07:49 FiO2 Intake & Output 05/04/22 05/05/22 05/05/22 18:59 06:59 18:59 Intake Total 1803 Balance 1803 Weight 68.039 kg Intake: Oral 1554 Blood Product 249 Platelet Pheresis Pas 249 Psoralen Unit [id number] Other: # Voids 3 2 On examination awake alert oriented looks pale and tired and fatigued. HEENT exam no JVP noted neck is supple no facial asymmetry Lungs are clear to auscultation good air entry bilaterally Heart sounds unremarkable for any murmur rub gallop abdomen is slightly protuberant may be distended. Extremity exam was mild edema Neurologically awake alert oriented but profoundly weak - Labs CBC & Chem 7: 05/05/22 06:36 05/05/22 06:36 Labs: Abnormal Lab Results - Last 24 Hours (Table) 05/04/22 05/04/22 05/04/22 Range/Units 06:00 06:00 06:00 RBC (3.80-5.40) m/uL Hgb (11.4-16.0) gm/dL Hct (34.0-46.0) % RDW (11.5-15.5) % Plt Count 32 L (150-450) k/uL Blast Cells % 6 H* % Lymphocytes # (Manual) 5.04 H (1.0-4.8) k/uL Metamyelocytes # (Man) 0.09 H (0) k/uL Myelocytes # (Manual) 0.09 H (0) k/uL Blast Cells # (Man) 0.54 H (0) k/uL Nucleated RBCs 1 H (0-0) /100 WBC Sodium (137-145) mmol/L Carbon Dioxide (22-30) mmol/L BUN (7-17) mg/dL Creatinine (0.52-1.04) mg/dL Calcium (8.4-10.2) mg/dL Total Bilirubin (0.2-1.3) mg/dL AST (14-36) U/L ALT (4-34) U/L Alkaline Phosphatase (38-126) U/L C-Reactive Protein 13.10 H (0.00-0.80) mg/dL Total Protein (6.3-8.2) g/dL Albumin (3.5-5.0) g/dL Procalcitonin 1.44 H (0.02-0.09) ng/mL 05/05/22 05/05/22 Range/Units 06:36 06:36 RBC 2.50 L (3.80-5.40) m/uL Hgb 7.2 L (11.4-16.0) gm/dL Hct 22.6 L (34.0-46.0) % RDW 17.9 H (11.5-15.5) % Plt Count 32 L (150-450) k/uL Blast Cells % % Lymphocytes # (Manual) (1.0-4.8) k/uL Metamyelocytes # (Man) (0) k/uL Myelocytes # (Manual) (0) k/uL Blast Cells # (Man) (0) k/uL Nucleated RBCs (0-0) /100 WBC Sodium 131 L (137-145) mmol/L Carbon Dioxide 17 L (22-30) mmol/L BUN 66 H (7-17) mg/dL Creatinine 2.63 H (0.52-1.04) mg/dL Calcium 6.7 L (8.4-10.2) mg/dL Total Bilirubin 1.4 H (0.2-1.3) mg/dL AST 171 H (14-36) U/L ALT 72 H (4-34) U/L Alkaline Phosphatase 830 H (38-126) U/L C-Reactive Protein (0.00-0.80) mg/dL Total Protein 4.0 L (6.3-8.2) g/dL Albumin 2.1 L (3.5-5.0) g/dL Procalcitonin (0.02-0.09) ng/mL Microbiology - Last 24 Hours (Table) 05/03/22 17:15 Urine Culture - Preliminary Urine,Voided Yeast species 05/03/22 15:29 Blood Culture - Preliminary Blood No Growth after 24 hours 05/03/22 14:58 Blood Culture - Preliminary Blood No Growth after 24 hours Assessment and Plan Assessment: Impression 1. Worsening acute kidney injury cause not very clear. May be intravascularly volume depleted. X-ray shows possible congestion versus interstitial pneumonia on 05/03/2022. With Lasix creatinine is worse, going up from 1.6, 1.9, 2.63 over the last 3 days. Uric acid is normal. Possible acute interstitial nephritis, urinalysis on 05/03/2022 shows 2+ protein 3 rbc's 22 WBCs compared to urinalysis on 05/06/2022 when it was negative protein 1 RBCs and 7 WBC 2. Hyponatremia, etiology is acute kidney injury. Sodium is stable between 1:30 to 131 today 3. Hypercalcemia resolved calcium is down to 6.7 with an albumin of 2.1. 4. Non-Hodgkin's lymphoma status post recent chemotherapy. 5. Anemia, hemoglobin 7.2 6. significant thrombus cytopenia 32,000. Status post chemotherapy Recommendation 1. Check orthostatic change 2. Hold Lasix 3. Check bladder scan. 4. Repeat ultrasound of the kidney to rule out hydronephrosis because of lymph nodes in the retroperitoneum although recent ultrasound was unremarkable dated 04/23/2022 without any hydronephrosis 5. May need kidney biopsy if her creatinine continues to worsen
--- NOTE | 2022-05-05 09:35 | US ---
EXAMINATION TYPE: US kidneys/renal and bladder DATE OF EXAM: 05/05/2022 COMPARISON: CT CLINICAL HISTORY: renal failure. RF EXAM MEASUREMENTS: Right Kidney: 11.7 x 5.0 x 5.5 cm Left Kidney: 13.3 x 5.6 x 5.0 cm Right Kidney: Cyst upper pole= 3.6 x 2.6 x 3.1 cm, otherwise appeared wnl Left Kidney: Appeared wnl Bladder: Visualized portions appeared wnl Bilateral Jets seen: No Incidental- Enlarged Spleen There is no evidence for hydronephrosis at this point in time. No nephrolithiasis is seen. No solid masses are identified. The urinary bladder is anechoic. Bilateral ureteral jets are seen. IMPRESSION: 1. Simple cyst upper pole right kidney. 2. Enlarged spleen measuring 17.6 cm craniocaudal dimension.
--- NOTE | 2022-05-05 10:47 | P.PN ---
Subjective Progress Note Date: 05/05/22 The patient has persistent generalized weakness, and leg swelling. No obvious bleeding. She denied increased pain or swelling in the right upper extremity. Objective - Vital Signs Vital signs: Vital Signs Temp 97.9 F 05/05/22 07:49 Pulse 82 05/05/22 07:49 Resp 16 05/05/22 07:49 BP 97/63 05/05/22 09:47 Pulse Ox 94 L 05/05/22 07:49 FiO2 Intake & Output 05/04/22 05/05/22 05/05/22 18:59 06:59 18:59 Intake Total 1803 Balance 1803 Weight 68.039 kg Intake: Oral 1554 Blood Product 249 Platelet Pheresis Pas 249 Psoralen Unit [id number] Other: # Voids 3 2 - Constitutional General appearance: Present: no acute distress - EENT Eyes: Present: EOMI ENT: Present: hearing grossly normal - Respiratory Respiratory: bilateral: CTA - Cardiovascular Rhythm: regular Heart sounds: normal: S1, S2 - Gastrointestinal General gastrointestinal: Present: soft - Neurologic Neurologic: Present: CNII-XII intact - Musculoskeletal Musculoskeletal: Present: generalized weakness, strength equal bilaterally - Psychiatric Psychiatric: Present: A&O x's 3 - Labs CBC & Chem 7: 05/05/22 06:36 05/05/22 06:36 Labs: Abnormal Lab Results - Last 24 Hours (Table) 05/04/22 05/04/22 05/04/22 Range/Units 06:00 06:00 06:00 RBC (3.80-5.40) m/uL Hgb (11.4-16.0) gm/dL Hct (34.0-46.0) % RDW (11.5-15.5) % Plt Count 32 L (150-450) k/uL Blast Cells % 6 H* % Lymphocytes # (Manual) 5.04 H (1.0-4.8) k/uL Metamyelocytes # (Man) 0.09 H (0) k/uL Myelocytes # (Manual) 0.09 H (0) k/uL Blast Cells # (Man) 0.54 H (0) k/uL Nucleated RBCs 1 H (0-0) /100 WBC Sodium (137-145) mmol/L Carbon Dioxide (22-30) mmol/L BUN (7-17) mg/dL Creatinine (0.52-1.04) mg/dL Calcium (8.4-10.2) mg/dL Total Bilirubin (0.2-1.3) mg/dL AST (14-36) U/L ALT (4-34) U/L Alkaline Phosphatase (38-126) U/L C-Reactive Protein 13.10 H (0.00-0.80) mg/dL Total Protein (6.3-8.2) g/dL Albumin (3.5-5.0) g/dL Procalcitonin 1.44 H (0.02-0.09) ng/mL 05/05/22 05/05/22 Range/Units 06:36 06:36 RBC 2.50 L (3.80-5.40) m/uL Hgb 7.2 L (11.4-16.0) gm/dL Hct 22.6 L (34.0-46.0) % RDW 17.9 H (11.5-15.5) % Plt Count 32 L (150-450) k/uL Blast Cells % % Lymphocytes # (Manual) (1.0-4.8) k/uL Metamyelocytes # (Man) (0) k/uL Myelocytes # (Manual) (0) k/uL Blast Cells # (Man) (0) k/uL Nucleated RBCs (0-0) /100 WBC Sodium 131 L (137-145) mmol/L Carbon Dioxide 17 L (22-30) mmol/L BUN 66 H (7-17) mg/dL Creatinine 2.63 H (0.52-1.04) mg/dL Calcium 6.7 L (8.4-10.2) mg/dL Total Bilirubin 1.4 H (0.2-1.3) mg/dL AST 171 H (14-36) U/L ALT 72 H (4-34) U/L Alkaline Phosphatase 830 H (38-126) U/L C-Reactive Protein (0.00-0.80) mg/dL Total Protein 4.0 L (6.3-8.2) g/dL Albumin 2.1 L (3.5-5.0) g/dL Procalcitonin (0.02-0.09) ng/mL Microbiology - Last 24 Hours (Table) 05/03/22 17:15 Urine Culture - Preliminary Urine,Voided Yeast species 05/03/22 15:29 Blood Culture - Preliminary Blood No Growth after 24 hours 05/03/22 14:58 Blood Culture - Preliminary Blood No Growth after 24 hours Assessment and Plan (1) Bicytopenia Narrative/Plan: Platelets are boost and the low at 32. As the patient needs to stay on it evaluation, additional platelets will be transfused today. Continue to monitor. Current Visit: Yes Status: Acute Priority: High Code(s): D75.89 - OTHER SPECIFIED DISEASES OF BLOOD AND BLOOD-FORMING ORGANS SNOMED Code(s): 77324953 (2) Deep vein thrombosis, upper right extremity Narrative/Plan: The patient was placed back on anticoagulation, as she had progression, despite removal of the PICC line. As her platelets are low, she is being monitored in patient with platelet transfusions to try to keep platelets above 50,000. Current Visit: Yes Status: Acute Priority: High Code(s): I82.621 - ACUTE EMBOLISM AND THROMBOSIS OF DEEP VEINS OF R UP EXTREM SNOMED Code(s): 482741059 (3) History of lymphoma Narrative/Plan: Treatment is currently on hold because of her acute problems related to this admission, as well as cytopenias, and poor performance status. Plan is for patient to undergo rehab after this admission, prior to resuming treatment. Current Visit: Yes Status: Acute Code(s): Z85.79 - PRSNL HX OF MALIG NEOPLM OF LYMPHOID, HEMATPOETC & REL TISS SNOMED Code(s): 419646696
[2022-05-05] MEDS: MAG HYDROX/AL HYDROX/SIMETH 30 ML, LIDOCAINE VISCOUS 2% 30 ML, diphenhydrAMINE ELIXIR 7... PO SCH ×12 (12:13→20:47)
[2022-05-05] MEDS: SODIUM CHLORIDE 0.9% 1,000 ML IV SCH ×2 (12:14→12:23)
--- NOTE | 2022-05-05 17:54 | P.PN ---
Subjective Progress Note Date: 05/05/22 Principal diagnosis: Weakness Non-Hodgkin lymphoma with chemotherapy. Bicytopenia DVT on treatment with Eliquis Objective - Vital Signs Vital signs: Vital Signs Temp 97.9 F 05/05/22 14:53 Pulse 88 05/05/22 14:53 Resp 16 05/05/22 14:53 BP 112/63 05/05/22 14:53 Pulse Ox 95 05/05/22 14:53 FiO2 Intake & Output 05/04/22 05/05/22 05/05/22 18:59 06:59 18:59 Intake Total 1803 1576 Balance 1803 1576 Weight 68.039 kg Intake: Oral 1554 1320 Blood Product 249 256 Platelet Pheresis Pas 256 Psoralen Unit [id number] Platelet Pheresis Pas 249 Psoralen Unit [id number] Other: # Voids 3 2 3 # Bowel Movements 3 - Constitutional General appearance: Present: no acute distress - Respiratory Respiratory: bilateral: CTA - Cardiovascular Rhythm: regular - Peripheral edema ankle Peripheral Edema: bilateral: 2+ - Gastrointestinal General gastrointestinal: Present: normal bowel sounds - Integumentary Integumentary: Present: normal - Musculoskeletal Musculoskeletal: Present: generalized weakness - Labs CBC & Chem 7: 05/05/22 06:36 05/05/22 06:36 Labs: Abnormal Lab Results - Last 24 Hours (Table) 05/04/22 05/04/22 05/05/22 Range/Units 06:00 06:00 06:36 RBC 2.50 L (3.80-5.40) m/uL Hgb 7.2 L (11.4-16.0) gm/dL Hct 22.6 L (34.0-46.0) % RDW 17.9 H (11.5-15.5) % Plt Count 32 L (150-450) k/uL Sodium (137-145) mmol/L Carbon Dioxide (22-30) mmol/L BUN (7-17) mg/dL Creatinine (0.52-1.04) mg/dL Calcium (8.4-10.2) mg/dL Total Bilirubin (0.2-1.3) mg/dL AST (14-36) U/L ALT (4-34) U/L Alkaline Phosphatase (38-126) U/L C-Reactive Protein 13.10 H (0.00-0.80) mg/dL Total Protein (6.3-8.2) g/dL Albumin (3.5-5.0) g/dL Procalcitonin 1.44 H (0.02-0.09) ng/mL 05/05/22 Range/Units 06:36 RBC (3.80-5.40) m/uL Hgb (11.4-16.0) gm/dL Hct (34.0-46.0) % RDW (11.5-15.5) % Plt Count (150-450) k/uL Sodium 131 L (137-145) mmol/L Carbon Dioxide 17 L (22-30) mmol/L BUN 66 H (7-17) mg/dL Creatinine 2.63 H (0.52-1.04) mg/dL Calcium 6.7 L (8.4-10.2) mg/dL Total Bilirubin 1.4 H (0.2-1.3) mg/dL AST 171 H (14-36) U/L ALT 72 H (4-34) U/L Alkaline Phosphatase 830 H (38-126) U/L C-Reactive Protein (0.00-0.80) mg/dL Total Protein 4.0 L (6.3-8.2) g/dL Albumin 2.1 L (3.5-5.0) g/dL Procalcitonin (0.02-0.09) ng/mL Microbiology - Last 24 Hours (Table) 05/03/22 15:29 Blood Culture - Preliminary Blood No Growth after 48 hours 05/03/22 14:58 Blood Culture - Preliminary Blood No Growth after 48 hours 05/03/22 17:15 Urine Culture - Final Urine,Voided Priya albicans Assessment and Plan (1) Bicytopenia Narrative/Plan: Patient with bicytopenia. Counts 32,000 for transfusion today to keep platelet count greater than 50,000 Current Visit: Yes Status: Acute Priority: High Code(s): D75.89 - OTHER SP ECIFIED DISEASES OF BLOOD AND BLOOD-FORMING ORGANS SNOMED Code(s): 87671725 (2) Deep vein thrombosis, upper right extremity Narrative/Plan: Patient propagated clot now on anticoagulation Current Visit: Yes Status: Acute Priority: High Code(s): I82.621 - ACUTE EMBOLISM AND THROMBOSIS OF DEEP VEINS OF R UP EXTREM SNOMED Code(s): 211403453 (3) LESLEY (acute kidney injury) Narrative/Plan: Continue to monitor kidney function creatinine now 2.63 Current Visit: Yes Status: Acute Code(s): N17.9 - ACUTE KIDNEY FAILURE, UNSPECIFIED SNOMED Code(s): 51907533 (4) History of lymphoma Narrative/Plan: Treatment currently on hold continue current Current Visit: Yes Status: Acute Code(s): Z85.79 - PRSNL HX OF MALIG NEOPLM OF LYMPHOID, HEMATPOETC & REL TISS SNOMED Code(s): 641021771
[2022-05-05] MEDS: MELATONIN 3 MG TABLET PO SCH (20:47)
[2022-05-05] MEDS: ATORVASTATIN 80 MG TAB PO SCH (20:47)
--- NOTE | 2022-05-06 01:35 | P.PN ---
Subjective Progress Note Date: 05/05/22 Principal diagnosis: Oropharyngeal candidiasis and UTI Patient is a 77 year old female with a past medical history significant for Hodgkin lymphoma: Coronary artery disease admitted to the hospital about 2 weeks ago for generalized weakness and has been treated for possible pneumonia in this patient did have evidence of oropharyngeal candidiasis and possible UTI. On today's evaluation that is 05/05/2022, the patient is afebrile, the patient is breathing comfortably on his oxygen denies any chest pain still complaining of sore throat difficulty swallowing no vomiting no abdominal pain no diarrhea Objective - Vital Signs Vital signs: Vital Signs Temp 97.9 F 05/05/22 07:49 Pulse 82 05/05/22 07:49 Resp 16 05/05/22 07:49 BP 97/63 05/05/22 09:47 Pulse Ox 94 L 05/05/22 07:49 FiO2 Intake & Output 05/04/22 05/05/22 05/05/22 18:59 06:59 18:59 Intake Total 1803 Balance 1803 Weight 68.039 kg Intake: Oral 1554 Blood Product 249 Platelet Pheresis Pas 249 Psoralen Unit [id number] Other: # Voids 3 2 - Exam GENERAL DESCRIPTION: An elderly female up in the chair in no distress RESPIRATORY SYSTEM: Unlabored breathing , decreased breath sounds at bases HEART: S1 S2 regular rate and rhythm , ABDOMEN: Soft , no tenderness EXTREMITIES: No edema feet - Labs CBC & Chem 7: 05/05/22 06:36 05/05/22 06:36 Labs: Abnormal Lab Results - Last 24 Hours (Table) 05/04/22 05/04/22 05/04/22 Range/Units 06:00 06:00 06:00 RBC (3.80-5.40) m/uL Hgb (11.4-16.0) gm/dL Hct (34.0-46.0) % RDW (11.5-15.5) % Plt Count 32 L (150-450) k/uL Blast Cells % 6 H* % Lymphocytes # (Manual) 5.04 H (1.0-4.8) k/uL Metamyelocytes # (Man) 0.09 H (0) k/uL Myelocytes # (Manual) 0.09 H (0) k/uL Blast Cells # (Man) 0.54 H (0) k/uL Nucleated RBCs 1 H (0-0) /100 WBC Sodium (137-145) mmol/L Carbon Dioxide (22-30) mmol/L BUN (7-17) mg/dL Creatinine (0.52-1.04) mg/dL Calcium (8.4-10.2) mg/dL Total Bilirubin (0.2-1.3) mg/dL AST (14-36) U/L ALT (4-34) U/L Alkaline Phosphatase (38-126) U/L C-Reactive Protein 13.10 H (0.00-0.80) mg/dL Total Protein (6.3-8.2) g/dL Albumin (3.5-5.0) g/dL Procalcitonin 1.44 H (0.02-0.09) ng/mL 05/05/22/ Range/Units 06:36 06:36 RBC 2.50 L (3.80-5.40) m/uL Hgb 7.2 L (11.4-16.0) gm/dL Hct 22.6 L (34.0-46.0) % RDW 17.9 H (11.5-15.5) % Plt Count 32 L (150-450) k/uL Blast Cells % % Lymphocytes # (Manual) (1.0-4.8) k/uL Metamyelocytes # (Man) (0) k/uL Myelocytes # (Manual) (0) k/uL Blast Cells # (Man) (0) k/uL Nucleated RBCs (0-0) /100 WBC Sodium 131 L (137-145) mmol/L Carbon Dioxide 17 L (22-30) mmol/L BUN 66 H (7-17) mg/dL Creatinine 2.63 H (0.52-1.04) mg/dL Calcium 6.7 L (8.4-10.2) mg/dL Total Bilirubin 1.4 H (0.2-1.3) mg/dL AST 171 H (14-36) U/L ALT 72 H (4-34) U/L Alkaline Phosphatase 830 H (38-126) U/L C-Reactive Protein (0.00-0.80) mg/dL Total Protein 4.0 L (6.3-8.2) g/dL Albumin 2.1 L (3.5-5.0) g/dL Procalcitonin (0.02-0.09) ng/mL Microbiology - Last 24 Hours (Table) 05/03/22 17:15 Urine Culture - Preliminary Urine,Voided Yeast species 05/03/22 15:29 Blood Culture - Preliminary Blood No Growth after 24 hours 05/03/22 14:58 Blood Culture - Preliminary Blood No Growth after 24 hours Assessment and Plan (1) Fever Current Visit: Yes Status: Acute Code(s): R50.9 - FEVER, UNSPECIFIED SNOMED Code(s): 540177232 Plan: 1patient is a 77-year-old female with a past medical history significant for non-Hodgkin lymphoma with recent chemo as well as recent PTCA and stenting admitted to the hospital about 12 days ago for weakness patient did have an episode of fever on 04/25/2022 for the patient has been treated with cefepime she did have a blood culture on 04/24/2022 as well as 04/25/2020 that has been negative patient currently do not have any obvious focus of infection even if she has pneumonia and UTI patient has received adequate antibiotics for it. 2patient did have extensive thrush and possible oropharyngeal candidiasis continue with the nystatin swish and swallow and Diflucan. 3urine has been finalized with bimal and the patient is covered with Diflucan, family the bedside questions were answered Time with Patient: Less than 30
[2022-05-06] MEDS: SODIUM CHLORIDE 0.9% 1,000 ML IV SCH ×2 (06:16→12:46)
[2022-05-06 06:43] LABS: Anisocytosis Slight; HCT 23.6 % (34.0-46.0); HGB 7.6 gm/dL (11.4-16.0); Hypochromasia Slight; MCH 29.4 pg (25.0-35.0); MCHC 32.2 g/dL (31.0-37.0); MCV 91.2 fL (80.0-100.0); Mean Platelet Volume 8.3; Poikilocytosis Slight; RBC 2.58 m/uL (3.80-5.40); WBC 10.8 k/uL (3.8-10.6)
[2022-05-06 06:45] LABS: Platelet Count 27 k/uL (150-450)
--- NOTE | 2022-05-06 08:33 | P.PN ---
Subjective Progress Note Date: 05/06/22 Principal diagnosis: 69 year old female followed up for acute kidney injury, hyponatremia and hypercalcemia. Her creatinine was worsening, The possibility of intravascular volume depletion based on orthostatic changes yesterday I started on IV normal saline at 75 mL an hour, and stop the Lasix which was being used on a when necessary basis.Currently she is feeling tired fatigue poor appetite. Denies any shortness of breath. She is on oxygen. No nausea vomiting no diarrhea no abdominal pain. She is depressed. She has underlying non-Hodgkin's lymphoma, DVT, recently had chemotherapy including Zometa She also has coronary artery disease and underwent a cardiac catheterization recently in December 2021. Objective - Vital Signs Vital signs: Vital Signs Temp 98.7 F 05/06/22 08:00 Pulse 74 05/06/22 08:00 Resp 18 05/06/22 08:00 BP 119/67 05/06/22 08:00 Pulse Ox 96 05/06/22 08:00 FiO2 Intake & Output 05/05/22 05/06/22 05/06/22 18:59 06:59 18:59 Intake Total 1576 1200 Balance 1576 1200 Intake: Intake, IV Titration 900 Amount Sodium Chloride 0.9% 1, 900 000 ml @ 75 mls/hr IV . [id number] [facility] Rx#:[id number] Oral 1320 300 Blood Product 256 Platelet Pheresis Pas 256 Psoralen Unit [id number] Other: Voiding Method Toilet Diaper Incontinent # Voids 3 2 # Bowel Movements 3 1 On examination awake alert oriented looks pale and tired and fatigued. HEENT exam no JVP noted neck is supple no facial asymmetry Lungs are clear to auscultation good air entry bilaterally Heart sounds unremarkable for any murmur rub gallop abdomen is slightly protuber ant may be distended. Extremity exam was mild edema Neurologically awake alert oriented but profoundly weak - Labs CBC & Chem 7: 05/06/22 05:51 05/05/22 06:36 Labs: Abnormal Lab Results - Last 24 Hours (Table) 05/06/22 Range/Units 05:51 WBC 10.8 H (3.8-10.6) k/uL RBC 2.58 L (3.80-5.40) m/uL Hgb 7.6 L (11.4-16.0) gm/dL Hct 23.6 L (34.0-46.0) % RDW 18.0 H (11.5-15.5) % Plt Count 27 L (150-450) k/uL Microbiology - Last 24 Hours (Table) 05/03/22 15:29 Blood Culture - Preliminary Blood No Growth after 48 hours 05/03/22 14:58 Blood Culture - Preliminary Blood No Growth after 48 hours 05/03/22 17:15 Urine Culture - Final Urine,Voided Priya albicans Assessment and Plan Assessment: Impression 1. Worsening acute kidney injury cause not very clear. With Lasix creatinine is worse, going up from 1.6, 1.9, 2.63 over the last 3 days. Based on orthostatic blood pressure drop she was started on IV fluids because of the possibility of intravascularly volume depleted, although she has edema. noted that she has DVT . X-ray shows possible congestion versus interstitial pneumonia on 05/03/2022. Today's labs are pending. Uric acid was normal. Possible acute interstitial nephritis, urinalysis on 05/03/2022 shows 2+ protein 3 rbc's 22 WBCs compared to urinalysis on 05/06/2022 when it was negative protein 1 RBCs and 7 WBC 2. Hyponatremia, etiology is acute kidney injury. Sodium is stable between 1:30 to 1yesterday 3. Hypercalcemia resolved calcium is down to 6.7 with an albumin of 2.1. 4. Non-Hodgkin's lymphoma status post recent chemotherapy. 5. Anemia, hemoglobin 7.2 > 7.6 6. significant thrombocytopenia 32,000. Status post chemotherapy Recommendation 1. Continue IV normal saline at 75 mL an hour 2. Hold Lasix 3. Repeat ultrasound of the kidney to rule out hydronephrosis because of lymph nodes in the retroperitoneum although recent ultrasound was unremarkable dated 04/23/2022 without any hydronephrosis 5. May need kidney biopsy if her creatinine continues to worsen
[2022-05-06] MEDS: MIDODRINE 5 MG TAB PO SCH ×3 (08:35→17:20)
[2022-05-06] MEDS: POTAS-SOD-PHOS 278-164-250 MG 1 EACH PACKET PO SCH ×3 (08:35→22:52)
[2022-05-06] MEDS: FLUCONAZOLE 100 MG TAB PO SCH (08:35)
[2022-05-06] MEDS: SENNOSIDES-DOCUSATE SODIUM 1 EACH TAB PO SCH ×2 (08:35→20:28)
[2022-05-06] MEDS: APIXABAN 5 MG TAB PO SCH ×2 (08:35→20:28)
[2022-05-06] MEDS: MAG HYDROX/AL HYDROX/SIMETH 30 ML, LIDOCAINE VISCOUS 2% 30 ML, diphenhydrAMINE ELIXIR 7... PO SCH ×12 (08:35→21:47)
[2022-05-06] MEDS: allopurinoL 100 MG TAB PO SCH (08:35)
[2022-05-06] MEDS: METOPROLOL TARTRATE 25 MG TAB PO SCH ×2 (08:35→20:28)
--- NOTE | 2022-05-06 16:52 | P.PN ---
Subjective Progress Note Date: 05/06/22 Principal diagnosis: Weakness and fatigue The patient has Non-Hodgkin lymphoma with chemotherapy. Bicytopenia DVT on treatment with Eliquis for UE DVT Patient with worsening renal failure on IVF Objective - Vital Signs Vital signs: Vital Signs Temp 97.7 F 05/06/22 16:31 Pulse 71 05/06/22 16:31 Resp 18 05/06/22 16:31 BP 114/66 05/06/22 16:31 Pulse Ox 97 05/06/22 16:31 FiO2 Intake & Output 05/05/22 05/06/22 05/06/22 18:59 06:59 18:59 Intake Total 1576 1200 0 Balance 1576 1200 0 Intake: Intake, IV Titration 900 Amount Sodium Chloride 0.9% 1, 900 000 ml @ 75 mls/hr IV . [id number] [facility] Rx#:[id number] Oral 1320 300 Blood Product 256 0 Platelet Pheresis Pas 256 Psoralen Unit [id number] Platelet Pheresis Pas 0 Psoralen Unit [id number] Other: Voiding Method Toilet Diaper Incontinent # Voids 3 2 # Bowel Movements 3 1 - Constitutional General appearance: Present: no acute distress - Respiratory Respiratory: bilateral: CTA - Cardiovascular Rhythm: regular - Gastrointestinal General gastrointestinal: Present: normal bowel sounds - Integumentary Integumentary: Present: normal - Musculoskeletal Musculoskeletal: Present: generalized weakness - Psychiatric Psychiatric Comment(s): flat affect - Labs CBC & Chem 7: 05/06/22 05:51 05/05/22 06:36 Labs: Abnormal Lab Results - Last 24 Hours (Table) 05/06/22 Range/Units 05:51 WBC 10.8 H (3.8-10.6) k/uL RBC 2.58 L (3.80-5.40) m/uL Hgb 7.6 L (11.4-16.0) gm/dL Hct 23.6 L (34.0-46.0) % RDW 18.0 H (11.5-15.5) % Plt Count 27 L (150-450) k/uL Microbiology - Last 24 Hours (Table) 05/03/22 15:29 Blood Culture - Preliminary Blood No Growth after 48 hours 05/03/22 14:58 Blood Culture - Preliminary Blood No Growth after 48 hours 05/03/22 17:15 Urine Culture - Final Urine,Voided Priya albicans Assessment and Plan (1) Bicytopenia Narrative/Plan: Patient with bicytopenia. Counts 27,000 received transfusion on 05/05. Per Oncology plan to keep platelet count greater than 50,000 Current Visit: Yes Status: Acute Priority: High Code(s): D75.89 - OTHER SPECIFIED DISEASES OF BLOOD AND BLOOD-FORMING ORGANS SNOMED Code(s): 11656698 (2) Deep vein thrombosis, upper right extremity Narrative/Plan: Patient propagated clot now on anticoagulation with Eliquis monitor closely need to keep platelets > 50 K Current Visit: Yes Status: Acute Priority: High Code(s): I82.621 - ACUTE EMBOLISM AND THROMBOSIS OF DEEP VEINS OF R UP EXTREM SNOMED Code(s): 950809861 (3) LESLEY (acute kidney injury) Narrative/Plan: Continue to monitor kidney function creatinine now 2.63 on 05/05/22. No new labs will repeat Current Visit: Yes Status: Acute Code(s): N17.9 - ACUTE KIDNEY FAILURE, UNSPECIFIED SNOMED Code(s): 34112236 (4) History of lymphoma Narrative/Plan: Appreciate Hematology input Current Visit: Yes Status: Acute Code(s): Z85.79 - PRSNL HX OF MALIG NEOPLM OF LYMPHOID, HEMATPOETC & REL TISS SNOMED Code(s): 963874377 Plan: Continue to monitor counts, daily labs, transfuse keep Plts > 50 K , continue Eliquis
[2022-05-06 17:15] LABS: African American GFR (CKD) 14 (>60 ml/min/1.73 sqM); Anion Gap 12 mmol/L; Blood Urea Nitrogen 77 mg/dL (7-17); Calcium 6.6 mg/dL (8.4-10.2); Carbon Dioxide 12 mmol/L (22-30); Chloride 106 mmol/L (98-107); Glucose 79 mg/dL (74-99); Non-African American GFR(CKD) 12 (>60 ml/min/1.73 sqM); Potassium 4.3 mmol/L (3.5-5.1); Sodium 130 mmol/L (137-145)
[2022-05-06] MEDS: MELATONIN 3 MG TABLET PO SCH (20:28)
[2022-05-06] MEDS: ATORVASTATIN 80 MG TAB PO SCH (20:28)
[2022-05-07] MEDS: ACETAMINOPHEN TAB 325 MG TAB PO PRN (00:12)
[2022-05-07] MEDS ORDERED: ALPRAZolam 0.5 MG TAB PO STA ×2 (00:31→01:48)
--- NOTE | 2022-05-07 01:15 | XR ---
EXAMINATION TYPE: XR chest 1V portable DATE OF EXAM: 05/07/2022 COMPARISON: 05/03/2022 HISTORY: Short of breath TECHNIQUE: FINDINGS: There is pulmonary interstitial edema. Heart is top normal in size. There is poor inspirati on. There is slight blunting of the costophrenic angles. IMPRESSION: There is pulmonary interstitial edema which is increased compared to last exam and could be acute interstitial pneumonia or mild acute heart failure.
[2022-05-07] MEDS ORDERED: MORPHINE SULFATE 2 MG/ML SYRINGE IVP STA (02:47)
[2022-05-07] MEDS: SODIUM CHLORIDE 0.9% 1,000 ML IV SCH ×2 (03:01→09:46)
[2022-05-07] MEDS: FLUCONAZOLE 100 MG TAB PO SCH (08:26)
[2022-05-07] MEDS: MIDODRINE 5 MG TAB PO SCH ×3 (08:26→17:21)
[2022-05-07] MEDS: allopurinoL 100 MG TAB PO SCH (08:26)
[2022-05-07] MEDS: MAG HYDROX/AL HYDROX/SIMETH 30 ML, LIDOCAINE VISCOUS 2% 30 ML, diphenhydrAMINE ELIXIR 7... PO SCH ×12 (08:26→22:42)
[2022-05-07] MEDS: SENNOSIDES-DOCUSATE SODIUM 1 EACH TAB PO SCH ×2 (08:26→22:41)
[2022-05-07] MEDS: APIXABAN 5 MG TAB PO SCH (08:26)
[2022-05-07] MEDS: POTAS-SOD-PHOS 278-164-250 MG 1 EACH PACKET PO SCH (08:26)
[2022-05-07 08:55] LABS: HCT 21.7 % (37.2-46.3); HGB 6.8 g/dL (12.0-15.0); Immature Platelet Fraction 8.5 % (1.1-6.1); MCH 27.8 pg (27.0-32.0); MCHC 31.3 g/dL (32.0-37.0); MCV 88.6 fL (80.0-97.0); NRBC Per 100 WBC 3.5 /100 WBCS (0.0-0.0); Platelet Count 24 X 10*3/uL (140-440); RBC 2.45 X 10*6/uL (4.10-5.20); RDW 18.4 % (11.5-14.5); WBC 11.53 X 10*3/uL (4.50-10.00)
[2022-05-07] MEDS ORDERED: IOPAMIDOL CONTRAST (ORAL USE) VIAL PO PRN (09:17)
[2022-05-07 09:28] LABS: African American GFR (CKD) 10.7 (60.0-200.0); Anion Gap 21.4 mmol/L (10.00-18.00); BUN/Creat Ratio 19.49 Ratio (12.00-20.00); Blood Urea Nitrogen 83.8 mg/dL (9.0-27.0); Calcium 6.3 mg/dL (8.7-10.3); Carbon Dioxide 10.6 mmol/L (20.0-27.5); Non-African American GFR(CKD) 9.2 (60.0-200.0); Potassium 4.8 mmol/L (3.5-5.5)
[2022-05-07] MEDS: METOPROLOL TARTRATE 25 MG TAB PO SCH ×2 (09:36→22:41)
--- NOTE | 2022-05-07 10:48 | P.PN ---
Subjective Progress Note Date: 05/06/22 Principal diagnosis: Oropharyngeal candidiasis and UTI Patient is a 77 year old female with a past medical history significant for Hodgkin lymphoma: Coronary artery disease admitted to the hospital about 2 weeks ago for generalized weakness and has been treated for possible pneumonia in this patient did have evidence of oropharyngeal candidiasis and possible UTI. On today's evaluation that is 05/06/2022, the patient remains to be afebrile, the patient is breathing comfortably on nasal cannula oxygen, the patient denies any chest pain still complaining of sore throat difficulty swallowing no vomiting no abdominal pain no diarrhea Objective - Vital Signs Vital signs: Vital Signs Temp 98.7 F 05/06/22 08:00 Pulse 74 05/06/22 08:00 Resp 18 05/06/22 08:00 BP 119/67 05/06/22 08:00 Pulse Ox 96 05/06/22 08:00 FiO2 Intake & Output 05/05/22 05/06/22 05/06/22 18:59 06:59 18:59 Intake Total 1576 1200 Balance 1576 1200 Intake: Intake, IV Titration 900 Amount Sodium Chloride 0.9% 1, 900 000 ml @ 75 mls/hr IV . [id number] Rx#:[id number] Oral 1320 300 Blood Product 256 Platelet Pheresis Pas 256 Psoralen Unit [id number] Other: Voiding Method Toilet Diaper Incontinent # Voids 3 2 # Bowel Movements 3 1 - Exam GENERAL DESCRIPTION: An elderly female up in the chair in no distress RESPIRATORY SYSTEM: Unlabored breathing , decreased breath sounds at bases HEART: S1 S2 regular rate and rhythm , ABDOMEN: Soft , no tenderness EXTREMITIES: No edema feet - Labs CBC & Chem 7: 05/07/22 05:42 05/07/22 05:42 Labs: Abnormal Lab Results - Last 24 Hours (Table) 05/06/22 Range/Units 05:51 WBC 10.8 H (3.8-10.6) k/uL RBC 2.58 L (3.80-5.40) m/uL Hgb 7.6 L (11.4-16.0) gm/dL Hct 23.6 L (34.0-46.0) % RDW 18.0 H (11.5-15.5) % Plt Count 27 L (150-450) k/uL Microbiology - Last 24 Hours (Table) 05/03/22 15:29 Blood Culture - Preliminary Blood No Growth after 48 hours 05/03/22 14:58 Blood Culture - Preliminary Blood No Growth after 48 hours 05/03/22 17:15 Urine Culture - Final Urine,Voided Priya albicans Assessment and Plan (1) Fever Current Visit: Yes Status: Acute Code(s): R50.9 - FEVER, UNSPECIFIED SNOMED Code(s): 144804229 Plan: 1patient is a 77-year-old female with a past medical history significant for non-Hodgkin lymphoma with recent chemo as well as recent PTCA and stenting admitted to the hospital about 12 days ago for weakness patient did have an episode of fever on 04/25/2022 for the patient has been treated with cefepime she did have a blood culture on 04/24/2022 as well as 04/25/2020 that has been negative patient currently do not have any obvious focus of infection even if she has pneumonia and UTI patient has received adequate antibiotics for it. 2patient did have extensive thrush and possible oropharyngeal candidiasis, patient to continue with the nystatin swish and swallow and Diflucan. 3the patient urine has been finalized with priya and the patient is covered with Diflucan, Family at the bedside questions concerned were answered Time with Patient: Less than 30
[2022-05-07 10:49] LABS: INR 1.6 (<1.2); Partial Thromboplastin Time 37.4 sec (22.0-30.0); Prothrombin Time 16.3 sec (9.0-12.0)
[2022-05-07 11:05] LABS: ALT 54 U/L (4-34); AST 204 U/L (14-36); African American GFR (CKD) 10 (>60 ml/min/1.73 sqM); Albumin/Globulin Ratio 1.1; Alkaline Phosphatase 802 U/L (38-126); Anion Gap 13 mmol/L; Blood Urea Nitrogen 84 mg/dL (7-17); Carbon Dioxide 12 mmol/L (22-30); Chloride 105 mmol/L (98-107); Globulin 1.9 g/dL; Glucose 88 mg/dL (74-99); Magnesium 1.6 mg/dL (1.6-2.3); Non-African American GFR(CKD) 9 (>60 ml/min/1.73 sqM); Phosphorus 6.9 mg/dL (2.5-4.5); Potassium 5.1 mmol/L (3.5-5.1); Sodium 130 mmol/L (137-145); Total Bilirubin 1.5 mg/dL (0.2-1.3); Total Protein 3.9 g/dL (6.3-8.2); Uric Acid 9.1 mg/dL (3.7-7.4)
[2022-05-07 11:12] LABS: Calcium 6.1 mg/dL (8.4-10.2)
[2022-05-07] MEDS ORDERED: SODIUM BICARB 8.4% 50 ML SYR (1 MEQ/ML) IV STA (11:43)
[2022-05-07] MEDS ORDERED: FUROSEMIDE 10 MG/ML 10 ML VIAL IV STA (11:43)
--- NOTE | 2022-05-07 11:44 | P.PN ---
Subjective Patient is seen in follow-up for acute kidney injury and hyponatremia. Sodium level stable. Renal function also stable with creatinine at 4.37 today. Patient is quite lethargic. Going for CT of the brain today. Oral intake is poor. Family present at bedside. Vital signs are stable. General: Lethargic. HEENT: Head exam is unremarkable. LUNGS: Breath sounds decreased. HEART: Rate and Rhythm are regular. ABDOMEN: Soft, no distention. EXTREMITITES: 2+ edema. Objective - Vital Signs Vital signs: Vital Signs Temp 97.9 F 05/07/22 07:18 Pulse 75 05/07/22 07:18 Resp 22 05/07/22 07:18 BP 100/62 05/07/22 07:18 Pulse Ox 93 L 05/07/22 07:18 FiO2 Intake & Output 05/06/22 05/07/22 05/07/22 18:59 06:59 18:59 Intake Total 295 590 Output Total 1 Balance 294 590 Intake: Oral 590 Blood Product 295 Platelet Pheresis Pas 295 Psoralen Unit [id number] Output: Emesis 1 Other: Voiding Method Toilet Diaper Incontinent # Voids 1 2 # Bowel Movements 2 - Labs CBC & Chem 7: 05/07/22 05:42 05/07/22 10:12 Labs: Abnormal Lab Results - Last 24 Hours (Table) 05/06/22 05/07/22 05/07/22 Range/Units 05:51 05:42 05:42 WBC 11.53 H (4.50-10.00) X 10*3/uL RBC 2.45 L (4.10-5.20) X 10*6/uL Hgb 6.8 L* (12.0-15.0) g/dL Hct 21.7 L (37.2-46.3) % MCHC 31.3 L (32.0-37.0) g/dL RDW 18.4 H (11.5-14.5) % Plt Count 24 L (140-440) X 10*3/uL Absolute Nucleated RBC 0.40 H (0.00-0.00) X 10*3/uL NRBC/100 WBC Diff 3.5 H (0.0-0.0) /100 WBCS Immature Plt Fraction 8.5 H (1.1-6.1) % PT (9.0-12.0) sec INR (<1.2) APTT (22.0-30.0) sec Sodium 130 L 129 L (137-145) mmol/L Carbon Dioxide 12 L 10.6 L (22-30) mmol/L Anion Gap 21.40 H (10.00-18.00) mmol/L BUN 77 H 83.8 H (7-17) mg/dL Creatinine 3.50 H 4.3 H (0.52-1.04) mg/dL Est GFR (CKD-EPI)AfAm 10.7 L (60.0-200.0) Est GFR (CKD-EPI)NonAf 9.2 L (60.0-200.0) Uric Acid (3.7-7.4) mg/dL Calcium 6.6 L 6.3 L* (8.4-10.2) mg/dL Phosphorus (2.5-4.5) mg/dL Total Bilirubin (0.2-1.3) mg/dL AST (14-36) U/L ALT (4-34) U/L Alkaline Phosphatase (38-126) U/L Total Protein (6.3-8.2) g/dL Albumin (3.5-5.0) g/dL 05/07/22 05/07/22 Range/Units 10:12 10:12 WBC (4.50-10.00) X 10*3/uL RBC (4.10-5.20) X 10*6/uL Hgb (12.0-15.0) g/dL Hct (37.2-46.3) % MCHC (32.0-37.0) g/dL RDW (11.5-14.5) % Plt Count (140-440) X 10*3/uL Absolute Nucleated RBC (0.00-0.00) X 10*3/uL NRBC/100 WBC Diff (0.0-0.0) /100 WBCS Immature Plt Fraction (1.1-6.1) % PT 16.3 H (9.0-12.0) sec INR 1.6 H (<1.2) APTT 37.4 H (22.0-30.0) sec Sodium 130 L (137-145) mmol/L Carbon Dioxide 12 L (22-30) mmol/L Anion Gap (10.00-18.00) mmol/L BUN 84 H (7-17) mg/dL Creatinine 4.37 H (0.52-1.04) mg/dL Est GFR (CKD-EPI)AfAm (60.0-200.0) Est GFR (CKD-EPI)NonAf (60.0-200.0) Uric Acid 9.1 H (3.7-7.4) mg/dL Calcium 6.1 L* (8.4-10.2) mg/dL Phosphorus 6.9 H (2.5-4.5) mg/dL Total Bilirubin 1.5 H (0.2-1.3) mg/dL AST 204 H (14-36) U/L ALT 54 H (4-34) U/L Alkaline Phosphatase 802 H (38-126) U/L Total Protein 3.9 L (6.3-8.2) g/dL Albumin 2.0 L (3.5-5.0) g/dL Microbiology - Last 24 Hours (Table) 05/03/22 14:58 Blood Culture - Preliminary Blood No Growth after 72 hours 05/03/22 15:29 Blood Culture - Preliminary Blood No Growth after 72 hours Assessment and Plan Plan: Assessment: 1. Hyponatremia with component of poor solute intake and SIADH from malignancy. Hypervolemic. Sodium level 130. Urine osmolality 339. TSH 0.33. Cortisol level not low. 2. Hypercalcemia. Likely related to underlying lymphoma. ALYCIA elevated at 91 - ?sarcoid vs due to malignancy- no evidence on CXR. 1,25 D3 35. Vitamin D level 57.6. PTH low at 7. Difficult to exclude a small paraprotein on serum immunofixation. [place] free light chain elevated at 3.54 and free lambda light chain 0.62. Defer management to oncology. Hypercalcemia resolved. Now hypocalcemic. 3. Non-Hodgkin's lymphoma. Oncology following. 4. Coronary disease status post cardiac stenting. 5. Benign hypertension. Blood pressure in the lower side. 6. Anemia. Iron deficiency noted - status post IV iron completed 04/28/2022. s/p blood transfusion this admission. Heme/onc following. Hemoglobin 6.8 today. 7. Lower extremity edema. Partially due to hypoalbuminemia. 8. Hypokalemia from poor intake and diuresis. Replace. Resolved. 9. Hypomagnesemia from poor intake. 10. Acute kidney injury mostly prerenal secondary to hypercalcemia, ?TLS (high uric acid, no hypocalcemia or hyperphosphatemia) and anemia. Also component of diuresis. Creatinine 4.37 today. No proteinuria on initial UA. UA from 05/03/2022 suggestive of UTI with urine culture positive for Priya. 11. Right upper extremity DVT. On anticoagulation. 12. Cardiomyopathy with ejection fraction of 40%. Cardiology following. 13. Fever. On Diflucan for UTI. ID following. 14. Hyperphosphatemia secondary to acute kidney injury. On neutra-phos. 15. Metabolic acidosis secondary to acute kidney injury. Plan: Change IV fluids to bicarbonate drip to be run at 50 mL an hour. 3 amps sodium bicarbonate IV push today. Scheduled to receive a unit of blood today. Lasix 60 mg IV once post blood transfusion. Encouraged oral intake. Maintain fluid restriction. 1 g IV calcium gluconate today. Stop neutra-phos. Avoid nephrotoxins. Continue to monitor renal function and urine output. Strict is and os. Discussed with nurse. Continue to assess daily for need for renal replacement therapy. Cortisol not low. Prognosis guarded. Case discussed with primary team as well as family present at bedside
[2022-05-07 11:45] LABS: LDH 13186 U/L (313-618)
--- NOTE | 2022-05-07 12:01 | CT ---
EXAMINATION TYPE: CT brain wo con DATE OF EXAM: 05/07/2022 COMPARISON: 03/09/2022 HISTORY: Altered mental status. CT DLP: 1008 mGycm Automated exposure control for dose reduction was used. FINDINGS: There is no acute intracranial hemorrhage or midline shift identified. There is mild to moderate diff use ventricular and sulcal prominence consistent with diffuse age-related cerebral atrophy. There is mild to moderate low-attenuation in the periventricular white matter consistent with chronic small ve ssel ischemic change. Hyperostosis frontalis is present. The globes are intact and mild changes of anterior frontal chronic sinusitis. Prominent CSF space in the posterior fossa and along the left cerebral convexity are stab le and may represent small arachnoid cyst. Cisterna magna diagnosis IMPRESSION: [id number] DEGENERATIVE CHANGE AND NONSPECIFIC WHITE MATTER CHANGES MOST TYPICAL OF REMOTE ISCH EMIA. CORRELATE WITH MRI CLINICALLY WARRANTED.
[2022-05-07] MEDS ORDERED: CALCIUM GLUCONATE IN NACL 1 GM in SALINE 1 100ML.BAG IVPB ONE (12:15)
--- NOTE | 2022-05-07 12:18 | CT ---
EXAMINATION TYPE: CT ChestAbdPelvis wo con CT DLP: 845.9 mGycm, Automated exposure control for dose reduction was used. DATE OF EXAM: 05/07/2022 11:50 AM COMPARISON: CT 03/05/2022 CLINICAL INDICATION:Female, 77 years old with history of progression, Altered mental status. Technique: Multiple axial images of the chest, abdomen, and pelvis were obtained. Two-dimensional cor onal and sagittal reconstructions were obtained. Contrast used: None Oral contrast used: without Oral Contrast Findings: CHEST: LUNGS/ PLEURA: There is scattered groundglass and consolidation opacities throughout the lungs most p roximal apices. Trace bilateral pleural effusions. AIRWAY: Patent and unremarkable. HEART: The heart is mildly enlarged for size. There are coronary artery atherosclerosis changes. MEDIASTINUM: No gross evidence of adenopathy. VASCULATURE: No aortic aneurysm. MUSCULOSKELETAL: No acute osseous abnormalities. SOFT TISSUES/LYMPH NODES: Unremarkable. LOWER NECK: No significant findings. ABDOMEN: ABDOMEN LIVER: Unremarkable GALLBLADDER AND BILE DUCTS: Layering increased densities within the lumen consistent with gallstones are present. PANCREAS: Unremarkable. SPLEEN: The spleen is mildly enlarged for size measuring up to 18.5 cm in caudocranial dimension, pre viously 11.9 on 03/05/2022. ADRENAL GLANDS: Unremarkable. KIDNEYS AND URETERS: No evidence of hydronephrosis or renal calculus. The ureters are unremarkable. PELVIS BLADDER: Unremarkable REPRODUCTIVE: Unremarkable. ABDOMEN & PELVIS STOMACH AND BOWEL: No evidence of bowel obstruction. PERITONEUM: No evidence of pneumoperitoneum or free fluid. VASCULATURE: Mild atherosclerotic calcifications are present throughout the abdominal aorta and its b ranches. MUSCULOSKELETAL: No acute osseous abnormalities. Mild disc degeneration changes are present throughout the thoracolumbar spine. LYMPH NODES: Scattered conglomerate lymphadenopathy is seen throughout the retroperitoneum most prono unced on the aorta the largest area measuring approximately 10.1 x 5.6 x 4.3 cm. Areas along the righ t paramedian retroperitoneum showing lymphadenopathy and 03/05/2022. Decrease in size with conglomerat e lymph nodes measuring approximately 3.1 x 2.0 cm previously 3.7 x 2.3 cm. Additional area along the left measures 8.7 x 5.4 today previously 8.0 x 4.9 cm. Additional lymphadenopathy in the abbi hepat is and is suboptimally evaluated without IV contrast. SOFT TISSUE/ABDOMINAL WALL: Anasarca of the soft tissues. IMPRESSION: 1. Multifocal airspace opacities throughout the lungs concerning for acute pneumonia. 2. New trace bilateral pleural effusions. 3. Interval development of marked splenomegaly measuring up to 18.5 cm, previously 11.9 cm. 4. Overall progression of lymphadenopathy with predominantly larger areas of conglomerate lymphadeno nikkie. An area along the right retroperitoneum at the level of the right renal sinus does appear to b e mildly increased in size. Given interval increase in size of the spleen splenic involvement of lymp poncho suggested. 5. Moderate to severe coronary artery atherosclerosis. 6. Cholelithiasis.
--- NOTE | 2022-05-07 14:44 | P.PN ---
Subjective Progress Note Date: 05/07/22 Principal diagnosis: Lethargy, altered mentation Patient was seen and examined. No acute events overnight. Patient profoundly different since I last saw her on 05/04. Patient is lethargic and moaning. Unable to answer questions. Objective - Vital Signs Vital signs: Vital Signs Temp 97.8 F 05/07/22 14:00 Pulse 76 05/07/22 14:00 Resp 18 05/07/22 14:00 BP 106/69 05/07/22 14:00 Pulse Ox 96 05/07/22 14:00 FiO2 Intake & Output 05/06/22 05/07/22 05/07/22 18:59 06:59 18:59 Intake Total 295 590 0 Output Total 1 Balance 294 590 0 Weight 68.039 kg Intake: Oral 590 Blood Product 295 0 Unit 0 Platelet Pheresis Pas 295 Psoralen Unit [id number] Output: Emesis 1 Other: Voiding Method Toilet Diaper Incontinent # Voids 1 2 # Bowel Movements 2 - Exam Constitutional: Mild distress Eyes:Anicteric sclerae, moist conjunctiva, no lid-lag Lungs: Coarse BS BL Cardiovascular: Heart regular in rate and rhythm, No murmurs, gallops, or rubs. 2-3+ pitting edema BL LE. Abdominal: Soft, Nontender, edematous Skin: Normal temperature, tone, texture, turgor, no induration Psychiatric: Lethargic Neuro: Unable to perform due to change in mentation - Labs CBC & Chem 7: 05/07/22 05:42 05/07/22 10:12 Labs: Abnormal Lab Results - Last 24 Hours (Table) 05/03/22 05/06/22 05/07/22 Range/Units 07:15 05:51 05:42 WBC 11.53 H (4.50-10.00) X 10*3/uL RBC 2.45 L (4.10-5.20) X 10*6/uL Hgb 6.8 L* (12.0-15.0) g/dL Hct 21.7 L (37.2-46.3) % MCHC 31.3 L (32.0-37.0) g/dL RDW 18.4 H (11.5-14.5) % Plt Count 24 L (140-440) X 10*3/uL Absolute Nucleated RBC 0.40 H (0.00-0.00) X 10*3/uL Blast Cells # (Man) 0.31 H (0) k/uL NRBC/100 WBC Diff 3.5 H (0.0-0.0) /100 WBCS Immature Plt Fraction 8.5 H (1.1-6.1) % PT (9.0-12.0) sec INR (<1.2) APTT (22.0-30.0) sec Sodium 130 L (137-145) mmol/L Carbon Dioxide 12 L (22-30) mmol/L Anion Gap (10.00-18.00) mmol/L BUN 77 H (7-17) mg/dL Creatinine 3.50 H (0.52-1.04) mg/dL Est GFR (CKD-EPI)AfAm (60.0-200.0) Est GFR (CKD-EPI)NonAf (60.0-200.0) Uric Acid (3.7-7.4) mg/dL Calcium 6.6 L (8.4-10.2) mg/dL Phosphorus (2.5-4.5) mg/dL Total Bilirubin (0.2-1.3) mg/dL AST (14-36) U/L ALT (4-34) U/L Alkaline Phosphatase (38-126) U/L Lactate Dehydrogenase (313-618) U/L Total Protein (6.3-8.2) g/dL Albumin (3.5-5.0) g/dL Crossmatch 05/07/22 05/07/22 05/07/22 Range/Units 05:42 10:12 10:12 WBC (4.50-10.00) X 10*3/uL RBC (4.10-5.20) X 10*6/uL Hgb (12.0-15.0) g/dL Hct (37.2-46.3) % MCHC (32.0-37.0) g/dL RDW (11.5-14.5) % Plt Count (140-440) X 10*3/uL Absolute Nucleated RBC (0.00-0.00) X 10*3/uL Blast Cells # (Man) (0) k/uL NRBC/100 WBC Diff (0.0-0.0) /100 WBCS Immature Plt Fraction (1.1-6.1) % PT 16.3 H (9.0-12.0) sec INR 1.6 H (<1.2) APTT 37.4 H (22.0-30.0) sec Sodium 129 L 130 L (137-145) mmol/L Carbon Dioxide 10.6 L 12 L (22-30) mmol/L Anion Gap 21.40 H (10.00-18.00) mmol/L BUN 83.8 H 84 H (7-17) mg/dL Creatinine 4.3 H 4.37 H (0.52-1.04) mg/dL Est GFR (CKD-EPI)AfAm 10.7 L (60.0-200.0) Est GFR (CKD-EPI)NonAf 9.2 L (60.0-200.0) Uric Acid 9.1 H (3.7-7.4) mg/dL Calcium 6.3 L* 6.1 L* (8.4-10.2) mg/dL Phosphorus 6.9 H (2.5-4.5) mg/dL Total Bilirubin 1.5 H (0.2-1.3) mg/dL AST 204 H (14-36) U/L ALT 54 H (4-34) U/L Alkaline Phosphatase 802 H (38-126) U/L Lactate Dehydrogenase 70723 H (313-618) U/L Total Protein 3.9 L (6.3-8.2) g/dL Albumin 2.0 L (3.5-5.0) g/dL Crossmatch 05/07/22 Range/Units 10:12 WBC (4.50-10.00) X 10*3/uL RBC (4.10-5.20) X 10*6/uL Hgb (12.0-15.0) g/dL Hct (37.2-46.3) % MCHC (32.0-37.0) g/dL RDW (11.5-14.5) % Plt Count (140-440) X 10*3/uL Absolute Nucleated RBC (0.00-0.00) X 10*3/uL Blast Cells # (Man) (0) k/uL NRBC/100 WBC Diff (0.0-0.0) /100 WBCS Immature Plt Fraction (1.1-6.1) % PT (9.0-12.0) sec INR (<1.2) APTT (22.0-30.0) sec Sodium (137-145) mmol/L Carbon Dioxide (22-30) mmol/L Anion Gap (10.00-18.00) mmol/L BUN (7-17) mg/dL Creatinine (0.52-1.04) mg/dL Est GFR (CKD-EPI)AfAm (60.0-200.0) Est GFR (CKD-EPI)NonAf (60.0-200.0) Uric Acid (3.7-7.4) mg/dL Calcium (8.4-10.2) mg/dL Phosphorus (2.5-4.5) mg/dL Total Bilirubin (0.2-1.3) mg/dL AST (14-36) U/L ALT (4-34) U/L Alkaline Phosphatase (38-126) U/L Lactate Dehydrogenase (313-618) U/L Total Protein (6.3-8.2) g/dL Albumin (3.5-5.0) g/dL Crossmatch See Detail Microbiology - Last 24 Hours (Table) 05/03/22 14:58 Blood Culture - Preliminary Blood No Growth after 72 hours 05/03/22 15:29 Blood Culture - Preliminary Blood No Growth after 72 hours Assessment and Plan Assessment: Altered mental status -Acute change in mentation -CT head negative for acute changes -Patient appropriate for palliative and hospice care, to be discussed by Oncology services Acute renal failure Metabolic acidosis -Prerenal -Renal and bladder US negative for obstruction or hydronephrosis -Case discussed with Dr. Spencer, no plans for dialysis unless chemotherapy definitive treatment, 3 amps of bicarb followed by bicard drip at 50 cc/h, lasix 60 mg IV with blood transfusion -Avoid nephrotonix -Daily BMP Anemia Thrombocytopenia -Suspect due to chemotherapy and lymphoma with a component of iron deficiency. 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 Fever -Possible related to underlying malignancy or DVT -On Diflucan for UTI (UCx candidal albicans) -Blood culture negative -CXR showing possible PNA vs fluid overload -ID on board DVT -Eliquis when OK with Hematology Generalized weakness secondary to chemotherapy -PT/OT Elevated LFTs Elevated alkaline phosphatase -Right upper quadrant ultrasound showing some cholelithiasis -CTAP shows splenomegaly Systolic CHF exacerbation -Lasix as above -Cardiology following Non-Hodgkin lymphoma on active chemotherapy -Oncology following -Hold Revlimid for now -Consult palliative care Coronary disease status post recent stent -Resume aspirin and statin and metoprolol -D/w cardiology, Dr. Leon will only give eliquis and aspirin. Hold plavix. Hypertension -Hold losartan as patient is dehydrated and risk for hypertension. -Resume metoprolol Resolved: Hypercalcemia, Lactic acidosis, hypokalemia, hypomagnesemia CODE STATUS: DNR/DNI DPOA: Patient's sister DVT prophylaxis: mechanical.
--- NOTE | 2022-05-07 14:52 | P.PN ---
Subjective Progress Note Date: 05/07/22 Principal diagnosis: Lymphoma Patient opened eyes to name but non-verbal this am, Her CBC and CMP is worsening, renal function worsening, Stat CT Brain ordered and no acute bleed noted. Eliquis on hold, Platelet and PRBC ordered. CT without contrast of Chest abdomen and Pelvis ordered to identify if disease is progression given her shift in rapid decline. Unfortunately revealing progressive adenopathy on imaging in spleen and intrabdominal lymphadenopathy. Discussed with primary team and family and agree with hospice Objective - Vital Signs Vital signs: Vital Signs Temp 97.8 F 05/07/22 14:00 Pulse 76 05/07/22 14:00 Resp 18 05/07/22 14:00 BP 106/69 05/07/22 14:00 Pulse Ox 96 05/07/22 14:00 FiO2 Intake & Output 05/06/22 05/07/22 05/07/22 18:59 06:59 18:59 Intake Total 295 590 0 Output Total 1 Balance 294 590 0 Weight 68.039 kg Intake: Oral 590 Blood Product 295 0 Unit 0 Platelet Pheresis Pas 295 Psoralen Unit [id number] Output: Emesis 1 Other: Voiding Method Toilet Diaper Incontinent # Voids 1 2 # Bowel Movements 2 - Exam General:Mild Distress Open eyes no verbal Dried blood in mouth and nose Abdomen disteded worese Right chest wall port CDI Cardiovascular:BLE Edema Lungs: Diminiashed Abdominal: soft, nontender normal bowel sounds Neuro: nonfocal Psych: Alert, oriented, appropriate affect - Labs CBC & Chem 7: 05/07/22 05:42 05/07/22 10:12 Labs: Abnormal Lab Results - Last 24 Hours (Table) 05/03/22 05/06/22 05/07/22 Range/Units 07:15 05:51 05:42 WBC 11.53 H (4.50-10.00) X 10*3/uL RBC 2.45 L (4.10-5.20) X 10*6/uL Hgb 6.8 L* (12.0-15.0) g/dL Hct 21.7 L (37.2-46.3) % MCHC 31.3 L (32.0-37.0) g/dL RDW 18.4 H (11.5-14.5) % Plt Count 24 L (140-440) X 10*3/uL Absolute Nucleated RBC 0.40 H (0.00-0.00) X 10*3/uL Blast Cells # (Man) 0.31 H (0) k/uL NRBC/100 WBC Diff 3.5 H (0.0-0.0) /100 WBCS Immature Plt Fraction 8.5 H (1.1-6.1) % PT (9.0-12.0) sec INR (<1.2) APTT (22.0-30.0) sec Sodium 130 L (137-145) mmol/L Carbon Dioxide 12 L (22-30) mmol/L Anion Gap (10.00-18.00) mmol/L BUN 77 H (7-17) mg/dL Creatinine 3.50 H (0.52-1.04) mg/dL Est GFR (CKD-EPI)AfAm (60.0-200.0) Est GFR (CKD-EPI)NonAf (60.0-200.0) Uric Acid (3.7-7.4) mg/dL Calcium 6.6 L (8.4-10.2) mg/dL Phosphorus (2.5-4.5) mg/dL Total Bilirubin (0.2-1.3) mg/dL AST (14-36) U/L ALT (4-34) U/L Alkaline Phosphatase (38-126) U/L Lactate Dehydrogenase (313-618) U/L Total Protein (6.3-8.2) g/dL Albumin (3.5-5.0) g/dL Crossmatch 05/07/22 05/07/22 05/07/22 Range/Units 05:42 10:12 10:12 WBC (4.50-10.00) X 10*3/uL RBC (4.10-5.20) X 10*6/uL Hgb (12.0-15.0) g/dL Hct (37.2-46.3) % MCHC (32.0-37.0) g/dL RDW (11.5-14.5) % Plt Count (140-440) X 10*3/uL Absolute Nucleated RBC (0.00-0.00) X 10*3/uL Blast Cells # (Man) (0) k/uL NRBC/100 WBC Diff (0.0-0.0) /100 WBCS Immature Plt Fraction (1.1-6.1) % PT 16.3 H (9.0-12.0) sec INR 1.6 H (<1.2) APTT 37.4 H (22.0-30.0) sec Sodium 129 L 130 L (137-145) mmol/L Carbon Dioxide 10.6 L 12 L (22-30) mmol/L Anion Gap 21.40 H (10.00-18.00) mmol/L BUN 83.8 H 84 H (7-17) mg/dL Creatinine 4.3 H 4.37 H (0.52-1.04) mg/dL Est GFR (CKD-EPI)AfAm 10.7 L (60.0-200.0) Est GFR (CKD-EPI)NonAf 9.2 L (60.0-200.0) Uric Acid 9.1 H (3.7-7.4) mg/dL Calcium 6.3 L* 6.1 L* (8.4-10.2) mg/dL Phosphorus 6.9 H (2.5-4.5) mg/dL Total Bilirubin 1.5 H (0.2-1.3) mg/dL AST 204 H (14-36) U/L ALT 54 H (4-34) U/L Alkaline Phosphatase 802 H (38-126) U/L Lactate Dehydrogenase 74064 H (313-618) U/L Total Protein 3.9 L (6.3-8.2) g/dL Albumin 2.0 L (3.5-5.0) g/dL Crossmatch 05/07/22 Range/Units 10:12 WBC (4.50-10.00) X 10*3/uL RBC (4.10-5.20) X 10*6/uL Hgb (12.0-15.0) g/dL Hct (37.2-46.3) % MCHC (32.0-37.0) g/dL RDW (11.5-14.5) % Plt Count (140-440) X 10*3/uL Absolute Nucleated RBC (0.00-0.00) X 10*3/uL Blast Cells # (Man) (0) k/uL NRBC/100 WBC Diff (0.0-0.0) /100 WBCS Immature Plt Fraction (1.1-6.1) % PT (9.0-12.0) sec INR (<1.2) APTT (22.0-30.0) sec Sodium (137-145) mmol/L Carbon Dioxide (22-30) mmol/L Anion Gap (10.00-18.00) mmol/L BUN (7-17) mg/dL Creatinine (0.52-1.04) mg/dL Est GFR (CKD-EPI)AfAm (60.0-200.0) Est GFR (CKD-EPI)NonAf (60.0-200.0) Uric Acid (3.7-7.4) mg/dL Calcium (8.4-10.2) mg/dL Phosphorus (2.5-4.5) mg/dL Total Bilirubin (0.2-1.3) mg/dL AST (14-36) U/L ALT (4-34) U/L Alkaline Phosphatase (38-126) U/L Lactate Dehydrogenase (313-618) U/L Total Protein (6.3-8.2) g/dL Albumin (3.5-5.0) g/dL Crossmatch See Detail Microbiology - Last 24 Hours (Table) 05/03/22 14:58 Blood Culture - Preliminary Blood No Growth after 72 hours 05/03/22 15:29 Blood Culture - Preliminary Blood No Growth after 72 hours Assessment and Plan (1) Non-Hodgkin lymphoma Narrative/Plan: - Unfortunet,berto over the past few days she has rapidly declined within her performance status and blood work-up, CT confirmed progression. Discussed with patient, family and primary team no additional chemotherapy to offer Hospice consult placed Family agreeable Current Visit: Yes Status: Chronic Priority: High Code(s): C85.90 - NON- HODGKIN LYMPHOMA, UNSPECIFIED, UNSPECIFIED SITE SNOMED Code(s): 618169426 (2) Hypercalcemia Current Visit: Yes Status: Acute Code(s): E83.52 - HYPERCALCEMIA SNOMED Code(s): 34682377 (3) Hyponatremia Current Visit: Yes Status: Acute Code(s): E87.1 - HYPO-OSMOLALITY AND HYPONATREMIA SNOMED Code(s): 74864944 (4) Weakness Current Visit: No Status: Acute Code(s): R53.1 - WEAKNESS SNOMED Code(s): 41282877 (5) Bradycardia Current Visit: Yes Status: Acute Code(s): R00.1 - BRADYCARDIA, UNSPECIFIED SNOMED Code(s): 60255836 (6) Normocytic anemia Current Visit: Yes Status: Acute Code(s): D64.9 - ANEMIA, UNSPECIFIED SNOMED Code(s): 108703600 (7) Deep vein thrombosis, upper right extremity Narrative/Plan: HOld AC with bleeding and hospice goals of care Current Visit: Yes Status: Acute Priority: High Code(s): I82.621 - ACUTE EMBOLISM AND THROMBOSIS OF DEEP VEINS OF R UP EXTREM SNOMED Code(s): 378261622 (8) Fever Current Visit: Yes Status: Acute Code(s): R50.9 - FEVER, UNSPECIFIED SNOMED Code(s): 306140838
[2022-05-07] MEDS: DEXTROSE 5% IN WATER 1,000 ML with SODIUM BICARB (1 MEQ/ML) 150 ML IV SCH (17:02)
[2022-05-07] MEDS: MAGNESIUM SULFATE-D5W PMX 1 GM in DEXTROSE/WATER 1 100ML.BAG IVPB SCH ×2 (17:04→18:42)
[2022-05-07] MEDS: MELATONIN 3 MG TABLET PO SCH (22:41)
[2022-05-07] MEDS: ATORVASTATIN 80 MG TAB PO SCH (22:41)
[2022-05-08] MEDS ORDERED: MORPHINE SULFATE 2 MG/ML SYRINGE IVP STA (00:45)
[2022-05-08] MEDS: DEXTROSE 5% IN WATER 1,000 ML with SODIUM BICARB (1 MEQ/ML) 150 ML IV SCH (03:20)
[2022-05-08] MEDS: MORPHINE SULFATE 2 MG/ML SYRINGE IVP PRN ×2 (06:10→09:28)
[2022-05-08 07:33] VITALS: BP 107/65; PULSE 89; RESP 22; TEMP 100.5
[2022-05-08] MEDS: MIDODRINE 5 MG TAB PO SCH (09:30)
[2022-05-08] MEDS: MAG HYDROX/AL HYDROX/SIMETH 30 ML, LIDOCAINE VISCOUS 2% 30 ML, diphenhydrAMINE ELIXIR 7... PO SCH ×4 (09:31)
[2022-05-08] MEDS: METOPROLOL TARTRATE 25 MG TAB PO SCH (09:31)
[2022-05-08] MEDS: FLUCONAZOLE 100 MG TAB PO SCH (09:31)
[2022-05-08] MEDS: allopurinoL 100 MG TAB PO SCH (09:31)
[2022-05-08] MEDS: SENNOSIDES-DOCUSATE SODIUM 1 EACH TAB PO SCH (09:31)
[2022-05-08 10:56] LABS: Magnesium 2.1 mg/dL (1.5-2.4); Phosphorus 6.5 mg/dL (2.4-5.1)
[2022-05-08] MEDS ORDERED: PIPERACILLIN-TAZOBACTAM 3.375 GM in SODIUM CHLORIDE 0.9% 100 ML IVPB SCH (11:00)
--- NOTE | 2022-05-08 11:04 | P.PN ---
Subjective Progress Note Date: 05/08/22 Principal diagnosis: DLBCL on treatment, electrolyte derangements, anemia, thrombocytopenia In f/u today pt is obtunde, not responding verbally, moaning, did open her eyes but quickly fell back asleep. Family is at bed side Objective - Vital Signs Vital signs: Vital Signs Temp 100.5 F H 05/08/22 07:31 Pulse 89 05/08/22 07:31 Resp 22 05/08/22 07:31 BP 107/65 05/08/22 07:31 Pulse Ox 92 L 05/08/22 07:31 FiO2 Intake & Output 05/07/22 05/08/22 05/08/22 18:59 06:59 18:59 Intake Total 310 240 Output Total 100 Balance 310 140 Weight 68.039 kg Intake: Oral 0 240 Blood Product 310 Rc As-1 Unit 310 [id number] Output: Urine 100 Other: Voiding Method Indwelling Catheter Indwelling Catheter - Exam WD, anasarca, obtunded, resp heavy, not labored, some moaning with expiration. - Labs CBC & Chem 7: 05/07/22 05:42 05/07/22 10:12 Labs: Abnormal Lab Results - Last 24 Hours (Table) 05/03/22 05/07/22 05/07/22 Range/Units 07:15 10:12 10:12 Blast Cells # (Man) 0.31 H (0) k/uL Sodium 130 L (137-145) mmol/L Carbon Dioxide 12 L (22-30) mmol/L BUN 84 H (7-17) mg/dL Creatinine 4.37 H (0.52-1.04) mg/dL Uric Acid 9.1 H (3.7-7.4) mg/dL Calcium 6.1 L* (8.4-10.2) mg/dL Phosphorus 6.9 H (2.5-4.5) mg/dL Total Bilirubin 1.5 H (0.2-1.3) mg/dL AST 204 H (14-36) U/L ALT 54 H (4-34) U/L Alkaline Phosphatase 802 H (38-126) U/L Lactate Dehydrogenase 00765 H (313-618) U/L Total Protein 3.9 L (6.3-8.2) g/dL Albumin 2.0 L (3.5-5.0) g/dL Crossmatch See Detail Microbiology - Last 24 Hours (Table) 05/03/22 15:29 Blood Culture - Preliminary Blood No Growth after 96 hours 05/03/22 14:58 Blood Culture - Preliminary Blood No Growth after 96 hours Assessment and Plan (1) Tumor lysis syndrome following antineoplastic drug therapy Current Visit: Yes Status: Acute Priority: High Code(s): E88.3 - TUMOR LYSIS SYNDROME; T45.1X5A - ADVERSE EFFECT OF ANTINEOPLASTIC AND IMMUNOSUP DRUGS, INIT SNOMED Code(s): 257902469 (2) Non-Hodgkin lymphoma Current Visit: Yes Status: Chronic Priority: High Code(s): C85.90 - NON- HODGKIN LYMPHOMA, UNSPECIFIED, UNSPECIFIED SITE SNOMED Code(s): 046056298 (3) Bicytopenia Current Visit: Yes Status: Acute Priority: High Code(s): D75.89 - OTHER SPECIFIED DISEASES OF BLOOD AND BLOOD-FORMING ORGANS SNOMED Code(s): 23227769 (4) Deep vein thrombosis, upper right extremity Current Visit: Yes Status: Acute Priority: High Code(s): I82.621 - ACUTE EMBOLISM AND THROMBOSIS OF DEEP VEINS OF R UP EXTREM SNOMED Code(s): 364158769 Plan: Tumor lysis syndrome status post first round of monjuvi and revlimid treatment for relapsed refractory diffuse large B-cell lymphoma. Patient has been hospitalized and being treated for same. She initially was improving but unfortunately, she began to decline. Imaging showing progression of lymphadenopathy. Patient's kidney function has declined, LDH increasing incrementally. Her labs remained low, she is transfusion dependent. Patient's mental status has also declined. Discussed with the patient's sister at the bedside poor prognosis, progressive disease, inability of treatment to provide any meaningful remission, patient's poor performance status and not being a candidate for any further therapy. Patient's family understood the discussion. Recommendation was for hospice. Patient's family is in agreement with the same. Attempted to arouse the patient to discuss but, she was unable to respond. Discussed the case with palliative care LOG WASHER. Discussed the case with nursing. We are available if there are any further questions. Doctor attests: I performed a history and physical examination of this patient, developed impression and plan of care. Discussed with dictator. I agree with dictators note, documented as a scribe. Time with Patient: Greater than 30 (Counseling and coordinating care)
[2022-05-08 11:25] LABS: ALT 61 U/L (8-44); AST 271 U/L (13-35); African American GFR (CKD) 9.4 (60.0-200.0); Albumin 1.8 g/dL (3.8-4.9); Albumin/Globulin Ratio 0.98 (1.60-3.17); Alkaline Phosphatase 865 U/L (41-126); BUN/Creat Ratio 18.96 Ratio (12.00-20.00); Blood Urea Nitrogen 90.8 mg/dL (9.0-27.0); Calcium 6.1 mg/dL (8.7-10.3); Carbon Dioxide 14.9 mmol/L (20.0-27.5); Chloride 96 mmol/L (96-109); Globulin 1.8 g/dL (1.6-3.3); Glucose 99 mg/dL (70-110); LDH >2500 U/L (120-246); Non-African American GFR(CKD) 8.1 (60.0-200.0); Potassium 5.1 mmol/L (3.5-5.5); Sodium 131 mmol/L (135-145); Total Protein 3.6 g/dL (6.2-8.2)
--- NOTE | 2022-05-08 11:43 | P.PN ---
Subjective Progress Note Date: 05/08/22 Appears to be comfortable. Unresponsive. Family at bedside. Objective - Vital Signs Vital signs: Vital Signs Temp 100.5 F H 05/08/22 07:31 Pulse 89 05/08/22 07:31 Resp 22 05/08/22 07:31 BP 107/65 05/08/22 07:31 Pulse Ox 92 L 05/08/22 07:31 FiO2 Intake & Output 05/07/22 05/08/22 05/08/22 18:59 06:59 18:59 Intake Total 310 240 Output Total 100 Balance 310 140 Weight 68.039 kg Intake: Oral 0 240 Blood Product 310 Rc As-1 Unit 310 [id number] Output: Urine 100 Other: Voiding Method Indwelling Catheter Indwelling Catheter - Exam Constitutional: Comfortable Eyes:Anicteric sclerae, moist conjunctiva, no lid-lag Lungs: Coarse BS BL Cardiovascular: Heart regular in rate and rhythm, No murmurs, gallops, or rubs. 2-3+ pitting edema BL LE. Abdominal: Soft, Nontender, edematous Psychiatric: Sleeping Neuro: Unable to perform due to decreased level of consciousness - Labs CBC & Chem 7: 05/07/22 05:42 05/08/22 06:18 Labs: Abnormal Lab Results - Last 24 Hours (Table) 05/03/22 05/07/22 05/07/22 Range/Units 07:15 10:12 10:12 Blast Cells # (Man) 0.31 H (0) k/uL Sodium (135-145) mmol/L Carbon Dioxide (20.0-27.5) mmol/L Anion Gap (10.00-18.00) mmol/L BUN (9.0-27.0) mg/dL Creatinine (0.6-1.5) mg/dL Est GFR (CKD-EPI)AfAm (60.0-200.0) Est GFR (CKD-EPI)NonAf (60.0-200.0) Uric Acid (2.9-7.7) mg/dL Calcium (8.7-10.3) mg/dL Phosphorus (2.4-5.1) mg/dL AST (13-35) U/L ALT (8-44) U/L Alkaline Phosphatase (41-126) U/L Lactate Dehydrogenase 91888 H (313-618) U/L Total Protein (6.2-8.2) g/dL Albumin (3.8-4.9) g/dL Albumin/Globulin Ratio (1.60-3.17) g/dL Crossmatch See Detail 05/08/22 Range/Units 06:18 Blast Cells # (Man) (0) k/uL Sodium 131 L (135-145) mmol/L Carbon Dioxide 14.9 L (20.0-27.5) mmol/L Anion Gap 20.00 H (10.00-18.00) mmol/L BUN 90.8 H (9.0-27.0) mg/dL Creatinine 4.8 H (0.6-1.5) mg/dL Est GFR (CKD-EPI)AfAm 9.4 L (60.0-200.0) Est GFR (CKD-EPI)NonAf 8.1 L (60.0-200.0) Uric Acid 10.0 H (2.9-7.7) mg/dL Calcium 6.1 L* (8.7-10.3) mg/dL Phosphorus 6.5 H (2.4-5.1) mg/dL AST 271 H (13-35) U/L ALT 61 H (8-44) U/L Alkaline Phosphatase 865 H (41-126) U/L Lactate Dehydrogenase >2500 H (313-618) U/L Total Protein 3.6 L (6.2-8.2) g/dL Albumin 1.8 L (3.8-4.9) g/dL Albumin/Globulin Ratio 0.98 L (1.60-3.17) g/dL Crossmatch Microbiology - Last 24 Hours (Table) 05/03/22 15:29 Blood Culture - Preliminary Blood No Growth after 96 hours 05/03/22 14:58 Blood Culture - Preliminary Blood No Growth after 96 hours Assessment and Plan Plan: Altered mental status -Acute change in mentation -CT head negative for acute changes -Patient appropriate for palliative and hospice care Acute renal failure Metabolic acidosis -Prerenal -Renal and bladder US negative for obstruction or hydronephrosis Anemia Thrombocytopenia -Suspect due to chemotherapy and lymphoma with a component of iron deficiency. 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 Hypocalcemia Fever -Possible related to underlying malignancy or DVT DVT Generalized weakness secondary to chemotherapy Elevated LFTs Elevated alkaline phosphatase -Right upper quadrant ultrasound showing some cholelithiasis -CTAP shows splenomegaly Systolic CHF exacerbation Non-Hodgkin lymphoma on active chemotherapy Coronary disease status post recent stent Hypertension Comfort Care only Discussed with patient's family at bedside.
[2022-05-08 11:59] LABS: HCT 25.6 % (37.2-46.3); HGB 8.3 g/dL (12.0-15.0); MCH 28.3 pg (27.0-32.0); MCHC 32.4 g/dL (32.0-37.0); MCV 87.4 fL (80.0-97.0); NRBC Per 100 WBC 3.7 /100 WBCS (0.0-0.0); Platelet Count 20 X 10*3/uL (140-440); RBC 2.93 X 10*6/uL (4.10-5.20); RDW 17.7 % (11.5-14.5); WBC 11.19 X 10*3/uL (4.50-10.00)
[2022-05-08 12:00] LABS: Basophils # (M) 0 X 10*3/uL (0.00-0.10); Blast Cells # (M) 0.22 k/uL (0); Eosinophils # (M) 0.45 X 10*3/uL (0.04-0.35); Lymphocytes # (M) 3.58 X 10*3/uL (0.90-5.00); Monocytes # (M) 0.67 X 10*3/uL (0.20-1.00); Neutrophils # (M) 6.27 X 10*3/uL (2.00-8.90); Neutrophils % (M) 56 %
--- NOTE | 2022-05-08 12:51 | P.CONS ---
History of Present Illness - Reason for Consult Consult date: 05/08/22 Goals of care Requesting physician: aNyana Joyner - Chief Complaint generalized weakness - History of Present Illness The patient is a 77-year-old female with a past medical history significant for Hodgkin lymphoma, coronary artery disease with recent PTCA and stent placement, hypertension hyperlipidemia presented to the hospital about on 04/23/22 for evaluation of generalized weakness 1 week, patient was diagnosed with possible dehydration has been rehydrated with evidence of hypercalcemia and anemia and is being managed by the admitting as well as oncology and nephrology team. Per oncology, the patient now is experiencing tumor lysis syndrome status post first round of monjuvi and revlimid treatment for relapsed refractory diffuse large B- cell lymphoma. Patient has been hospitalized and being treated for same. She initially was improving but unfortunately, she began to decline. Imaging showing progression of lymphadenopathy. Patient's kidney function has declined, LDH increasing incrementally. Her labs remained low, she is transfusion dependent. Patient's mental status has also declined. They discussed with the patient's sister at the bedside poor prognosis, progressive disease, inability of treatment to provide any meaningful remission, patient's poor performance status and not being a candidate for any further therapy. Review of Systems ROS unobtainable: due to mental status Past Medical History Past Medical History: Cancer Additional Past Medical History / Comment(s): Hodgkins Lymphoma, had chemo X2, last chemo . History of Any Multi-Drug Resistant Organisms: None Reported Past Surgical History: No Surgical Hx Reported Additional Past Surgical History / Comment(s): Colonoscopy, port a catheter insertion, bilateral neck biopsies, lumbar puncture with intrahecal chemo, bone marrow biopsy, bilateral cataracts removed with lens implants. Past Anesthesia/Blood Transfusion Reactions: No Reported Reaction Additional Past Anesthesia/Blood Transfusion Reaction / Comm: NO PRIOR SX HX Date of Last Stent Placement:: 01/17/22 Past Psychological History: No Psychological Hx Reported Smoking Status: Never smoker - Past Family History Mother Family Medical History: No Reported History Father Family Medical History: Congestive Heart Failure (CHF) Additional Family Medical History / Comment(s): Father of CHF at the age of 89 yrs. Medications and Allergies Home Medications Medication Instructions Recorded Confirmed Type Aspirin 81 mg PO DAILY #90 tab 01/18/22 04/23/22 Rx Atorvastatin [Lipitor] 80 mg PO HS #90 tab 01/18/22 04/23/22 Rx Metoprolol Tartrate [Lopressor] 25 mg PO BID #180 tab 01/18/22 04/23/22 Rx Nitroglycerin Sl Tabs [Nitrostat] 0.4 mg SUBLINGUAL Q5M PRN #100 tab 01/18/22 04/23/22 Rx Furosemide [Lasix] 40 mg PO DIRECTED 30 Days 05/04/22 Rx tablet Lidocaine Viscous 2% [Xylocaine 15 ml PO TID ml 05/04/22 Rx Viscous] Midodrine [ProAmatine] 5 mg PO AC-TID #0 tab 05/04/22 Rx Cbfwv-Cci-Wqlh 278-164-250 mg 1 each PO TID packet 05/04/22 Rx [Neutra-Phos Packet] Sennosides-Docusate Sodium 1 each PO BID tab 05/04/22 Rx [Senokot-S] allopurinoL [Zyloprim] 100 mg PO DAILY tab 05/04/22 Rx Allergies Allergy/AdvReac Type Severity Reaction Status Date / Time No Known Allergies Allergy Verified 04/23/22 12:38 Physical Exam Vitals: Vital Signs Temp Pulse Pulse Pulse Resp BP BP 05/08/22 07:31 100.5 F H 89 22 107/65 05/08/22 02:03 98.1 F 83 16 114/64 05/07/22 20:00 75 15 05/07/22 19:17 98.6 F 75 15 106/61 05/07/22 15:38 97.6 F 82 16 107/65 05/07/22 14:00 98.5 F 76 78 22 106/69 120/73 05/07/22 13:39 97.8 F 80 16 98/51 05/07/22 13:30 97.8 F 78 18 108/67 05/07/22 13:20 97.8 F 76 18 98/51 Pulse Ox 05/08/22 07:31 92 L 05/08/22 02:03 92 L 05/07/22 20:00 05/07/22 19:17 95 05/07/22 15:38 96 05/07/22 14:00 96 05/07/22 13:39 96 05/07/22 13:30 97 05/07/22 13:20 95 Intake and Output 05/07/22 05/08/2205/08/22 22:59 06:59 14:59 Intake Total 310 240 Output Total 100 Balance 310 140 Intake: Oral 0 240 Blood Product 310 Rc As-1 Unit 310 [id number] Output: Urine 100 Other: Voiding Method Indwelling Catheter Indwelling Catheter General: Mild respiratory distress CV: Heart regular in rate and rhythm positive S1 and S2. Peripheral pulses equal. 2/4 Lungs: Diminshed throughout, mildly labored respirations with some moaning upon expiration. 3l NC Abdomen/GI: Distended and firm : Grace catheter in place draining clear yellow urine Musculoskeletal/ Extremities: Generalized weakness Vascular: Radial pulses equal. 2/4.Diffuse anasarca Skin: warma and dry. No rash. Neurologic: Obtunded Results CBC & Chem 7: 05/08/22 06:18 05/08/22 06:18 Labs: Abnormal Lab Results - Last 24 Hours (Table) 05/03/22 05/07/22 05/08/22 Range/Units 07:15 10:12 06:18 WBC (4.50-10.00) X 10*3/uL RBC (4.10-5.20) X 10*6/uL Hgb (12.0-15.0) g/dL Hct (37.2-46.3) % RDW (11.5-14.5) % Plt Count (140-440) X 10*3/uL Plt Count Comment Absolute Nucleated RBC (0.00-0.00) X 10*3/uL Blast Cells % (0-0) % Eosinophils # (Manual) (0.04-0.35) X 10*3/uL Blast Cells # (Man) 0.31 H (0) k/uL NRBC/100 WBC Diff (0.0-0.0) /100 WBCS Sodium 131 L (135-145) mmol/L Carbon Dioxide 14.9 L (20.0-27.5) mmol/L Anion Gap 20.00 H (10.00-18.00) mmol/L BUN 90.8 H (9.0-27.0) mg/dL Creatinine 4.8 H (0.6-1.5) mg/dL Est GFR (CKD-EPI)AfAm 9.4 L (60.0-200.0) Est GFR (CKD-EPI)NonAf 8.1 L (60.0-200.0) Uric Acid 10.0 H (2.9-7.7) mg/dL Calcium 6.1 L* (8.7-10.3) mg/dL Phosphorus 6.5 H (2.4-5.1) mg/dL AST 271 H (13-35) U/L ALT 61 H (8-44) U/L Alkaline Phosphatase 865 H (41-126) U/L Lactate Dehydrogenase >2500 H (120-246) U/L Total Protein 3.6 L (6.2-8.2) g/dL Albumin 1.8 L (3.8-4.9) g/dL Albumin/Globulin Ratio 0.98 L (1.60-3.17) g/dL Crossmatch See Detail 05/08/22 Range/Units 06:18 WBC 11.19 H (4.50-10.00) X 10*3/uL RBC 2.93 L (4.10-5.20) X 10*6/uL Hgb 8.3 L (12.0-15.0) g/dL Hct 25.6 L (37.2-46.3) % RDW 17.7 H (11.5-14.5) % Plt Count 20 L (140-440) X 10*3/uL Plt Count Comment A Absolute Nucleated RBC 0.41 H (0.00-0.00) X 10*3/uL Blast Cells % 2 H* (0-0) % Eosinophils # (Manual) 0.45 H (0.04-0.35) X 10*3/uL Blast Cells # (Man) (0) k/uL NRBC/100 WBC Diff 3.7 H (0.0-0.0) /100 WBCS Sodium (135-145) mmol/L Carbon Dioxide (20.0-27.5) mmol/L Anion Gap (10.00-18.00) mmol/L BUN (9.0-27.0) mg/dL Creatinine (0.6-1.5) mg/dL Est GFR (CKD-EPI)AfAm (60.0-200.0) Est GFR (CKD-EPI)NonAf (60.0-200.0) Uric Acid (2.9-7.7) mg/dL Calcium (8.7-10.3) mg/dL Phosphorus (2.4-5.1) mg/dL AST (13-35) U/L ALT (8-44) U/L Alkaline Phosphatase (41-126) U/L Lactate Dehydrogenase (120-246) U/L Total Protein (6.2-8.2) g/dL Albumin (3.8-4.9) g/dL Albumin/Globulin Ratio (1.60-3.17) g/dL Crossmatch Microbiology - Last 24 Hours (Table) 05/03/22 15:29 Blood Culture - Preliminary Blood No Growth after 96 hours 05/03/22 14:58 Blood Culture - Preliminary Blood No Growth after [address] scan - abdomen: report reviewed CT Scan - head: report reviewed Assessment and Plan Assessment: Social * Occupation - Retired * Marital status - * Children/grandchildren - No children. She has 1 sister and 1 brother Spiritual/Cultural * A spiritual person - Yes * Muslim - Roman Catholic, Offered to contact lean facilitator. Patient's sister stated a lean facilitator already came to see patient last night. Psychological/Emotional * Insight and judgment - Not intact * Good support system - Family * Patients goals - DENYS * Frequent hospitalizations - Yes Symptoms * Pain - CPOT 2 * SOB - Yes breathing slightly labored with moaning * N/V - No * Anxiety - DENYS * Depression - DENYS * Confusion - DENYS * Agitation - No * Hallucinations - DENYS * Appetite/weight loss - NPO * Dysphagia - NPO * Constipation - LBM 05/06 Plan: Summary/Goals - The patient is resting in bed and appears fairly comfortable.Met with patient's sister, [id number], and friend at bedside. Palliative care and hospice philosophies and services explained in detail. The patient's sister stated that they have already talked to the oncology team and understand her prognosis. They had several questions regarding hospice. All questions answered. They stated they have decided to make her comfortable and would like to pursue inpatient hospice. Hospice team notified. Emotional support given. Recommendations - Hospice GIP Code Status - DNR Thank you for this consult Adrianne Mathis [facility] Palliative Care [facility] [id number] Email: [email or web address] Time with Patient: Greater than 30
--- NOTE | 2022-05-08 14:25 | P.DS ---
Providers Date of admission: 04/23/22 13:14 Expected date of discharge: 05/08/22 Attending physician: Michael Ramirez MD Consults: 04/23/22 13:14 Consult Physician Urgent Consulting Provider: Aroldo Maradiaga Consult Reason/Comments: Lymphoma Do you want consulting provider notified?: Yes 04/23/22 14:41 Consult Physician Urgent Consulting Provider: Ling Carl Consult Reason/Comments: hypercalcemia, hyponatremia Do you want consulting provider notified?: Yes 04/25/22 12:47 Consult Physician Routine Consulting Provider: Michael Clark Consult Reason/Comments: cad Do you want consulting provider notified?: Yes 05/03/22 13:45 Consult Physician Routine Consulting Provider: Myles Sarmiento Consult Reason/Comments: Fever, lymphoma, DIC Do you want consulting provider notified?: Yes 05/08/22 10:53 Consult to Palliative Care Routine Consulting Provider: Adrianne Mathis Consult Reason/Comments: Hospice inpt Do you want consulting provider notified?: Already Contacted Primary care physician: Quang Henriquez MD Hospital Course: Discharge diagnosis: Tumor lysis syndrome Altered mental status -Acute change in mentation -CT head negative for acute changes -Patient appropriate for palliative and hospice care Acute renal failure Metabolic acidosis -Prerenal -Renal and bladder US negative for obstruction or hydronephrosis Anemia Thrombocytopenia -Suspect due to chemotherapy and lymphoma with a component of iron deficiency. 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 Hypocalcemia Fever with tumor lysis syndrome -Possible related to underlying malignancy or DVT DVT Generalized weakness secondary to chemotherapy Elevated LFTs Elevated alkaline phosphatase -Right upper quadrant ultrasound showing some cholelithiasis -CTAP shows splenomegaly Systolic CHF exacerbation Non-Hodgkin lymphoma on active chemotherapy Coronary disease status post recent stent Hypertension HPI: Patient is a 77-year-old female with a past medical history of Hodgkin's lymphoma, coronary artery disease with recent stent placement, hypertension and hyperlipidemia who presents to the ED with generalized weakness 1 week. Patient's last chemotherapy was about one week ago. She was told on Saturday to come into the oncology clinic for some fluids to help with her weakness. Patient states that over the weekend she was continuing to drink water but was not eating much. Today she states that she fell while walking to the bathroom on her face and was not able to get up. She then called her friend who lives with her and she is brought in by ambulance. Patient also stated that she has been off Lasix for 5 days and her legs are more swollen than usual. In the ED patient was found to have a hemoglobin of 7.7, sodium 124, chloride 91, lactic acid 2.3 calcium 14.1, magnesium 1.4, AST 56 a OT 35 ALP 267, albumin 2.6. Patient was given 1 L fluid bolus and normal saline at 100cc/hour.\ Hospital course and treatment: Patient was admitted to the hospital with altered mental status. She has significant Hodgkin's lymphoma and was evaluated by hematology/oncology. Patient has been experiencing tumor lysis syndrome. Patient initially improved but then deteriorated. Family decided on comfort care. Patient will be discharged to hospice with comfort care. Patient Condition at Discharge: Poor Plan - Discharge Summary Discharge Rx Participant: No New Discharge Prescriptions: New Sennosides-Docusate Sodium [Senokot-S] 1 each PO BID tab allopurinoL [Zyloprim] 100 mg PO DAILY tab Furosemide [Lasix] 40 mg PO DIRECTED 30 Days tablet Bhaag-Vhq-Dpif 278-164-250 mg [Neutra-Phos Packet] 1 each PO TID packet Midodrine [ProAmatine] 5 mg PO AC-TID #0 tab Lidocaine Viscous 2% [Xylocaine Viscous] 15 ml PO TID ml Continue Aspirin 81 mg PO DAILY #90 tab Nitroglycerin Sl Tabs [Nitrostat] 0.4 mg SUBLINGUAL Q5M PRN #100 tab PRN Reason: Chest Pain Atorvastatin [Lipitor] 80 mg PO HS #90 tab Metoprolol Tartrate [Lopressor] 25 mg PO BID #180 tab Discontinued Clopidogrel [Plavix] 75 mg PO DAILY #90 tab Enalapril [Vasotec] 10 mg PO DAILY Losartan [Cozaar] 50 mg PO HS #90 tab Lenalidomide [Revlimid] 10 mg PO DIRECTED Discharge Medication List Aspirin 81 mg PO DAILY #90 tab 01/18/22 [Rx] Atorvastatin [Lipitor] 80 mg PO HS #90 tab 01/18/22 [Rx] Metoprolol Tartrate [Lopressor] 25 mg PO BID #180 tab 01/18/22 [Rx] Nitroglycerin Sl Tabs [Nitrostat] 0.4 mg SUBLINGUAL Q5M PRN #100 tab 01/18/22 [Rx] Furosemide [Lasix] 40 mg PO DIRECTED 30 Days tablet 05/04/22 [Rx] Lidocaine Viscous 2% [Xylocaine Viscous] 15 ml PO TID ml 05/04/22 [Rx] Midodrine [ProAmatine] 5 mg PO AC-TID #0 tab 05/04/22 [Rx] Hwklt-Hcy-Aakb 278-164-250 mg [Neutra-Phos Packet] 1 each PO TID packet 0 05/04/22 [Rx] Sennosides-Docusate Sodium [Senokot-S] 1 each PO BID tab 05/04/22 [Rx] allopurinoL [Zyloprim] 100 mg PO DAILY tab 05/04/22 [Rx] Follow up Appointment(s)/Referral(s): Aroldo Maradiaga MD [STAFF PHYSICIAN] - 05/18/22 8:45 am (Appt is at [facility]) Doug Joyner MD [REFERRING] - 1-2 days Activity/Diet/Wound Care/Special Instructions: HOLD Revlimid until seen by Oncologist Dr. Maradiaga Weekly CBC and BMP and fax to Dr. Maradiaga at [phone] Take Lasix 40 mg PO every Saturday, Saturday and Saturday. Discharge Disposition: HOME WITH HOSPICE
--- NOTE | 2022-05-10 06:27 | CDI ---
Documentation Clarification Form Date: 05/10/2022 06:14:00 AM From: Negin Delgado Phone: Admit Date: 04/23/2022 01:14:00 PM Patient Name: Julia Savage Visit Number: [id number] Discharge Date: 05/08/2022 11:48:00 AM ATTENTION: The Clinical Documentation Specialists (CDI) and [facility] Coding Staff appreciate your assistance in clarifying documentation. Please respond to the clarification below the line at the bottom and electronically sign. The CDI & [facility] Coding staff will review the response and follow-up if needed. Please note: Queries are made part of the Legal Health Record. If you have any questions, please contact the author of this message via ITS. Dr. Rebecca Nelson Tumor lysis syndrome is documented in 04/24 consult and then throughout chart and DCS. Patient admitted on 04/23. Please clarify if Tumor lysis syndrome was present on admission. For each diagnosis, documentation must be clear to determine if the condition was present at the time of the patients inpatient admission or developed during the hospital stay. Additional clarification regarding the POA status of tumor lysis syndrome is requested. History/Risk Factors: NH lymphoma, Clinical Indicators: Adrenal insufficiency, fever, chemotherapy Treatment: Monitor closely Definition of Present on Admission (POA): A diagnosis present at the time the order for admission to inpatient status was written. Please clarify if Tumor lysis syndrome was POA [ ] Y = Yes, the condition was present at the time of the order for inpatient admission. [ ] N = No, the condition was not present at the time of the order for inpatient admission. [ ] W = Clinically undetermined if the condition was present at the time of the order for inpatient admission. MTDD
--- NOTE | 2022-05-15 23:19 | P.PN ---
Subjective Progress Note Date: 05/07/22 Principal diagnosis: Oropharyngeal candidiasis and UTI Patient is a 77 year old female with a past medical history significant for Hodgkin lymphoma: Coronary artery disease admitted to the hospital about 2 weeks ago for generalized weakness and has been treated for possible pneumonia in this patient did have evidence of oropharyngeal candidiasis and possible UTI. On today's evaluation that is 05/07/2022, the patient continues to be afebrile, the patient is more sleepy lethargic today, no vomiting or diarrhea has been reported by the nursing staff patient did not provide any history Objective - Vital Signs Vital signs: Vital Signs Temp 97.9 F 05/07/22 07:18 Pulse 75 05/07/22 07:18 Resp 22 05/07/22 07:18 BP 100/62 05/07/22 07:18 Pulse Ox 93 L 05/07/22 07:18 FiO2 Intake & Output 05/06/22 05/07/22 05/07/22 18:59 06:59 18:59 Intake Total 295 590 Output Total 1 Balance 294 590 Intake: Oral 590 Blood Product 295 Platelet Pheresis Pas 295 Psoralen Unit [id number] Output: Emesis 1 Other: Voiding Method Toilet Diaper Incontinent # Voids 1 2 # Bowel Movements 2 - Exam GENERAL DESCRIPTION: An elderly female up in the chair in no distress RESPIRATORY SYSTEM: Unlabored breathing , decreased breath sounds at bases HEART: S1 S2 regular rate and rhythm , ABDOMEN: Soft , no tenderness EXTREMITIES: No edema feet - Labs CBC & Chem 7: 05/08/22 06:18 05/08/22 06:18 Labs: Abnormal Lab Results - Last 24 Hours (Table) 05/06/22 05/07/22 05/07/22 Range/Units 05:51 05:42 05:42 WBC 11.53 H (4.50-10.00) X 10*3/uL RBC 2.45 L (4.10-5.20) X 10*6/uL Hgb 6.8 L* (12.0-15.0) g/dL Hct 21.7 L (37.2-46.3) % MCHC 31.3 L (32.0-37.0) g/dL RDW 18.4 H (11.5-14.5) % Plt Count 24 L (140-440) X 10*3/uL Absolute Nucleated RBC 0.40 H (0.00-0.00) X 10*3/uL NRBC/100 WBC Diff 3.5 H (0.0-0.0) /100 WBCS Immature Plt Fraction 8.5 H (1.1-6.1) % PT (9.0-12.0) sec INR (<1.2) APTT (22.0-30.0) sec Sodium 130 L 129 L (137-145) mmol/L Carbon Dioxide 12 L 10.6 L (22-30) mmol/L Anion Gap 21.40 H (10.00-18.00) mmol/L BUN 77 H 83.8 H (7-17) mg/dL Creatinine 3.50 H 4.3 H (0.52-1.04) mg/dL Est GFR (CKD-EPI)AfAm 10.7 L (60.0-200.0) Est GFR (CKD-EPI)NonAf 9.2 L (60.0-200.0) Uric Acid (3.7-7.4) mg/dL Calcium 6.6 L 6.3 L* (8.4-10.2) mg/dL Phosphorus (2.5-4.5) mg/dL Total Bilirubin (0.2-1.3) mg/dL AST (14-36) U/L ALT (4-34) U/L Alkaline Phosphatase (38-126) U/L Lactate Dehydrogenase (313-618) U/L Total Protein (6.3-8.2) g/dL Albumin (3.5-5.0) g/dL Crossmatch 05/07/22 05/07/22 05/07/22 Range/Units 10:12 10:12 10:12 WBC (4.50-10.00) X 10*3/uL RBC (4.10-5.20) X 10*6/uL Hgb (12.0-15.0) g/dL Hct (37.2-46.3) % MCHC (32.0-37.0) g/dL RDW (11.5-14.5) % Plt Count (140-440) X 10*3/uL Absolute Nucleated RBC (0.00-0.00) X 10*3/uL NRBC/100 WBC Diff (0.0-0.0) /100 WBCS Immature Plt Fraction (1.1-6.1) % PT 16.3 H (9.0-12.0) sec INR 1.6 H (<1.2) APTT 37.4 H (22.0-30.0) sec Sodium 130 L (137-145) mmol/L Carbon Dioxide 12 L (22-30) mmol/L Anion Gap (10.00-18.00) mmol/L BUN 84 H (7-17) mg/dL Creatinine 4.37 H (0.52-1.04) mg/dL Est GFR (CKD-EPI)AfAm (60.0-200.0) Est GFR (CKD-EPI)NonAf (60.0-200.0) Uric Acid 9.1 H (3.7-7.4) mg/dL Calcium 6.1 L* (8.4-10.2) mg/dL Phosphorus 6.9 H (2.5-4.5) mg/dL Total Bilirubin 1.5 H (0.2-1.3) mg/dL AST 204 H (14-36) U/L ALT 54 H (4-34) U/L Alkaline Phosphatase 802 H (38-126) U/L Lactate Dehydrogenase 28413 H (313-618) U/L Total Protein 3.9 L (6.3-8.2) g/dL Albumin 2.0 L (3.5-5.0) g/dL Crossmatch See Detail Microbiology - Last 24 Hours (Table) 05/03/22 14:58 Blood Culture - Preliminary Blood No Growth after 72 hours 05/03/22 15:29 Blood Culture - Preliminary Blood No Growth after 72 hours Assessment and Plan (1) Fever Status: Acute Code(s): R50.9 - FEVER, UNSPECIFIED SNOMED Code(s): 154539614 Plan: 1patient is a 77-year-old female with a past medical history significant for non-Hodgkin lymphoma with recent chemo as well as recent PTCA and stenting admitted to the hospital about 12 days ago for weakness patient did have an episode of fever on 04/25/2022 for the patient has been treated with cefepime she did have a blood culture on 04/24/2022 as well as 04/25/2020 that has been negative patient currently do not have any obvious focus of infection even if she has pneumonia and UTI patient has received adequate antibiotics for it. 2patient did have extensive thrush and possible oropharyngeal candidiasis, patient to continue with the nystatin swish and swallow and Diflucan. 3the patient urine has been finalized with bimal and the patient is covered with Diflucan, and monitor clinical course closely continue supportive care Time with Patient: Less than 30
== END 2022-05-08 11:48 | disposition hospice, home (50) | DRG 840 ==
LOC: EC 11:27 → 4SSUR 13:14
PROVIDERS: ADMIT Internal Medicine; ATTEND Internal Medicine
PROC: 30233N1 Transfusion of Nonautologous Red Blood Cells into Peripheral Vein, Percutaneous Approach (ICD-10-PCS; 2022-04-23)
PROC: 05HY33Z Insertion of Infusion Device into Upper Vein, Percutaneous Approach (ICD-10-PCS; 2022-05-04)
PROC: 30233R1 Transfusion of Nonautologous Platelets into Peripheral Vein, Percutaneous Approach (ICD-10-PCS; principal; 2022-05-04 18:55)
DX: C82.30 Follicular lymphoma grade IIIa, unspecified site (principal); D65 Disseminated intravascular coagulation [defibrination syndrome]; E88.3 Tumor lysis syndrome; I50.23 Acute on chronic systolic (congestive) heart failure; C83.30 Diffuse large B-cell lymphoma, unspecified site; E22.2 Syndrome of inappropriate secretion of antidiuretic hormone; E87.2 Acidosis; I13.0 Hypertensive heart and chronic kidney disease with heart failure and stage 1 through stage 4 chronic kidney disease, or unspecified chronic kidney disease; I42.9 Cardiomyopathy, unspecified; I47.2 Ventricular tachycardia; I82.A11 Acute embolism and thrombosis of right axillary vein; T82.868A Thrombosis due to vascular prosthetic devices, implants and grafts, initial encounter; B37.0 Candidal stomatitis; N39.0 Urinary tract infection, site not specified; E27.40 Unspecified adrenocortical insufficiency; N17.9 Acute kidney failure, unspecified; D64.9 Anemia, unspecified; E11.22 Type 2 diabetes mellitus with diabetic chronic kidney disease; E78.5 Hyperlipidemia, unspecified; E83.39 Other disorders of phosphorus metabolism; E83.42 Hypomagnesemia; E88.09 Other disorders of plasma-protein metabolism, not elsewhere classified; E83.51 Hypocalcemia; F32.A Depression, unspecified; N18.9 Chronic kidney disease, unspecified; E83.52 Hypercalcemia; E86.0 Dehydration; E86.1 Hypovolemia; E87.6 Hypokalemia; F41.9 Anxiety disorder, unspecified; I25.10 Atherosclerotic heart disease of native coronary artery without angina pectoris; K59.00 Constipation, unspecified; K80.20 Calculus of gallbladder without cholecystitis without obstruction; R29.6 Repeated falls; Z51.5 Encounter for palliative care; Z66 Do not resuscitate; T45.1X5A Adverse effect of antineoplastic and immunosuppressive drugs, initial encounter; R13.10 Dysphagia, unspecified; R00.1 Bradycardia, unspecified; R94.5 Abnormal results of liver function studies; R04.0 Epistaxis; Z91.81 History of falling; Z79.01 Long term (current) use of anticoagulants; Z79.02 Long term (current) use of antithrombotics/antiplatelets; Z79.82 Long term (current) use of aspirin; Z79.899 Other long term (current) drug therapy; Z82.49 Family history of ischemic heart disease and other diseases of the circulatory system; Z95.5 Presence of coronary angioplasty implant and graft; Z28.21 Immunization not carried out because of patient refusal
CPT/HCPCS: 36410; 36415; 36573; 70450; 71045; 71046; 71250; 74176; 76705; 76770; 76937; 80048; 80053; 81001; 82024; 82164; 82306; 82330; 82533; 82607; 82652; 82728; 82746; 83519; 83540; 83550; 83605; 83615; 83735; 83880; 83883; 83930; 83935; 83970; 84100; 84132; 84145; 84165; 84295; 84439; 84443; 84484; 84550; 85025; 85027; 85045; 85384; 85610; 85730; 86140; 86334; 86335; 86850; 86900; 86901; 86920; 87040; 87086; 93005; 93970; 94760; 96361; 96365; 99285

== ENCOUNTER 2022-05-08 11:31 | Inpatient (IN) | payer MEDICAID ==
[2022-05-08] MEDS ORDERED: ACETAMINOPHEN SUPPOSITORY 650 MG SUPP RECTAL PRN (11:33)
[2022-05-08] MEDS ORDERED: GLYCOPYRROLATE 0.2 MG/ML 2 ML VIAL IVP PRN (11:33)
[2022-05-08] MEDS ORDERED: LORazepam 1 MG/0.5 ML VIAL IV PRN (11:33)
[2022-05-08] MEDS ORDERED: ATROPINE OPHTH SOLN 1% 5ML BTL SUBLINGUAL PRN (11:33)
[2022-05-08] MEDS ORDERED: MORPHINE SULFATE 2 MG/ML SYRINGE IV PRN (11:33)
[2022-05-08] MEDS ORDERED: ONDANSETRON 4 MG/2 ML VIAL IVP PRN (11:33)
[2022-05-08] MEDS ORDERED: SCOPOLAMINE 1 MG/72 HR PATCH TRANSDERM SCH (12:00)
[2022-05-08] MEDS: MORPHINE SULFATE (100 MG/2 ML) 100 MG in SODIUM CHLORIDE 0.9% 100 ML IV SCH (12:10)
--- NOTE | 2022-05-08 14:28 | P.HPIM ---
History of Present Illness Chief Complaint: Comfort Care Patient is 77-year-old white female who is being admitted for hospice care. She is unresponsive. Next she appears to be comfortable. Review of Systems ROS unobtainable: due to mental status Past Medical History Past Medical History: Cancer Additional Past Medical History / Comment(s): Hodgkins Lymphoma, had chemo X2, last chemo . History of Any Multi-Drug Resistant Organisms: None Reported Past Surgical History: No Surgical Hx Reported Additional Past Surgical History / Comment(s): Colonoscopy, port a catheter insertion, bilateral neck biopsies, lumbar puncture with intrahecal chemo, bone marrow biopsy, bilateral cataracts removed with lens implants. Past Anesthesia/Blood Transfusion Reactions: No Reported Reaction Additional Past Anesthesia/Blood Transfusion Reaction / Comment(s): NO PRIOR SX HX Date of Last Stent Placement:: 01/17/22 Past Psychological History: No Psychological Hx Reported Smoking Status: Never smoker - Past Family History Mother Family Medical History: No Reported History Father Family Medical History: Congestive Heart Failure (CHF) Additional Family Medical History / Comment(s): Father of CHF at the age of 89 yrs. Medications and Allergies Home Medications Medication Instructions Recorded Confirmed Type Aspirin 81 mg PO DAILY #90 tab 01/18/22 04/23/22 Rx Atorvastatin [Lipitor] 80 mg PO HS #90 tab 01/18/22 04/23/22 Rx Metoprolol Tartrate [Lopressor] 25 mg PO BID #180 tab 01/18/22 04/23/22 Rx Nitroglycerin Sl Tabs [Nitrostat] 0.4 mg SUBLINGUAL Q5M PRN #100 tab 01/18/22 04/23/22 Rx Furosemide [Lasix] 40 mg PO DIRECTED 30 Days 05/04/22 Rx tablet Lidocaine Viscous 2% [Xylocaine 15 ml PO TID ml 05/04/22 Rx Viscous] Midodrine [ProAmatine] 5 mg PO AC-TID #0 tab 05/04/22 Rx Wavco-Tud-Mpqb 278-164-250 mg 1 each PO TID packet 05/04/22 Rx [Neutra-Phos Packet] Sennosides-Docusate Sodium 1 each PO BID tab 05/04/22 Rx [Senokot-S] allopurinoL [Zyloprim] 100 mg PO DAILY tab 05/04/22 Rx Allergies Allergy/AdvReac Type Severity Reaction Status Date / Time No Known Allergies Allergy Verified 04/23/22 12:38 Physical Exam Vitals: Intake and Output 05/07/22 05/08/22 05/08/22 22:59 06:59 14:59 Other: Weight 68 kg Constitutional: Comfortable Eyes:Anicteric sclerae, moist conjunctiva, no lid-lag Lungs: Coarse BS BL Cardiovascular: Heart regular in rate and rhythm, No murmurs, gallops, or rubs. 2-3+ pitting edema BL LE. Abdominal: Soft, Nontender, edematous Psychiatric: Sleeping Neuro: Unable to perform due to decreased level of consciousness Assessment and Plan Plan: Tumor lysis syndrome Altered mental status -Acute change in mentation -CT head negative for acute changes -Patient appropriate for palliative and hospice care Acute renal failure Metabolic acidosis -Prerenal -Renal and bladder US negative for obstruction or hydronephrosis Anemia Thrombocytopenia -Suspect due to chemotherapy and lymphoma with a component of iron deficiency. 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 Admitted for hospice care. Hospice care managing.
[2022-05-08 20:09] VITALS: TEMP 99
[2022-05-08 21:37] VITALS: RESP 10
[2022-05-09] MEDS: MORPHINE SULFATE (100 MG/2 ML) 100 MG in SODIUM CHLORIDE 0.9% 100 ML IV SCH (00:46)
--- NOTE | 2022-05-09 11:43 | P.DS ---
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 She was placed on comfort measures. She subsequently related to multiple medical problems including tumor lysis syndrome acute kidney injury, Hodgkin's lymphoma and thrombocytopenia. She was pronounced 05/08/2022 at 2331 Plan - Discharge Summary New Discharge Prescriptions: No Action Aspirin 81 mg PO DAILY #90 tab Nitroglycerin Sl Tabs [Nitrostat] 0.4 mg SUBLINGUAL Q5M PRN #100 tab PRN Reason: Chest Pain Sennosides-Docusate Sodium [Senokot-S] 1 each PO BID tab allopurinoL [Zyloprim] 100 mg PO DAILY tab Atorvastatin [Lipitor] 80 mg PO HS #90 tab Metoprolol Tartrate [Lopressor] 25 mg PO BID #180 tab Furosemide [Lasix] 40 mg PO DIRECTED 30 Days tablet Hyqne-Hzu-Qxtr 278-164-250 mg [Neutra-Phos Packet] 1 each PO TID packet Midodrine [ProAmatine] 5 mg PO AC-TID #0 tab Lidocaine Viscous 2% [Xylocaine Viscous] 15 ml PO TID ml Discharge Medication List Aspirin 81 mg PO DAILY #90 tab 01/18/22 [Rx] Atorvastatin [Lipitor] 80 mg PO HS #90 tab 01/18/22 [Rx] Metoprolol Tartrate [Lopressor] 25 mg PO BID #180 tab 01/18/22 [Rx] Nitroglycerin Sl Tabs [Nitrostat] 0.4 mg SUBLINGUAL Q5M PRN #100 tab 01/18/22 [Rx] Furosemide [Lasix] 40 mg PO DIRECTED 30 Days tablet 05/04/22 [Rx] Lidocaine Viscous 2% [Xylocaine Viscous] 15 ml PO TID ml 05/04/22 [Rx] Midodrine [ProAmatine] 5 mg PO AC-TID #0 tab 05/04/22 [Rx] Endsv-Xlp-Iatt 278-164-250 mg [Neutra-Phos Packet] 1 each PO TID packet 05/04/22 [Rx] Sennosides-Docusate Sodium [Senokot-S] 1 each PO BID tab 05/04/22 [Rx] allopurinoL [Zyloprim] 100 mg PO DAILY tab 05/04/22 [Rx] Discharge Disposition: - Preliminary Cause of Preliminary Cause of : Hodgkin's lymphoma
== END 2022-05-08 23:31 | disposition expired | DRG 951 ==
LOC: 4SSUR 11:54
PROVIDERS: ADMIT Internal Medicine; ATTEND Internal Medicine
DX: Z51.5 Encounter for palliative care (principal); E88.3 Tumor lysis syndrome; I50.23 Acute on chronic systolic (congestive) heart failure; N17.9 Acute kidney failure, unspecified; E87.2 Acidosis; E22.2 Syndrome of inappropriate secretion of antidiuretic hormone; I82.409 Acute embolism and thrombosis of unspecified deep veins of unspecified lower extremity; C81.90 Hodgkin lymphoma, unspecified, unspecified site; R41.82 Altered mental status, unspecified; D64.81 Anemia due to antineoplastic chemotherapy; D69.59 Other secondary thrombocytopenia; T45.1X5A Adverse effect of antineoplastic and immunosuppressive drugs, initial encounter; D50.9 Iron deficiency anemia, unspecified; E83.51 Hypocalcemia; Z66 Do not resuscitate; R74.01 Elevation of levels of liver transaminase levels; R74.8 Abnormal levels of other serum enzymes; K80.20 Calculus of gallbladder without cholecystitis without obstruction; R16.1 Splenomegaly, not elsewhere classified; I11.0 Hypertensive heart disease with heart failure; I25.10 Atherosclerotic heart disease of native coronary artery without angina pectoris; Z79.899 Other long term (current) drug therapy; Z95.5 Presence of coronary angioplasty implant and graft; Z79.82 Long term (current) use of aspirin; Z82.49 Family history of ischemic heart disease and other diseases of the circulatory system